=== PATIENT | male | born 1980 | race American Indian/Alaskan Native ===

== ENCOUNTER 2016-08-08 17:19 | Inpatient (IN) | payer MEDICARE, OTHER ==
[2016-08-08 19:10] VITALS: BMI 36.8
[2016-08-08] MEDS ORDERED: Albuterol-Ipratrop 3 mg / 0.5 (3 ml) UD INH PRN (23:08)
[2016-08-08] MEDS ORDERED: Oxycodone/Acetaminophen 5/325 mg Tab PO PRN (23:13)
--- NOTE | 2016-08-08 23:48 | CP.PCM.HP ---
History of Present Illness - History of Present Illness History of Present Illness: 35 yo with hx of CKD Dailysis admitted to acute rehab following bilateral Knee surgery Present on Admission - Present on Admission Any Indicators Present on Admission: No Past Patient History - Past Medical History & Family History Past Medical History?: Yes - Past Social History Smoking Status: Never Smoked - CARDIAC Hx Cardiac Disorders: Yes (Cardiomypathy) Hx Hypertension: Yes - PULMONARY Hx Asthma: Yes (last attack jan 2013) - NEUROLOGICAL Hx Neurological Disorder: No - HEENT Hx HEENT Problems: No - RENAL Hx Renal Failure: Yes (ESRD, CKD) - ENDOCRINE/METABOLIC Hx Endocrine Disorders: Yes - HEMATOLOGICAL/ONCOLOGICAL Hx Blood Disorders: Yes Hx Blood Transfusions: Yes (2010) - INTEGUMENTARY Hx Dermatological Problems: No - MUSCULOSKELETAL/RHEUMATOLOGICAL Hx Falls: No - GASTROINTESTINAL Hx Gastrointestinal Disorders: No - GENITOURINARY/GYNECOLOGICAL Hx Genitourinary Disorders: Yes Other/Comment: dialysis pt.doesn't make urine - PSYCHIATRIC Hx Substance Use: No - SURGICAL HISTORY Hx Surgeries: Yes Hx Arteriovenous Shunt: Yes (left upper arm 2010) Hx Vascular Access Device: Yes (2010, removed 2 months later) - ANESTHESIA Hx Anesthesia: Yes Hx Anesthesia Reactions: No Hx Malignant Hyperthermia: No Meds Allergies/Adverse Reactions: Allergies Allergy/AdvReac Type Severity Reaction Status Date / Time No Known Allergies Allergy Verified 08/02/16 11:19 Physical Exam - Respiratory Exam Respiratory Exam: NORMAL BREATHING PATTERN - Cardiovascular Exam Cardiovascular Exam: REGULAR RHYTHM - GI/Abdominal Exam GI & Abdominal Exam: Normal Bowel Sounds Assessment & Plan - Assessment and Plan (Free Text) Assessment: S/P bilateral Knee surgery acute rehab CKD HTN Dailysis Nephrology - Date & Time Date: 08/08/16 Time: 22:22
[2016-08-09] MEDS ORDERED: Oxycodone/Acetaminophen 5/325 mg Tab PO ONE (04:34)
[2016-08-09] MEDS ORDERED: SEVELAMER CARBONATE 2400 MG PO SCH (08:00)
[2016-08-09] MEDS: Multivitamin Vitamin B Complex (Nephro-Vite) Tab PO SCH (08:33)
[2016-08-09] MEDS: Oxycodone/Acetaminophen 5/325 mg Tab PO PRN ×2 (08:41→16:47)
[2016-08-09] MEDS: EPOETIN ALFA 10,000 UNIT/ML ML IV SCH ×3 (09:00→20:56)
--- NOTE | 2016-08-09 10:45 | CP.PCM.CON ---
History of Present Illness - History of Present Illness History of Present Illness: THE PATIENT IS A 35 YEAR OLD MALE ADMITTED TO ACUTE REHAB AT [facility] FOLLOWING BILATERAL KNEE TENDON SURGERY EARLIER THIS WEEK AT [facility]. HE HAS A HISTORY OF HYPERTENSION, CARDIOMYOPATHY AND ESRD ON HD. HE STATES THAT HE DEVELOPED CARDIOMYOPATHY FROM HYPERTENSION BEFORE IT WAS DIAGNOSED AND TREATED. HE DENIES CHEST PAIN OR CAD HISTORY. HE BELIEVES HIS LVEF IS ~ 30% AND HE HAD A DEFIBRILLATOR IMPLANTED IN 2016. CARDIOLOGY WAS ASKED TO SEE AND FOLLOW HIM IN ACUTE REHAB. Past Patient History - Past Medical History & Family History Past Medical History?: Yes - Past Social History Smoking Status: Never Smoked - CARDIAC Hx Cardiac Disorders: Yes (Cardiomypathy) Hx Hypertension: Yes - PULMONARY Hx Asthma: Yes (last attack jan 2013) - NEUROLOGICAL Hx Neurological Disorder: No - HEENT Hx HEENT Problems: No - RENAL Hx Renal Failure: Yes (ESRD, CKD) - ENDOCRINE/METABOLIC Hx Endocrine Disorders: Yes - HEMATOLOGICAL/ONCOLOGICAL Hx Blood Disorders: Yes Hx Blood Transfusions: Yes (2010) - INTEGUMENTARY Hx Dermatological Problems: No - MUSCULOSKELETAL/RHEUMATOLOGICAL Hx Falls: No - GASTROINTESTINAL Hx Gastrointestinal Disorders: No - GENITOURINARY/GYNECOLOGICAL Hx Genitourinary Disorders: Yes Other/Comment: dialysis pt.doesn't make urine - PSYCHIATRIC Hx Substance Use: No - SURGICAL HISTORY Hx Surgeries: Yes Hx Arteriovenous Shunt: Yes (left upper arm 2010) Hx Vascular Access Device: Yes (2010, removed 2 months later) - ANESTHESIA Hx Anesthesia: Yes Hx Anesthesia Reactions: No Hx Malignant Hyperthermia: No Meds Allergies/Adverse Reactions: Allergies Allergy/AdvReac Type Severity Reaction Status Date / Time No Known Allergies Allergy Verified 08/02/16 11:19 - Medications Medications: Current Medications Albuterol/Ipratropium (Duoneb 3 Mg/0.5 Mg (3 Ml) Ud) 3 ml INH RQ6 PRN PRN Reason: Shortness of Breath Ascorbic Acid (Vitamin C 500 Mg Tab) 500 mg PO DAILY [facility] Last Admin: 08/09/16 08:34 Dose: 500 mg Cinacalcet (Sensipar) 30 mg PO DAILY [facility] Last Admin: 08/09/16 08:34 Dose: 30 mg Epoetin René ([facility]) [facility] Famotidine (Pepcid) 20 mg PO DAILY [facility] Last Admin: 08/09/16 08:36 Dose: 20 mg Isosorbide Mononitrate (Imdur) 30 mg PO DAILY [facility] Last Admin: 08/09/16 08:33 Dose: 30 mg Lisinopril (Zestril) 10 mg PO DAILY [facility] Last Admin: 08/09/16 08:34 Dose: 10 mg Metoprolol Tartrate (Lopressor) 25 mg PO BID [facility] Oxycodone/Acetaminophen (Percocet 5/325 Mg Tab) 1 tab PO Q8 PRN PRN Reason: for pain scale 5-10 Stop: 08/11/16 21:21 Last Admin: 08/09/16 08:41 Dose: 1 tab Sevelamer HCl (Renagel) 2,400 mg PO TIDCC [facility] Last Admin: 08/09/16 08:34 Dose: 2,400 mg Tramadol HCl (Ultram) 50 mg PO Q12 [facility] Last Admin: 08/09/16 08:36 Dose: Not Given Vitamin B Complex/Vit C/Folic Acid (Nephro-Krissy) 1 tab PO DAILY [facility] Last Admin: 08/09/16 08:33 Dose: 1 tab Physical Exam - Respiratory Exam Respiratory Exam: Clear to Auscultation Bilateral - Cardiovascular Exam Cardiovascular Exam: REGULAR RHYTHM, +S1, +S2 Additional comments: 2/6 SYSTOLIC MURMUR AT THE LSB Results - Vital Signs Recent Vital Signs: Last Vital Signs Temp 98.6 F 08/08/16 19:30 Pulse 89 08/09/16 08:34 Resp 20 08/08/16 19:30 BP 136/85 08/09/16 08:34 Pulse Ox 99 08/08/16 19:30 Assessment & Plan - Assessment and Plan (Free Text) Assessment: S/P BILATERAL KNEE LIGAMENT SURGERY CARDIOMYPPATHY HYPERTENSION CRF ON HD Plan: CONTINUE LISINOPRIL, METOPROLOL, ISOSORBIDE 12 LEAD EKG OK TO PROCEED WITH ACUTE REHAB FROM [facility]
--- NOTE | 2016-08-09 13:43 | CP.PCM.CON ---
History of Present Illness - History of Present Illness History of Present Illness: 35 YEAR OLD MALE ADMITTED TO ACUTE REHAB AT [facility] FOLLOWING BILATERAL KNEE TENDON REPAIR FOR RUPTURED PATELLAR TENDONS REFERRED FOR ID EVAL FOR + BLOOD C/S AT DENIES FEVER CHILLS NO PAIN AT LEFT ARM AV FISTULA SITE AND NO PAIN OVER DEFIBRILLATOR WOUNDS ARE DRY STARTED ON IV ANTIBIOTICS REPEAT CULTURES PENDING HISTORY OF HYPERTENSION, CARDIOMYOPATHY AND ESRD ON HD. HAD A DEFIBRILLATOR IMPLANTED IN 2016. Review of Systems - Constitutional Constitutional: As Per HPI - EENT Eyes: absent: As Per HPI, Blind Spots, Blurred Vision, Change in Vision, Decreased Night Vision, Diplopia, Discharge, Dry Eye, Exophthalmos, Floaters, Irritation, Itchy Eyes, Loss of Peripheral Vision, Pain, Photophobia, Requires Corrective Lenses, Sees Flashes, Spots in Vision, Tunnel Vision, Other Visual Disturbances, Loss of Vision, Other Ears: absent: As Per HPI, Decreased Hearing, Ear Discharge, Ear Pain, Tinnitus, Abnormal Hearing, Disequilibrium, Dizziness, Other Nose/Mouth/Throat: absent: As Per HPI, Epistaxis, Nasal Congestion, Nasal Discharge, Nasal Obstruction, Nasal Trauma, Nose Pain, Post Nasal Drip, Sinus Pain, Sinus Pressure, Bleeding Gums, Change in Voice, Dental Pain, Dry Mouth, Dysphagia, Halitosis, Hoarsness, Lip Swelling, Mouth Lesions, Mouth Pain, Odynophagia, Sore Throat, Throat Swelling, Tongue Swelling, Facial Pain, Neck Pain, Neck Mass, Other - Cardiovascular Cardiovascular: As Per HPI - Respiratory Respiratory: absent: As Per HPI, Cough, Dyspnea, Hemoptysis, Dyspnea on Exertion , Wheezing, Snoring, Stridor, Pain on Inspiration, Chest Congestion, Excessive Mucous Production, Change in Mucous Color, Pain with Coughing, Other - Gastrointestinal Gastrointestinal: absent: As Per HPI, Abdominal Pain, Belching, Bloating, Change in Bowel Habits, Change in Stool Character, Coffee Ground Emesis, Constipation, Cramping, Diarrhea, Dyspepsia, Dysphagia, Early Satiety, Excessive Flatus, Fecal Incontinence, Heartburn, Hematemesis, Hematochezia, Loose Stools, Melena, Nausea, Odynophagia, Temesmus, Vomiting, Other - Genitourinary Genitourinary: absent: As Per HPI, Change in Urinary Stream, Difficulty Urinating, Dysuria, Flank Pain, Hematuria, Pyuria, Nocturia, Urinary Incontinence, Urinary Frequency, Urinary Hesitance, Urinary Urgency, Voiding Freq/Small Amts, Freq UTI, Hx Renal/Bladder Calculi, Hx /Renal Surgery, Bladder Distension, Other - Musculoskeletal Musculoskeletal: As Per HPI - Integumentary Integumentary: absent: As Per HPI, Acne, Alopecia, Bleeding Lesions, Change in Hair, Change in Nails, Change in Pigmentation, Changing Lesions, Dry Skin, Erythema, Furuncle, Hirsutism, Lesions, New Lesions, Non-Healing Lesions, Photosensitivity, Pruritus, Rash, Skin Pain, Skin Ulcer, Sores, Striae, Swelling , Unusual Bruising, Wounds, Jaundice, Other - Neurological Neurological: absent: As Per HPI, Abnormal Gait, Abnormal Hearing, Abnormal Movements, Abnormal Speech, Behavioral Changes, Burning Sensations, Confusion, Convulsions, Disequilibrium, Dizziness, Numbness, Focal Weakness, Frequent Falls , Headaches, Lack of Coordination, Loss of Vision, Memory Loss, Paresthesias, Radicular Pain, Restless Legs, Sensory Deficit, Syncope, Tingling, Tremor, Vertigo, Weakness, Other Visual Disturbances, Other - Psychiatric Psychiatric: absent: As Per HPI, Abnormal Sleep Pattern, Anhedonia, Anxiety, Auditory Hallucinations, Behavioral Changes, Change in Appetite, Change in Libido, Confusion, Depression, Difficulty Concentrating, Hallucinations, Homicidal Ideation, Hopelessness, Irritability, Memory Loss, Mood Swings, Panic Attacks, Paranoia, Suicidal Ideation, Visual Hallucinations, Tactile Hallucinations, Other - Endocrine Endocrine: absent: As Per HPI, Change in Body Appearance, Change in Libido, Cold Intolorance, Deepening of Voice, Excessive Sweating, Fatigue, Flushing, Heat Intolorance, Increase in Ring/Shoe/Hat Size, Palpitations, Polydipsia, Polyphagia, Polyuria, Other - Hematologic/Lymphatic Hematologic: absent: As Per HPI, Easy Bleeding, Easy Bruising, Lymphadenopathy, Other Past Patient History - Past Medical History & Family History Past Medical History?: Yes - Past Social History Smoking Status: Never Smoked - CARDIAC Hx Cardiac Disorders: Yes (Cardiomypathy) Hx Hypertension: Yes - PULMONARY Hx Asthma: Yes (last attack jan 2013) - NEUROLOGICAL Hx Neurological Disorder: No - HEENT Hx HEENT Problems: No - RENAL Hx Renal Failure: Yes (ESRD, CKD) - ENDOCRINE/METABOLIC Hx Endocrine Disorders: Yes - HEMATOLOGICAL/ONCOLOGICAL Hx Blood Disorders: Yes Hx Blood Transfusions: Yes (2010) - INTEGUMENTARY Hx Dermatological Problems: No - MUSCULOSKELETAL/RHEUMATOLOGICAL Hx Falls: No - GASTROINTESTINAL Hx Gastrointestinal Disorders: No - GENITOURINARY/GYNECOLOGICAL Hx Genitourinary Disorders: Yes Other/Comment: dialysis pt.doesn't make urine - PSYCHIATRIC Hx Substance Use: No - SURGICAL HISTORY Hx Surgeries: Yes Hx Arteriovenous Shunt: Yes (left upper arm 2010) Hx Vascular Access Device: Yes (2010, removed 2 months later) - ANESTHESIA Hx Anesthesia: Yes Hx Anesthesia Reactions: No Hx Malignant Hyperthermia: No Meds Allergies/Adverse Reactions: Allergies Allergy/AdvReac Type Severity Reaction Status Date / Time No Known Allergies Allergy Verified 08/02/16 11:19 - Medications Medications: Current Medications Albuterol/Ipratropium (Duoneb 3 Mg/0.5 Mg (3 Ml) Ud) 3 ml INH RQ6 PRN PRN Reason: Shortness of Breath Ascorbic Acid (Vitamin C 500 Mg Tab) 500 mg PO DAILY [facility] Last Admin: 08/09/16 08:34 Dose: 500 mg Cinacalcet (Sensipar) 30 mg PO DAILY [facility] Last Admin: 08/09/16 08:34 Dose: 30 mg Epoetin René (Procrit) 10,000 unit IV [facility] Famotidine (Pepcid) 20 mg PO DAILY [facility] Last Admin: 08/09/16 08:36 Dose: 20 mg Vancomycin HCl 1,000 mg/ (Sodium Chloride) 250 mls @ 250 mls/hr IVPB [facility] Isosorbide Mononitrate (Imdur) 30 mg PO DAILY [facility] Last Admin: 08/09/16 08:33 Dose: 30 mg Lisinopril (Zestril) 10 mg PO DAILY [facility] Last Admin: 08/09/16 08:34 Dose: 10 mg Metoprolol Tartrate (Lopressor) 25 mg PO BID [facility] Last Admin: 08/09/16 10:00 Dose: 25 mg Oxycodone/Acetaminophen (Percocet 5/325 Mg Tab) 1 tab PO Q8 PRN PRN Reason: for pain scale 5-10 Stop: 08/11/16 21:21 Last Admin: 08/09/16 08:41 Dose: 1 tab Sevelamer HCl (Renagel) 2,400 mg PO TIDCC [facility] Last Admin: 08/09/16 12:00 Dose: 2,400 mg Tramadol HCl (Ultram) 50 mg PO Q12 [facility] Last Admin: 08/09/16 08:36 Dose: Not Given Vitamin B Complex/Vit C/Folic Acid (Nephro-Krissy) 1 tab PO DAILY [facility] Last Admin: 08/09/16 08:33 Dose: 1 tab Physical Exam - Constitutional Appears: Non-toxic, Chronically Ill - Head Exam Head Exam: NORMOCEPHALIC - Eye Exam Eye Exam: PERRL. absent: Scleral icterus - ENT Exam ENT Exam: Mucous Membranes Dry - Neck Exam Neck exam: Negative for: Lymphadenopathy - Respiratory Exam Respiratory Exam: Decreased Breath Sounds, Clear to Auscultation Bilateral - Cardiovascular Exam Cardiovascular Exam: REGULAR RHYTHM, +S1, +S2 - GI/Abdominal Exam GI & Abdominal Exam: Diminished Bowel Sounds, Soft. absent: Tenderness - Rectal Exam Rectal Exam: Deferred - Exam Exam: NORMAL INSPECTION - Extremities Exam Extremities exam: Positive for: pedal pulses present. Negative for: calf tenderness, pedal edema, tenderness - Back Exam Back exam: absent: CVA tenderness (L), CVA tenderness (R) - Neurological Exam Neurological exam: Alert, CN II-XII Intact, Oriented x3, Reflexes Normal - Psychiatric Exam Psychiatric exam: Normal Mood - Skin Skin Exam: Dry, Intact Results - Vital Signs Recent Vital Signs: Last Vital Signs Temp 98 F 08/09/16 10:00 Pulse 85 08/09/16 10:00 Resp 20 08/09/16 10:00 BP 140/70 08/09/16 10:00 Pulse Ox 98 08/09/16 10:00 Assessment & Plan (1) Bacteremia Status: Acute (2) Bacteremia due to coagulase-negative Staphylococcus Status: Acute (3) Bacteremia due to coagulase-negative Staphylococcus Status: Acute (4) Patellar tendon rupture Status: Acute (5) Dilated cardiomyopathy Status: Chronic (6) ESRD (end stage renal disease) on dialysis Status: Chronic (7) HTN (hypertension) Status: Chronic - Assessment and Plan (Free Text) Assessment: CONT IV RX FOR NOW AWAIT REPEAT CULTURES
--- NOTE | 2016-08-09 15:36 | CP.PCM.CON ---
History of Present Illness - History of Present Illness History of Present Illness: Dr Verde PMR consultation on Bari Zeng, born 1980 who has been admitted to [facility] for acute inpatient rehabilitation following bilateral tendon ruptures. He was just standing up quickly from his couch He has long standing ESRD for 5 years on HD. Good access left UE. Post op obviously in bilateral knee immobilizers. He was using a cane [employer] and had a wheelchair as well Review of Systems - Constitutional Constitutional: absent: Anorexia, Chills - EENT Ears: absent: Decreased Hearing Nose/Mouth/Throat: absent: Nasal Congestion, Nasal Discharge, Sinus Pressure, Bleeding Gums, Dysphagia, Facial Pain - Cardiovascular Cardiovascular: absent: Chest Pain, Rapid Heart Rate - Respiratory Respiratory: absent: Dyspnea - Gastrointestinal Gastrointestinal: Constipation (mild from pain meds). absent: Abdominal Pain - Genitourinary Genitourinary: Other (anuria given ESRD) - Integumentary Integumentary: absent: Bleeding Lesions - Neurological Neurological: absent: Abnormal Hearing, Abnormal Movements, Memory Loss Past Patient History - Past Medical History & Family History Past Medical History?: Yes - Past Social History Smoking Status: Never Smoked Home Situation {Lives}: With Family - CARDIAC Hx Cardiac Disorders: Yes (Cardiomypathy) Hx Hypertension: Yes - PULMONARY Hx Asthma: Yes (last attack jan 2013) - NEUROLOGICAL Hx Neurological Disorder: No - HEENT Hx HEENT Problems: No - RENAL Hx Renal Failure: Yes (ESRD, CKD) - ENDOCRINE/METABOLIC Hx Endocrine Disorders: Yes - HEMATOLOGICAL/ONCOLOGICAL Hx Blood Disorders: Yes Hx Blood Transfusions: Yes (2010) - INTEGUMENTARY Hx Dermatological Problems: No - MUSCULOSKELETAL/RHEUMATOLOGICAL Hx Falls: No - GASTROINTESTINAL Hx Gastrointestinal Disorders: No - GENITOURINARY/GYNECOLOGICAL Hx Genitourinary Disorders: Yes Other/Comment: dialysis pt.doesn't make urine - PSYCHIATRIC Hx Substance Use: No - SURGICAL HISTORY Hx Surgeries: Yes Hx Arteriovenous Shunt: Yes (left upper arm 2010) Hx Vascular Access Device: Yes (2010, removed 2 months later) - ANESTHESIA Hx Anesthesia: Yes Hx Anesthesia Reactions: No Hx Malignant Hyperthermia: No Meds Allergies/Adverse Reactions: Allergies Allergy/AdvReac Type Severity Reaction Status Date / Time No Known Allergies Allergy Verified 08/02/16 11:19 - Medications Medications: Current Medications Albuterol/Ipratropium (Duoneb 3 Mg/0.5 Mg (3 Ml) Ud) 3 ml INH RQ6 PRN PRN Reason: Shortness of Breath Ascorbic Acid (Vitamin C 500 Mg Tab) 500 mg PO DAILY [facility] Last Admin: 08/09/16 08:34 Dose: 500 mg Cinacalcet (Sensipar) 30 mg PO DAILY [facility] Last Admin: 08/09/16 08:34 Dose: 30 mg Epoetin René (Procrit) 10,000 unit IV [facility] Famotidine (Pepcid) 20 mg PO DAILY [facility] Last Admin: 08/09/16 08:36 Dose: 20 mg Vancomycin HCl 1 gm/ Sodium (Chloride) 250 mls @ 166.667 mls/hr [facility] Isosorbide Mononitrate (Imdur) 30 mg PO DAILY [facility] Last Admin: 08/09/16 08:33 Dose: 30 mg Lisinopril (Zestril) 10 mg PO DAILY [facility] Last Admin: 08/09/16 08:34 Dose: 10 mg Metoprolol Tartrate (Lopressor) 25 mg PO BID [facility] Last Admin: 08/09/16 10:00 Dose: 25 mg Oxycodone/Acetaminophen (Percocet 5/325 Mg Tab) 1 tab PO Q8 PRN PRN Reason: for pain scale 5-10 Stop: 08/11/16 21:21 Last Admin: 08/09/16 08:41 Dose: 1 tab Sevelamer HCl (Renagel) 2,400 mg PO TIDCC [facility] Last Admin: 08/09/16 12:00 Dose: 2,400 mg Tramadol HCl (Ultram) 50 mg PO Q12 [facility] Last Admin: 08/09/16 08:36 Dose: Not Given Vitamin B Complex/Vit C/Folic Acid (Nephro-Krissy) 1 tab PO DAILY [facility] Last Admin: 08/09/16 08:33 Dose: 1 tab Physical Exam - Constitutional Appears: Non-toxic, No Acute Distress - Head Exam Head Exam: ATRAUMATIC, NORMAL INSPECTION, NORMOCEPHALIC - Eye Exam Eye Exam: EOMI - ENT Exam ENT Exam: Mucous Membranes Moist - Respiratory Exam Respiratory Exam: NORMAL BREATHING PATTERN. absent: Chest Wall Tenderness - Cardiovascular Exam Cardiovascular Exam: REGULAR RHYTHM - GI/Abdominal Exam GI & Abdominal Exam: absent: Distended, Firm - Extremities Exam Extremities exam: Negative for: full ROM (bilateral knee immobilizers) Results - Vital Signs Recent Vital Signs: Last Vital Signs Temp 98 F 08/09/16 10:00 Pulse 85 08/09/16 10:00 Resp 20 08/09/16 10:00 BP 140/70 08/09/16 10:00 Pulse Ox 98 08/09/16 10:00 Assessment & Plan - Assessment and Plan (Free Text) Assessment: 35 year old male esrd s/p bilateral patellar tendon repair PT/OT to continue to help increase functional independence. immobilizer all times Team conference for d/c planning Pain: controlled Vascular: no evidence of DVT GI: constipation from pain meds Patient is an excellent acute rehabilitation candidate and will have focused pain management, wound care, PT, OT and recreational therapy to help facilitate a safe and appropriate d/c plan Plan: Impairment code: 08.9
--- NOTE | 2016-08-09 15:41 | CP.PCM.PN ---
Subjective - Date & Time of Evaluation Date of Evaluation: 08/09/16 Time of Evaluation: 15:40 - Subjective Subjective: bilateral patellar tendon repair Objective - Vital Signs/Intake and Output Vital Signs (last 24 hours): Temp Pulse Resp BP Pulse Ox 98 F 85 20 140/70 98 08/09/16 10:00 08/09/16 10:00 08/09/16 10:00 08/09/16 10:00 08/09/16 10:00 - Medications Medications: Current Medications Albuterol/Ipratropium (Duoneb 3 Mg/0.5 Mg (3 Ml) Ud) 3 ml INH RQ6 PRN PRN Reason: Shortness of Breath Ascorbic Acid (Vitamin C 500 Mg Tab) 500 mg PO DAILY [facility] Last Admin: 08/09/16 08:34 Dose: 500 mg Cinacalcet (Sensipar) 30 mg PO DAILY [facility] Last Admin: 08/09/16 08:34 Dose: 30 mg Epoetin René (Procrit) 10,000 unit IV MWF [facility] Famotidine (Pepcid) 20 mg PO DAILY [facility] Last Admin: 08/09/16 08:36 Dose: 20 mg Vancomycin HCl 1 gm/ Sodium (Chloride) 250 mls @ 166.667 mls/hr IVPB MWF [facility] Isosorbide Mononitrate (Imdur) 30 mg PO DAILY [facility] Last Admin: 08/09/16 08:33 Dose: 30 mg Lisinopril (Zestril) 10 mg PO DAILY [facility] Last Admin: 08/09/16 08:34 Dose: 10 mg Metoprolol Tartrate (Lopressor) 25 mg PO BID [facility] Last Admin: 08/09/16 10:00 Dose: 25 mg Oxycodone/Acetaminophen (Percocet 5/325 Mg Tab) 1 tab PO Q8 PRN PRN Reason: for pain scale 5-10 Stop: 08/11/16 21:21 Last Admin: 08/09/16 08:41 Dose: 1 tab Sevelamer HCl (Renagel) 2,400 mg PO TIDCC [facility] Last Admin: 08/09/16 12:00 Dose: 2,400 mg Tramadol HCl (Ultram) 50 mg PO Q12 [facility] Last Admin: 08/09/16 08:36 Dose: Not Given Vitamin B Complex/Vit C/Folic Acid (Nephro-Krissy) 1 tab PO DAILY [facility] Last Admin: 08/09/16 08:33 Dose: 1 tab Physiatry Overall Plan of Care - Overall Plan of Care Estimated Length of Stay in Weeks: 3 Rehab Impairment: Mobility, Gait, Balance Etiologic Diagnosis: Other (patellar tendon surgery) - Anticipated Interventions Physical Therapy:: Yes Occupational Therapy:: Yes Speech Therapy:: No Recreational Therapy:: Yes - Therapy Goals Bed Mobility: Supervision Ambulation: Supervision Functional Positional Changes:: Supervision - Discharge Plan Identification of Barriers to Discharge: Home Situation Discharge Destination: Home
--- NOTE | 2016-08-09 19:33 | CP.PCM.PN ---
Subjective - Date & Time of Evaluation Date of Evaluation: 08/09/16 Time of Evaluation: 22:22 - Subjective Subjective: Above noted PT today Objective - Vital Signs/Intake and Output Vital Signs (last 24 hours): Temp Pulse Resp BP Pulse Ox 98 F 89 20 130/70 98 08/09/16 10:00 08/09/16 16:40 08/09/16 10:00 08/09/16 16:40 08/09/16 10:00 - Medications Medications: Current Medications Acetaminophen (Tylenol 325mg Tab) 650 mg PO Q6 PRN PRN Reason: for pain scale 1-4 Albuterol/Ipratropium (Duoneb 3 Mg/0.5 Mg (3 Ml) Ud) 3 ml INH RQ6 PRN PRN Reason: Shortness of Breath Ascorbic Acid (Vitamin C 500 Mg Tab) 500 mg PO DAILY [facility] Last Admin: 08/09/16 08:34 Dose: 500 mg Cinacalcet (Sensipar) 30 mg PO DAILY [facility] Last Admin: 08/09/16 08:34 Dose: 30 mg Epoetin René (Procrit) 10,000 unit IV [facility] [place] Last Admin: 08/09/16 09:00 Dose: Not Given Epoetin René (Procrit) 10,000 unit IV [facility] Stop: 08/23/16 09:01 Famotidine (Pepcid) 20 mg PO DAILY [facility] Last Admin: 08/09/16 08:36 Dose: 20 mg Heparin Sodium (Porcine) (Heparin) 5,000 units SC Q12 [facility] PRN Reason: Protocol Vancomycin HCl 1 gm/ Sodium (Chloride) 250 mls @ 166.667 mls/hr IVPB [facility] Vancomycin HCl 1 gm/ Sodium (Chloride) 250 mls @ 166.667 mls/hr IVPB ONCE ONE Stop: 08/09/16 19:29 Iron Sucrose 100 mg/ Sodium (Chloride) 105 mls @ 105 mls/hr IVPB [facility] Stop: 08/21/16 09:59 Isosorbide Mononitrate (Imdur) 30 mg PO DAILY [facility] Last Admin: 08/09/16 08:33 Dose: 30 mg Lisinopril (Zestril) 10 mg PO DAILY [facility] Last Admin: 08/09/16 08:34 Dose: 10 mg Metoprolol Tartrate (Lopressor) 25 mg PO BID [facility] Last Admin: 08/09/16 16:40 Dose: Not Given Oxycodone/Acetaminophen (Percocet 5/325 Mg Tab) 1 tab PO Q8 PRN PRN Reason: for pain scale 5-10 Stop: 08/11/16 21:21 Last Admin: 08/09/16 16:47 Dose: 1 tab Sevelamer HCl (Renagel) 2,400 mg PO TIDCC [facility] Last Admin: 08/09/16 12:00 Dose: 2,400 mg Tramadol HCl (Ultram) 50 mg PO Q12 [facility] Last Admin: 08/09/16 08:36 Dose: Not Given Vitamin B Complex/Vit C/Folic Acid (Nephro-Krissy) 1 tab PO DAILY [facility] Last Admin: 08/09/16 08:33 Dose: 1 tab - Respiratory Exam Respiratory Exam: NORMAL BREATHING PATTERN - Cardiovascular Exam Cardiovascular Exam: REGULAR RHYTHM - GI/Abdominal Exam GI & Abdominal Exam: Normal Bowel Sounds Assessment and Plan - Assessment and Plan (Free Text) Assessment: S/P bilateral Knee surgery acute rehab + blood cs ABX ID ESRD CKD HTN Dialysis Nephrology Cardiomyopathy defibrillator Cardiology - Date & Time
[2016-08-10] MEDS: Oxycodone/Acetaminophen 5/325 mg Tab PO PRN ×3 (00:07→23:42)
--- NOTE | 2016-08-10 07:27 | CP.PCM.CON ---
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 WITH MMP AN FREQUENT ADMISIONS WAS TRANSFERED FROM TO ACUTE REHAB .. PT IS S/P PATELLAR TENDON RUPTURE AND REPAIR SEEN ON RENAL CONSULT WELL HD .. HD ORDERS GIVEN AND D/W THE HD-RN HPI: 35M with PMHxof ESRD, Dialysis, HTN, asthma, and cardiomyopathy presented to the ER due to left knee pain. He states that he was discharged on Friday from [facility] and was told that he had ruptured both of his patellar tendons. He was told to follow up with Dr. Cuevas as an outpatient for his surgery and was given pain medications prior to discharge. He states that on Friday he was icing his knees to help with the pain. He states that he had to take off his knee braces to ice them and he believes that he didn't tighten the left one correctly. He then states that later that day he began to have severe pain even though he barely walked or put weight on his knees. Friday he states he was bed bound due to the pain and thus, missed his Friday scheduled Dialysis. He reports the pain as localized to the knees bilaterally with the left being more painful. Patient is scheduled outpatient surgery next week with Dr Cuevas. Denies Chest pain, sob, palpitations, fever, chills weakness, numbness, tingling, nausea or vomiting. PMHx- ESRD, Dialysis, HTN, asthma, and cardiomyopathy PSHx- AICD, Fistula on left arm for dialysis Meds: As per MAR Allergies- NKDA Soc Hx- denies tobacco, alcohol , and drug use. Lives with [employer] and works in [employer] FamHx- HTN Past Patient History - Past Medical History & Family History Past Medical History?: Yes - Past Social History Smoking Status: Never Smoked Home Situation {Lives}: With Family - CARDIAC Hx Cardiac Disorders: Yes (Cardiomypathy) Hx Hypertension: Yes - PULMONARY Hx Asthma: Yes (last attack jan 2013) - NEUROLOGICAL Hx Neurological Disorder: No - HEENT Hx HEENT Problems: No - RENAL Hx Renal Failure: Yes (ESRD, CKD) - ENDOCRINE/METABOLIC Hx Endocrine Disorders: Yes - HEMATOLOGICAL/ONCOLOGICAL Hx Blood Disorders: Yes Hx Blood Transfusions: Yes (2010) - INTEGUMENTARY Hx Dermatological Problems: No - MUSCULOSKELETAL/RHEUMATOLOGICAL Hx Falls: No - GASTROINTESTINAL Hx Gastrointestinal Disorders: No - GENITOURINARY/GYNECOLOGICAL Hx Genitourinary Disorders: Yes Other/Comment: dialysis pt.doesn't make urine - PSYCHIATRIC Hx Substance Use: No - SURGICAL HISTORY Hx Surgeries: Yes Hx Arteriovenous Shunt: Yes (left upper arm 2010) Hx Vascular Access Device: Yes (2010, removed 2 months later) - ANESTHESIA Hx Anesthesia: Yes Hx Anesthesia Reactions: No Hx Malignant Hyperthermia: No Meds Allergies/Adverse Reactions: Allergies Allergy/AdvReac Type Severity Reaction Status Date / Time No Known Allergies Allergy Verified 08/02/16 11:19 - Medications Medications: Current Medications Acetaminophen (Tylenol 325mg Tab) 650 mg PO Q6 PRN PRN Reason: for pain scale 1-4 Last Admin: 08/10/16 06:14 Dose: 650 mg Albuterol/Ipratropium (Duoneb 3 Mg/0.5 Mg (3 Ml) Ud) 3 ml INH RQ6 PRN PRN Reason: Shortness of Breath Ascorbic Acid (Vitamin C 500 Mg Tab) 500 mg PO DAILY [facility] Last Admin: 08/09/16 08:34 Dose: 500 mg Cinacalcet (Sensipar) 30 mg PO DAILY [facility] Last Admin: 08/09/16 08:34 Dose: 30 mg Epoetin René (Procrit) 10,[address] [facility] Last Admin: 08/09/16 09:00 Dose: Not Given Epoetin René (Procrit) 10,[address] [facility] Stop: 08/23/16 09:01 Last Admin: 08/09/16 20:56 Dose: Not Given Famotidine (Pepcid) 20 mg PO DAILY [facility] Last Admin: 08/09/16 08:36 Dose: 20 mg Heparin Sodium (Porcine) (Heparin) 5,000 units SC Q12 [facility] PRN Reason: Protocol Last Admin: 08/09/16 21:43 Dose: 5,000 units Vancomycin HCl 1 gm/ Sodium (Chloride) 250 mls @ 166.667 mls[facility] Iron Sucrose 100 mg/ Sodium (Chloride) 105 mls @ 105 mls/hr IVPB [facility] Stop: 08/21/16 09:59 Last Admin: 08/09/16 20:57 Dose: Not Given Isosorbide Mononitrate (Imdur) 30 mg PO DAILY [facility] Last Admin: 08/09/16 08:33 Dose: 30 mg Lisinopril (Zestril) 10 mg PO DAILY [facility] Last Admin: 08/09/16 08:34 Dose: 10 mg Metoprolol Tartrate (Lopressor) 25 mg PO BID [facility] Last Admin: 08/09/16 16:40 Dose: Not Given Oxycodone/Acetaminophen (Percocet 5/325 Mg Tab) 1 tab PO Q8 PRN PRN Reason: for pain scale 5-10 Stop: 08/11/16 21:21 Last Admin: 08/10/16 00:07 Dose: 1 tab Sevelamer HCl (Renagel) 2,400 mg PO TIDCC [facility] Last Admin: 08/09/16 20:29 Dose: 2,400 mg Tramadol HCl (Ultram) 50 mg PO Q12 [facility] Last Admin: 08/09/16 21:55 Dose: Not Given Vitamin B Complex/Vit C/Folic Acid (Nephro-Krissy) 1 tab PO DAILY [facility] Last Admin: 08/09/16 08:33 Dose: 1 tab Results - Vital Signs Recent Vital Signs: Last Vital Signs Temp 98.1 F 08/09/16 20:33 Pulse 96 H 08/09/16 20:33 Resp 20 08/09/16 20:33 BP 138/81 08/09/16 20:33 Pulse Ox 95 08/09/16 20:33 Assessment & Plan - Assessment and Plan (Free Text) Assessment: ESRD ON HD M W F .. TO BE C/O ANEMIA OF CKD .. H/H R LOW .. START ON EPO AND VENOFER ON HD MBD .. ON PHOSPHATE BINDERS .. ON SENSIPAR .. WILL CHECK PHOSPHORUS , CA AND PTH MMP ..MULTIPLE CO MORBIDITIES .. C/O CURRENT CARE - Date & Time Date: 08/09/16 Time: 14:00
[2016-08-10] MEDS: Multivitamin Vitamin B Complex (Nephro-Vite) Tab PO SCH (08:58)
--- NOTE | 2016-08-10 12:52 | CARD ---
APPROVED REPORT EKG Measurement Heart [id number] <Conclusion> Sinus tachycardia Voltage criteria for left ventricular hypertrophy Nonspecific T wave abnormality Abnormal ECG
--- NOTE | 2016-08-10 13:47 | CP.PCM.PN ---
Subjective - Date & Time of Evaluation Date of Evaluation: 08/10/16 Time of Evaluation: 13:30 - Subjective Subjective: NO CHEST PAIN OR SOB Objective - Vital Signs/Intake and Output Vital Signs (last 24 hours): Temp Pulse Resp BP Pulse Ox 98.1 F 90 20 150/90 95 08/09/16 20:33 08/10/16 08:58 08/09/16 20:33 08/10/16 08:58 08/09/16 20:33 - Medications Medications: Current Medications Acetaminophen (Tylenol 325mg Tab) 650 mg PO Q6 PRN PRN Reason: for pain scale 1-4 Last Admin: 08/10/16 06:14 Dose: 650 mg Albuterol/Ipratropium (Duoneb 3 Mg/0.5 Mg (3 Ml) Ud) 3 ml INH RQ6 PRN PRN Reason: Shortness of Breath Ascorbic Acid (Vitamin C 500 Mg Tab) 500 mg PO DAILY [facility] Last Admin: 08/10/16 08:57 Dose: 500 mg Cinacalcet (Sensipar) 30 mg PO DAILY [facility] Last Admin: 08/10/16 08:56 Dose: 30 mg Epoetin René (Procrit) 10,000 unit IV [facility] [place] Last Admin: 08/09/16 09:00 Dose: Not Given Epoetin René (Procrit) 10,000 unit IV [facility] Stop: 08/23/16 09:01 Last Admin: 08/09/16 20:56 Dose: Not Given Famotidine (Pepcid) 20 mg PO DAILY [facility] Last Admin: 08/10/16 08:57 Dose: 20 mg Heparin Sodium (Porcine) (Heparin) 5,000 units SC Q12 [facility] PRN Reason: Protocol Last Admin: 08/10/16 08:56 Dose: 5,000 units Vancomycin HCl 1 gm/ Sodium (Chloride) 250 mls @ 166.667 mls/hr IVPB [facility] Iron Sucrose 100 mg/ Sodium (Chloride) 105 mls @ 105 mls/hr IVPB [facility] Stop: 08/21/16 09:59 Last Admin: 08/09/16 20:57 Dose: Not Given Isosorbide Mononitrate (Imdur) 30 mg PO DAILY [facility] Last Admin: 08/10/16 08:58 Dose: 30 mg Lisinopril (Zestril) 10 mg PO DAILY [facility] Last Admin: 08/10/16 08:58 Dose: 10 mg Metoprolol Tartrate (Lopressor) 25 mg PO BID [facility] Last Admin: 08/10/16 08:57 Dose: 25 mg Oxycodone/Acetaminophen (Percocet 5/325 Mg Tab) 1 tab PO Q8 PRN PRN Reason: for pain scale 5-10 Stop: 08/11/16 21:21 Last Admin: 08/10/16 09:02 Dose: 1 tab Sevelamer HCl (Renagel) 2,400 mg PO TIDCC [facility] Last Admin: 08/10/16 12:27 Dose: 2,400 mg Tramadol HCl (Ultram) 50 mg PO Q12 [facility] Last Admin: 08/10/16 09:00 Dose: Not Given Vitamin B Complex/Vit C/Folic Acid (Nephro-Krissy) 1 tab PO DAILY [facility] Last Admin: 08/10/16 08:58 Dose: 1 tab - Respiratory Exam Respiratory Exam: Clear to Ausculation Bilateral - Cardiovascular Exam Cardiovascular Exam: REGULAR RHYTHM, +S1, +S2 - Additional Findings Additional findings: EKG ST, R 101, LVE Assessment and Plan - Assessment and Plan (Free Text) Assessment: BILATERAL KNEE LIGAMENT SURGERY CARDIOMYOPATHY HYPERTENSION CRF ON HD Plan: CONTINUE METOPROLOL, LISINOPRIL, ISOSORBIDE, HEPARIN AND ANTIBIOTICS CONTINUE REHAB
--- NOTE | 2016-08-10 20:13 | CP.PCM.PN ---
Subjective - Date & Time of Evaluation Date of Evaluation: 08/10/16 Time of Evaluation: 22:22 - Subjective Subjective: No complaints Objective - Vital Signs/Intake and Output Vital Signs (last 24 hours): Temp Pulse Resp BP Pulse Ox 98.1 F 90 20 150/90 95 08/09/16 20:33 08/10/16 08:58 08/09/16 20:33 08/10/16 08:58 08/09/16 20:33 - Medications Medications: Current Medications Acetaminophen (Tylenol 325mg Tab) 650 mg PO Q6 PRN PRN Reason: for pain scale 1-4 Last Admin: 08/10/16 06:14 Dose: 650 mg Albuterol/Ipratropium (Duoneb 3 Mg/0.5 Mg (3 Ml) Ud) 3 ml INH RQ6 PRN PRN Reason: Shortness of Breath Ascorbic Acid (Vitamin C 500 Mg Tab) 500 mg PO DAILY [facility] Last Admin: 08/10/16 08:57 Dose: 500 mg Bacitracin (Bacitracin Oint) 1 applic TOP DAILY [facility] Cinacalcet (Sensipar) 30 mg PO DAILY [facility] Last Admin: 08/10/16 08:56 Dose: 30 mg Epoetin René (Procrit) 10,000 unit IV [facility] [place] Last Admin: 08/09/16 09:00 Dose: Not Given Epoetin [facility] (Procrit) [facility] Stop: 08/23/16 09:01 Last Admin: 08/09/16 20:56 Dose: Not Given Famotidine (Pepcid) 20 mg PO DAILY [facility] Last Admin: 08/10/16 08:57 Dose: 20 mg Heparin Sodium (Porcine) (Heparin) 5,000 units SC Q12 [facility] PRN Reason: Protocol Last Admin: 08/10/16 08:56 Dose: 5,000 units Vancomycin HCl 1 gm/ Sodium (Chloride) 250 mls @ [facility] Suc[facility] 100 mg/ Sodium (Chloride) 105 mls @ 105 mls/hr IVPB [facility] [place] Stop: 08/21/16 09:59 Last Admin: 08/09/16 20:57 Dose: Not Given Isosorbide Mononitrate (Imdur) 30 mg PO DAILY [facility] Last Admin: 08/10/16 08:58 Dose: 30 mg Lisinopril (Zestril) 10 mg PO DAILY [facility] Last Admin: 08/10/16 08:58 Dose: 10 mg Metoprolol Tartrate (Lopressor) 25 mg PO Q12 [facility] Oxycodone/Acetaminophen (Percocet 5/325 Mg Tab) 1 tab PO Q8 PRN PRN Reason: for pain scale 5-10 Stop: 08/11/16 21:21 Last Admin: 08/10/16 09:02 Dose: 1 tab Sevelamer HCl (Renagel) 2,400 mg PO TIDCC [facility] Last Admin: 08/10/16 17:32 Dose: 2,400 mg Tramadol HCl (Ultram) 50 mg PO Q12 [facility] Last Admin: 08/10/16 09:00 Dose: Not Given Vitamin B Complex/Vit C/Folic Acid (Nephro-Krissy) 1 tab PO DAILY [facility] Last Admin: 08/10/16 08:58 Dose: 1 tab - Respiratory Exam Respiratory Exam: Wheezes, NORMAL BREATHING PATTERN - Cardiovascular Exam Cardiovascular Exam: REGULAR RHYTHM - GI/Abdominal Exam GI & Abdominal Exam: Normal Bowel Sounds Assessment and Plan - Assessment and Plan (Free Text) Assessment: S/P bilateral Knee surgery/ Patellar tendon repair acute rehab + blood cs Staph ABX VAnco ID ESRD CKD HTN Dialysis Nephrology Cardiomyopathy Defibrillator Cardiology
[2016-08-11] MEDS: Multivitamin Vitamin B Complex (Nephro-Vite) Tab PO SCH (09:10)
[2016-08-11] MEDS: Bacitracin OINT 15GM TOP SCH ×2 (09:17)
--- NOTE | 2016-08-11 09:48 | CP.PCM.PN ---
Subjective - Date & Time of Evaluation Date of Evaluation: 08/11/16 Time of Evaluation: 09:00 - Subjective Subjective: NO CHEST PAIN OR SOB DOING WELL AT PHYSICAL THERAPY Objective - Vital Signs/Intake and Output Vital Signs (last 24 hours): Temp Pulse Resp BP Pulse Ox 96.5 F L 78 20 140/83 100 08/10/16 21:46 08/11/16 09:12 08/10/16 21:46 08/11/16 09:12 08/10/16 21:46 - Medications Medications: Current Medications Acetaminophen (Tylenol 325mg Tab) 650 mg PO Q6 PRN PRN Reason: for pain scale 1-4 Last Admin: 08/10/16 06:14 Dose: 650 mg Albuterol/Ipratropium (Duoneb 3 Mg/0.5 Mg (3 Ml) Ud) 3 ml INH RQ6 PRN PRN Reason: Shortness of Breath Ascorbic Acid (Vitamin C 500 Mg Tab) 500 mg PO DAILY [facility] Last Admin: 08/11/16 09:08 Dose: 500 mg Bacitracin (Bacitracin Oint) 1 applic TOP DAILY [facility] Last Admin: 08/11/16 09:17 Dose: 1 applic Cinacalcet (Sensipar) 30 mg PO DAILY [facility] Last Admin: 08/11/16 09:10 Dose: 30 mg Epoetin René (Procrit) 10,000 unit IV [facility] Last Admin: 08/09/16 09:00 Dose: Not Given Epoetin René (Procrit) 10,000 unit IV [facility] Stop: 08/23/16 09:01 Last Admin: 08/09/16 20:56 Dose: Not Given Famotidine (Pepcid) 20 mg PO DAILY [facility] Last Admin: 08/11/16 09:08 Dose: 20 mg Heparin Sodium (Porcine) (Heparin) 5,000 units SC Q12 [facility] PRN Reason: Protocol Last Admin: 08/11/16 09:09 Dose: 5,000 units Vancomycin HCl 1 gm/ Sodium (Chloride) 250 mls @ [facility].667 [facility] Suc[facility] 100 mg/ Sodium (Chloride) 105 mls @ 105 mls/hr IVPB [facility] Stop: 08/21/16 09:59 Last Admin: 08/09/16 20:57 Dose: Not Given Isosorbide Mononitrate (Imdur) 30 mg PO DAILY [facility] Last Admin: 08/11/16 09:08 Dose: 30 mg Lisinopril (Zestril) 10 mg PO DAILY [facility] Last Admin: 08/11/16 09:12 Dose: 10 mg Metoprolol Tartrate (Lopressor) 25 mg PO Q12 [facility] Last Admin: 08/11/16 09:09 Dose: 25 mg Oxycodone/Acetaminophen (Percocet 5/325 Mg Tab) 1 tab PO Q8 PRN PRN Reason: for pain scale 5-10 Stop: 08/11/16 21:21 Last Admin: 08/10/16 23:42 Dose: 1 tab Sevelamer HCl (Renagel) 2,400 mg PO TIDCC [facility] Last Admin: 08/11/16 08:30 Dose: 2,400 mg Tramadol HCl (Ultram) 50 mg PO Q12 [facility] Last Admin: 08/11/16 09:18 Dose: Not Given Vitamin B Complex/Vit C/Folic Acid (Nephro-Krissy) 1 tab PO DAILY [facility] Last Admin: 08/11/16 09:10 Dose: 1 tab - Respiratory Exam Respiratory Exam: Clear to Ausculation Bilateral - Cardiovascular Exam Cardiovascular Exam: REGULAR RHYTHM, +S1, +S2 Assessment and Plan - Assessment and Plan (Free Text) Assessment: CARDIOMYOPATHY HYPERTENSION CRF ON HD S/P BILAT KNEE TENDON SURGERY Plan: CONTINUE METOPROLOL, LISINOPRIL, ISOSORBIDE, HEPARIN AND ASPIRIN
--- NOTE | 2016-08-11 12:12 | CP.PCM.PN ---
Subjective - Date & Time of Evaluation Date of Evaluation: 08/10/16 Time of Evaluation: 14:00 - Subjective Subjective: SEEN ON RENAL F/U ON HD M W F FEELS BETTER ALL PREVIOUS EMR REVIEWED MED LIST REVIEWED Objective - Vital Signs/Intake and Output Vital Signs (last 24 hours): Temp Pulse Resp BP Pulse Ox 97.3 F L 78 20 140/83 99 08/11/16 08:00 08/11/16 09:12 08/11/16 08:00 08/11/16 09:12 08/11/16 08:00 - Medications Medications: Current Medications Acetaminophen (Tylenol 325mg Tab) 650 mg PO Q6 PRN PRN Reason: for pain scale 1-4 Last Admin: 08/10/16 06:14 Dose: 650 mg Albuterol/Ipratropium (Duoneb 3 Mg/0.5 Mg (3 Ml) Ud) 3 ml INH RQ6 PRN PRN Reason: Shortness of Breath Ascorbic Acid (Vitamin C 500 Mg Tab) 500 mg PO DAILY [facility] Last Admin: 08/11/16 09:08 Dose: 500 mg Aspirin (Ecotrin) 81 mg PO DAILY [facility] Bacitracin (Bacitracin Oint) 1 applic TOP DAILY [facility] Last Admin: 08/11/16 09:17 Dose: 1 applic Cinacalcet (Sensipar) 30 mg PO DAILY [facility] Last Admin: 08/11/16 09:10 Dose: 30 mg Epoetin René (Procrit) 10,000 unit IV [facility] [place] Last Admin: 08/09/16 09:00 Dose: Not Given Epoetin René (Procrit) 10,000 unit IV [facility] [place] [place] Stop: 08/23/16 09:01 Last Admin: 08/09/16 20:56 Dose: Not Given Famotidine (Pepcid) 20 mg PO DAILY [facility] Last Admin: 08/11/16 09:08 Dose: 20 mg Heparin Sodium (Porcine) (Heparin) 5,000 units SC Q12 [facility] PRN Reason: Protocol Last Admin: 08/11/16 09:09 Dose: 5,000 units Vancomycin HCl 1 gm/ Sodium (Chloride) 250 mls @ 166.667 mls/hr IVPB [facility] [place] Iron Sucrose 100 mg/ Sodium (Chloride) 105 mls @ 105 mls/hr IVPB MWF [facility] Stop: 08/21/16 09:59 Last Admin: 08/09/16 20:57 Dose: Not Given Isosorbide Mononitrate (Imdur) 30 mg PO DAILY [facility] Last Admin: 08/11/16 09:08 Dose: 30 mg Lisinopril (Zestril) 10 mg PO DAILY [facility] Last Admin: 08/11/16 09:12 Dose: 10 mg Metoprolol Tartrate (Lopressor) 25 mg PO Q12 [facility] Last Admin: 08/11/16 09:09 Dose: 25 mg Oxycodone/Acetaminophen (Percocet 5/325 Mg Tab) 1 tab PO Q8 PRN PRN Reason: for pain scale 5-10 Stop: 08/11/16 21:21 Last Admin: 08/10/16 23:42 Dose: 1 tab Sevelamer HCl (Renagel) 2,400 mg PO TIDCC [facility] Last Admin: 08/11/16 08:30 Dose: 2,400 mg Tramadol HCl (Ultram) 50 mg PO Q12 [facility] Last Admin: 08/11/16 09:18 Dose: Not Given Vitamin B Complex/Vit C/Folic Acid (Nephro-Krissy) 1 tab PO DAILY [facility] Last Admin: 08/11/16 09:10 Dose: 1 tab Assessment and Plan - Assessment and Plan (Free Text) Assessment: ESRD ON HD M W F ANEMIA OF CKD .. ON EPO AND VENOFER C/O CURRENT CARE
--- NOTE | 2016-08-11 12:19 | CP.PCM.PN ---
Subjective - Date & Time of Evaluation Date of Evaluation: 08/11/16 Time of Evaluation: 10:00 - Subjective Subjective: IV rx in progress discussed on rounds repeat cultures negative so far Objective - Vital Signs/Intake and Output Vital Signs (last 24 hours): Temp Pulse Resp BP Pulse Ox 97.3 F L 78 20 140/83 99 08/11/16 08:00 08/11/16 09:12 08/11/16 08:00 08/11/16 09:12 08/11/16 08:00 - Medications Medications: Current Medications Acetaminophen (Tylenol 325mg Tab) 650 mg PO Q6 PRN PRN Reason: for pain scale 1-4 Last Admin: 08/10/16 06:14 Dose: 650 mg Albuterol/Ipratropium (Duoneb 3 Mg/0.5 Mg (3 Ml) Ud) 3 ml INH RQ6 PRN PRN Reason: Shortness of Breath Ascorbic Acid (Vitamin C 500 Mg Tab) 500 mg PO DAILY [facility] Last Admin: 08/11/16 09:08 Dose: 500 mg Aspirin (Ecotrin) 81 mg PO DAILY [facility] Bacitracin (Bacitracin Oint) 1 applic TOP DAILY [facility] Last Admin: 08/11/16 09:17 Dose: 1 applic Cinacalcet (Sensipar) 30 mg PO DAILY [facility] Last Admin: 08/11/16 09:10 Dose: 30 mg Epoetin René (Procrit) 10,000 unit [place] [facility] [place] Admin: 08/09/16 09:00 Dose: Not Given Epoetin René (Procrit) 10,000 unit IV [facility] [place] Stop: 08/23/16 09:01 Last Admin: 08/09/16 20:56 Dose: Not Given Famotidine (Pepcid) 20 mg PO DAILY [facility] Last Admin: 08/11/16 09:08 Dose: 20 mg Heparin Sodium (Porcine) (Heparin) 5,000 units SC Q12 [facility] PRN Reason: Protocol Last Admin: 08/11/16 09:09 Dose: 5,000 units Vancomycin HCl 1 gm/ Sodium (Chloride) 250 mls @ 166.667 mls/hr [place]PB [facility] [place] Sucrose 100 mg/ Sodium (Chloride) 105 mls @ 105 mls/hr IVPB [facility] [place] Stop: 08/21/16 09:59 Last Admin: 08/09/16 20:57 Dose: Not Given Isosorbide Mononitrate (Imdur) 30 mg PO DAILY [facility] Last Admin: 08/11/16 09:08 Dose: 30 mg Lisinopril (Zestril) 10 mg PO DAILY [facility] Last Admin: 08/11/16 09:12 Dose: 10 mg Metoprolol Tartrate (Lopressor) 25 mg PO Q12 [facility] Last Admin: 08/11/16 09:09 Dose: 25 mg Oxycodone/Acetaminophen (Percocet 5/325 Mg Tab) 1 tab PO Q8 PRN PRN Reason: for pain scale 5-10 Stop: 08/11/16 21:21 Last Admin: 08/10/16 23:42 Dose: 1 tab Sevelamer HCl (Renagel) 2,400 mg PO TIDCC [facility] Last Admin: 08/11/16 08:30 Dose: 2,400 mg Tramadol HCl (Ultram) 50 mg PO Q12 [facility] Last Admin: 08/11/16 09:18 Dose: Not Given Vitamin B Complex/Vit C/Folic Acid (Nephro-Krissy) 1 tab PO DAILY [facility] Last Admin: 08/11/16 09:10 Dose: 1 tab - Constitutional Appears: Non-toxic, Chronically Ill - Head Exam Head Exam: NORMOCEPHALIC - Eye Exam Eye Exam: PERRL. absent: Scleral icterus - ENT Exam ENT Exam: Mucous Membranes Dry - Neck Exam Neck Exam: absent: Lymphadenopathy - Respiratory Exam Respiratory Exam: Decreased Breath Sounds, Clear to Ausculation Bilateral - Cardiovascular Exam Cardiovascular Exam: REGULAR RHYTHM - GI/Abdominal Exam GI & Abdominal Exam: Distended, Soft. absent: Tenderness - Rectal Exam Rectal Exam: Deferred - Exam Exam: NORMAL INSPECTION - Extremities Exam Extremities Exam: absent: Pedal Edema - Back Exam Back Exam: absent: CVA tenderness (L), CVA tenderness (R) - Neurological Exam Neurological Exam: Alert, Awake, Oriented x3 - Psychiatric Exam Psychiatric exam: Normal Mood - Skin Skin Exam: Dry Assessment and Plan (1) Bacteremia Status: Acute (2) Bacteremia due to coagulase-negative Staphylococcus Status: Acute (3) Bacteremia due to coagulase-negative Staphylococcus Status: Acute (4) Patellar tendon rupture Status: Acute (5) Dilated cardiomyopathy Status: Chronic (6) ESRD (end stage renal disease) on dialysis Status: Chronic (7) HTN (hypertension) Status: Chronic
--- NOTE | 2016-08-11 16:40 | CP.PCM.PN ---
Subjective - Date & Time of Evaluation Date of Evaluation: 08/11/16 Time of Evaluation: 22:22 - Subjective Subjective: Doing well Objective - Vital Signs/Intake and Output Vital Signs (last 24 hours): Temp Pulse Resp BP Pulse Ox 97.3 F L 78 20 140/83 99 08/11/16 08:00 08/11/16 09:12 08/11/16 08:00 08/11/16 09:12 08/11/16 08:00 - Medications Medications: Current Medications Acetaminophen (Tylenol 325mg Tab) 650 mg PO Q6 PRN PRN Reason: for pain scale 1-4 Last Admin: 08/10/16 06:14 Dose: 650 mg Albuterol/Ipratropium (Duoneb 3 Mg/0.5 Mg (3 Ml) Ud) 3 ml INH RQ6 PRN PRN Reason: Shortness of Breath Ascorbic Acid (Vitamin C 500 Mg Tab) 500 mg PO DAILY [facility] Last Admin: 08/11/16 09:08 Dose: 500 mg Aspirin (Ecotrin) 81 mg PO DAILY [facility] Bacitracin (Bacitracin Oint) 1 applic TOP DAILY [facility] Last Admin: 08/11/16 09:17 Dose: 1 applic Cinacalcet (Sensipar) 30 mg PO DAILY [facility] Last Admin: 08/11/16 09:10 Dose: 30 mg Epoetin René (Procrit) [place] [facility] [place] Admin: 08/09/16 09:00 Dose: Not Given Epoetin René (Procrit) 10,000 unit IV MWF [facility] Stop: 08/23/16 09:01 Last Admin: 08/09/16 20:56 Dose: Not Given Famotidine (Pepcid) 20 mg PO DAILY [facility] Last Admin: 08/11/16 09:08 Dose: 20 mg Heparin Sodium (Porcine) (Heparin) 5,000 units SC Q12 [facility] PRN Reason: Protocol Last Admin: 08/11/16 09:09 Dose: 5,000 units Vancomycin HCl 1 gm/ Sodium (Chloride) 250 mls @ 166.667 mls/[facility] Iron Sucrose 100 mg/ Sodium (Chloride) 105 mls @ 105 mls/hr [place] [facility] [place]: 08/21/16 09:59 Last Admin: 08/09/16 20:57 Dose: Not Given Isosorbide Mononitrate (Imdur) 30 mg PO DAILY [facility] Last Admin: 08/11/16 09:08 Dose: 30 mg Lisinopril (Zestril) 10 mg PO DAILY [facility] Last Admin: 08/11/16 09:12 Dose: 10 mg Metoprolol Tartrate (Lopressor) 25 mg PO Q12 [facility] Last Admin: 08/11/16 09:09 Dose: 25 mg Oxycodone/Acetaminophen (Percocet 5/325 Mg Tab) 1 tab PO Q8 PRN PRN Reason: for pain scale 5-10 Stop: 08/11/16 21:21 Last Admin: 08/10/16 23:42 Dose: 1 tab Sevelamer HCl (Renagel) 2,400 mg PO TIDCC [facility] Last Admin: 08/11/16 12:00 Dose: 2,400 mg Tramadol HCl (Ultram) 50 mg PO Q12 [facility] Last Admin: 08/11/16 09:18 Dose: Not Given Vitamin B Complex/Vit C/Folic Acid (Nephro-Krissy) 1 tab PO DAILY [facility] Last Admin: 08/11/16 09:10 Dose: 1 tab - Respiratory Exam Respiratory Exam: NORMAL BREATHING PATTERN - Cardiovascular Exam Cardiovascular Exam: REGULAR RHYTHM - GI/Abdominal Exam GI & Abdominal Exam: Normal Bowel Sounds Assessment and Plan - Assessment and Plan (Free Text) Assessment: S/P bilateral Knee surgery/ Patellar tendon repair acute rehab + blood cs Staph ABX VAnco ID ESRD CKD HTN Dialysis Nephrology Cardiomyopathy Defibrillator Cardiology
[2016-08-11] MEDS ORDERED: Oxycodone/Acetaminophen 5/325 mg Tab PO PRN (16:54)
[2016-08-11] MEDS: Oxycodone/Acetaminophen 5/325 mg Tab PO PRN (23:53)
[2016-08-12] MEDS: Bacitracin OINT 15GM TOP SCH (08:10)
[2016-08-12] MEDS: Multivitamin Vitamin B Complex (Nephro-Vite) Tab PO SCH (08:11)
[2016-08-12] MEDS: Oxycodone/Acetaminophen 5/325 mg Tab PO PRN ×2 (08:14→16:05)
--- NOTE | 2016-08-12 10:53 | CP.PCM.PN ---
Subjective - Date & Time of Evaluation Date of Evaluation: 08/12/16 Time of Evaluation: 10:00 - Subjective Subjective: NO CHEST PAIN OR SOB Objective - Vital Signs/Intake and Output Vital Signs (last 24 hours): Temp Pulse Resp BP Pulse Ox 96.6 F L 84 18 145/95 H 99 08/12/16 09:37 08/12/16 09:37 08/12/16 09:37 08/12/16 09:37 08/12/16 09:37 - Medications Medications: Current Medications Acetaminophen (Tylenol 325mg Tab) 650 mg PO Q6 PRN PRN Reason: Pain, Mild (1-3) Last Admin: 08/11/16 17:43 Dose: 650 mg Albuterol/Ipratropium (Duoneb 3 Mg/0.5 Mg (3 Ml) Ud) 3 ml INH RQ6 PRN PRN Reason: Shortness of Breath Ascorbic Acid (Vitamin C 500 Mg Tab) 500 mg PO DAILY [facility] Last Admin: 08/12/16 08:11 Dose: 500 mg Aspirin (Ecotrin) 81 mg PO DAILY [facility] Last Admin: 08/12/16 08:12 Dose: 81 mg Bacitracin (Bacitracin Oint) 1 applic TOP DAILY [facility] Last Admin: 08/12/16 08:10 Dose: 1 applic Cinacalcet (Sensipar) 30 mg PO DAILY [facility] Last Admin: 08/12/16 08:13 Dose: 30 mg Epoetin René (Procrit) [facility] Last Admin: 08/09/16 09:00 Dose: Not Given Epoetin René (Procrit) 10,000 unit IV MWF [facility] Stop: 08/23/16 09:01 Last Admin: 08/09/16 20:56 Dose: Not Given Famotidine (Pepcid) 20 mg PO DAILY [facility] Last Admin: 08/11/16 09:08 Dose: 20 mg Heparin Sodium (Porcine) (Heparin) 5,000 units SC Q12 [facility] PRN Reason: Protocol Last Admin: 08/12/16 08:17 Dose: 5,000 units Vancomycin HCl 1 gm/ Sodium (Chloride) 250 mls @ 166.667 mls/hr IVPB MWF@1800 [facility] Iron Sucrose 100 mg/ Sodium (Chloride) 105 mls @ 105 mls/hr IVPB MWF [facility] Stop: 08/21/16 09:59 Last Admin: 08/09/16 20:57 Dose: Not Given Isosorbide Mononitrate (Imdur) 30 mg PO DAILY [facility] Last Admin: 08/12/16 08:13 Dose: 30 mg Lisinopril (Zestril) 10 mg PO DAILY [facility] Last Admin: 08/12/16 08:12 Dose: 10 mg Metoprolol Tartrate (Lopressor) 25 mg PO Q12 [facility] Last Admin: 08/12/16 08:20 Dose: 25 mg Oxycodone/Acetaminophen (Percocet 5/325 Mg Tab) 1 tab PO Q8H PRN PRN Reason: for pain scale 8-10 Stop: 08/14/16 23:45 Last Admin: 08/12/16 08:14 Dose: 1 tab Sevelamer HCl (Renagel) 2,400 mg PO TIDCC [facility] Last Admin: 08/12/16 08:11 Dose: 2,400 mg Tramadol HCl (Ultram) 50 mg PO BID PRN PRN Reason: Pain, moderate (4-7) Vitamin B Complex/Vit C/Folic Acid (Nephro-Krissy) 1 tab PO DAILY [facility] Last Admin: 08/12/16 08:11 Dose: 1 tab - Respiratory Exam Respiratory Exam: Clear to Ausculation Bilateral - Cardiovascular Exam Cardiovascular Exam: REGULAR RHYTHM, +S1, +S2 - Additional Findings Additional findings: ID NOTES REVIEWED Assessment and Plan - Assessment and Plan (Free Text) Assessment: BILATERAL KNEE TENDON SURGERY CARDIOMYOPATHY HYPERTENSION CRF ON HD Plan: CONTINUE IV ANTIBIOTICS, METOPROLOL, LISINOPRIL, NITRATES, HEPARIN AND ASPIRIN CONTINUE ACUTE REHAB
--- NOTE | 2016-08-12 11:47 | CP.PCM.PN ---
Subjective - Date & Time of Evaluation Date of Evaluation: 08/12/16 Time of Evaluation: 09:00 - Subjective Subjective: events noted iv rx in progress cultures neg thus far dr greene on board Objective - Vital Signs/Intake and Output Vital Signs (last 24 hours): Temp Pulse Resp BP Pulse Ox 96.6 F L 84 18 145/95 H 99 08/12/16 09:37 08/12/16 09:37 08/12/16 09:37 08/12/16 09:37 08/12/16 09:37 - Medications Medications: Current Medications Acetaminophen (Tylenol 325mg Tab) 650 mg PO Q6 PRN PRN Reason: Pain, Mild (1-3) Last Admin: 08/11/16 17:43 Dose: 650 mg Albuterol/Ipratropium (Duoneb 3 Mg/0.5 Mg (3 Ml) Ud) 3 ml INH RQ6 PRN PRN Reason: Shortness of Breath Ascorbic Acid (Vitamin C 500 Mg Tab) 500 mg PO DAILY [facility] Last Admin: 08/12/16 08:11 Dose: 500 mg Aspirin (Ecotrin) 81 mg PO DAILY [facility] Last Admin: 08/12/16 08:12 Dose: 81 mg Bacitracin (Bacitracin Oint) 1 applic TOP DAILY [facility] Last Admin: 08/12/16 08:10 Dose: 1 applic Cinacalcet (Sensipar) 30 mg PO DAILY [facility] Last Admin: 08/12/16 08:13 Dose: 30 mg [facility]etin [facility] (Procrit) [facility] Last Admin: 08/09/16 09:00 Dose: Not Given Epoetin René (Procrit) 10,000 unit IV MWF [facility] Stop: 08/23/16 09:01 Last Admin: 08/09/16 20:56 Dose: Not Given Famotidine (Pepcid) 20 mg PO DAILY [facility] Last Admin: 08/11/16 09:08 Dose: 20 mg Heparin Sodium (Porcine) (Heparin) 5,000 units SC Q12 [facility] PRN Reason: Protocol Last Admin: 08/12/16 08:17 Dose: 5,000 units Vancomycin HCl 1 gm/ Sodium (Chloride) 250 mls @ 166.667 mls/hr IVPB MWF@1800 [facility] Iron Sucrose 100 mg/ Sodium (Chloride) 105 mls @ 105 mls/hr IVPB MWF [facility] Stop: 08/21/16 09:59 Last Admin: 08/09/16 20:57 Dose: Not Given Isosorbide Mononitrate (Imdur) 30 mg PO DAILY [facility] Last Admin: 08/12/16 08:13 Dose: 30 mg Lisinopril (Zestril) 10 mg PO DAILY [facility] Last Admin: 08/12/16 08:12 Dose: 10 mg Metoprolol Tartrate (Lopressor) 25 mg PO Q12 [facility] Last Admin: 08/12/16 08:20 Dose: 25 mg Oxycodone/Acetaminophen (Percocet 5/325 Mg Tab) 1 tab PO Q8H PRN PRN Reason: for pain scale 8-10 Stop: 08/14/16 23:45 Last Admin: 08/12/16 08:14 Dose: 1 tab Sevelamer HCl (Renagel) 2,400 mg PO TIDCC [facility] Last Admin: 08/12/16 08:11 Dose: 2,400 mg Tramadol HCl (Ultram) 50 mg PO BID PRN PRN Reason: Pain, moderate (4-7) Vitamin B Complex/Vit C/Folic Acid (Nephro-Krissy) 1 tab PO DAILY [facility] Last Admin: 08/12/16 08:11 Dose: 1 tab - Constitutional Appears: Non-toxic, Cachectic, Chronically Ill - Head Exam Head Exam: NORMOCEPHALIC - Eye Exam Eye Exam: PERRL. absent: Scleral icterus - ENT Exam ENT Exam: Mucous Membranes Dry, Normal External Ear Exam - Neck Exam Neck Exam: absent: Lymphadenopathy - Respiratory Exam Respiratory Exam: Decreased Breath Sounds - Cardiovascular Exam Cardiovascular Exam: REGULAR RHYTHM - GI/Abdominal Exam GI & Abdominal Exam: Distended Assessment and Plan (1) Bacteremia Status: Acute (2) Bacteremia due to coagulase-negative Staphylococcus Status: Acute (3) Bacteremia due to coagulase-negative Staphylococcus Status: Acute (4) Patellar tendon rupture Status: Acute (5) Dilated cardiomyopathy Status: Chronic (6) ESRD (end stage renal disease) on dialysis Status: Chronic (7) HTN (hypertension) Status: Chronic
[2016-08-12] MEDS: EPOETIN ALFA 10,000 UNIT/ML ML IV SCH ×4 (18:43→18:50)
--- NOTE | 2016-08-12 19:48 | CP.PCM.PN ---
Subjective - Date & Time of Evaluation Date of Evaluation: 08/12/16 Time of Evaluation: 19:47 - Subjective Subjective: Patient seen in room family present getting HD doing well, but would like the percocet at times both before and after therapies. I changed the prn to q4 for this good po intake, denies constipation compliant with ROM precautions and immobilizers Objective - Vital Signs/Intake and Output Vital Signs (last 24 hours): Temp Pulse Resp BP Pulse Ox 96.6 F L 84 18 145/95 H 99 08/12/16 09:37 08/12/16 09:37 08/12/16 09:37 08/12/16 09:37 08/12/16 09:37 - Medications Medications: Current Medications Acetaminophen (Tylenol 325mg Tab) 650 mg PO Q6 PRN PRN Reason: Pain, Mild (1-3) Last Admin: 08/11/16 17:43 Dose: 650 mg Albuterol/Ipratropium (Duoneb 3 Mg/0.5 Mg (3 Ml) Ud) 3 ml INH RQ6 PRN PRN Reason: Shortness of Breath Ascorbic Acid (Vitamin C 500 Mg Tab) 500 mg PO DAILY [facility] Last Admin: 08/12/16 08:11 Dose: 500 mg Aspirin (Ecotrin) 81 mg PO DAILY [facility] Last Admin: 08/12/16 08:12 Dose: 81 mg Bacitracin (Bacitracin Oint) 1 applic TOP DAILY [facility] Last Admin: 08/12/16 08:10 Dose: 1 applic Cinacalcet (Sensipar) 30 mg PO DAILY [facility] Last Admin: 08/12/16 08:13 Dose: 30 mg Epoetin René (Procrit) 10,000 unit IV MWF [facility] Last Admin: 08/12/16 18:50 Dose: Not Given Epoetin René (Procrit) 10,000 unit IV MWF [facility] Stop: 08/23/16 09:01 Last Admin: 08/12/16 18:49 Dose: 10,000 unit Famotidine (Pepcid) 20 mg PO DAILY [facility] Last Admin: 08/12/16 12:23 Dose: 20 mg Heparin Sodium (Porcine) (Heparin) 5,000 units SC Q12 [facility] PRN Reason: Protocol Last Admin: 08/12/16 08:17 Dose: 5,000 units Vancomycin HCl 1 gm/ Sodium (Chloride) 250 mls @ 166.667 mls/hr IVPB MWF@1800 [facility] Last Admin: 08/12/16 18:47 Dose: 166.667 mls/hr Iron Sucrose 100 mg/ Sodium (Chloride) 105 mls @ 105 mls/hr IVPB MWF [facility] Stop: 08/21/16 09:59 Last Admin: 08/12/16 18:47 Dose: 105 mls/hr Isosorbide Mononitrate (Imdur) 30 mg PO DAILY [facility] Last Admin: 08/12/16 08:13 Dose: 30 mg Lisinopril (Zestril) 10 mg PO DAILY [facility] Last Admin: 08/12/16 08:12 Dose: 10 mg Metoprolol Tartrate (Lopressor) 25 mg PO Q12 [facility] Last Admin: 08/12/16 08:20 Dose: 25 mg Sevelamer HCl (Renagel) 2,400 mg PO TIDCC [facility] Last Admin: 08/12/16 17:42 Dose: 2,400 mg Tramadol HCl (Ultram) 50 mg PO BID PRN PRN Reason: Pain, moderate (4-7) Vitamin B Complex/Vit C/Folic Acid (Nephro-Krissy) 1 tab PO DAILY [facility] Last Admin: 08/12/16 08:11 Dose: 1 tab
--- NOTE | 2016-08-12 20:00 | CP.PCM.PN ---
Subjective - Date & Time of Evaluation Date of Evaluation: 08/12/16 Time of Evaluation: 15:00 - Subjective Subjective: SEEN ON RENAL F/U FEELS [place] .. PARTICIPATING WITH PT ON HD M W ALL PREVIOUS EMR REVIEWED Objective - Vital Signs/Intake and Output Vital Signs (last 24 hours): Temp Pulse Resp BP Pulse Ox 96.6 F L 84 18 145/95 H 99 08/12/16 09:37 08/12/16 09:37 08/12/16 09:37 08/12/16 09:37 08/12/16 09:37 - Medications Medications: Current Medications Acetaminophen (Tylenol 325mg Tab) 650 mg PO Q6 PRN PRN Reason: Pain, Mild (1-3) Last Admin: 08/11/16 17:43 Dose: 650 mg Albuterol/Ipratropium (Duoneb 3 Mg/0.5 Mg (3 Ml) Ud) 3 ml INH RQ6 PRN PRN Reason: Shortness of Breath Ascorbic Acid (Vitamin C 500 Mg Tab) 500 mg PO DAILY [facility] Last Admin: 08/12/16 08:11 Dose: 500 mg Aspirin (Ecotrin) 81 mg PO DAILY [facility] Last Admin: 08/12/16 08:12 Dose: 81 mg Bacitracin (Bacitracin Oint) 1 applic TOP DAILY [facility] Last Admin: 08/12/16 08:10 Dose: 1 applic Cinacalcet (Sensipar) 30 mg PO DAILY [facility] Last Admin: 08/12/16 08:13 Dose: 30 mg Epoetin René (Procrit) 10,000 unit IV MWF [facility] Last Admin: 08/12/16 18:50 Dose: Not Given Epoetin René (Procrit) 10,000 unit IV MWF [facility] Stop: 08/23/16 09:01 Last Admin: 08/12/16 18:49 Dose: 10,000 unit Famotidine (Pepcid) 20 mg PO DAILY [facility] Last Admin: 08/12/16 12:23 Dose: 20 mg Heparin Sodium (Porcine) (Heparin) 5,000 units SC Q12 [facility] PRN Reason: Protocol Last Admin: 08/12/16 08:17 Dose: 5,000 units Vancomycin HCl 1 gm/ Sodium (Chloride) 250 mls @ 166.667 mls/hr IVPB MWF@1800 [facility] Last Admin: 08/12/16 18:47 Dose: 166.667 mls/hr Iron Sucrose 100 mg/ Sodium (Chloride) 105 mls @ 105 mls/hr IVPB MWF [facility] Stop: 08/21/16 09:59 Last Admin: 08/12/16 18:47 Dose: 105 mls/hr Isosorbide Mononitrate (Imdur) 30 mg PO DAILY [facility] Last Admin: 08/12/16 08:13 Dose: 30 mg Lisinopril (Zestril) 10 mg PO DAILY [facility] Last Admin: 08/12/16 08:12 Dose: 10 mg Metoprolol Tartrate (Lopressor) 25 mg PO Q12 [facility] Last Admin: 08/12/16 08:20 Dose: 25 mg Oxycodone/Acetaminophen (Percocet 5/325 Mg Tab) 1 tab PO Q4 PRN PRN Reason: for pain scale 8-10 Stop: 08/15/16 20:01 Sevelamer HCl (Renagel) 2,400 mg PO TIDCC [facility] Last Admin: 08/12/16 17:42 Dose: 2,400 mg Tramadol HCl (Ultram) 50 mg PO BID PRN PRN Reason: Pain, moderate (4-7) Vitamin B Complex/Vit C/Folic Acid (Nephro-Krissy) 1 tab PO DAILY [facility] Last Admin: 08/12/16 08:11 Dose: 1 tab Assessment and Plan - Assessment and Plan (Free Text) Assessment: ESRD ON HD M W F S/P MANI KNEES SURGERY MULTIPLE CO MORBIDITIES C/O CURRENT CARE I WOULD PRDER BLOOD TESTS FOR AM
--- NOTE | 2016-08-12 21:08 | CP.PCM.PN ---
Subjective - Date & Time of Evaluation Date of Evaluation: 08/12/16 Time of Evaluation: 22:22 - Subjective Subjective: Doing well Objective - Vital Signs/Intake and Output Vital Signs (last 24 hours): Temp Pulse Resp BP Pulse Ox 96.8 F L 89 20 155/86 H 99 08/12/16 20:23 08/12/16 20:23 08/12/16 20:23 08/12/16 20:23 08/12/16 20:23 - Medications Medications: Current Medications Acetaminophen (Tylenol 325mg Tab) 650 mg PO Q6 PRN PRN Reason: Pain, Mild (1-3) Last Admin: 08/11/16 17:43 Dose: 650 mg Albuterol/Ipratropium (Duoneb 3 Mg/0.5 Mg (3 Ml) Ud) 3 ml INH RQ6 PRN PRN Reason: Shortness of Breath Ascorbic Acid (Vitamin C 500 Mg Tab) 500 mg PO DAILY [facility] Last Admin: 08/12/16 08:11 Dose: 500 mg Aspirin (Ecotrin) 81 mg PO DAILY [facility] Last Admin: 08/12/16 08:12 Dose: 81 mg Bacitracin (Bacitracin Oint) 1 applic TOP DAILY [facility] Last Admin: 08/12/16 08:10 Dose: 1 applic Cinacalcet (Sensipar) 30 mg PO DAILY [facility] Last Admin: 08/12/16 08:13 Dose: 30 mg Epoetin René (Procrit) 10,000 unit IV MWF [facility] Last Admin: 08/12/16 18:50 Dose: Not Given Epoetin René (Procrit) 10,000 unit IV MWF [facility] Stop: 08/23/16 09:01 Last Admin: 08/12/16 18:49 Dose: 10,000 unit Famotidine (Pepcid) 20 mg PO DAILY [facility] Last Admin: 08/12/16 12:23 Dose: 20 mg Heparin Sodium (Porcine) (Heparin) 5,000 units SC Q12 [facility] PRN Reason: Protocol Last Admin: 08/12/16 08:17 Dose: 5,000 units Vancomycin HCl 1 gm/ Sodium (Chloride) 250 mls @ 166.667 mls/hr IVPB MWF@1800 [facility] Last Admin: 08/12/16 18:47 Dose: 166.667 mls/hr Iron Sucrose 100 mg/ Sodium (Chloride) 105 mls @ 105 mls/hr IVPB MWF [facility] Stop: 08/21/16 09:59 Last Admin: 08/12/16 18:47 Dose: 105 mls/hr Isosorbide Mononitrate (Imdur) 30 mg PO DAILY [facility] Last Admin: 08/12/16 08:13 Dose: 30 mg Lisinopril (Zestril) 10 mg PO DAILY [facility] Last Admin: 08/12/16 08:12 Dose: 10 mg Metoprolol Tartrate (Lopressor) 25 mg PO Q12 [facility] Last Admin: 08/12/16 08:20 Dose: 25 mg Oxycodone/Acetaminophen (Percocet 5/325 Mg Tab) 1 tab PO Q4 PRN PRN Reason: for pain scale 8-10 Stop: 08/15/16 20:01 Sevelamer HCl (Renagel) 2,400 mg PO TIDCC [facility] Last Admin: 08/12/16 17:42 Dose: 2,400 mg Tramadol HCl (Ultram) 50 mg PO BID PRN PRN Reason: Pain, moderate (4-7) Vitamin B Complex/Vit C/Folic Acid (Nephro-Krissy) 1 tab PO DAILY [facility] Last Admin: 08/12/16 08:11 Dose: 1 tab - Respiratory Exam Respiratory Exam: NORMAL BREATHING PATTERN - Cardiovascular Exam Cardiovascular Exam: Tachycardia - GI/Abdominal Exam GI & Abdominal Exam: Normal Bowel Sounds Assessment and Plan - Assessment and Plan (Free Text) Assessment: S/P bilateral Knee surgery/ Patellar tendon repair acute rehab + blood cs Staph ABX VAnco ID ESRD CKD HTN Dialysis Nephrology Cardiomyopathy Defibrillator Cardiology
[2016-08-13] MEDS: Oxycodone/Acetaminophen 5/325 mg Tab PO PRN ×2 (07:36→20:13)
[2016-08-13 07:48] LABS: CALCIUM 9.8 mg/dL (8.4-10.2); MAGNESIUM 2.6 MG/DL (1.6-2.3); PHOSPHOROUS 6.2 mg/dl (2.5-4.5); POTASSIUM 5.4 MMOL/L (3.6-5.0)
[2016-08-13 07:52] LABS: HEMATOCRIT 22.6 % (35.0-51.0); MEAN CELL VOLUME 88.4 fl (80.0-94.0); MEAN CORPUSCULAR HEMOGLOBIN 29.6 pg (27.0-31.0); MEAN CORPUSCULAR HGB CONC 33.5 g/dL (33.0-37.0); RED CELL DISTRIBUTION WIDTH 17.5 % (11.5-14.5); WHITE BLOOD COUNT 7.5 K/uL (4.8-10.8)
[2016-08-13] MEDS: Bacitracin OINT 15GM TOP SCH (08:07)
[2016-08-13] MEDS: Multivitamin Vitamin B Complex (Nephro-Vite) Tab PO SCH (08:11)
--- NOTE | 2016-08-13 10:26 | CP.PCM.PN ---
Subjective - Date & Time of Evaluation Date of Evaluation: 08/13/16 Time of Evaluation: 09:30 - Subjective Subjective: NO CHEST PAIN OR SOB Objective - Vital Signs/Intake and Output Vital Signs (last 24 hours): Temp Pulse Resp BP Pulse Ox 98.3 F 80 20 144/94 H 98 08/13/16 09:00 08/13/16 09:00 08/13/16 09:00 08/13/16 09:00 08/13/16 08:03 - Medications Medications: Current Medications Acetaminophen (Tylenol 325mg Tab) 650 mg PO Q6 PRN PRN Reason: Pain, Mild (1-3) Last Admin: 08/11/16 17:43 Dose: 650 mg Albuterol/Ipratropium (Duoneb 3 Mg/0.5 Mg (3 Ml) Ud) 3 ml INH RQ6 PRN PRN Reason: Shortness of Breath Ascorbic Acid (Vitamin C 500 Mg Tab) 500 mg PO DAILY [facility] Last Admin: 08/13/16 08:12 Dose: 500 mg Aspirin (Ecotrin) 81 mg PO DAILY [facility] Last Admin: 08/13/16 08:12 Dose: 81 mg Bacitracin (Bacitracin Oint) 1 applic TOP DAILY [facility] Last Admin: 08/13/16 08:07 Dose: 1 applic Cinacalcet (Sensipar) 30 mg PO DAILY [facility] Last Admin: 08/13/16 08:11 Dose: 30 mg Epoetin René (Procrit) 10,000 unit IV MWF [facility] Last Admin: 08/12/16 18:50 Dose: Not Given Famotidine (Pepcid) 20 mg PO DAILY [facility] Last Admin: 08/13/16 08:12 Dose: 20 mg Heparin Sodium (Porcine) (Heparin) 5,000 units SC Q12 [facility] PRN Reason: Protocol Last Admin: 08/13/16 08:11 Dose: 5,000 units Vancomycin HCl 1 gm/ Sodium (Chloride) 250 mls @ 166.667 mls/hr IVPB MWF@1800 [facility] Last Admin: 08/12/16 18:47 Dose: 166.667 mls/hr Iron Sucrose 100 mg/ Sodium (Chloride) 105 mls @ 105 mls/hr IVPB MWF [facility] Stop: 08/21/16 09:59 Last Admin: 08/12/16 18:47 Dose: 105 mls/hr Isosorbide Mononitrate (Imdur) 30 mg PO DAILY [facility] Last Admin: 08/13/16 08:11 Dose: 30 mg Lisinopril (Zestril) 10 mg PO DAILY [facility] Last Admin: 08/13/16 08:12 Dose: 10 mg Metoprolol Tartrate (Lopressor) 25 mg PO Q12 [facility] Last Admin: 08/13/16 08:08 Dose: 25 mg Oxycodone/Acetaminophen (Percocet 5/325 Mg Tab) 1 tab PO Q4 PRN PRN Reason: for pain scale 8-10 Stop: 08/15/16 20:01 Last Admin: 08/13/16 07:36 Dose: 1 tab Sevelamer HCl (Renagel) 2,400 mg PO TIDCC [facility] Last Admin: 08/13/16 08:09 Dose: 2,400 mg Tramadol HCl (Ultram) 50 mg PO BID PRN PRN Reason: Pain, moderate (4-7) Vitamin B Complex/Vit C/Folic Acid (Nephro-Krissy) 1 tab PO DAILY [facility] Last Admin: 08/13/16 08:11 Dose: 1 tab - Labs Labs: 08/13/16 06:50 08/13/16 06:50 - Respiratory Exam Respiratory Exam: Clear to Ausculation Bilateral - Cardiovascular Exam Cardiovascular Exam: REGULAR RHYTHM, +S1, +S2 Assessment and Plan - Assessment and Plan (Free Text) Assessment: CARDIOMYOPATHY HYPERTENSION CRF ON HD BILATERAL KNEE TENDON SURGICAL REPAIR Plan: CONTINUE METOPROLOL, LISINOPRIL, ISOSORBIDE, ASPIRIN, HEPARIN CONTINUE REHAB
--- NOTE | 2016-08-13 13:12 | PSY.TMCNF ---
Nursing - Vital Signs Vital Signs (Last 8 hours): Vital Signs 08/13/16 08/13/16 08/13/16 08:03 08:08 08:12 Temperature 98.3 F Pulse Rate 85 80 Respiratory 20 Rate Blood Pressure 144/94 H 144/94 H 144/94 H O2 Sat by Pulse 98 Oximetry 08/13/16 09:00 Temperature 98.3 F Pulse Rate 80 Respiratory 20 Rate Blood Pressure 144/94 H O2 Sat by Pulse Oximetry Pain: 2 - Precautions: Precautions: Fall Prevention - Medications/Other Issues Comment: Knee immobilizer at all times, no knee bending. - Hgb today 7.6 Dr. Morris aware. Pt is on Venofer IV and Procrit IV - Consults Comment: Dr. Morris, Dr. Walker, Dr. Verde - Skin Incision Site: Bilateral knees Dressing Status: Clean, Dry, Intact Incision: Fabricio Intact, No Drainage Noted Incision Line Treatment: Apply Bacitracin ointment to blisters around i/l cover with dsd daily. - Toileting Toileting: Modified Independent - Bladder Management Bladder Pattern: Normal Voiding Method: Toilet Bladder Management: Independent Frequency of Accidents: 0- Pt is anuric and on HD MWF - Bowel Management Bowel Pattern: Normal Bowel Management: Modified Independent Frequency of Accidents: 0 - Transfers Transfers: Moderate Assistance - ADL's ADL's: Minimal Assistance - Pain Management Comments: Percocet/Ultram and Tylenol PRN pain - Mostly uses Percocet once or twice a day - Patient/Family Teaching Comments: Care post Knee tendon repair, I/L care, and safety precautions - Goals/Time Frame Comments: Per multidisciplinary care plans and goals Physical Therapy - Bed Mobility Bed Mobility: Verbal Cues, Moderate Assistance (difficulty getting OOB given bilateral knee immmobilizers will need a hospital bed) Comment: BLE support needed for bed mob. scooting on bed/mat and w/c w/ CS - Transfers Sit to Stand: Contact Guard - Ambulation Level of Assistance: Supervision Distance (ft.): 90 Assistive Devices: Rolling Walker - Stair Negotiation Stairs: Level of Assistance: Not Tested - Standing Balance Static Stand: Supervision Dynamic Stand: Contact Guard Assist Comment: w/ RW - Pain Management Techniques: Medication, Ice, Position Change, Distraction, Inactivity - Insight/Carryover Insight/Carryover: Good - Patient/Family Education Comment: rehab goals, POC, WB status, pain mgmt, safety, DME, diagnosis related topics, benefits of being OOB, benefits of PT, posture, rationale for activities - Assessment/Plan Assessment: 35 yo male admitted to [facility] Acute rehab unit s/p B quad tendon rupture s/p repair. Pt presents w/ pain, edema and improving deficits w/ strength, ROM, balance, activity tolerance, sensation, safety awareness and fxnl mob. Cont'd skilled PT recommended to address above stated deficits. - Goals Timeframe: 3 weeks Goals: Pt will ascend/descend 10 stairs with supervision. Pt will ambulate 300 ft on even/uneven surfaces with AD mod I. Sit < > stand transfers mod I with AD. Sit< > supine mod I - Provider Therapist: Chula Padilla PT, DPT License Number: [id number] Occupational Therapy - Arousal/Attention/Orientation Patient Orientation: Person, Place, Time, Appropriate to Age, Appropriate to Situation - ADL/IADL Self Feeding: Independent Grooming: Independent Bathing-Upper Extremity: Set-up Help Bathing-Lower Extremity: Moderate Assistance Dressing-Upper Extremity: Supervision Dressing-Lower Extremity: Maximum Assistance - Sitting Balance Static Sitting: Independent with upper extremity support Dynamic Sitting: Requires supervision - Transfers Wheelchair to Bed Transfers: Moderate Assistance Comment: Pt is able to maneuver w/c and propel 150' with S however requires prosthetic assistant - Wheelchair Management Level of Assistance: Supervision, Set-up Help Distance (ft.): 150 - Upper Extremity Status Right Upper Extremity Comment: ROM WFL, MMT shoulder flexion 4-/5 all joints 4+/ 5 Left Upper Extremity Comment: ROM WFL, MMT shoulder flexion 4-/5 all joints 4+/5 - Pain Alleviating Techniques: Medication, Ice, Position Change, Distraction, Inactivity - Insight/Carryover Insight/Carryover: Good - Patient/Family Education Comment: rehab goals, POC, WB status, pain mgmt, safety, DME, diagnosis related topics, benefits of being OOB, benefits of PT, posture, rationale for activities - Assessment/Plan Assessment: 35 yo male admitted to [facility] Acute rehab unit s/p B quad tendon rupture s/p repair. Pt presents w/ pain, edema and improving deficits w/ strength, ROM, balance, activity tolerance, sensation, safety awareness and fxnl mob. Cont'd skilled PT recommended to address above stated deficits. - Goals Timeframe: 3 weeks Goals: Pt will ascend/descend 10 stairs with supervision. Pt will ambulate 300 ft on even/uneven surfaces with AD mod I. Sit < > stand transfers mod I with AD. Sit< > supine mod I - Provider Therapist: Brionna Michele License Number: [id number] Speech Therapy - Plan Assessment: 35 yo male admitted to [facility] Acute rehab unit s/p B quad tendon rupture s/p repair. Pt presents w/ pain, edema and improving deficits w/ strength, ROM, balance, activity tolerance, sensation, safety awareness and fxnl mob. Cont'd skilled PT recommended to address above stated deficits. Recreational Therapy - Participation Participation: Participates in Individual and/or Group Sessions - Attendance Attendance: 3-5 times per week - Activities Leisure Activities: Cards and Games - Socialization Level of Socialization: Initiates/interacts freely with care givers and peer - Diversional Time Diversional Time: television - Assessment Assessment/Plan: 35 yo male admitted to [facility] Acute rehab unit s/p B quad tendon rupture s/p repair. Pt presents w/ pain, edema and improving deficits w/ strength, ROM, balance, activity tolerance, sensation, safety awareness and fxnl mob. Cont'd skilled PT recommended to address above stated deficits. - Provider Therapist: Ambika Reynaga, [employer] #[id number] Nutrition - Current Diet Current Diet/ Supplement/ Feedings: Renal dialysis-2 gram Na diet - Appetite Percent Meal Consumed: 75-100% - Comments Comments: Care post Knee tendon repair, I/L care, and safety precautions - Assessment/Goals/Time Frame Assessment/Goals/Time Frame: Knee immobilizer at all times, no knee bending. - Hgb today 7.6 Dr. Morris aware. Pt is on Venofer IV and Procrit IV - Provider Provider: Kinjal Crain RD Case Management - Discharge Plan Discharge Plan: Home with significant other/family Rehabilitation Plan - Treatment Plan Treatment Plan: Physical Therapy, Occupational Therapy, Dietary, Pain Management , Patient/Family Education - Discharge Plan Estimated Date of Discharge: 08/21/16 Discharge to: Home
--- NOTE | 2016-08-13 13:49 | CP.PCM.PN ---
Subjective - Date & Time of Evaluation Date of Evaluation: 08/13/16 Time of Evaluation: 13:48 - Subjective Subjective: Patient seen in room pain is controlled discussed discharge with him he is motivated for therapies denies sob/cp continue current care He will need a hospital bed to be able to get OOB given bilateral knee immobilizers and the fact that any undo strain can lead to injury to the tendon repair Objective - Vital Signs/Intake and Output Vital Signs (last 24 hours): Temp Pulse Resp BP Pulse Ox 98.3 F 80 20 144/94 H 98 08/13/16 09:00 08/13/16 09:00 08/13/16 09:00 08/13/16 09:00 08/13/16 08:03 - Medications Medications: Current Medications Acetaminophen (Tylenol 325mg Tab) 650 mg PO Q6 PRN PRN Reason: Pain, Mild (1-3) Last Admin: 08/11/16 17:43 Dose: 650 mg Albuterol/Ipratropium (Duoneb 3 Mg/0.5 Mg (3 Ml) Ud) 3 ml INH RQ6 PRN PRN Reason: Shortness of Breath Ascorbic Acid (Vitamin C 500 Mg Tab) 500 mg PO DAILY [facility] Last Admin: 08/13/16 08:12 Dose: 500 mg Aspirin (Ecotrin) 81 mg PO DAILY [facility] Last Admin: 08/13/16 08:12 Dose: 81 mg Bacitracin (Bacitracin Oint) 1 applic TOP DAILY [facility] Last Admin: 08/13/16 08:07 Dose: 1 applic Cinacalcet (Sensipar) 30 mg PO DAILY [facility] Last Admin: 08/13/16 08:11 Dose: 30 mg Epoetin René (Procrit) 10,000 unit IV MWF [facility] Last Admin: 08/12/16 18:50 Dose: Not Given Famotidine (Pepcid) 20 mg PO DAILY [facility] Last Admin: 08/13/16 08:12 Dose: 20 mg Heparin Sodium (Porcine) (Heparin) 5,000 units SC Q12 [facility] PRN Reason: Protocol Last Admin: 08/13/16 08:11 Dose: 5,000 units Vancomycin HCl 1 gm/ Sodium (Chloride) 250 mls @ 166.667 mls/hr IVPB MWF@1800 [facility] Last Admin: 08/12/16 18:47 Dose: 166.667 mls/hr Iron Sucrose 100 mg/ Sodium (Chloride) 105 mls @ 105 mls/hr IVPB MWF [facility] Stop: 08/21/16 09:59 Last Admin: 08/12/16 18:47 Dose: 105 mls/hr Isosorbide Mononitrate (Imdur) 30 mg PO DAILY [facility] Last Admin: 08/13/16 08:11 Dose: 30 mg Lisinopril (Zestril) 10 mg PO DAILY [facility] Last Admin: 08/13/16 08:12 Dose: 10 mg Metoprolol Tartrate (Lopressor) 25 mg PO Q12 [facility] Last Admin: 08/13/16 08:08 Dose: 25 mg Oxycodone/Acetaminophen (Percocet 5/325 Mg Tab) 1 tab PO Q4 PRN PRN Reason: for pain scale 8-10 Stop: 08/15/16 20:01 Last Admin: 08/13/16 07:36 Dose: 1 tab Sevelamer HCl (Renagel) 2,400 mg PO TIDCC [facility] Last Admin: 08/13/16 12:41 Dose: 2,400 mg Tramadol HCl (Ultram) 50 mg PO BID PRN PRN Reason: Pain, moderate (4-7) Vitamin B Complex/Vit C/Folic Acid (Nephro-Krissy) 1 tab PO DAILY [facility] Last Admin: 08/13/16 08:11 Dose: 1 tab - Labs Labs: 08/13/16 06:50 08/13/16 06:50
--- NOTE | 2016-08-13 21:07 | CP.PCM.PN ---
Subjective - Date & Time of Evaluation Date of Evaluation: 08/13/16 Time of Evaluation: 22:22 - Subjective Subjective: Above noted Objective - Vital Signs/Intake and Output Vital Signs (last 24 hours): Temp Pulse Resp BP Pulse Ox 97.7 F 83 20 147/93 H 98 08/13/16 20:21 08/13/16 20:22 08/13/16 20:21 08/13/16 20:22 08/13/16 20:21 - Medications Medications: Current Medications Acetaminophen (Tylenol 325mg Tab) 650 mg PO Q6 PRN PRN Reason: Pain, Mild (1-3) Last Admin: 08/11/16 17:43 Dose: 650 mg Albuterol/Ipratropium (Duoneb 3 Mg/0.5 Mg (3 Ml) Ud) 3 ml INH RQ6 PRN PRN Reason: Shortness of Breath Ascorbic Acid (Vitamin C 500 Mg Tab) 500 mg PO DAILY [facility] Last Admin: 08/13/16 08:12 Dose: 500 mg Aspirin (Ecotrin) 81 mg PO DAILY [facility] Last Admin: 08/13/16 08:12 Dose: 81 mg Bacitracin (Bacitracin Oint) 1 applic TOP DAILY [facility] Last Admin: 08/13/16 08:07 Dose: 1 applic Cinacalcet (Sensipar) 30 mg PO DAILY [facility] Last Admin: 08/13/16 08:11 Dose: 30 mg Epoetin René (Procrit) 10,000 unit IV MWF [facility] Last Admin: 08/12/16 18:50 Dose: Not Given Famotidine (Pepcid) 20 mg PO DAILY [facility] Last Admin: 08/13/16 08:12 Dose: 20 mg Heparin Sodium (Porcine) (Heparin) 5,000 units SC Q12 [facility] PRN Reason: Protocol Last Admin: 08/13/16 08:11 Dose: 5,000 units Vancomycin HCl 1 gm/ Sodium (Chloride) 250 mls @ 166.667 mls/hr IVPB MWF@1800 [facility] Last Admin: 08/12/16 18:47 Dose: 166.667 mls/hr Iron Sucrose 100 mg/ Sodium (Chloride) 105 mls @ 105 mls/hr IVPB MWF [facility] Stop: 08/21/16 09:59 Last Admin: 08/12/16 18:47 Dose: 105 mls/hr Isosorbide Mononitrate (Imdur) 30 mg PO DAILY [facility] Last Admin: 08/13/16 08:11 Dose: 30 mg Lisinopril (Zestril) 10 mg PO DAILY [facility] Last Admin: 08/13/16 08:12 Dose: 10 mg Metoprolol Tartrate (Lopressor) 25 mg PO Q12 [facility] Last Admin: 08/13/16 20:22 Dose: 25 mg Oxycodone/Acetaminophen (Percocet 5/325 Mg Tab) 1 tab PO Q4 PRN PRN Reason: for pain scale 8-10 Stop: 08/15/16 20:01 Last Admin: 08/13/16 20:13 Dose: 1 tab Sevelamer HCl (Renagel) 2,400 mg PO TIDCC [facility] Last Admin: 08/13/16 18:12 Dose: 2,400 mg Tramadol HCl (Ultram) 50 mg PO BID PRN PRN Reason: Pain, moderate (4-7) Vitamin B Complex/Vit C/Folic Acid (Nephro-Krissy) 1 tab PO DAILY [facility] Last Admin: 08/13/16 08:11 Dose: 1 tab - Labs Labs: 08/13/16 06:50 08/13/16 06:50 - Respiratory Exam Respiratory Exam: NORMAL BREATHING PATTERN - Cardiovascular Exam Cardiovascular Exam: REGULAR RHYTHM - GI/Abdominal Exam GI & Abdominal Exam: Normal Bowel Sounds Assessment and Plan - Assessment and Plan (Free Text) Assessment: S/P bilateral Knee surgery/ Patellar tendon repair acute rehab + blood cs Staph ABX Vanco ID ESRD CKD HTN Dialysis Nephrology Cardiomyopathy Defibrillator Cardiology
[2016-08-14] MEDS: Oxycodone/Acetaminophen 5/325 mg Tab PO PRN (08:41)
[2016-08-14] MEDS: Bacitracin OINT 15GM TOP SCH (08:42)
[2016-08-14] MEDS: Multivitamin Vitamin B Complex (Nephro-Vite) Tab PO SCH (08:42)
--- NOTE | 2016-08-14 13:54 | CP.PCM.PN ---
Subjective - Date & Time of Evaluation Date of Evaluation: 08/14/16 Time of Evaluation: 13:00 - Subjective Subjective: NO CHEST PAIN OR SOB DOING WELL AT REHAB Objective - Vital Signs/Intake and Output Vital Signs (last 24 hours): Temp Pulse Resp BP Pulse Ox 96.9 F L 78 20 149/88 98 08/14/16 08:14 08/14/16 08:43 08/14/16 08:14 08/14/16 08:45 08/14/16 08:14 - Medications Medications: Current Medications Acetaminophen (Tylenol 325mg Tab) 650 mg PO Q6 PRN PRN Reason: Pain, Mild (1-3) Last Admin: 08/11/16 17:43 Dose: 650 mg Albuterol/Ipratropium (Duoneb 3 Mg/0.5 Mg (3 Ml) Ud) 3 ml INH RQ6 PRN PRN Reason: Shortness of Breath Ascorbic Acid (Vitamin C 500 Mg Tab) 500 mg PO DAILY [facility] Last Admin: 08/14/16 08:43 Dose: 500 mg Aspirin (Ecotrin) 81 mg PO DAILY [facility] Last Admin: 08/14/16 08:42 Dose: 81 mg Bacitracin (Bacitracin Oint) 1 applic TOP DAILY [facility] Last Admin: 08/14/16 08:42 Dose: 1 applic Cinacalcet (Sensipar) 30 mg PO DAILY [facility] Last Admin: 08/14/16 08:42 Dose: 30 mg Epoetin René (Procrit) 10,000 unit IV MWF [facility] Last Admin: 08/12/16 18:50 Dose: Not Given Famotidine (Pepcid) 20 mg PO DAILY [facility] Last Admin: 08/14/16 08:43 Dose: 20 mg Heparin Sodium (Porcine) (Heparin) 5,000 units SC Q12 [facility] PRN Reason: Protocol Last Admin: 08/14/16 08:45 Dose: 5,000 units Vancomycin HCl 1 gm/ Sodium (Chloride) 250 mls @ 166.667 mls/hr IVPB MWF@1800 [facility] Last Admin: 08/12/16 18:47 Dose: 166.667 mls/hr Iron Sucrose 100 mg/ Sodium (Chloride) 105 mls @ 105 mls/hr IVPB MWF [facility] Stop: 08/21/16 09:59 Last Admin: 08/12/16 18:47 Dose: 105 mls/hr Isosorbide Mononitrate (Imdur) 30 mg PO DAILY [facility] Last Admin: 08/14/16 08:42 Dose: 30 mg Lisinopril (Zestril) 10 mg PO DAILY [facility] Last Admin: 08/14/16 08:45 Dose: 10 mg Metoprolol Tartrate (Lopressor) 25 mg PO Q12 [facility] Last Admin: 08/14/16 08:43 Dose: 25 mg Oxycodone/Acetaminophen (Percocet 5/325 Mg Tab) 1 tab PO Q4 PRN PRN Reason: for pain scale 8-10 Stop: 08/15/16 20:01 Last Admin: 08/14/16 08:41 Dose: 1 tab Sevelamer HCl (Renagel) 2,400 mg PO TIDCC [facility] Last Admin: 08/14/16 12:34 Dose: 2,400 mg Tramadol HCl (Ultram) 50 mg PO BID PRN PRN Reason: Pain, moderate (4-7) Vitamin B Complex/Vit C/Folic Acid (Nephro-Krissy) 1 tab PO DAILY [facility] Last Admin: 08/14/16 08:42 Dose: 1 tab - Labs Labs: 08/13/16 06:50 08/13/16 06:50 - Respiratory Exam Respiratory Exam: Clear to Ausculation Bilateral - Cardiovascular Exam Cardiovascular Exam: REGULAR RHYTHM, +S1, +S2 - Additional Findings Additional findings: BILATERAL KNEE TENDON SURGERY CARDIOMYOPATHY HYPERTENSION CRF ON HD Assessment and Plan - Assessment and Plan (Free Text) Plan: CONTINUE METOPROLOL, LISINOPRIL, ISOSORBIDE, ANTIBIOTICS, ASPIRIN AND HEPARIN CONTINUE ACUTE REHAB
--- NOTE | 2016-08-14 17:26 | CP.PCM.PN ---
Subjective - Date & Time of Evaluation Date of Evaluation: 08/14/16 Time of Evaluation: 17:25 - Subjective Subjective: Patient seen in room with visitors present denies pain tolerating the therapy and the Percocet is helping continue current care very compliant with precautions using knee immobilizers Objective - Vital Signs/Intake and Output Vital Signs (last 24 hours): Temp Pulse Resp BP Pulse Ox 96.9 F L 78 20 149/88 98 08/14/16 08:14 08/14/16 08:43 08/14/16 08:14 08/14/16 08:45 08/14/16 08:14 - Medications Medications: Current Medications Acetaminophen (Tylenol 325mg Tab) 650 mg PO Q6 PRN PRN Reason: Pain, Mild (1-3) Last Admin: 08/11/16 17:43 Dose: 650 mg Albuterol/Ipratropium (Duoneb 3 Mg/0.5 Mg (3 Ml) Ud) 3 ml INH RQ6 PRN PRN Reason: Shortness of Breath Ascorbic Acid (Vitamin C 500 Mg Tab) 500 mg PO DAILY [facility] Last Admin: 08/14/16 08:43 Dose: 500 mg Aspirin (Ecotrin) 81 mg PO DAILY [facility] Last Admin: 08/14/16 08:42 Dose: 81 mg Bacitracin (Bacitracin Oint) 1 applic TOP DAILY [facility] Last Admin: 08/14/16 08:42 Dose: 1 applic Cinacalcet (Sensipar) 30 mg PO DAILY [facility] Last Admin: 08/14/16 08:42 Dose: 30 mg Epoetin René (Procrit) 10,000 unit IV MWF [facility] Last Admin: 08/12/16 18:50 Dose: Not Given Famotidine (Pepcid) 20 mg PO DAILY [facility] Last Admin: 08/14/16 08:43 Dose: 20 mg Heparin Sodium (Porcine) (Heparin) 5,000 units SC Q12 [facility] PRN Reason: Protocol Last Admin: 08/14/16 08:45 Dose: 5,000 units Vancomycin HCl 1 gm/ Sodium (Chloride) 250 mls @ 166.667 mls/hr IVPB MWF@1800 [facility] Last Admin: 08/12/16 18:47 Dose: 166.667 mls/hr Iron Sucrose 100 mg/ Sodium (Chloride) 105 mls @ 105 mls/hr IVPB MWF [facility] Stop: 08/21/16 09:59 Last Admin: 08/12/16 18:47 Dose: 105 mls/hr Isosorbide Mononitrate (Imdur) 30 mg PO DAILY [facility] Last Admin: 08/14/16 08:42 Dose: 30 mg Lisinopril (Zestril) 10 mg PO DAILY [facility] Last Admin: 08/14/16 08:45 Dose: 10 mg Metoprolol Tartrate (Lopressor) 25 mg PO Q12 [facility] Last Admin: 08/14/16 08:43 Dose: 25 mg Oxycodone/Acetaminophen (Percocet 5/325 Mg Tab) 1 tab PO Q4 PRN PRN Reason: for pain scale 8-10 Stop: 08/15/16 20:01 Last Admin: 08/14/16 08:41 Dose: 1 tab Sevelamer HCl (Renagel) 2,400 mg PO TIDCC [facility] Last Admin: 08/14/16 12:34 Dose: 2,400 mg Tramadol HCl (Ultram) 50 mg PO BID PRN PRN Reason: Pain, moderate (4-7) Vitamin B Complex/Vit C/Folic Acid (Nephro-Krissy) 1 tab PO DAILY [facility] Last Admin: 08/14/16 08:42 Dose: 1 tab - Labs Labs: 08/13/16 06:50 08/13/16 06:50
--- NOTE | 2016-08-14 18:37 | CP.PCM.PN ---
Subjective - Date & Time of Evaluation Date of Evaluation: 08/14/16 Time of Evaluation: 08:00 - Subjective Subjective: cultures all neg thus far to complete 7 days iv rx Objective - Vital Signs/Intake and Output Vital Signs (last 24 hours): Temp Pulse Resp BP Pulse Ox 96.9 F L 78 20 149/88 98 08/14/16 08:14 08/14/16 08:43 08/14/16 08:14 08/14/16 08:45 08/14/16 08:14 - Medications Medications: Current Medications Acetaminophen (Tylenol 325mg Tab) 650 mg PO Q6 PRN PRN Reason: Pain, Mild (1-3) Last Admin: 08/11/16 17:43 Dose: 650 mg Albuterol/Ipratropium (Duoneb 3 Mg/0.5 Mg (3 Ml) Ud) 3 ml INH RQ6 PRN PRN Reason: Shortness of Breath Ascorbic Acid (Vitamin C 500 Mg Tab) 500 mg PO DAILY [facility] Last Admin: 08/14/16 08:43 Dose: 500 mg Aspirin (Ecotrin) 81 mg PO DAILY [facility] Last Admin: 08/14/16 08:42 Dose: 81 mg Bacitracin (Bacitracin Oint) 1 applic TOP DAILY [facility] Last Admin: 08/14/16 08:42 Dose: 1 applic Cinacalcet (Sensipar) 30 mg PO DAILY [facility] Last Admin: 08/14/16 08:42 Dose: 30 mg Epoetin René (Procrit) 10,000 unit IV MWF [facility] Last Admin: 08/12/16 18:50 Dose: Not Given Famotidine (Pepcid) 20 mg PO DAILY [facility] Last Admin: 08/14/16 08:43 Dose: 20 mg Heparin Sodium (Porcine) (Heparin) 5,000 units SC Q12 [facility] PRN Reason: Protocol Last Admin: 08/14/16 08:45 Dose: 5,000 units Vancomycin HCl 1 gm/ Sodium (Chloride) 250 mls @ 166.667 mls/hr IVPB MWF@1800 [facility] Last Admin: 08/12/16 18:47 Dose: 166.667 mls/hr Iron Sucrose 100 mg/ Sodium (Chloride) 105 mls @ 105 mls/hr IVPB MWF [facility] Stop: 08/21/16 09:59 Last Admin: 08/12/16 18:47 Dose: 105 mls/hr Isosorbide Mononitrate (Imdur) 30 mg PO DAILY [facility] Last Admin: 08/14/16 08:42 Dose: 30 mg Lisinopril (Zestril) 10 mg PO DAILY [facility] Last Admin: 08/14/16 08:45 Dose: 10 mg Metoprolol Tartrate (Lopressor) 25 mg PO Q12 [facility] Last Admin: 08/14/16 08:43 Dose: 25 mg Oxycodone/Acetaminophen (Percocet 5/325 Mg Tab) 1 tab PO Q4 PRN PRN Reason: for pain scale 8-10 Stop: 08/15/16 20:01 Last Admin: 08/14/16 08:41 Dose: 1 tab Sevelamer HCl (Renagel) 2,400 mg PO TIDCC [facility] Last Admin: 08/14/16 17:52 Dose: 2,400 mg Tramadol HCl (Ultram) 50 mg PO BID PRN PRN Reason: Pain, moderate (4-7) Vitamin B Complex/Vit C/Folic Acid (Nephro-Krissy) 1 tab PO DAILY [facility] Last Admin: 08/14/16 08:42 Dose: 1 tab - Labs Labs: 08/13/16 06:50 08/13/16 06:50 - Constitutional Appears: Non-toxic - Head Exam Head Exam: NORMOCEPHALIC - Eye Exam Eye Exam: absent: Scleral icterus - ENT Exam ENT Exam: Mucous Membranes Dry - Neck Exam Neck Exam: absent: Lymphadenopathy - Respiratory Exam Respiratory Exam: Decreased Breath Sounds - Cardiovascular Exam Cardiovascular Exam: REGULAR RHYTHM Assessment and Plan (1) Bacteremia Status: Acute (2) Bacteremia due to coagulase-negative Staphylococcus Status: Acute (3) Bacteremia due to coagulase-negative Staphylococcus Status: Acute (4) Patellar tendon rupture Status: Acute (5) Dilated cardiomyopathy Status: Chronic (6) ESRD (end stage renal disease) on dialysis Status: Chronic (7) HTN (hypertension) Status: Chronic
--- NOTE | 2016-08-14 19:21 | CP.PCM.PN ---
Subjective - Date & Time of Evaluation Date of Evaluation: 08/14/16 Time of Evaluation: 22:22 - Subjective Subjective: Doing well Objective - Vital Signs/Intake and Output Vital Signs (last 24 hours): Temp Pulse Resp BP Pulse Ox 96.9 F L 78 20 149/88 98 08/14/16 08:14 08/14/16 08:43 08/14/16 08:14 08/14/16 08:45 08/14/16 08:14 - Medications Medications: Current Medications Acetaminophen (Tylenol 325mg Tab) 650 mg PO Q6 PRN PRN Reason: Pain, Mild (1-3) Last Admin: 08/11/16 17:43 Dose: 650 mg Albuterol/Ipratropium (Duoneb 3 Mg/0.5 Mg (3 Ml) Ud) 3 ml INH RQ6 PRN PRN Reason: Shortness of Breath Ascorbic Acid (Vitamin C 500 Mg Tab) 500 mg PO DAILY [facility] Last Admin: 08/14/16 08:43 Dose: 500 mg Aspirin (Ecotrin) 81 mg PO DAILY [facility] Last Admin: 08/14/16 08:42 Dose: 81 mg Bacitracin (Bacitracin Oint) 1 applic TOP DAILY [facility] Last Admin: 08/14/16 08:42 Dose: 1 applic Cinacalcet (Sensipar) 30 mg PO DAILY [facility] Last Admin: 08/14/16 08:42 Dose: 30 mg Epoetin René (Procrit) 10,000 unit IV MWF [facility] Last Admin: 08/12/16 18:50 Dose: Not Given Famotidine (Pepcid) 20 mg PO DAILY [facility] Last Admin: 08/14/16 08:43 Dose: 20 mg Heparin Sodium (Porcine) (Heparin) 5,000 units SC Q12 [facility] PRN Reason: Protocol Last Admin: 08/14/16 18:42 Dose: Not Given Vancomycin HCl 1 gm/ Sodium (Chloride) 250 mls @ 166.667 mls/hr IVPB MWF@1800 [facility] Last Admin: 08/12/16 18:47 Dose: 166.667 mls/hr Iron Sucrose 100 mg/ Sodium (Chloride) 105 mls @ 105 mls/hr IVPB MWF [facility] Stop: 08/21/16 09:59 Last Admin: 08/12/16 18:47 Dose: 105 mls/hr Isosorbide Mononitrate (Imdur) 30 mg PO DAILY [facility] Last Admin: 08/14/16 08:42 Dose: 30 mg Lisinopril (Zestril) 10 mg PO DAILY [facility] Last Admin: 08/14/16 08:45 Dose: 10 mg Metoprolol Tartrate (Lopressor) 25 mg PO Q12 [facility] Last Admin: 08/14/16 08:43 Dose: 25 mg Oxycodone/Acetaminophen (Percocet 5/325 Mg Tab) 1 tab PO Q4 PRN PRN Reason: for pain scale 8-10 Stop: 08/15/16 20:01 Last Admin: 08/14/16 08:41 Dose: 1 tab Sevelamer HCl (Renagel) 2,400 mg PO [facility] Last Admin: 08/14/16 17:52 Dose: 2,400 mg Tramadol HCl (Ultram) 50 mg PO BID PRN PRN Reason: Pain, moderate (4-7) Vitamin B Complex/Vit C/Folic Acid (Nephro-Krissy) 1 tab PO DAILY [facility] Last Admin: 08/14/16 08:42 Dose: 1 tab - Labs Labs: 08/13/16 06:50 08/13/16 06:50 - Respiratory Exam Respiratory Exam: NORMAL BREATHING PATTERN - Cardiovascular Exam Cardiovascular Exam: REGULAR RHYTHM - GI/Abdominal Exam GI & Abdominal Exam: Normal Bowel Sounds Assessment and Plan - Assessment and Plan (Free Text) Assessment: S/P bilateral Knee surgery/ Patellar tendon repair acute rehab + blood cs Staph ABX Vanco ID ESRD CKD HTN Dialysis Nephrology Cardiomyopathy Defibrillator Cardiology
[2016-08-14] MEDS: EPOETIN ALFA 10,000 UNIT/ML ML IV SCH (20:18)
[2016-08-15] MEDS: Oxycodone/Acetaminophen 5/325 mg Tab PO PRN ×4 (00:26→22:12)
--- NOTE | 2016-08-15 04:43 | CP.PCM.PN ---
Subjective - Date & Time of Evaluation Date of Evaluation: 08/14/16 Time of Evaluation: 15:00 - Subjective Subjective: FEELS BETTER ON PT HD ON Objective - Vital Signs/Intake and Output Vital Signs (last 24 hours): Temp Pulse Resp BP Pulse Ox 97.5 F L 70 20 157/64 H 100 08/14/16 20:47 08/15/16 00:29 08/14/16 20:47 08/15/16 00:29 08/14/16 20:47 - Medications Medications: Current Medications Acetaminophen (Tylenol 325mg Tab) 650 mg PO Q6 PRN PRN Reason: Pain, Mild (1-3) Last Admin: 08/11/16 17:43 Dose: 650 mg Albuterol/Ipratropium (Duoneb 3 Mg/0.5 Mg (3 Ml) Ud) 3 ml INH RQ6 PRN PRN Reason: Shortness of Breath Ascorbic Acid (Vitamin C 500 Mg Tab) 500 mg PO DAILY [facility] Last Admin: 08/14/16 08:43 Dose: 500 mg Aspirin (Ecotrin) 81 mg PO DAILY [facility] Last Admin: 08/14/16 08:42 Dose: 81 mg Bacitracin (Bacitracin Oint) 1 applic TOP DAILY [facility] Last Admin: 08/14/16 08:42 Dose: 1 applic Cinacalcet (Sensipar) 30 mg PO DAILY [facility] Last Admin: 08/14/16 08:42 Dose: 30 mg Epoetin René (Procrit) 10,000 unit IV MWF [facility] Last Admin: 08/14/16 20:18 Dose: 10,000 unit Famotidine (Pepcid) 20 mg PO DAILY [facility] Last Admin: 08/14/16 08:43 Dose: 20 mg Heparin Sodium (Porcine) (Heparin) 5,000 units SC Q12 [facility] PRN Reason: Protocol Last Admin: 08/15/16 00:31 Dose: 5,000 units Vancomycin HCl 1 gm/ Sodium (Chloride) 250 mls @ 166.667 mls/hr IVPB MWF@1800 [facility] Last Admin: 08/14/16 20:02 Dose: 166.667 mls/hr Iron Sucrose 100 mg/ Sodium (Chloride) 105 mls @ 105 mls/hr IVPB MWF [facility] Stop: 08/21/16 09:59 Last Admin: 08/14/16 20:18 Dose: 105 mls/hr Isosorbide Mononitrate (Imdur) 30 mg PO DAILY [facility] Last Admin: 08/14/16 08:42 Dose: 30 mg Lisinopril (Zestril) 10 mg PO DAILY [facility] Last Admin: 08/14/16 08:45 Dose: 10 mg Metoprolol Tartrate (Lopressor) 25 mg PO Q12 [facility] Last Admin: 08/15/16 00:29 Dose: 25 mg Oxycodone/Acetaminophen (Percocet 5/325 Mg Tab) 1 tab PO Q4 PRN PRN Reason: for pain scale 8-10 Stop: 08/15/16 20:01 Last Admin: 08/15/16 00:26 Dose: 1 tab Sevelamer HCl (Renagel) 2,400 mg PO TIDCC [facility] Last Admin: 08/14/16 17:52 Dose: 2,400 mg Tramadol HCl (Ultram) 50 mg PO BID PRN PRN Reason: Pain, moderate (4-7) Vitamin B Complex/Vit C/Folic Acid (Nephro-Krissy) 1 tab PO DAILY [facility] Last Admin: 08/14/16 08:42 Dose: 1 tab - Labs Labs: 08/13/16 06:50 08/13/16 06:50 Assessment and Plan - Assessment and Plan (Free Text) Assessment: ESRD .. ON HD M W F ANEMIA OF CKD .. ON EPO + VENOFER .. WILL MONITOR H/H SECONDAARY HYPER PARATHYROIDISM .. ADD VIT D .. INCREASE SENSIPAR TO 60 C/O CURRENT CARE
[2016-08-15] MEDS: Bacitracin OINT 15GM TOP SCH (08:41)
[2016-08-15] MEDS: Multivitamin Vitamin B Complex (Nephro-Vite) Tab PO SCH (08:52)
[2016-08-15] MEDS ORDERED: Cinacalcet 60 MG TAB PO SCH (09:00)
--- NOTE | 2016-08-15 10:31 | CP.PCM.PN ---
Subjective - Date & Time of Evaluation Date of Evaluation: 08/15/16 Time of Evaluation: 10:00 - Subjective Subjective: NO CHEST PAIN OR SOB Objective - Vital Signs/Intake and Output Vital Signs (last 24 hours): Temp Pulse Resp BP Pulse Ox 97.3 F L 83 20 150/92 H 100 08/15/16 08:10 08/15/16 08:42 08/15/16 08:10 08/15/16 08:42 08/15/16 08:10 - Medications Medications: Current Medications Acetaminophen (Tylenol 325mg Tab) 650 mg PO Q6 PRN PRN Reason: Pain, Mild (1-3) Last Admin: 08/11/16 17:43 Dose: 650 mg Albuterol/Ipratropium (Duoneb 3 Mg/0.5 Mg (3 Ml) Ud) 3 ml INH RQ6 PRN PRN Reason: Shortness of Breath Ascorbic Acid (Vitamin C 500 Mg Tab) 500 mg PO DAILY [facility] Last Admin: 08/15/16 08:42 Dose: 500 mg Aspirin (Ecotrin) 81 mg PO DAILY [facility] Last Admin: 08/15/16 08:42 Dose: 81 mg Bacitracin (Bacitracin Oint) 1 applic TOP DAILY [facility] Last Admin: 08/15/16 08:41 Dose: 1 applic Cholecalciferol (Vitamin D) 2,000 iu PO DAILY [facility] Last Admin: 08/15/16 08:57 Dose: Not Given Cinacalcet (Sensipar) 30 mg PO DAILY [facility] Last Admin: 08/15/16 08:43 Dose: 30 mg Cinacalcet (Sensipar) 60 mg PO DAILY [facility] Doxercalciferol (Hectorol) 0.5 mcg PO DAILY [facility] Epoetin René (Procrit) 10,000 unit IV MWF [facility] Last Admin: 08/14/16 20:18 Dose: 10,000 unit Famotidine (Pepcid) 20 mg PO DAILY [facility] Last Admin: 08/15/16 08:42 Dose: 20 mg Heparin Sodium (Porcine) (Heparin) 5,000 units SC Q12 [facility] PRN Reason: Protocol Last Admin: 08/15/16 08:40 Dose: 5,000 units Vancomycin HCl 1 gm/ Sodium (Chloride) 250 mls @ 166.667 mls/hr IVPB MWF@1800 [facility] Last Admin: 08/14/16 20:02 Dose: 166.667 mls/hr Iron Sucrose 100 mg/ Sodium (Chloride) 105 mls @ 105 mls/hr IVPB MWF [facility] Stop: 08/21/16 09:59 Last Admin: 08/14/16 20:18 Dose: 105 mls/hr Isosorbide Mononitrate (Imdur) 30 mg PO DAILY [facility] Last Admin: 08/15/16 08:41 Dose: 30 mg Lisinopril (Zestril) 10 mg PO DAILY [facility] Last Admin: 08/15/16 08:41 Dose: 10 mg Metoprolol Tartrate (Lopressor) 25 mg PO Q12 [facility] Last Admin: 08/15/16 08:42 Dose: 25 mg Oxycodone/Acetaminophen (Percocet 5/325 Mg Tab) 1 tab PO Q4 PRN PRN Reason: for pain scale 8-10 Stop: 08/15/16 20:01 Last Admin: 08/15/16 08:47 Dose: 1 tab Tramadol HCl (Ultram) 50 mg PO BID PRN PRN Reason: Pain, moderate (4-7) Vitamin B Complex/Vit C/Folic Acid (Nephro-Krissy) 1 tab PO DAILY [facility] Last Admin: 08/15/16 08:52 Dose: 1 tab - Labs Labs: 08/13/16 06:50 08/13/16 06:50 - Respiratory Exam Respiratory Exam: Clear to Ausculation Bilateral - Cardiovascular Exam Cardiovascular Exam: REGULAR RHYTHM, +S1, +S2 Assessment and Plan - Assessment and Plan (Free Text) Assessment: BILATERAL KNEE TENDON SURGERY CARDIOMYOPATHY HYPERTENSION CRF ON HD Plan: CONTINUE METOPROLOL, LISINOPRIL, ISOSORBIDE, ASPIRIN AND HEPARIN CONTINUE WITH ACUTE REHAB
--- NOTE | 2016-08-15 18:18 | CP.PCM.PN ---
Subjective - Date & Time of Evaluation Date of Evaluation: 08/15/16 Time of Evaluation: 15:00 - Subjective Subjective: SEEN ON RENAL F/U ON HD M W F D/W HIM THE IMPORTANCE OF VIT D SUULEMENTS AND SENSIPAR IN THX 2ND HPT HEMODYNAMICALLY STABLE Objective - Vital Signs/Intake and Output Vital Signs (last 24 hours): Temp Pulse Resp BP Pulse Ox 97.3 F L 83 20 150/92 H 100 08/15/16 08:10 08/15/16 08:42 08/15/16 08:10 08/15/16 08:42 08/15/16 08:10 - Medications Medications: Current Medications Acetaminophen (Tylenol 325mg Tab) 650 mg PO Q6 PRN PRN Reason: Pain, Mild (1-3) Last Admin: 08/11/16 17:43 Dose: 650 mg Albuterol/Ipratropium (Duoneb 3 Mg/0.5 Mg (3 Ml) Ud) 3 ml INH RQ6 PRN PRN Reason: Shortness of Breath Ascorbic Acid (Vitamin C 500 Mg Tab) 500 mg PO DAILY [facility] Last Admin: 08/15/16 08:42 Dose: 500 mg Aspirin (Ecotrin) 81 mg PO DAILY [facility] Last Admin: 08/15/16 08:42 Dose: 81 mg Bacitracin (Bacitracin Oint) 1 applic TOP DAILY [facility] Last Admin: 08/15/16 08:41 Dose: 1 applic Cholecalciferol (Vitamin D) 2,000 iu PO DAILY [facility] Last Admin: 08/15/16 08:57 Dose: Not Given Cinacalcet (Sensipar) 30 mg PO BID [facility] Last Admin: 08/15/16 16:29 Dose: 30 mg Doxercalciferol (Hectorol) 0.5 mcg PO DAILY [facility] Last Admin: 08/15/16 16:36 Dose: 0.5 mcg Epoetin René (Procrit) 10,000 unit IV MWF [facility] Last Admin: 08/14/16 20:18 Dose: 10,000 unit Famotidine (Pepcid) 20 mg PO DAILY [facility] Last Admin: 08/15/16 08:42 Dose: 20 mg Heparin Sodium (Porcine) (Heparin) 5,000 units SC Q12 [facility] PRN Reason: Protocol Last Admin: 08/15/16 08:40 Dose: 5,000 units Vancomycin HCl 1 gm/ Sodium (Chloride) 250 mls @ 166.667 mls/hr IVPB MWF@1800 [facility] Last Admin: 08/14/16 20:02 Dose: 166.667 mls/hr Iron Sucrose 100 mg/ Sodium (Chloride) 105 mls @ 105 mls/hr IVPB MWF [facility] Stop: 08/21/16 09:59 Last Admin: 08/14/16 20:18 Dose: 105 mls/hr Isosorbide Mononitrate (Imdur) 30 mg PO DAILY [facility] Last Admin: 08/15/16 08:41 Dose: 30 mg Lisinopril (Zestril) 10 mg PO DAILY [facility] Last Admin: 08/15/16 08:41 Dose: 10 mg Metoprolol Tartrate (Lopressor) 25 mg PO Q12 [facility] Last Admin: 08/15/16 08:42 Dose: 25 mg Oxycodone/Acetaminophen (Percocet 5/325 Mg Tab) 1 tab PO Q4 PRN PRN Reason: for pain scale 8-10 Stop: 08/15/16 20:01 Last Admin: 08/15/16 17:28 Dose: 1 tab Sevelamer HCl (Renagel) 2,400 mg PO TID [facility] Last Admin: 08/15/16 16:29 Dose: 2,400 mg Tramadol HCl (Ultram) 50 mg PO BID PRN PRN Reason: Pain, moderate (4-7) Vitamin B Complex/Vit C/Folic Acid (Nephro-Krissy) 1 tab PO DAILY [facility] Last Admin: 08/15/16 08:52 Dose: 1 tab - Labs Labs: 08/13/16 06:50 08/13/16 06:50 Assessment and Plan - Assessment and Plan (Free Text) Assessment: C/O CURRENT CARE INSTRUCTED TO TAKE ALL MEDS AND NOT TO BE SELECTIVE
--- NOTE | 2016-08-15 18:54 | CP.PCM.PN ---
Subjective - Date & Time of Evaluation Date of Evaluation: 08/15/16 Time of Evaluation: 18:51 - Subjective Subjective: Patient seen in room pain is controlled dressing changes being down CDI huong in place Objective - Vital Signs/Intake and Output Vital Signs (last 24 hours): Temp Pulse Resp BP Pulse Ox 97.3 F L 83 20 150/92 H 100 08/15/16 08:10 08/15/16 08:42 08/15/16 08:10 08/15/16 08:42 08/15/16 08:10 - Medications Medications: Current Medications Acetaminophen (Tylenol 325mg Tab) 650 mg PO Q6 PRN PRN Reason: Pain, Mild (1-3) Last Admin: 08/11/16 17:43 Dose: 650 mg Albuterol/Ipratropium (Duoneb 3 Mg/0.5 Mg (3 Ml) Ud) 3 ml INH RQ6 PRN PRN Reason: Shortness of Breath Ascorbic Acid (Vitamin C 500 Mg Tab) 500 mg PO DAILY [facility] Last Admin: 08/15/16 08:42 Dose: 500 mg Aspirin (Ecotrin) 81 mg PO DAILY [facility] Last Admin: 08/15/16 08:42 Dose: 81 mg Bacitracin (Bacitracin Oint) 1 applic TOP DAILY [facility] Last Admin: 08/15/16 08:41 Dose: 1 applic Cholecalciferol (Vitamin D) 2,000 iu PO DAILY [facility] Last Admin: 08/15/16 08:57 Dose: Not Given Cinacalcet (Sensipar) 30 mg PO BID [facility] Last Admin: 08/15/16 16:29 Dose: 30 mg Doxercalciferol (Hectorol) 0.5 mcg PO DAILY [facility] Last Admin: 08/15/16 16:36 Dose: 0.5 mcg Epoetin René (Procrit) 10,000 unit IV MWF [facility] Last Admin: 08/14/16 20:18 Dose: 10,000 unit Famotidine (Pepcid) 20 mg PO DAILY [facility] Last Admin: 08/15/16 08:42 Dose: 20 mg Heparin Sodium (Porcine) (Heparin) 5,000 units SC Q12 [facility] PRN Reason: Protocol Last Admin: 08/15/16 08:40 Dose: 5,000 units Vancomycin HCl 1 gm/ Sodium (Chloride) 250 mls @ 166.667 mls/hr IVPB MWF@1800 [facility] Last Admin: 08/14/16 20:02 Dose: 166.667 mls/hr Iron Sucrose 100 mg/ Sodium (Chloride) 105 mls @ 105 mls/hr IVPB MWF [facility] Stop: 08/21/16 09:59 Last Admin: 08/14/16 20:18 Dose: 105 mls/hr Isosorbide Mononitrate (Imdur) 30 mg PO DAILY [facility] Last Admin: 08/15/16 08:41 Dose: 30 mg Lisinopril (Zestril) 10 mg PO DAILY [facility] Last Admin: 08/15/16 08:41 Dose: 10 mg Metoprolol Tartrate (Lopressor) 25 mg PO Q12 [facility] Last Admin: 08/15/16 08:42 Dose: 25 mg Oxycodone/Acetaminophen (Percocet 5/325 Mg Tab) 1 tab PO Q4 PRN PRN Reason: for pain scale 8-10 Stop: 08/15/16 20:01 Last Admin: 08/15/16 17:28 Dose: 1 tab Sevelamer HCl (Renagel) 2,400 mg PO TID [facility] Last Admin: 08/15/16 16:29 Dose: 2,400 mg Tramadol HCl (Ultram) 50 mg PO BID PRN PRN Reason: Pain, moderate (4-7) Vitamin B Complex/Vit C/Folic Acid (Nephro-Krissy) 1 tab PO DAILY [facility] Last Admin: 08/15/16 08:52 Dose: 1 tab - Labs Labs: 08/13/16 06:50 08/13/16 06:50
--- NOTE | 2016-08-15 20:10 | CP.PCM.PN ---
Subjective - Date & Time of Evaluation Date of Evaluation: 08/15/16 Time of Evaluation: 22:22 - Subjective Subjective: Above noted Objective - Vital Signs/Intake and Output Vital Signs (last 24 hours): Temp Pulse Resp BP Pulse Ox 97.3 F L 83 20 150/92 H 100 08/15/16 08:10 08/15/16 08:42 08/15/16 08:10 08/15/16 08:42 08/15/16 08:10 - Medications Medications: Current Medications Acetaminophen (Tylenol 325mg Tab) 650 mg PO Q6 PRN PRN Reason: Pain, Mild (1-3) Last Admin: 08/11/16 17:43 Dose: 650 mg Albuterol/Ipratropium (Duoneb 3 Mg/0.5 Mg (3 Ml) Ud) 3 ml INH RQ6 PRN PRN Reason: Shortness of Breath Ascorbic Acid (Vitamin C 500 Mg Tab) 500 mg PO DAILY [facility] Last Admin: 08/15/16 08:42 Dose: 500 mg Aspirin (Ecotrin) 81 mg PO DAILY [facility] Last Admin: 08/15/16 08:42 Dose: 81 mg Bacitracin (Bacitracin Oint) 1 applic TOP DAILY [facility] Last Admin: 08/15/16 08:41 Dose: 1 applic Cholecalciferol (Vitamin D) 2,000 iu PO DAILY [facility] Last Admin: 08/15/16 08:57 Dose: Not Given Cinacalcet (Sensipar) 30 mg PO BID [facility] Last Admin: 08/15/16 16:29 Dose: 30 mg Doxercalciferol (Hectorol) 0.5 mcg PO DAILY [facility] Last Admin: 08/15/16 16:36 Dose: 0.5 mcg Epoetin René (Procrit) 10,000 unit IV MWF [facility] Last Admin: 08/14/16 20:18 Dose: 10,000 unit Famotidine (Pepcid) 20 mg PO DAILY [facility] Last Admin: 08/15/16 08:42 Dose: 20 mg Heparin Sodium (Porcine) (Heparin) 5,000 units SC Q12 [facility] PRN Reason: Protocol Last Admin: 08/15/16 08:40 Dose: 5,000 units Vancomycin HCl 1 gm/ Sodium (Chloride) 250 mls @ 166.667 mls/hr IVPB MWF@1800 [facility] Last Admin: 08/14/16 20:02 Dose: 166.667 mls/hr Iron Sucrose 100 mg/ Sodium (Chloride) 105 mls @ 105 mls/hr IVPB MWF [facility] Stop: 08/21/16 09:59 Last Admin: 08/14/16 20:18 Dose: 105 mls/hr Isosorbide Mononitrate (Imdur) 30 mg PO DAILY [facility] Last Admin: 08/15/16 08:41 Dose: 30 mg Lisinopril (Zestril) 10 mg PO DAILY [facility] Last Admin: 08/15/16 08:41 Dose: 10 mg Metoprolol Tartrate (Lopressor) 25 mg PO Q12 [facility] Last Admin: 08/15/16 08:42 Dose: 25 mg Oxycodone/Acetaminophen (Percocet 5/325 Mg Tab) 1 tab PO Q4 PRN PRN Reason: for pain scale 8-10 Stop: 08/18/16 19:47 Sevelamer HCl (Renagel) 2,400 mg PO TID [facility] Last Admin: 08/15/16 16:29 Dose: 2,400 mg Tramadol HCl (Ultram) 50 mg PO BID PRN PRN Reason: Pain, moderate (4-7) Vitamin B Complex/Vit C/Folic Acid (Nephro-Krissy) 1 tab PO DAILY [facility] Last Admin: 08/15/16 08:52 Dose: 1 tab - Labs Labs: 08/13/16 06:50 08/13/16 06:50 - Respiratory Exam Respiratory Exam: NORMAL BREATHING PATTERN - Cardiovascular Exam Cardiovascular Exam: REGULAR RHYTHM - GI/Abdominal Exam GI & Abdominal Exam: Normal Bowel Sounds Assessment and Plan - Assessment and Plan (Free Text) Assessment: S/P bilateral Knee surgery/ Patellar tendon repair acute rehab + blood cs Staph ABX Vanco ID ESRD CKD HTN Dialysis Nephrology Cardiomyopathy Defibrillator Cardiology
[2016-08-16] MEDS: Bacitracin OINT 15GM TOP SCH (08:55)
[2016-08-16] MEDS: Oxycodone/Acetaminophen 5/325 mg Tab PO PRN ×2 (08:55→23:42)
[2016-08-16] MEDS: Multivitamin Vitamin B Complex (Nephro-Vite) Tab PO SCH (08:57)
--- NOTE | 2016-08-16 13:32 | CP.PCM.PN ---
Subjective - Date & Time of Evaluation Date of Evaluation: 08/16/16 Time of Evaluation: 08:45 - Subjective Subjective: NO CHEST PAIN OR SOB Objective - Vital Signs/Intake and Output Vital Signs (last 24 hours): Temp Pulse Resp BP Pulse Ox 97.7 F 82 19 164/100 H 96 08/16/16 08:19 08/16/16 09:00 08/16/16 08:19 08/16/16 09:00 08/16/16 08:19 - Medications Medications: Current Medications Acetaminophen (Tylenol 325mg Tab) 650 mg PO Q6 PRN PRN Reason: Pain, Mild (1-3) Last Admin: 08/11/16 17:43 Dose: 650 mg Albuterol/Ipratropium (Duoneb 3 Mg/0.5 Mg (3 Ml) Ud) 3 ml INH RQ6 PRN PRN Reason: Shortness of Breath Ascorbic Acid (Vitamin C 500 Mg Tab) 500 mg PO DAILY [facility] Last Admin: 08/16/16 08:57 Dose: 500 mg Aspirin (Ecotrin) 81 mg PO DAILY [facility] Last Admin: 08/16/16 08:57 Dose: 81 mg Bacitracin (Bacitracin Oint) 1 applic TOP DAILY [facility] Last Admin: 08/16/16 08:55 Dose: 1 applic Cholecalciferol (Vitamin D) 2,000 iu PO DAILY [facility] Last Admin: 08/16/16 09:00 Dose: Not Given Cinacalcet (Sensipar) 30 mg PO BID [facility] Last Admin: 08/16/16 08:59 Dose: 30 mg Doxercalciferol (Hectorol) 0.5 mcg PO DAILY [facility] Last Admin: 08/16/16 09:00 Dose: 0.5 mcg Epoetin René (Procrit) 10,000 unit IV MWF [facility] Last Admin: 08/14/16 20:18 Dose: 10,000 unit Famotidine (Pepcid) 20 mg PO DAILY [facility] Last Admin: 08/16/16 09:01 Dose: 20 mg Heparin Sodium (Porcine) (Heparin) 5,000 units SC Q12 YOLANDE PRN Reason: Protocol Last Admin: 08/16/16 08:58 Dose: 5,000 units Vancomycin HCl 1 gm/ Sodium (Chloride) 250 mls @ 166.667 mls/hr IVPB MWF@1800 [facility] Last Admin: 08/14/16 20:02 Dose: 166.667 mls/hr Iron Sucrose 100 mg/ Sodium (Chloride) 105 mls @ 105 mls/hr IVPB MWF [facility] Stop: 08/21/16 09:59 Last Admin: 08/14/16 20:18 Dose: 105 mls/hr Isosorbide Mononitrate (Imdur) 30 mg PO DAILY [facility] Last Admin: 08/16/16 08:58 Dose: 30 mg Lisinopril (Zestril) 10 mg PO DAILY [facility] Last Admin: 08/16/16 09:00 Dose: 10 mg Metoprolol Tartrate (Lopressor) 25 mg PO Q12 [facility] Last Admin: 08/16/16 08:58 Dose: 25 mg Oxycodone/Acetaminophen (Percocet 5/325 Mg Tab) 1 tab PO Q4 PRN PRN Reason: for pain scale 8-10 Stop: 08/18/16 19:47 Last Admin: 08/16/16 08:55 Dose: 1 tab Sevelamer HCl (Renagel) 2,400 mg PO TID [facility] Last Admin: 08/16/16 08:56 Dose: 2,400 mg Tramadol HCl (Ultram) 50 mg PO BID PRN PRN Reason: Pain, moderate (4-7) Vitamin B Complex/Vit C/Folic Acid (Nephro-Krissy) 1 tab PO DAILY [facility] Last Admin: 08/16/16 08:57 Dose: 1 tab - Labs Labs: 08/13/16 06:50 08/13/16 06:50 - Respiratory Exam Respiratory Exam: Clear to Ausculation Bilateral - Cardiovascular Exam Cardiovascular Exam: REGULAR RHYTHM, +S1, +S2 Assessment and Plan - Assessment and Plan (Free Text) Assessment: CARDIOMYOPATHY HYPERTENSION CRF ON HD BILATERAL TENDON SURGERY Plan: CONTINUE METOPROLOL,LISINOPRIL, ISOSORBIDE, ASPIRIN, HEPARIN, ANTIBIOTICS CONTINUE ACUTE REHAB
--- NOTE | 2016-08-16 16:37 | CP.PCM.PN ---
Subjective - Date & Time of Evaluation Date of Evaluation: 08/16/16 Time of Evaluation: 16:36 - Subjective Subjective: Patient seen in room no pain getting HD denies nausea continue current care Objective - Vital Signs/Intake and Output Vital Signs (last 24 hours): Temp Pulse Resp BP Pulse Ox 97.7 F 82 19 164/100 H 96 08/16/16 08:19 08/16/16 09:00 08/16/16 08:19 08/16/16 09:00 08/16/16 08:19 - Medications Medications: Current Medications Acetaminophen (Tylenol 325mg Tab) 650 mg PO Q6 PRN PRN Reason: Pain, Mild (1-3) Last Admin: 08/11/16 17:43 Dose: 650 mg Albuterol/Ipratropium (Duoneb 3 Mg/0.5 Mg (3 Ml) Ud) 3 ml INH RQ6 PRN PRN Reason: Shortness of Breath Ascorbic Acid (Vitamin C 500 Mg Tab) 500 mg PO DAILY [facility] Last Admin: 08/16/16 08:57 Dose: 500 mg Aspirin (Ecotrin) 81 mg PO DAILY [facility] Last Admin: 08/16/16 08:57 Dose: 81 mg Bacitracin (Bacitracin Oint) 1 applic TOP DAILY [facility] Last Admin: 08/16/16 08:55 Dose: 1 applic Cholecalciferol (Vitamin D) 2,000 iu PO DAILY [facility] Last Admin: 08/16/16 09:00 Dose: Not Given Cinacalcet (Sensipar) 30 mg PO BID [facility] Last Admin: 08/16/16 08:59 Dose: 30 mg Doxercalciferol (Hectorol) 0.5 mcg PO DAILY [facility] Last Admin: 08/16/16 09:00 Dose: 0.5 mcg Epoetin René (Procrit) 10,000 unit IV MWF [facility] Last Admin: 08/14/16 20:18 Dose: 10,000 unit Famotidine (Pepcid) 20 mg PO DAILY [facility] Last Admin: 08/16/16 09:01 Dose: 20 mg Heparin Sodium (Porcine) (Heparin) 5,000 units SC Q12 YOLANDE PRN Reason: Protocol Last Admin: 08/16/16 08:58 Dose: 5,000 units Vancomycin HCl 1 gm/ Sodium (Chloride) 250 mls @ 166.667 mls/hr IVPB MWF@1800 [facility] Last Admin: 08/14/16 20:02 Dose: 166.667 mls/hr Iron Sucrose 100 mg/ Sodium (Chloride) 105 mls @ 105 mls/hr IVPB MWF [facility] Stop: 08/21/16 09:59 Last Admin: 08/14/16 20:18 Dose: 105 mls/hr Isosorbide Mononitrate (Imdur) 30 mg PO DAILY [facility] Last Admin: 08/16/16 08:58 Dose: 30 mg Lisinopril (Zestril) 10 mg PO DAILY [facility] Last Admin: 08/16/16 09:00 Dose: 10 mg Metoprolol Tartrate (Lopressor) 25 mg PO Q12 [facility] Last Admin: 08/16/16 08:58 Dose: 25 mg Oxycodone/Acetaminophen (Percocet 5/325 Mg Tab) 1 tab PO Q4 PRN PRN Reason: for pain scale 8-10 Stop: 08/18/16 19:47 Last Admin: 08/16/16 08:55 Dose: 1 tab Sevelamer HCl (Renagel) 2,400 mg PO TID [facility] Last Admin: 08/16/16 08:56 Dose: 2,400 mg Tramadol HCl (Ultram) 50 mg PO BID PRN PRN Reason: Pain, moderate (4-7) Vitamin B Complex/Vit C/Folic Acid (Nephro-Krissy) 1 tab PO DAILY [facility] Last Admin: 08/16/16 08:57 Dose: 1 tab - Labs Labs: 08/13/16 06:50 08/13/16 06:50
[2016-08-16] MEDS: EPOETIN ALFA 10,000 UNIT/ML ML IV SCH (16:46)
--- NOTE | 2016-08-16 19:31 | CP.PCM.PN ---
Subjective - Date & Time of Evaluation Date of Evaluation: 08/16/16 Time of Evaluation: 22:22 - Subjective Subjective: PT today Objective - Vital Signs/Intake and Output Vital Signs (last 24 hours): Temp Pulse Resp BP Pulse Ox 97.7 F 82 19 164/100 H 96 08/16/16 08:19 08/16/16 09:00 08/16/16 08:19 08/16/16 09:00 08/16/16 08:19 - Medications Medications: Current Medications Acetaminophen (Tylenol 325mg Tab) 650 mg PO Q6 PRN PRN Reason: Pain, Mild (1-3) Last Admin: 08/11/16 17:43 Dose: 650 mg Albuterol/Ipratropium (Duoneb 3 Mg/0.5 Mg (3 Ml) Ud) 3 ml INH RQ6 PRN PRN Reason: Shortness of Breath Ascorbic Acid (Vitamin C 500 Mg Tab) 500 mg PO DAILY [facility] Last Admin: 08/16/16 08:57 Dose: 500 mg Aspirin (Ecotrin) 81 mg PO DAILY [facility] Last Admin: 08/16/16 08:57 Dose: 81 mg Bacitracin (Bacitracin Oint) 1 applic TOP DAILY [facility] Last Admin: 08/16/16 08:55 Dose: 1 applic Cholecalciferol (Vitamin D) 2,000 iu PO DAILY [facility] Last Admin: 08/16/16 09:00 Dose: Not Given Cinacalcet (Sensipar) 30 mg PO BID [facility] Last Admin: 08/16/16 08:59 Dose: 30 mg Doxercalciferol (Hectorol) 0.5 mcg PO DAILY [facility] Last Admin: 08/16/16 09:00 Dose: 0.5 mcg Epoetin René (Procrit) 10,000 unit IV MWF [facility] Last Admin: 08/16/16 16:46 Dose: 10,000 unit Famotidine (Pepcid) 20 mg PO DAILY [facility] Last Admin: 08/16/16 09:01 Dose: 20 mg Heparin Sodium (Porcine) (Heparin) 5,000 units SC Q12 YOLANDE PRN Reason: Protocol Last Admin: 08/16/16 08:58 Dose: 5,000 units Vancomycin HCl 1 gm/ Sodium (Chloride) 250 mls @ 166.667 mls/hr IVPB MWF@1800 [facility] Last Admin: 08/16/16 18:24 Dose: 166.667 mls/hr Iron Sucrose 100 mg/ Sodium (Chloride) 105 mls @ 105 mls/hr IVPB MWF [facility] Stop: 08/21/16 09:59 Last Admin: 08/16/16 16:44 Dose: 105 mls/hr Isosorbide Mononitrate (Imdur) 30 mg PO DAILY [facility] Last Admin: 08/16/16 08:58 Dose: 30 mg Lisinopril (Zestril) 10 mg PO DAILY [facility] Last Admin: 08/16/16 09:00 Dose: 10 mg Metoprolol Tartrate (Lopressor) 25 mg PO Q12 [facility] Last Admin: 08/16/16 08:58 Dose: 25 mg Oxycodone/Acetaminophen (Percocet 5/325 Mg Tab) 1 tab PO Q4 PRN PRN Reason: for pain scale 8-10 Stop: 08/18/16 19:47 Last Admin: 08/16/16 08:55 Dose: 1 tab Sevelamer HCl (Renagel) 2,400 mg PO TID [facility] Last Admin: 08/16/16 13:00 Dose: 2,400 mg Tramadol HCl (Ultram) 50 mg PO BID PRN PRN Reason: Pain, moderate (4-7) Vitamin B Complex/Vit C/Folic Acid (Nephro-Krissy) 1 tab PO DAILY [facility] Last Admin: 08/16/16 08:57 Dose: 1 tab - Labs Labs: 08/13/16 06:50 08/13/16 06:50 - Respiratory Exam Respiratory Exam: NORMAL BREATHING PATTERN - Cardiovascular Exam Cardiovascular Exam: REGULAR RHYTHM - GI/Abdominal Exam GI & Abdominal Exam: Normal Bowel Sounds Assessment and Plan - Assessment and Plan (Free Text) Assessment: S/P bilateral Knee surgery/ Patellar tendon repair acute rehab + blood cs Staph ABX Vanco ID ESRD CKD HTN Dialysis Nephrology Cardiomyopathy Defibrillator Cardiology
[2016-08-17] MEDS: Multivitamin Vitamin B Complex (Nephro-Vite) Tab PO SCH (08:27)
[2016-08-17] MEDS: Bacitracin OINT 15GM TOP SCH (08:27)
[2016-08-17] MEDS: Oxycodone/Acetaminophen 5/325 mg Tab PO PRN ×2 (08:42→22:41)
--- NOTE | 2016-08-17 13:28 | CP.PCM.PN ---
Subjective - Date & Time of Evaluation Date of Evaluation: 08/17/16 Time of Evaluation: 12:00 - Subjective Subjective: NO COMPLAINTS Objective - Vital Signs/Intake and Output Vital Signs (last 24 hours): Temp Pulse Resp BP Pulse Ox 97.0 F L 70 21 140/86 100 08/17/16 07:46 08/17/16 10:00 08/17/16 07:46 08/17/16 10:00 08/17/16 07:46 - Medications Medications: Current Medications Acetaminophen (Tylenol 325mg Tab) 650 mg PO Q6 PRN PRN Reason: Pain, Mild (1-3) Last Admin: 08/11/16 17:43 Dose: 650 mg Albuterol/Ipratropium (Duoneb 3 Mg/0.5 Mg (3 Ml) Ud) 3 ml INH RQ6 PRN PRN Reason: Shortness of Breath Ascorbic Acid (Vitamin C 500 Mg Tab) 500 mg PO DAILY [facility] Last Admin: 08/17/16 08:29 Dose: 500 mg Aspirin (Ecotrin) 81 mg PO DAILY [facility] Last Admin: 08/17/16 08:29 Dose: 81 mg Bacitracin (Bacitracin Oint) 1 applic TOP DAILY [facility] Last Admin: 08/17/16 08:27 Dose: 1 applic Cholecalciferol (Vitamin D) 2,000 iu PO DAILY [facility] Last Admin: 08/17/16 08:30 Dose: 2,000 iu Cinacalcet (Sensipar) 30 mg PO BID [facility] Last Admin: 08/17/16 08:28 Dose: 30 mg Doxercalciferol (Hectorol) 0.5 mcg PO DAILY [facility] Last Admin: 08/17/16 08:28 Dose: 0.5 mcg Epoetin René (Procrit) 10,000 unit IV MWF [facility] Last Admin: 08/16/16 16:46 Dose: 10,000 unit Famotidine (Pepcid) 20 mg PO DAILY [facility] Last Admin: 08/17/16 08:29 Dose: 20 mg Heparin Sodium (Porcine) (Heparin) 5,000 units SC Q12 YOLANDE PRN Reason: Protocol Last Admin: 08/17/16 08:28 Dose: 5,000 units Vancomycin HCl 1 gm/ Sodium (Chloride) 250 mls @ 166.667 mls/hr IVPB MWF@1800 [facility] Last Admin: 08/16/16 18:24 Dose: 166.667 mls/hr Iron Sucrose 100 mg/ Sodium (Chloride) 105 mls @ 105 mls/hr IVPB MWF [facility] Stop: 08/21/16 09:59 Last Admin: 08/16/16 16:44 Dose: 105 mls/hr Isosorbide Mononitrate (Imdur) 30 mg PO DAILY [facility] Last Admin: 08/17/16 08:28 Dose: 30 mg Lisinopril (Zestril) 10 mg PO DAILY [facility] Last Admin: 08/17/16 08:30 Dose: 10 mg Metoprolol Tartrate (Lopressor) 25 mg PO Q12 [facility] Last Admin: 08/17/16 10:00 Dose: 25 mg Oxycodone/Acetaminophen (Percocet 5/325 Mg Tab) 1 tab PO Q4 PRN PRN Reason: for pain scale 8-10 Stop: 08/18/16 19:47 Last Admin: 08/17/16 08:42 Dose: 1 tab Sevelamer HCl (Renagel) 2,400 mg PO TID [facility] Last Admin: 08/17/16 08:28 Dose: 2,400 mg Tramadol HCl (Ultram) 50 mg PO BID PRN PRN Reason: Pain, moderate (4-7) Vitamin B Complex/Vit C/Folic Acid (Nephro-Krissy) 1 tab PO DAILY [facility] Last Admin: 08/17/16 08:27 Dose: 1 tab - Labs Labs: 08/13/16 06:50 08/13/16 06:50 - Respiratory Exam Respiratory Exam: Clear to Ausculation Bilateral - Cardiovascular Exam Cardiovascular Exam: REGULAR RHYTHM, +S1, +S2 Assessment and Plan - Assessment and Plan (Free Text) Assessment: S/P BILATERAL KNEE TENDON SURGERY CARDIOMYOPATHY HYPERTENSION CRF ON HD Plan: CONTINUE METOPROLOL, LISINOPRIL, ISOSORBIDE, ASPIRIN, HEPARIN AND ANTIBIOTICS
[2016-08-18 08:09] LABS: HEMATOCRIT 24.5 % (35.0-51.0); MEAN CELL VOLUME 91.4 fl (80.0-94.0); MEAN CORPUSCULAR HEMOGLOBIN 29.4 pg (27.0-31.0); MEAN CORPUSCULAR HGB CONC 32.1 g/dL (33.0-37.0); WHITE BLOOD COUNT 8.3 K/uL (4.8-10.8)
[2016-08-18] MEDS: Bacitracin OINT 15GM TOP SCH (08:12)
[2016-08-18] MEDS: Multivitamin Vitamin B Complex (Nephro-Vite) Tab PO SCH (08:14)
--- NOTE | 2016-08-18 13:34 | CP.PCM.PN ---
Subjective - Date & Time of Evaluation Date of Evaluation: 08/18/16 Time of Evaluation: 12:30 - Subjective Subjective: NO COMPLAINTS FEELS GOOD Objective - Vital Signs/Intake and Output Vital Signs (last 24 hours): Temp Pulse Resp BP Pulse Ox 97.7 F 79 18 144/78 99 08/18/16 08:05 08/18/16 08:18 08/18/16 08:05 08/18/16 08:18 08/18/16 08:05 - Medications Medications: Current Medications Acetaminophen (Tylenol 325mg Tab) 650 mg PO Q6 PRN PRN Reason: Pain, Mild (1-3) Last Admin: 08/11/16 17:43 Dose: 650 mg Albuterol/Ipratropium (Duoneb 3 Mg/0.5 Mg (3 Ml) Ud) 3 ml INH RQ6 PRN PRN Reason: Shortness of Breath Ascorbic Acid (Vitamin C 500 Mg Tab) 500 mg PO DAILY [facility] Last Admin: 08/18/16 08:14 Dose: 500 mg Aspirin (Ecotrin) 81 mg PO DAILY [facility] Last Admin: 08/18/16 08:12 Dose: 81 mg Bacitracin (Bacitracin Oint) 1 applic TOP DAILY [facility] Last Admin: 08/18/16 08:12 Dose: 1 applic Cholecalciferol (Vitamin D) 2,000 iu PO DAILY [facility] Last Admin: 08/18/16 08:15 Dose: 2,000 iu Cinacalcet (Sensipar) 30 mg PO BID [facility] Last Admin: 08/18/16 08:15 Dose: 30 mg Doxercalciferol (Hectorol) 0.5 mcg PO DAILY [facility] Last Admin: 08/18/16 08:12 Dose: 0.5 mcg Epoetin René (Procrit) 10,000 unit IV MWF [facility] Last Admin: 08/16/16 16:46 Dose: 10,000 unit Famotidine (Pepcid) 20 mg PO DAILY [facility] Last Admin: 08/18/16 08:13 Dose: 20 mg Heparin Sodium (Porcine) (Heparin) 5,000 units SC Q12 YOLANDE PRN Reason: Protocol Last Admin: 08/18/16 08:12 Dose: 5,000 units Vancomycin HCl 1 gm/ Sodium (Chloride) 250 mls @ 166.667 mls/hr IVPB MWF@1800 [facility] Last Admin: 08/16/16 18:24 Dose: 166.667 mls/hr Iron Sucrose 100 mg/ Sodium (Chloride) 105 mls @ 105 mls/hr IVPB MWF [facility] Stop: 08/21/16 09:59 Last Admin: 08/16/16 16:44 Dose: 105 mls/hr Isosorbide Mononitrate (Imdur) 30 mg PO DAILY [facility] Last Admin: 08/18/16 08:13 Dose: 30 mg Lisinopril (Zestril) 10 mg PO DAILY [facility] Last Admin: 08/18/16 08:14 Dose: 10 mg Metoprolol Tartrate (Lopressor) 25 mg PO Q12 [facility] Last Admin: 08/18/16 08:18 Dose: 25 mg Oxycodone/Acetaminophen (Percocet 5/325 Mg Tab) 1 tab PO Q4 PRN PRN Reason: for pain scale 8-10 Stop: 08/21/16 19:47 Last Admin: 08/17/16 22:41 Dose: 1 tab Sevelamer HCl (Renagel) 2,400 mg PO TID [facility] Last Admin: 08/18/16 12:16 Dose: 2,400 mg Tramadol HCl (Ultram) 50 mg PO BID PRN PRN Reason: Pain, moderate (4-7) Vitamin B Complex/Vit C/Folic Acid (Nephro-Krissy) 1 tab PO DAILY [facility] Last Admin: 08/18/16 08:14 Dose: 1 tab - Labs Labs: 08/18/16 06:15 08/13/16 06:50 - Respiratory Exam Respiratory Exam: Clear to Ausculation Bilateral - Cardiovascular Exam Cardiovascular Exam: REGULAR RHYTHM, +S1, +S2 Assessment and Plan - Assessment and Plan (Free Text) Assessment: BILATERAL KNEE TENDON SURGERY CARDIOMYOPATHY HYPERTENSION CRF ON HD Plan: CONTINUE METOPROLOL, LISINOPRIL, ISOSORBIDE, ASPIRIN, HEPARIN AND ANTIBIOTICS CONTINUE ACUTE REHAB
[2016-08-18] MEDS: Oxycodone/Acetaminophen 5/325 mg Tab PO PRN (19:05)
--- NOTE | 2016-08-18 21:13 | CP.PCM.PN ---
Subjective - Date & Time of Evaluation Date of Evaluation: 08/18/16 Time of Evaluation: 22:22 - Subjective Subjective: Doing well Objective - Vital Signs/Intake and Output Vital Signs (last 24 hours): Temp Pulse Resp BP Pulse Ox 98.1 F 81 20 150/90 97 08/18/16 20:43 08/18/16 20:43 08/18/16 20:43 08/18/16 20:43 08/18/16 20:43 - Medications Medications: Current Medications Acetaminophen (Tylenol 325mg Tab) 650 mg PO Q6 PRN PRN Reason: Pain, Mild (1-3) Last Admin: 08/11/16 17:43 Dose: 650 mg Albuterol/Ipratropium (Duoneb 3 Mg/0.5 Mg (3 Ml) Ud) 3 ml INH RQ6 PRN PRN Reason: Shortness of Breath Ascorbic Acid (Vitamin C 500 Mg Tab) 500 mg PO DAILY [facility] Last Admin: 08/18/16 08:14 Dose: 500 mg Aspirin (Ecotrin) 81 mg PO DAILY [facility] Last Admin: 08/18/16 08:12 Dose: 81 mg Bacitracin (Bacitracin Oint) 1 applic TOP DAILY [facility] Last Admin: 08/18/16 08:12 Dose: 1 applic Cholecalciferol (Vitamin D) 2,000 iu PO DAILY [facility] Last Admin: 08/18/16 08:15 Dose: 2,000 iu Cinacalcet (Sensipar) 30 mg PO BID [facility] Last Admin: 08/18/16 17:30 Dose: 30 mg Doxercalciferol (Hectorol) 0.5 mcg PO DAILY [facility] Last Admin: 08/18/16 08:12 Dose: 0.5 mcg Epoetin René (Procrit) 10,000 unit IV MWF [facility] Last Admin: 08/16/16 16:46 Dose: 10,000 unit Famotidine (Pepcid) 20 mg PO DAILY [facility] Last Admin: 08/18/16 08:13 Dose: 20 mg Heparin Sodium (Porcine) (Heparin) 5,000 units SC Q12 YOLANDE PRN Reason: Protocol Last Admin: 08/18/16 08:12 Dose: 5,000 units Vancomycin HCl 1 gm/ Sodium (Chloride) 250 mls @ 166.667 mls/hr IVPB MWF@1800 [facility] Last Admin: 08/16/16 18:24 Dose: 166.667 mls/hr Iron Sucrose 100 mg/ Sodium (Chloride) 105 mls @ 105 mls/hr IVPB MWF [facility] Stop: 08/21/16 09:59 Last Admin: 08/16/16 16:44 Dose: 105 mls/hr Isosorbide Mononitrate (Imdur) 30 mg PO DAILY [facility] Last Admin: 08/18/16 08:13 Dose: 30 mg Lisinopril (Zestril) 10 mg PO DAILY [facility] Last Admin: 08/18/16 08:14 Dose: 10 mg Metoprolol Tartrate (Lopressor) 25 mg PO Q12 [facility] Last Admin: 08/18/16 08:18 Dose: 25 mg Oxycodone/Acetaminophen (Percocet 5/325 Mg Tab) 1 tab PO Q4 PRN PRN Reason: for pain scale 8-10 Stop: 08/21/16 19:47 Last Admin: 08/18/16 19:05 Dose: 1 tab Sevelamer HCl (Renagel) 2,400 mg PO TID [facility] Last Admin: 08/18/16 16:54 Dose: 2,400 mg Tramadol HCl (Ultram) 50 mg PO BID PRN PRN Reason: Pain, moderate (4-7) Vitamin B Complex/Vit C/Folic Acid (Nephro-Krissy) 1 tab PO DAILY [facility] Last Admin: 08/18/16 08:14 Dose: 1 tab - Labs Labs: 08/18/16 06:15 08/13/16 06:50 - Respiratory Exam Respiratory Exam: NORMAL BREATHING PATTERN - Cardiovascular Exam Cardiovascular Exam: REGULAR RHYTHM - GI/Abdominal Exam GI & Abdominal Exam: Normal Bowel Sounds Assessment and Plan - Assessment and Plan (Free Text) Assessment: S/P bilateral Knee surgery/ Patellar tendon repair acute rehab + blood cs Staph ABX Vanco ID ESRD CKD HTN Dialysis Nephrology Cardiomyopathy Defibrillator Cardiology
[2016-08-19] MEDS: Oxycodone/Acetaminophen 5/325 mg Tab PO PRN ×2 (00:12→08:32)
[2016-08-19] MEDS: Multivitamin Vitamin B Complex (Nephro-Vite) Tab PO SCH (08:34)
[2016-08-19] MEDS: Bacitracin OINT 15GM TOP SCH (09:00)
--- NOTE | 2016-08-19 13:07 | CP.PCM.PN ---
Subjective - Date & Time of Evaluation Date of Evaluation: 08/19/16 Time of Evaluation: 09:15 - Subjective Subjective: NO COMPLAINTS Objective - Vital Signs/Intake and Output Vital Signs (last 24 hours): Temp Pulse Resp BP Pulse Ox 97.5 F L 78 21 100/70 100 08/19/16 08:13 08/19/16 10:00 08/19/16 08:13 08/19/16 10:00 08/19/16 08:13 - Medications Medications: Current Medications Acetaminophen (Tylenol 325mg Tab) 650 mg PO Q6 PRN PRN Reason: Pain, Mild (1-3) Last Admin: 08/11/16 17:43 Dose: 650 mg Albuterol/Ipratropium (Duoneb 3 Mg/0.5 Mg (3 Ml) Ud) 3 ml INH RQ6 PRN PRN Reason: Shortness of Breath Ascorbic Acid (Vitamin C 500 Mg Tab) 500 mg PO DAILY [facility] Last Admin: 08/19/16 08:34 Dose: 500 mg Aspirin (Ecotrin) 81 mg PO DAILY [facility] Last Admin: 08/19/16 08:34 Dose: 81 mg Bacitracin (Bacitracin Oint) 1 applic TOP DAILY [facility] Last Admin: 08/19/16 09:00 Dose: 1 applic Cholecalciferol (Vitamin D) 2,000 iu PO DAILY [facility] Last Admin: 08/19/16 08:35 Dose: 2,000 iu Cinacalcet (Sensipar) 30 mg PO BID [facility] Last Admin: 08/19/16 10:00 Dose: 30 mg Doxercalciferol (Hectorol) 0.5 mcg PO DAILY [facility] Last Admin: 08/19/16 08:34 Dose: 0.5 mcg Epoetin René (Procrit) 10,000 unit IV MWF [facility] Last Admin: 08/16/16 16:46 Dose: 10,000 unit Famotidine (Pepcid) 20 mg PO DAILY [facility] Last Admin: 08/19/16 08:34 Dose: 20 mg Heparin Sodium (Porcine) (Heparin) 5,000 units SC Q12 YOLANDE PRN Reason: Protocol Last Admin: 08/19/16 08:36 Dose: 5,000 units Vancomycin HCl 1 gm/ Sodium (Chloride) 250 mls @ 166.667 mls/hr IVPB MWF@1800 [facility] Last Admin: 08/16/16 18:24 Dose: 166.667 mls/hr Iron Sucrose 100 mg/ Sodium (Chloride) 105 mls @ 105 mls/hr IVPB MWF [facility] Stop: 08/21/16 09:59 Last Admin: 08/16/16 16:44 Dose: 105 mls/hr Isosorbide Mononitrate (Imdur) 30 mg PO DAILY [facility] Last Admin: 08/19/16 08:34 Dose: 30 mg Lisinopril (Zestril) 10 mg PO DAILY [facility] Last Admin: 08/19/16 08:37 Dose: 10 mg Metoprolol Tartrate (Lopressor) 25 mg PO Q12 [facility] Last Admin: 08/19/16 10:00 Dose: Not Given Oxycodone/Acetaminophen (Percocet 5/325 Mg Tab) 1 tab PO Q4 PRN PRN Reason: for pain scale 8-10 Stop: 08/21/16 19:47 Last Admin: 08/19/16 08:32 Dose: 1 tab Sevelamer HCl (Renagel) 2,400 mg PO TID [facility] Last Admin: 08/19/16 12:39 Dose: 2,400 mg Tramadol HCl (Ultram) 50 mg PO BID PRN PRN Reason: Pain, moderate (4-7) Vitamin B Complex/Vit C/Folic Acid (Nephro-Krissy) 1 tab PO DAILY [facility] Last Admin: 08/19/16 08:34 Dose: 1 tab - Labs Labs: 08/18/16 06:15 08/13/16 06:50 - Respiratory Exam Respiratory Exam: Clear to Ausculation Bilateral - Cardiovascular Exam Cardiovascular Exam: REGULAR RHYTHM, +S1, +S2 Assessment and Plan - Assessment and Plan (Free Text) Assessment: RECENT BILATERAL KNEE TENDON SURGERY CARDIOMYOPATHY HYPERTENSION CRF ON HD Plan: CONTINUE METOPROLOL, LISINOPRIL, ISOSORBIDE, ASPIRIN, HEPARIN CONTINUE ACUTE REHAB
[2016-08-19] MEDS: EPOETIN ALFA 10,000 UNIT/ML ML IV SCH (17:48)
--- NOTE | 2016-08-19 18:47 | CP.PCM.PN ---
Subjective - Date & Time of Evaluation Date of Evaluation: 08/19/16 Time of Evaluation: 18:44 - Subjective Subjective: Patient seen in room doing ok getting HD as stated in earlier note he will need a hospital bed for bilateral patellar tendon repair. Also on HD secondary to ESRD Bari requires positioning of the body in ways not feasible with an ordinary bed in order to alleviate pain and assist in transfers that would otherwise subject his recent surgery to unnecessary risk and possible compromise of the surgical sites that require strict immobiliation which makes any transfer and bed mobility much more difficult and puts the sites at risk. He must wear knee immobilizers as well that further makes transfers and bed mobility and positioning more difficult Objective - Vital Signs/Intake and Output Vital Signs (last 24 hours): Temp Pulse Resp BP Pulse Ox 97.5 F L 78 21 100/70 100 08/19/16 08:13 08/19/16 10:00 08/19/16 08:13 08/19/16 10:00 08/19/16 08:13 - Medications Medications: Current Medications Acetaminophen (Tylenol 325mg Tab) 650 mg PO Q6 PRN PRN Reason: Pain, Mild (1-3) Last Admin: 08/11/16 17:43 Dose: 650 mg Albuterol/Ipratropium (Duoneb 3 Mg/0.5 Mg (3 Ml) Ud) 3 ml INH RQ6 PRN PRN Reason: Shortness of Breath Ascorbic Acid (Vitamin C 500 Mg Tab) 500 mg PO DAILY [facility] Last Admin: 08/19/16 08:34 Dose: 500 mg Aspirin (Ecotrin) 81 mg PO DAILY [facility] Last Admin: 08/19/16 08:34 Dose: 81 mg Bacitracin (Bacitracin Oint) 1 applic TOP DAILY [facility] Last Admin: 08/19/16 09:00 Dose: 1 applic Cholecalciferol (Vitamin D) 2,000 iu PO DAILY [facility] Last Admin: 08/19/16 08:35 Dose: 2,000 iu Cinacalcet (Sensipar) 30 mg PO BID [facility] Last Admin: 08/19/16 10:00 Dose: 30 mg Doxercalciferol (Hectorol) 0.5 mcg PO DAILY [facility] Last Admin: 08/19/16 08:34 Dose: 0.5 mcg Epoetin René (Procrit) [id number] Last Admin: 08/19/16 17:48 Dose: 10,000 unit Famotidine (Pepcid) 20 mg PO DAILY [facility] Last Admin: 08/19/16 08:34 Dose: 20 mg Heparin Sodium (Porcine) (Heparin) 5,000 units SC Q12 [facility] PRN Reason: Protocol Last Admin: 08/19/16 08:36 Dose: 5,000 units Vancomycin HCl 1 gm/ Sodium (Chloride) 250 mls @ 166.667 mls/hr IVPB MWF@1800 [facility] Last Admin: 08/19/16 17:45 Dose: 166.667 mls/hr Iron Sucrose 100 mg/ Sodium (Chloride) 105 mls @ 105 mls/hr IVPB MWF [facility] Stop: 08/21/16 09:59 Last Admin: 08/19/16 17:44 Dose: 105 mls/hr Isosorbide Mononitrate (Imdur) 30 mg PO DAILY [facility] Last Admin: 08/19/16 08:34 Dose: 30 mg Lisinopril (Zestril) 10 mg PO DAILY [facility] Last Admin: 08/19/16 08:37 Dose: 10 mg Metoprolol Tartrate (Lopressor) 25 mg PO Q12 [facility] Last Admin: 08/19/16 10:00 Dose: Not Given Oxycodone/Acetaminophen (Percocet 5/325 Mg Tab) 1 tab PO Q4 PRN PRN Reason: for pain scale 8-10 Stop: 08/21/16 19:47 Last Admin: 08/19/16 08:32 Dose: 1 tab Sevelamer HCl (Renagel) 2,400 mg PO TID [facility] Last Admin: 08/19/16 12:39 Dose: 2,400 mg Tramadol HCl (Ultram) 50 mg PO BID PRN PRN Reason: Pain, moderate (4-7) Vitamin B Complex/Vit C/Folic Acid (Nephro-Krissy) 1 tab PO DAILY [facility] Last Admin: 08/19/16 08:34 Dose: 1 tab - Labs Labs: 08/18/16 06:15 08/13/16 06:50
--- NOTE | 2016-08-19 21:10 | CP.PCM.PN ---
Subjective - Date & Time of Evaluation Date of Evaluation: 08/19/16 Time of Evaluation: 22:22 - Subjective Subjective: Continues to do well Objective - Vital Signs/Intake and Output Vital Signs (last 24 hours): Temp Pulse Resp BP Pulse Ox 98.2 F 77 20 158/91 H 100 08/19/16 20:13 08/19/16 20:13 08/19/16 20:13 08/19/16 20:13 08/19/16 20:13 - Medications Medications: Current Medications Acetaminophen (Tylenol 325mg Tab) 650 mg PO Q6 PRN PRN Reason: Pain, Mild (1-3) Last Admin: 08/11/16 17:43 Dose: 650 mg Albuterol/Ipratropium (Duoneb 3 Mg/0.5 Mg (3 Ml) Ud) 3 ml INH RQ6 PRN PRN Reason: Shortness of Breath Ascorbic Acid (Vitamin C 500 Mg Tab) 500 mg PO DAILY [facility] Last Admin: 08/19/16 08:34 Dose: 500 mg Aspirin (Ecotrin) 81 mg PO DAILY [facility] Last Admin: 08/19/16 08:34 Dose: 81 mg Bacitracin (Bacitracin Oint) 1 applic TOP DAILY [facility] Last Admin: 08/19/16 09:00 Dose: 1 applic Cholecalciferol (Vitamin D) 2,000 iu PO DAILY [facility] Last Admin: 08/19/16 08:35 Dose: 2,000 iu Cinacalcet (Sensipar) 30 mg PO BID [facility] Last Admin: 08/19/16 20:43 Dose: 30 mg Doxercalciferol (Hectorol) 0.5 mcg PO DAILY [facility] Last Admin: 08/19/16 08:34 Dose: 0.5 mcg Epoetin René (Procrit) 10,000 unit IV MWF [facility] Last Admin: 08/19/16 17:48 Dose: 10,000 unit Famotidine (Pepcid) 20 mg PO DAILY [facility] Last Admin: 08/19/16 08:34 Dose: 20 mg Heparin Sodium (Porcine) (Heparin) 5,000 units SC Q12 [facility] PRN Reason: Protocol Last Admin: 08/19/16 08:36 Dose: 5,000 units Vancomycin HCl 1 gm/ Sodium (Chloride) 250 mls @ 166.667 mls/hr IVPB MWF@1800 [facility] Last Admin: 08/19/16 17:45 Dose: 166.667 mls/hr Iron Sucrose 100 mg/ Sodium (Chloride) 105 mls @ 105 mls/hr IVPB MWF [facility] Stop: 08/21/16 09:59 Last Admin: 08/19/16 17:44 Dose: 105 mls/hr Isosorbide Mononitrate (Imdur) 30 mg PO DAILY [facility] Last Admin: 08/19/16 08:34 Dose: 30 mg Lisinopril (Zestril) 10 mg PO DAILY [facility] Last Admin: 08/19/16 08:37 Dose: 10 mg Metoprolol Tartrate (Lopressor) 25 mg PO Q12 [facility] Last Admin: 08/19/16 10:00 Dose: Not Given Oxycodone/Acetaminophen (Percocet 5/325 Mg Tab) 1 tab PO Q4 PRN PRN Reason: for pain scale 8-10 Stop: 08/21/16 19:47 Last Admin: 08/19/16 08:32 Dose: 1 tab Sevelamer HCl (Renagel) 2,400 mg PO TID [facility] Last Admin: 08/19/16 20:43 Dose: 2,400 mg Tramadol HCl (Ultram) 50 mg PO BID PRN PRN Reason: Pain, moderate (4-7) Vitamin B Complex/Vit C/Folic Acid (Nephro-Krissy) 1 tab PO DAILY [facility] Last Admin: 08/19/16 08:34 Dose: 1 tab - Labs Labs: 08/18/16 06:15 08/13/16 06:50 - Respiratory Exam Respiratory Exam: NORMAL BREATHING PATTERN - Cardiovascular Exam Cardiovascular Exam: REGULAR RHYTHM - GI/Abdominal Exam GI & Abdominal Exam: Normal Bowel Sounds Assessment and Plan - Assessment and Plan (Free Text) Assessment: S/P bilateral Knee surgery/ Patellar tendon repair acute rehab + blood cs Staph ABX Vanco ID ESRD CKD HTN Dialysis Nephrology Cardiomyopathy Defibrillator Cardiology
--- NOTE | 2016-08-19 23:32 | CP.PCM.PN ---
Subjective - Date & Time of Evaluation Date of Evaluation: 08/19/16 Time of Evaluation: 15:00 - Subjective Subjective: SEEN ON RENAL F/U SEEN ON HD FEELS IMPROVED ALL PREVIOUS EMR REVIEWED Objective - Vital Signs/Intake and Output Vital Signs (last 24 hours): Temp Pulse Resp BP Pulse Ox 98.2 F 82 20 146/90 100 08/19/16 20:13 08/19/16 22:12 08/19/16 20:13 08/19/16 22:12 08/19/16 20:13 - Medications Medications: Current Medications Acetaminophen (Tylenol 325mg Tab) 650 mg PO Q6 PRN PRN Reason: Pain, Mild (1-3) Last Admin: 08/11/16 17:43 Dose: 650 mg Albuterol/Ipratropium (Duoneb 3 Mg/0.5 Mg (3 Ml) Ud) 3 ml INH RQ6 PRN PRN Reason: Shortness of Breath Ascorbic Acid (Vitamin C 500 Mg Tab) 500 mg PO DAILY [facility] Last Admin: 08/19/16 08:34 Dose: 500 mg Aspirin (Ecotrin) 81 mg PO DAILY [facility] Last Admin: 08/19/16 08:34 Dose: 81 mg Bacitracin (Bacitracin Oint) 1 applic TOP DAILY [facility] Last Admin: 08/19/16 09:00 Dose: 1 applic Cholecalciferol (Vitamin D) 2,000 iu PO DAILY [facility] Last Admin: 08/19/16 08:35 Dose: 2,000 iu Cinacalcet (Sensipar) 30 mg PO BID [facility] Last Admin: 08/19/16 20:43 Dose: 30 mg Doxercalciferol (Hectorol) 0.5 mcg PO DAILY [facility] Last Admin: 08/19/16 08:34 Dose: 0.5 mcg Epoetin René (Procrit) 10,000 unit IV MWF [facility] Last Admin: 08/19/16 17:48 Dose: 10,000 unit Famotidine (Pepcid) 20 mg PO DAILY [facility] Last Admin: 08/19/16 08:34 Dose: 20 mg Heparin Sodium (Porcine) (Heparin) 5,000 units SC Q12 [facility] PRN Reason: Protocol Last Admin: 08/19/16 22:13 Dose: 5,000 units Vancomycin HCl 1 gm/ Sodium (Chloride) 250 mls @ 166.667 mls/hr IVPB MWF@1800 [facility] Last Admin: 08/19/16 17:45 Dose: 166.667 mls/hr Iron Sucrose 100 mg/ Sodium (Chloride) 105 mls @ 105 mls/hr IVPB MWF [facility] Stop: 08/21/16 09:59 Last Admin: 08/19/16 17:44 Dose: 105 mls/hr Isosorbide Mononitrate (Imdur) 30 mg PO DAILY [facility] Last Admin: 08/19/16 08:34 Dose: 30 mg Lisinopril (Zestril) 10 mg PO DAILY [facility] Last Admin: 08/19/16 08:37 Dose: 10 mg Metoprolol Tartrate (Lopressor) 25 mg PO Q12 [facility] Last Admin: 08/19/16 22:12 Dose: 25 mg Oxycodone/Acetaminophen (Percocet 5/325 Mg Tab) 1 tab PO Q4 PRN PRN Reason: for pain scale 8-10 Stop: 08/21/16 19:47 Last Admin: 08/19/16 08:32 Dose: 1 tab Sevelamer HCl (Renagel) 2,400 mg PO TID [facility] Last Admin: 08/19/16 20:43 Dose: 2,400 mg Tramadol HCl (Ultram) 50 mg PO BID PRN PRN Reason: Pain, moderate (4-7) Vitamin B Complex/Vit C/Folic Acid (Nephro-Krissy) 1 tab PO DAILY [facility] Last Admin: 08/19/16 08:34 Dose: 1 tab - Labs Labs: 08/18/16 06:15 08/13/16 06:50 Assessment and Plan - Assessment and Plan (Free Text) Assessment: ESRD ON HD M W F ANEMIA OF CKD .. H/H TRENDING UP .. ON EPO AND VENOFER SEVERE HYPER PARATHYROIDISM .. PTH VERY HIGH .. ON SENSIPAR .. INCREASE THE DOSE TO 60 MG MULTIPLE CO MORBIDITIES C/O CURRENT CARE
[2016-08-20] MEDS: Oxycodone/Acetaminophen 5/325 mg Tab PO PRN ×3 (04:05→20:08)
[2016-08-20] MEDS: Multivitamin Vitamin B Complex (Nephro-Vite) Tab PO SCH (08:24)
[2016-08-20] MEDS: Cinacalcet 60 MG TAB PO SCH ×2 (08:24→17:47)
[2016-08-20] MEDS: Bacitracin OINT 15GM TOP SCH (09:06)
--- NOTE | 2016-08-20 12:29 | CP.PCM.PN ---
Subjective - Date & Time of Evaluation Date of Evaluation: 08/20/16 Time of Evaluation: 08:45 - Subjective Subjective: NO CHEST PAIN OR SOB DOING WELL AT REHAB Objective - Vital Signs/Intake and Output Vital Signs (last 24 hours): Temp Pulse Resp BP Pulse Ox 98.1 F 69 22 154/92 H 98 08/20/16 09:46 08/20/16 09:46 08/20/16 09:46 08/20/16 09:46 08/20/16 09:46 - Medications Medications: Current Medications Acetaminophen (Tylenol 325mg Tab) 650 mg PO Q6 PRN PRN Reason: Pain, Mild (1-3) Last Admin: 08/11/16 17:43 Dose: 650 mg Albuterol/Ipratropium (Duoneb 3 Mg/0.5 Mg (3 Ml) Ud) 3 ml INH RQ6 PRN PRN Reason: Shortness of Breath Ascorbic Acid (Vitamin C 500 Mg Tab) 500 mg PO DAILY [facility] Last Admin: 08/20/16 08:24 Dose: 500 mg Aspirin (Ecotrin) 81 mg PO DAILY [facility] Last Admin: 08/20/16 09:06 Dose: 81 mg Bacitracin (Bacitracin Oint) 1 applic TOP DAILY [facility] Last Admin: 08/20/16 09:06 Dose: 1 applic Cholecalciferol (Vitamin D) 2,000 iu PO DAILY [facility] Last Admin: 08/20/16 08:24 Dose: 2,000 iu Cinacalcet (Sensipar) 60 mg PO BID [facility] Last Admin: 08/20/16 08:24 Dose: 60 mg Doxercalciferol (Hectorol) 0.5 mcg PO DAILY [facility] Last Admin: 08/20/16 08:23 Dose: 0.5 mcg Epoetin René (Procrit) 10,000 unit IV MWF [facility] Last Admin: 08/19/16 17:48 Dose: 10,000 unit Famotidine (Pepcid) 20 mg PO DAILY [facility] Last Admin: 08/20/16 08:24 Dose: 20 mg Heparin Sodium (Porcine) (Heparin) 5,000 units SC Q12 [facility] PRN Reason: Protocol Last Admin: 08/20/16 08:59 Dose: 5,000 units Vancomycin HCl 1 gm/ Sodium (Chloride) 250 mls @ 166.667 mls/hr IVPB MWF@1800 [facility] Last Admin: 08/19/16 17:45 Dose: 166.667 mls/hr Iron Sucrose 100 mg/ Sodium (Chloride) 105 mls @ 105 mls/hr IVPB MWF [facility] Stop: 08/21/16 09:59 Last Admin: 08/19/16 17:44 Dose: 105 mls/hr Isosorbide Mononitrate (Imdur) 30 mg PO DAILY [facility] Last Admin: 08/20/16 08:23 Dose: 30 mg Lisinopril (Zestril) 10 mg PO DAILY [facility] Last Admin: 08/20/16 08:24 Dose: 10 mg Metoprolol Tartrate (Lopressor) 25 mg PO Q12 [facility] Last Admin: 08/20/16 08:56 Dose: 25 mg Oxycodone/Acetaminophen (Percocet 5/325 Mg Tab) 1 tab PO Q4 PRN PRN Reason: for pain scale 8-10 Stop: 08/21/16 19:47 Last Admin: 08/20/16 08:56 Dose: 1 tab Sevelamer HCl (Renagel) 2,400 mg PO TID [facility] Last Admin: 08/20/16 12:26 Dose: 2,400 mg Tramadol HCl (Ultram) 50 mg PO BID PRN PRN Reason: Pain, moderate (4-7) Vitamin B Complex/Vit C/Folic Acid (Nephro-Krissy) 1 tab PO DAILY [facility] Last Admin: 08/20/16 08:24 Dose: 1 tab - Labs Labs: 08/18/16 06:15 08/13/16 06:50 - Respiratory Exam Respiratory Exam: Clear to Ausculation Bilateral - Cardiovascular Exam Cardiovascular Exam: REGULAR RHYTHM, +S1, +S2 Assessment and Plan - Assessment and Plan (Free Text) Assessment: BILATERAL KNEE TENDON SURGERY HYPERTENSION CARDIOMYOPATHY CRF ON HD Plan: CONTINUE METOPROLOL, LISINOPRIL, ISOSORBIDE, ASPIRIN, HEPARIN, HD CONTINUE ACUTE REHAB FOR POSSIBLE DISCHARGE IN AM
--- NOTE | 2016-08-20 13:24 | PSY.TMCNF ---
Nursing - Vital Signs Vital Signs (Last 8 hours): Vital Signs 08/20/16 08/20/16 08/20/16 08:00 08:24 08:56 Temperature 98.1 F Pulse Rate 69 69 70 Respiratory 22 Rate Blood Pressure 154/92 H 154/92 H 154/92 H O2 Sat by Pulse 98 Oximetry 08/20/16 09:46 Temperature 98.1 F Pulse Rate 69 Respiratory 22 Rate Blood Pressure 154/92 H O2 Sat by Pulse 98 Oximetry Pain: 1 - Precautions: Precautions: Fall Prevention - Medications/Other Issues Comment: Pt at moderate nutritional risk. Goals:1. Pt to consume 75-100% of meals( met, continue). 2. K+ WNL(not met,continue). Follow-up due on 2016 - Consults Comment: Dr. Morris, Dr. Walker, Dr. Verde - Skin Incision Site: Bilateral knees Dressing Status: Clean, Dry, Intact Incision: Dawson Intact, No Drainage Noted Incision Line Treatment: cleanse bilateral incision line with NS and cover with dressing daily. Apply Bacitracin ointment to blisters around I/L cover with dsd daily. - Toileting Toileting: Modified Independent - Bladder Management Frequency of Accidents: 0- Pt is anuric and on HD MWF - Bowel Management Frequency of Accidents: 0 - Transfers Transfers: Moderate Assistance - ADL's ADL's: Minimal Assistance - Pain Management Comments: Percocet/Ultram and Tylenol PRN pain - Mostly uses Percocet once or twice a day - Patient/Family Teaching Comments: Care post Knee tendon repair, I/L care, and safety precautions - Goals/Time Frame Comments: Per multidisciplinary care plans and goals Physical Therapy - Bed Mobility Bed Mobility: Supervision Comment: using leg lifters for B LEs - Transfers Sit to Stand: Supervision - Ambulation Level of Assistance: Supervision Distance (ft.): 125 Assistive Devices: Rolling Walker - Stair Negotiation Stairs: Assistive Devices: Left Handrail, Right Handrail Comment: Attempted stair training; pt able to ascend/descend 2 inch block but unable to ascend/descend standard 6 inch step - Standing Balance Static Stand: Supervision Dynamic Stand: Contact Guard Assist - Pain Management Techniques: Medication - Insight/Carryover Insight/Carryover: Good - Patient/Family Education Comment: Pt education for increased safety awareness and compensatory strategies /use of adaptive equipment during functional mobility tasks - Assessment/Plan Assessment: Pt continues to be agreeable to participate in recreation therapy sessions. Pt was oriented to card task and enjoys playing task daily. Pt is mod I with leisure activities after setup. Pt educated on leisure tasks he can do at home to improve arousal level and mobility around the house with wheelchair. Pt's mood continues to be stable-positive. - Goals Timeframe: 1 week Goals: Bed mobility mod I. Sit < > stand mod I with RW. Ambulate 500 ft on even/uneven surfaces mod I with RW. Ascend/descend 10 stairs with B handrails and supervision - Provider Therapist: Iqra Valdivia PT License Number: [id number] Occupational Therapy - Arousal/Attention/Orientation Patient Orientation: Person, Place, Time - ADL/IADL Self Feeding: Independent Grooming: Independent Bathing-Upper Extremity: Supervision Bathing-Lower Extremity: Supervision Dressing-Upper Extremity: Modified Independent Dressing-Lower Extremity: Supervision, Set-up Help - Sitting Balance Static Sitting: Independent without upper extremity support Dynamic Sitting: Reaches across midline, Reaches out of base of support - Transfers Wheelchair to Bed Transfers: Supervision, Verbal Cues Toilet Transfers: Supervision, Set-up Help - Wheelchair Management Level of Assistance: Supervision, Set-up Help Distance (ft.): 150 - Upper Extremity Status Right Upper Extremity Comment: ROM WFL, MMT shoulder flexion 4-/5 all joints 4+/ 5 Left Upper Extremity Comment: ROM WFL, MMT shoulder flexion 4-/5 all joints 4+/5 - Pain Alleviating Techniques: Medication - Insight/Carryover Insight/Carryover: Good - Patient/Family Education Comment: Pt education for increased safety awareness and compensatory strategies /use of adaptive equipment during functional mobility tasks - Assessment/Plan Assessment: Pt continues to be agreeable to participate in recreation therapy sessions. Pt was oriented to card task and enjoys playing task daily. Pt is mod I with leisure activities after setup. Pt educated on leisure tasks he can do at home to improve arousal level and mobility around the house with wheelchair. Pt's mood continues to be stable-positive. - Goals Timeframe: 1 week Goals: Bed mobility mod I. Sit < > stand mod I with RW. Ambulate 500 ft on even/uneven surfaces mod I with RW. Ascend/descend 10 stairs with B handrails and supervision - Provider Therapist: Brionna Michele Speech Therapy - Plan Assessment: Pt continues to be agreeable to participate in recreation therapy sessions. Pt was oriented to card task and enjoys playing task daily. Pt is mod I with leisure activities after setup. Pt educated on leisure tasks he can do at home to improve arousal level and mobility around the house with wheelchair. Pt's mood continues to be stable-positive. Recreational Therapy - Participation Participation: Participates in Individual and/or Group Sessions - Attendance Attendance: 3-5 times per week - Activities Leisure Activities: Cards and Games - Socialization Level of Socialization: Initiates/interacts freely with care givers and peer - Diversional Time Diversional Time: television, cards - Assessment Assessment/Plan: Pt continues to be agreeable to participate in recreation therapy sessions. Pt was oriented to card task and enjoys playing task daily. Pt is mod I with leisure activities after setup. Pt educated on leisure tasks he can do at home to improve arousal level and mobility around the house with wheelchair. Pt's mood continues to be stable-positive. Problems Currently Limiting Participation: pain, decrease mobility, decrease leisure awareness level Goals and Time Frame: Pt will be encouraged to participate in 1:1 and group recreation therapy sessions 3-5x week to improve arousal level, leisure awareness level, and improve mood state. - Provider Therapist: Ambika Reynaga, [employer] #[id number] Nutrition - Current Diet Current Diet/ Supplement/ Feedings: Renal dialysis 2 gram Na diet - Appetite Percent Meal Consumed: 75-100% - Comments Comments: Care post Knee tendon repair, I/L care, and safety precautions - Assessment/Goals/Time Frame Assessment/Goals/Time Frame: Pt at moderate nutritional risk. Goals:1. Pt to consume 75-100% of meals( met, continue). 2. K+ WNL(not met,continue). Follow -up due on 08/20/2016 - Provider Provider: Kinjal Crain RD Case Management - Psychosocial Assessment Support Systems: Patient lives with girlfriend and mother Psychological Interventions/Needs: Patient is alert and oriented x3 and is able to verbalize needs Discharge Concerns: Patient requiring max A for bed mobility s/t knee immobilizers. Patient/Family Meeting: CM met with patient and rehab team Intervention/Goal/Outcome:: 1. Goal: Supervision overall. 2. Plan: Home with skilled services. 3. DME needs. 4. f/u appts. 5. caregiver training? 6. continued emotional support - Discharge Plan Discharge Plan: Home with services - Provider Provider: CHANTALE Nichols, [employer] License Number: [id number] Rehabilitation Plan - Treatment Plan Treatment Plan: Physical Therapy - Discharge Plan Discharge to: Home
--- NOTE | 2016-08-20 17:13 | CP.PCM.PN ---
Subjective - Date & Time of Evaluation Date of Evaluation: 08/20/16 Time of Evaluation: 22:22 - Subjective Subjective: Doing well Objective - Vital Signs/Intake and Output Vital Signs (last 24 hours): Temp Pulse Resp BP Pulse Ox 98.1 F 69 22 154/92 H 98 08/20/16 09:46 08/20/16 09:46 08/20/16 09:46 08/20/16 09:46 08/20/16 09:46 - Medications Medications: Current Medications Acetaminophen (Tylenol 325mg Tab) 650 mg PO Q6 PRN PRN Reason: Pain, Mild (1-3) Last Admin: 08/11/16 17:43 Dose: 650 mg Albuterol/Ipratropium (Duoneb 3 Mg/0.5 Mg (3 Ml) Ud) 3 ml INH RQ6 PRN PRN Reason: Shortness of Breath Ascorbic Acid (Vitamin C 500 Mg Tab) 500 mg PO DAILY [facility] Last Admin: 08/20/16 08:24 Dose: 500 mg Aspirin (Ecotrin) 81 mg PO DAILY [facility] Last Admin: 08/20/16 09:06 Dose: 81 mg Bacitracin (Bacitracin Oint) 1 applic TOP DAILY [facility] Last Admin: 08/20/16 09:06 Dose: 1 applic Cholecalciferol (Vitamin D) 2,000 iu PO DAILY [facility] Last Admin: 08/20/16 08:24 Dose: 2,000 iu Cinacalcet (Sensipar) 60 mg PO BID [facility] Last Admin: 08/20/16 08:24 Dose: 60 mg Doxercalciferol (Hectorol) 0.5 mcg PO DAILY [facility] Last Admin: 08/20/16 08:23 Dose: 0.5 mcg Epoetin René (Procrit) 10,000 unit IV MWF [facility] Last Admin: 08/19/16 17:48 Dose: 10,000 unit Famotidine (Pepcid) 20 mg PO DAILY [facility] Last Admin: 08/20/16 08:24 Dose: 20 mg Heparin Sodium (Porcine) (Heparin) 5,000 units SC Q12 [facility] PRN Reason: Protocol Last Admin: 08/20/16 08:59 Dose: 5,000 units Vancomycin HCl 1 gm/ Sodium (Chloride) 250 mls @ 166.667 mls/hr IVPB MWF@1800 [facility] Last Admin: 08/19/16 17:45 Dose: 166.667 mls/hr Iron Sucrose 100 mg/ Sodium (Chloride) 105 mls @ 105 mls/hr IVPB MWF [facility] Stop: 08/21/16 09:59 Last Admin: 08/19/16 17:44 Dose: 105 mls/hr Isosorbide Mononitrate (Imdur) 30 mg PO DAILY [facility] Last Admin: 08/20/16 08:23 Dose: 30 mg Lisinopril (Zestril) 10 mg PO DAILY [facility] Last Admin: 08/20/16 08:24 Dose: 10 mg Metoprolol Tartrate (Lopressor) 25 mg PO Q12 [facility] Last Admin: 08/20/16 08:56 Dose: 25 mg Oxycodone/Acetaminophen (Percocet 5/325 Mg Tab) 1 tab PO Q4 PRN PRN Reason: for pain scale 8-10 Stop: 08/21/16 19:47 Last Admin: 08/20/16 08:56 Dose: 1 tab Sevelamer HCl (Renagel) 2,400 mg PO TID [facility] Last Admin: 08/20/16 12:26 Dose: 2,400 mg Tramadol HCl (Ultram) 50 mg PO BID PRN PRN Reason: Pain, moderate (4-7) Vitamin B Complex/Vit C/Folic Acid (Nephro-Krissy) 1 tab PO DAILY [facility] Last Admin: 08/20/16 08:24 Dose: 1 tab - Labs Labs: 08/18/16 06:15 08/13/16 06:50 - Respiratory Exam Respiratory Exam: NORMAL BREATHING PATTERN - Cardiovascular Exam Cardiovascular Exam: Tachycardia - GI/Abdominal Exam GI & Abdominal Exam: Normal Bowel Sounds Assessment and Plan - Assessment and Plan (Free Text) Assessment: S/P bilateral Knee surgery/ Patellar tendon repair acute rehab + blood cs Staph ABX Vanco ID ESRD CKD HTN Dialysis Nephrology Cardiomyopathy Defibrillator Cardiology
--- NOTE | 2016-08-20 22:28 | CP.PCM.PN ---
Subjective - Date & Time of Evaluation Date of Evaluation: 08/20/16 Time of Evaluation: 13:00 - Subjective Subjective: ESRD ON HD M W F ANEMIA OF CKD .. WILL CHECK H/H IN AM MULTIPLE CO MORBIDITIES P : C/O CURRENT CARE C/O CURRENT MEDS Objective - Vital Signs/Intake and Output Vital Signs (last 24 hours): Temp Pulse Resp BP Pulse Ox 98.4 F 69 18 139/78 100 08/20/16 20:11 08/20/16 22:07 08/20/16 20:11 08/20/16 22:07 08/20/16 20:11 - Medications Medications: Current Medications Acetaminophen (Tylenol 325mg Tab) 650 mg PO Q6 PRN PRN Reason: Pain, Mild (1-3) Last Admin: 08/11/16 17:43 Dose: 650 mg Albuterol/Ipratropium (Duoneb 3 Mg/0.5 Mg (3 Ml) Ud) 3 ml INH RQ6 PRN PRN Reason: Shortness of Breath Ascorbic Acid (Vitamin C 500 Mg Tab) 500 mg PO DAILY [facility] Last Admin: 08/20/16 08:24 Dose: 500 mg Aspirin (Ecotrin) 81 mg PO DAILY [facility] Last Admin: 08/20/16 09:06 Dose: 81 mg Bacitracin (Bacitracin Oint) 1 applic TOP DAILY [facility] Last Admin: 08/20/16 09:06 Dose: 1 applic Cholecalciferol (Vitamin D) 2,000 iu PO DAILY [facility] Last Admin: 08/20/16 08:24 Dose: 2,000 iu Cinacalcet (Sensipar) 60 mg PO BID [facility] Last Admin: 08/20/16 17:47 Dose: 60 mg Doxercalciferol (Hectorol) 0.5 mcg PO DAILY [facility] Last Admin: 08/20/16 08:23 Dose: 0.5 mcg Epoetin René (Procrit) 10,000 unit IV MWF [facility] Last Admin: 08/19/16 17:48 Dose: 10,000 unit Famotidine (Pepcid) 20 mg PO DAILY [facility] Last Admin: 08/20/16 08:24 Dose: 20 mg Heparin Sodium (Porcine) (Heparin) 5,000 units SC Q12 [facility] PRN Reason: Protocol Last Admin: 08/20/16 22:08 Dose: 5,000 units Vancomycin HCl 1 gm/ Sodium (Chloride) 250 mls @ 166.667 mls/hr IVPB MWF@1800 [facility] Last Admin: 08/19/16 17:45 Dose: 166.667 mls/hr Iron Sucrose 100 mg/ Sodium (Chloride) 105 mls @ 105 mls/hr IVPB MWF [facility] Stop: 08/21/16 09:59 Last Admin: 08/19/16 17:44 Dose: 105 mls/hr Isosorbide Mononitrate (Imdur) 30 mg PO DAILY [facility] Last Admin: 08/20/16 08:23 Dose: 30 mg Lisinopril (Zestril) 10 mg PO DAILY [facility] Last Admin: 08/20/16 08:24 Dose: 10 mg Metoprolol Tartrate (Lopressor) 25 mg PO Q12 [facility] Last Admin: 08/20/16 22:07 Dose: 25 mg Oxycodone/Acetaminophen (Percocet 5/325 Mg Tab) 1 tab PO Q4 PRN PRN Reason: for pain scale 8-10 Stop: 08/21/16 19:47 Last Admin: 08/20/16 20:08 Dose: 1 tab Sevelamer HCl (Renagel) 2,400 mg PO TID [facility] Last Admin: 08/20/16 17:47 Dose: 2,400 mg Tramadol HCl (Ultram) 50 mg PO BID PRN PRN Reason: Pain, moderate (4-7) Vitamin B Complex/Vit C/Folic Acid (Nephro-Krissy) 1 tab PO DAILY [facility] Last Admin: 08/20/16 08:24 Dose: 1 tab - Labs Labs: 08/18/16 06:15 08/13/16 06:50
[2016-08-21 07:56] VITALS: PULSE 75; RESP 20; TEMP 98.3; O2SAT 97
[2016-08-21] MEDS: Oxycodone/Acetaminophen 5/325 mg Tab PO PRN ×2 (08:29→17:20)
[2016-08-21] MEDS: Cinacalcet 60 MG TAB PO SCH ×2 (08:35→16:49)
[2016-08-21] MEDS: Bacitracin OINT 15GM TOP SCH (08:36)
[2016-08-21] MEDS: Multivitamin Vitamin B Complex (Nephro-Vite) Tab PO SCH (08:36)
[2016-08-21 08:39] VITALS: BP 150/90
--- NOTE | 2016-08-21 11:19 | CP.PCM.PN ---
Subjective - Date & Time of Evaluation Date of Evaluation: 08/21/16 Time of Evaluation: 11:00 - Subjective Subjective: NO CHEST PAIN OR SOB FEELING WELL Objective - Vital Signs/Intake and Output Vital Signs (last 24 hours): Temp Pulse Resp BP Pulse Ox 98.3 F 75 20 150/90 97 08/21/16 07:55 08/21/16 08:38 08/21/16 07:55 08/21/16 08:38 08/21/16 07:55 - Medications Medications: Current Medications Acetaminophen (Tylenol 325mg Tab) 650 mg PO Q6 PRN PRN Reason: Pain, Mild (1-3) Last Admin: 08/11/16 17:43 Dose: 650 mg Ascorbic Acid (Vitamin C 500 Mg Tab) 500 mg PO DAILY [facility] Last Admin: 08/21/16 08:31 Dose: 500 mg Aspirin (Ecotrin) 81 mg PO DAILY [facility] Last Admin: 08/21/16 08:35 Dose: 81 mg Bacitracin (Bacitracin Oint) 1 applic TOP DAILY [facility] Last Admin: 08/21/16 08:36 Dose: 1 applic Cholecalciferol (Vitamin D) 2,000 iu PO DAILY [facility] Last Admin: 08/21/16 08:31 Dose: 2,000 iu Cinacalcet (Sensipar) 60 mg PO BID [facility] Last Admin: 08/21/16 08:35 Dose: 60 mg Doxercalciferol (Hectorol) 0.5 mcg PO DAILY [facility] Last Admin: 08/21/16 08:35 Dose: 0.5 mcg Epoetin René (Procrit) 10,000 unit IV MWF [facility] Last Admin: 08/19/16 17:48 Dose: 10,000 unit Famotidine (Pepcid) 20 mg PO DAILY [facility] Last Admin: 08/21/16 08:31 Dose: 20 mg Heparin Sodium (Porcine) (Heparin) 5,000 units SC Q12 [facility] PRN Reason: Protocol Last Admin: 08/21/16 08:35 Dose: 5,000 units Vancomycin HCl 1 gm/ Sodium (Chloride) 250 mls @ 166.667 mls/hr IVPB MWF@1800 [facility] Isosorbide Mononitrate (Imdur) 30 mg PO DAILY [facility] Last Admin: 08/21/16 08:31 Dose: 30 mg Lisinopril (Zestril) 10 mg PO DAILY [facility] Last Admin: 08/21/16 08:38 Dose: 10 mg Metoprolol Tartrate (Lopressor) 25 mg PO Q12 [facility] Last Admin: 08/21/16 08:38 Dose: 25 mg Oxycodone/Acetaminophen (Percocet 5/325 Mg Tab) 1 tab PO Q4 PRN PRN Reason: for pain scale 8-10 Stop: 08/21/16 19:47 Last Admin: 08/21/16 08:29 Dose: 1 tab Sevelamer HCl (Renagel) 2,400 mg PO TID [facility] Last Admin: 08/21/16 08:31 Dose: 2,400 mg Vitamin B Complex/Vit C/Folic Acid (Nephro-Krissy) 1 tab PO DAILY [facility] Last Admin: 08/21/16 08:36 Dose: 1 tab - Labs Labs: 08/18/16 06:15 08/13/16 06:50 - Respiratory Exam Respiratory Exam: Clear to Ausculation Bilateral - Cardiovascular Exam Cardiovascular Exam: REGULAR RHYTHM, +S1, +S2 Assessment and Plan - Assessment and Plan (Free Text) Assessment: BILATERAL KNEE TENDON SURGERY HYPERTENSION CARDIOMYOPATHY CRF ON HD Plan: FOR PROBABLE DISCHARGE TODAY 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
--- NOTE | 2016-08-21 11:48 | CP.PCM.PN ---
Subjective - Date & Time of Evaluation Date of Evaluation: 08/20/16 Time of Evaluation: 12:00 - Subjective Subjective: Patient seen in the room discussed d/c plans pain is controlled he has been accepted for a hospital bed at home which was clearly necessary set for d/c 08/21/16 Objective - Vital Signs/Intake and Output Vital Signs (last 24 hours): Temp Pulse Resp BP Pulse Ox 98.3 F 75 20 150/90 97 08/21/16 07:55 08/21/16 08:38 08/21/16 07:55 08/21/16 08:38 08/21/16 07:55 - Medications Medications: Current Medications Acetaminophen (Tylenol 325mg Tab) 650 mg PO Q6 PRN PRN Reason: Pain, Mild (1-3) Last Admin: 08/11/16 17:43 Dose: 650 mg Ascorbic Acid (Vitamin C 500 Mg Tab) 500 mg PO DAILY [facility] Last Admin: 08/21/16 08:31 Dose: 500 mg Aspirin (Ecotrin) 81 mg PO DAILY [facility] Last Admin: 08/21/16 08:35 Dose: 81 mg Bacitracin (Bacitracin Oint) 1 applic TOP DAILY [facility] Last Admin: 08/21/16 08:36 Dose: 1 applic Cholecalciferol (Vitamin D) 2,000 iu PO DAILY [facility] Last Admin: 08/21/16 08:31 Dose: 2,000 iu Cinacalcet (Sensipar) 60 mg PO BID [facility] Last Admin: 08/21/16 08:35 Dose: 60 mg Doxercalciferol (Hectorol) 0.5 mcg PO DAILY [facility] Last Admin: 08/21/16 08:35 Dose: 0.5 mcg Epoetin René (Procrit) 10,000 unit IV MWF [facility] Last Admin: 08/19/16 17:48 Dose: 10,000 unit Famotidine (Pepcid) 20 mg PO DAILY [facility] Last Admin: 08/21/16 08:31 Dose: 20 mg Heparin Sodium (Porcine) (Heparin) 5,000 units SC Q12 [facility] PRN Reason: Protocol Last Admin: 08/21/16 08:35 Dose: 5,000 units Vancomycin HCl 1 gm/ Sodium (Chloride) 250 mls @ 166.667 mls/hr IVPB MWF@1800 [facility] Isosorbide Mononitrate (Imdur) 30 mg PO DAILY [facility] Last Admin: 08/21/16 08:31 Dose: 30 mg Lisinopril (Zestril) 10 mg PO DAILY [facility] Last Admin: 08/21/16 08:38 Dose: 10 mg Metoprolol Tartrate (Lopressor) 25 mg PO Q12 [facility] Last Admin: 08/21/16 08:38 Dose: 25 mg Oxycodone/Acetaminophen (Percocet 5/325 Mg Tab) 1 tab PO Q4 PRN PRN Reason: for pain scale 8-10 Stop: 08/21/16 19:47 Last Admin: 08/21/16 08:29 Dose: 1 tab Sevelamer HCl (Renagel) 2,400 mg PO TID [facility] Last Admin: 08/21/16 08:31 Dose: 2,400 mg Vitamin B Complex/Vit C/Folic Acid (Nephro-Krissy) 1 tab PO DAILY [facility] Last Admin: 08/21/16 08:36 Dose: 1 tab - Labs Labs: 08/18/16 06:15 08/13/16 06:50
--- NOTE | 2016-08-21 13:28 | CP.PCM.PN ---
Subjective - Date & Time of Evaluation Date of Evaluation: 08/21/16 Time of Evaluation: 08:00 - Subjective Subjective: no complaints of bilateral knee pain Objective - Vital Signs/Intake and Output Vital Signs (last 24 hours): Temp Pulse Resp BP Pulse Ox 98.3 F 75 20 150/90 97 08/21/16 07:55 08/21/16 08:38 08/21/16 07:55 08/21/16 08:38 08/21/16 07:55 - Medications Medications: Current Medications Acetaminophen (Tylenol 325mg Tab) 650 mg PO Q6 PRN PRN Reason: Pain, Mild (1-3) Last Admin: 08/11/16 17:43 Dose: 650 mg Ascorbic Acid (Vitamin C 500 Mg Tab) 500 mg PO DAILY [facility] Last Admin: 08/21/16 08:31 Dose: 500 mg Aspirin (Ecotrin) 81 mg PO DAILY [facility] Last Admin: 08/21/16 08:35 Dose: 81 mg Bacitracin (Bacitracin Oint) 1 applic TOP DAILY [facility] Last Admin: 08/21/16 08:36 Dose: 1 applic Cholecalciferol (Vitamin D) 2,000 iu PO DAILY [facility] Last Admin: 08/21/16 08:31 Dose: 2,000 iu Cinacalcet (Sensipar) 60 mg PO BID [facility] Last Admin: 08/21/16 08:35 Dose: 60 mg Doxercalciferol (Hectorol) 0.5 mcg PO DAILY [facility] Last Admin: 08/21/16 08:35 Dose: 0.5 mcg Epoetin René (Procrit) 10,000 unit IV MWF [facility] Last Admin: 08/19/16 17:48 Dose: 10,000 unit Famotidine (Pepcid) 20 mg PO DAILY [facility] Last Admin: 08/21/16 08:31 Dose: 20 mg Heparin Sodium (Porcine) (Heparin) 5,000 units SC Q12 [facility] PRN Reason: Protocol Last Admin: 08/21/16 08:35 Dose: 5,000 units Vancomycin HCl 1 gm/ Sodium (Chloride) 250 mls @ 166.667 mls/hr IVPB MWF@1800 [facility] Isosorbide Mononitrate (Imdur) 30 mg PO DAILY [facility] Last Admin: 08/21/16 08:31 Dose: 30 mg Lisinopril (Zestril) 10 mg PO DAILY [facility] Last Admin: 08/21/16 08:38 Dose: 10 mg Metoprolol Tartrate (Lopressor) 25 mg PO Q12 [facility] Last Admin: 08/21/16 08:38 Dose: 25 mg Oxycodone/Acetaminophen (Percocet 5/325 Mg Tab) 1 tab PO Q4 PRN PRN Reason: for pain scale 8-10 Stop: 08/21/16 19:47 Last Admin: 08/21/16 08:29 Dose: 1 tab Sevelamer HCl (Renagel) 2,400 mg PO TID [facility] Last Admin: 08/21/16 12:15 Dose: 2,400 mg Vitamin B Complex/Vit C/Folic Acid (Nephro-Krissy) 1 tab PO DAILY [facility] Last Admin: 08/21/16 08:36 Dose: 1 tab - Labs Labs: 08/18/16 06:15 08/13/16 06:50 - Head Exam Head Exam: ATRAUMATIC, NORMAL INSPECTION, NORMOCEPHALIC - Eye Exam Eye Exam: EOMI, Normal appearance, PERRL Pupil Exam: NORMAL ACCOMODATION - ENT Exam ENT Exam: Mucous Membranes Moist, Normal Exam - Respiratory Exam Respiratory Exam: NORMAL BREATHING PATTERN - Cardiovascular Exam Cardiovascular Exam: REGULAR RHYTHM - GI/Abdominal Exam GI & Abdominal Exam: Normal Bowel Sounds - Rectal Exam Rectal Exam: NORMAL INSPECTION - Exam Exam: NORMAL INSPECTION - Extremities Exam Extremities Exam: Normal Capillary Refill - Back Exam Back Exam: NORMAL INSPECTION - Neurological Exam Neurological Exam: Alert, Awake Neuro motor strength exam: Left Upper Extremity: 3, Right Upper Extremity: 3, Left Lower Extremity: 2/1, Right Lower Extremity: 2/1 - Psychiatric Exam Psychiatric exam: Normal Affect, Normal Mood - Skin Skin Exam: Dry, Intact Assessment and Plan (1) Bacteremia due to coagulase-negative Staphylococcus Status: Acute (2) Bacteremia due to coagulase-negative Staphylococcus Status: Acute (3) Asthma Status: Acute (4) Chest pain Status: Acute (5) Dyspnea Status: Acute (6) Inability to ambulate due to left knee Assessment & Plan: status post physcal and occupational therapy covering for Dr. aden Marshall for today Status: Acute (7) Joint swelling Status: Acute
[2016-08-21] MEDS: EPOETIN ALFA 10,000 UNIT/ML ML IV SCH (14:57)
--- NOTE | 2016-08-21 22:17 | CP.PCM.PN ---
Subjective - Date & Time of Evaluation Date of Evaluation: 08/21/16 Time of Evaluation: 22:22 - Subjective Subjective: Above noted Objective - Vital Signs/Intake and Output Vital Signs (last 24 hours): Temp Pulse Resp BP Pulse Ox 98.3 F 75 20 150/90 97 08/21/16 07:55 08/21/16 08:38 08/21/16 07:55 08/21/16 08:38 08/21/16 07:55 - Labs Labs: 08/18/16 06:15 08/13/16 06:50 - Respiratory Exam Respiratory Exam: NORMAL BREATHING PATTERN - Cardiovascular Exam Cardiovascular Exam: Tachycardia - GI/Abdominal Exam GI & Abdominal Exam: Normal Bowel Sounds Assessment and Plan - Assessment and Plan (Free Text) Assessment: S/P bilateral Knee surgery/ Patellar tendon repair acute rehab + blood cs Staph ABX Vanco x 7 days as per ID ESRD CKD HTN Dialysis Nephrology Cardiomyopathy Defibrillator Cardiology
== END 2016-08-21 19:15 | disposition home or self-care (01) | DRG 559 ==
PROVIDERS: ADMIT Family Medicine Geriatric Medicine; ATTEND Family Medicine Geriatric Medicine
PROC: F07M6FZ Therapeutic Exercise Treatment of Musculoskeletal System - Whole Body using Assistive, Adaptive, Supportive or Protective Equipment (ICD-10-PCS; 2016-08-09)
PROC: F08Z4FZ Home Management Treatment using Assistive, Adaptive, Supportive or Protective Equipment (ICD-10-PCS; 2016-08-09)
PROC: F07Z9FZ Gait Training/Functional Ambulation Treatment using Assistive, Adaptive, Supportive or Protective Equipment (ICD-10-PCS; 2016-08-09)
PROC: 5A1D60Z (ICD-10-PCS; principal; 2016-08-16)
DX: Z47.89 Encounter for other orthopedic aftercare (principal); N18.6 End stage renal disease; I12.0 Hypertensive chronic kidney disease with stage 5 chronic kidney disease or end stage renal disease; I42.0 Dilated cardiomyopathy; R78.81 Bacteremia; N25.81 Secondary hyperparathyroidism of renal origin; S76.111D Strain of right quadriceps muscle, fascia and tendon, subsequent encounter; S76.112D Strain of left quadriceps muscle, fascia and tendon, subsequent encounter; B95.7 Other staphylococcus as the cause of diseases classified elsewhere; D63.1 Anemia in chronic kidney disease; J45.909 Unspecified asthma, uncomplicated; K59.03 Drug induced constipation; Z99.2 Dependence on renal dialysis

== ENCOUNTER 2017-09-24 16:46 | Inpatient (IN) | payer MEDICARE, MEDICAID ==
[2017-09-24 22:00] VITALS: BMI 36.1
[2017-09-24] MEDS: oxyCODONE 5 mg Immediate Release Tab PO PRN (22:34)
[2017-09-25] MEDS ORDERED: Albuterol-Ipratrop 3 mg / 0.5 (3 ml) UD IH PRN (00:17)
[2017-09-25] MEDS ORDERED: guaiFENesin 200 mg/10 ml Syrup UD PO PRN (00:20)
[2017-09-25] MEDS: Morphine 15 mg SR Tab PO SCH ×2 (01:11→09:36)
[2017-09-25] MEDS: oxyCODONE 5 mg Immediate Release Tab PO PRN ×3 (02:23→17:59)
[2017-09-25 08:29] LABS: HEMOGLOBIN 7.8 g/dL (12.0-18.0); MEAN CELL VOLUME 90.8 fl (80.0-94.0); MEAN CORPUSCULAR HEMOGLOBIN 30.8 pg (27.0-31.0); MEAN CORPUSCULAR HGB CONC 33.9 g/dL (33.0-37.0); RBC 2.52 Mil/uL (4.40-5.90); RED CELL DISTRIBUTION WIDTH 16.4 % (11.5-14.5); WHITE BLOOD COUNT 6.7 K/uL (4.8-10.8)
[2017-09-25] MEDS: Multivitamin Vitamin B Complex (Nephro-Vite) Tab PO SCH (08:50)
[2017-09-25 08:53] LABS: ALB/GLOB RATIO 0.9 (1.0-2.1); ALBUMIN 3.3 g/dL (3.5-5.0); CALCIUM 8.1 mg/dL (8.4-10.2)
--- NOTE | 2017-09-25 10:17 | CP.PCM.CON ---
History of Present Illness - History of Present Illness History of Present Illness: This patient whole is 36 years of age male who came to the acute rehabilitation after left hip surgery replacement. From [facility]. Patient known to be with end stage renal disease on maintenance hemodialysis. He goes on dialysis at [place]. Patient receiving dialysis Friday. History of hypertension. Story of hyperphosphatemia and history of secondary hyperparathyroidism. No chest pain no shortness of breath no difficulty breathing Review of Systems - Constitutional Constitutional: absent: Anorexia, Chills - EENT Eyes: absent: Exophthalmos Nose/Mouth/Throat: absent: Epistaxis - Cardiovascular Cardiovascular: absent: Acrocyanosis, Chest Pain, Dyspnea - Respiratory Respiratory: absent: Cough, Dyspnea, Hemoptysis - Gastrointestinal Gastrointestinal: absent: Abdominal Pain, Coffee Ground Emesis - Genitourinary Genitourinary: Nocturia - Musculoskeletal Musculoskeletal: Abnormal Gait. absent: Loss of Height, Numbness - Integumentary Integumentary: absent: Acne - Neurological Neurological: absent: Confusion, Focal Weakness - Psychiatric Psychiatric: As Per HPI - Endocrine Endocrine: Fatigue - Hematologic/Lymphatic Hematologic: absent: Easy Bleeding Past Patient History - Past Medical History & Family History Past Medical History?: Yes - Past Social History Smoking Status: Never Smoked - CARDIAC Hx Cardiac Disorders: Yes (Cardiomypathy) Hx Hypertension: Yes - PULMONARY Hx Asthma: Yes (last attack jan 2013) - NEUROLOGICAL Hx Neurological Disorder: No - HEENT Hx HEENT Problems: No - RENAL Hx Renal Failure: Yes (ESRD, CKD) - ENDOCRINE/METABOLIC Hx Endocrine Disorders: Yes - HEMATOLOGICAL/ONCOLOGICAL Hx Blood Disorders: Yes Hx Blood Transfusions: Yes (2010) - INTEGUMENTARY Hx Dermatological Problems: No - MUSCULOSKELETAL/RHEUMATOLOGICAL Hx Falls: No - GASTROINTESTINAL Hx Gastrointestinal Disorders: No - GENITOURINARY/GYNECOLOGICAL Hx Genitourinary Disorders: Yes Other/Comment: dialysis pt.doesn't make urine - PSYCHIATRIC Hx Substance Use: No - SURGICAL HISTORY Hx Surgeries: Yes Hx Arteriovenous Shunt: Yes (left upper arm 2010) Hx Vascular Access Device: Yes (2010, removed 2 months later) - ANESTHESIA Hx Anesthesia: Yes Hx Anesthesia Reactions: No Hx Malignant Hyperthermia: No Meds Allergies/Adverse Reactions: Allergies Allergy/AdvReac Type Severity Reaction Status Date / Time No Known Allergies Allergy Verified 09/24/17 22:00 - Medications Medications: Current Medications Albuterol/Ipratropium (Duoneb 3 Mg/0.5 Mg (3 Ml) Ud) 3 ml IH Q6 PRN PRN Reason: Shortness of Breath Amlodipine Besylate (Norvasc) 5 mg PO DAILY [facility] Last Admin: 09/25/17 08:49 Dose: 5 mg Apixaban (Eliquis) 2.5 mg PO BID [facility] PRN Reason: Protocol Aspirin (Aspirin Chewable) 81 mg PO DAILY [facility] Last Admin: 09/25/17 08:48 Dose: 81 mg Atorvastatin Calcium (Lipitor) 20 mg PO HS [facility] Last Admin: 09/25/17 01:09 Dose: 20 mg Carvedilol (Coreg) 25 mg PO Q12 [facility] Last Admin: 09/25/17 08:51 Dose: 25 mg Cinacalcet (Sensipar) 120 mg PO DAILY [facility] Last Admin: 09/25/17 08:52 Dose: 120 mg Diphenhydramine HCl (Benadryl) 25 mg PO Q6 PRN PRN Reason: Itching / Pruritus Epoetin René (Procrit) 10,000 unit IV MWF [facility] Guaifenesin (Robitussin) 200 mg PO Q6 PRN PRN Reason: Cough and congestion Home Med (Sevelamer Carbonate [Renvela]) 2,400 mg PO TIDCC [facility] Isosorbide Mononitrate (Imdur) 60 mg PO DAILY [facility] Last Admin: 09/25/17 08:50 Dose: 60 mg Morphine Sulfate (Morphine Extended Release Tab) 15 mg PO Q12 [facility] Last Admin: 09/25/17 09:36 Dose: 15 mg Oxycodone HCl (Oxycodone Immediate Release Tab) 5 mg PO Q4 PRN PRN Reason: Pain, Mild (1-3) Oxycodone HCl (Oxycodone Immediate Release Tab) 10 mg PO Q4 PRN PRN Reason: Pain 4-10 Last Admin: 09/25/17 07:38 Dose: 10 mg Vitamin B Complex/Vit C/Folic Acid (Nephro-Krissy) 1 tab PO DAILY [facility] Last Admin: 09/25/17 08:50 Dose: 1 tab Physical Exam - Constitutional Appears: No Acute Distress - Eye Exam Eye Exam: absent: Conjunctival injection - ENT Exam ENT Exam: Mucous Membranes Moist - Neck Exam Neck exam: Negative for: Lymphadenopathy - Respiratory Exam Respiratory Exam: NORMAL BREATHING PATTERN. absent: Chest Wall Tenderness, Rhonchi, Wheezes - Cardiovascular Exam Cardiovascular Exam: absent: JVD, Rubs - GI/Abdominal Exam GI & Abdominal Exam: Normal Bowel Sounds - Extremities Exam Extremities exam: Negative for: calf tenderness - Back Exam Back exam: absent: CVA tenderness (L), CVA tenderness (R) - Neurological Exam Neurological exam: Alert - Psychiatric Exam Psychiatric exam: Normal Affect Results - Vital Signs Recent Vital Signs: Last Vital Signs Temp 97.9 F 09/25/17 08:06 Pulse 79 09/25/17 08:51 Resp 20 09/25/17 08:06 BP 129/79 09/25/17 08:51 Pulse Ox 100 09/25/17 08:06 - Labs Result Diagrams: 09/25/17 06:25 09/25/17 06:25 Labs: Laboratory Results - last 24 hr 09/25/17 09/25/17 06:25 06:25 WBC 6.7 RBC 2.52 L Hgb 7.8 L Hct 22.9 L MCV 90.8 MCH 30.8 MCHC 33.9 RDW 16.4 H Plt Count 267 D Sodium 137 Potassium 4.3 Chloride 98 Carbon Dioxide 27 Anion Gap 16 BUN 31 H Creatinine 8.3 H* Est GFR ( Amer) 9 Est GFR (Non-Af Amer) 7 Random Glucose 87 Calcium 8.1 L Total Bilirubin 1.2 AST 38 ALT 15 L Alkaline Phosphatase 618 H Total Protein 6.8 Albumin 3.3 L Globulin 3.5 Albumin/Globulin Ratio 0.9 L TSH 3rd Generation 3.02 Assessment & Plan (1) Chronic kidney disease with end stage renal failure on dialysis Assessment and Plan: Patient with end stage renal disease on maintenance hemodialysis Friday transferred to acute rehabilitation after left hip surgery replacement. Patient has history of hypertension. History of cardiomyopathy as noted in the history History of hyperphosphatemia History of secondary hyperparathyroidism We will proceed with hemodialysis as scheduled on Friday consent was taken discussed with the dialysis nurse in the floor. Status: Acute (2) HTN (hypertension) Status: Chronic
--- NOTE | 2017-09-25 18:04 | CP.PCM.CON ---
History of Present Illness - History of Present Illness History of Present Illness: Dr Verde PMR consultation on Bari Zeng, born 1980, who has been admitted to [facility] for acute inpatient rehabilitation following a left hip fracture CT scan noted pathological etiology and there were other areas in the acetablum and pelvis of concern. Oncology consult will be requested. He has been having a difficult time. He had been here a year ago after bilateral patellar tendon rupture. This left hip pain had been present for sometime. There was no particular injury that he can point too. After failed PT and x- ray that showed djd a CT scan was done as noted above. Review of Systems - Constitutional Constitutional: Fatigue. absent: Anorexia, Headache - EENT Nose/Mouth/Throat: absent: Nasal Congestion - Cardiovascular Cardiovascular: absent: Chest Pain - Respiratory Respiratory: absent: Dyspnea - Gastrointestinal Gastrointestinal: absent: Constipation - Integumentary Integumentary: absent: Bleeding Lesions - Neurological Neurological: Weakness. absent: Vertigo - Psychiatric Psychiatric: Anxiety Past Patient History - Past Medical History & Family History Past Medical History?: Yes - Past Social History Smoking Status: Never Smoked - CARDIAC Hx Cardiac Disorders: Yes (Cardiomypathy) Hx Hypertension: Yes - PULMONARY Hx Asthma: Yes (last attack jan 2013) - NEUROLOGICAL Hx Neurological Disorder: No - HEENT Hx HEENT Problems: No - RENAL Hx Renal Failure: Yes (ESRD, CKD) - ENDOCRINE/METABOLIC Hx Endocrine Disorders: Yes - HEMATOLOGICAL/ONCOLOGICAL Hx Blood Disorders: Yes Hx Blood Transfusions: Yes (2010) - INTEGUMENTARY Hx Dermatological Problems: No - MUSCULOSKELETAL/RHEUMATOLOGICAL Hx Falls: No - GASTROINTESTINAL Hx Gastrointestinal Disorders: No - GENITOURINARY/GYNECOLOGICAL Hx Genitourinary Disorders: Yes Other/Comment: dialysis pt.doesn't make urine - PSYCHIATRIC Hx Substance Use: No - SURGICAL HISTORY Hx Surgeries: Yes Hx Arteriovenous Shunt: Yes (left upper arm 2010) Hx Vascular Access Device: Yes (2010, removed 2 months later) - ANESTHESIA Hx Anesthesia: Yes Hx Anesthesia Reactions: No Hx Malignant Hyperthermia: No Meds Allergies/Adverse Reactions: Allergies Allergy/AdvReac Type Severity Reaction Status Date / Time No Known Allergies Allergy Verified 09/24/17 22:00 - Medications Medications: Current Medications Albuterol/Ipratropium (Duoneb 3 Mg/0.5 Mg (3 Ml) Ud) 3 ml IH Q6 PRN PRN Reason: Shortness of Breath Amlodipine Besylate (Norvasc) 5 mg PO DAILY [facility] Last Admin: 09/25/17 08:49 Dose: 5 mg Apixaban (Eliquis) 2.5 mg PO BID [facility] PRN Reason: Protocol Last Admin: 09/25/17 17:44 Dose: 2.5 mg Aspirin (Aspirin Chewable) 81 mg PO DAILY [facility] Last Admin: 09/25/17 08:48 Dose: 81 mg Atorvastatin Calcium (Lipitor) 20 mg PO HS [facility] Last Admin: 09/25/17 01:09 Dose: 20 mg Carvedilol (Coreg) 25 mg PO Q12 [facility] Last Admin: 09/25/17 08:51 Dose: 25 mg Cinacalcet (Sensipar) 120 mg PO DAILY [facility] Last Admin: 09/25/17 08:52 Dose: 120 mg Diphenhydramine HCl (Benadryl) 25 mg PO Q6 PRN PRN Reason: Itching / Pruritus Epoetin René (Procrit) 10,000 unit IV [facility] Guaifenesin (Robitussin) 200 mg PO Q6 PRN PRN Reason: Cough and congestion Home Med (Sevelamer Carbonate [Renvela]) 2,400 mg PO TIDCC [facility] Isosorbide Mononitrate (Imdur) 60 mg PO DAILY [facility] Last Admin: 09/25/17 08:50 Dose: 60 mg Morphine Sulfate (Morphine Extended Release Tab) 15 mg PO Q12 [facility] Last Admin: 09/25/17 09:36 Dose: 15 mg Oxycodone HCl (Oxycodone Immediate Release Tab) 5 mg PO Q4 PRN PRN Reason: Pain, Mild (1-3) Oxycodone HCl (Oxycodone Immediate Release Tab) 10 mg PO Q4 PRN PRN Reason: Pain 4-10 Last Admin: 09/25/17 17:59 Dose: 10 mg Vitamin B Complex/Vit C/Folic Acid (Nephro-Krissy) 1 tab PO DAILY [facility] Last Admin: 09/25/17 08:50 Dose: 1 tab Physical Exam - Constitutional Appears: Non-toxic, Other (weak) - Head Exam Head Exam: ATRAUMATIC, NORMAL INSPECTION, NORMOCEPHALIC - Eye Exam Eye Exam: EOMI - ENT Exam ENT Exam: Mucous Membranes Moist - Respiratory Exam Respiratory Exam: NORMAL BREATHING PATTERN - Cardiovascular Exam Cardiovascular Exam: REGULAR RHYTHM - GI/Abdominal Exam GI & Abdominal Exam: Distended. absent: Firm - Neurological Exam Neurological exam: Alert, CN II-XII Intact, Oriented x3 - Psychiatric Exam Psychiatric exam: Normal Affect, Normal Mood (he said he was much more anxious earlier today) Results - Vital Signs Recent Vital Signs: Last Vital Signs Temp 97.3 F L 09/25/17 16:20 Pulse 77 09/25/17 16:20 Resp 19 09/25/17 16:20 BP 129/77 09/25/17 16:20 Pulse Ox 99 09/25/17 16:20 - Labs Result Diagrams: 09/25/17 06:25 09/25/17 06:25 Labs: Laboratory Results - last 24 hr 09/25/17 09/25/17 06:25 06:25 WBC 6.7 RBC 2.52 L Hgb 7.8 L Hct 22.9 L MCV 90.8 MCH 30.8 MCHC 33.9 RDW 16.4 H Plt Count 267 D Sodium 137 Potassium 4.3 Chloride 98 Carbon Dioxide 27 Anion Gap 16 BUN 31 H Creatinine 8.3 H* Est GFR ( Amer) 9 Est GFR (Non-Af Amer) 7 Random Glucose 87 Calcium 8.1 L Total Bilirubin 1.2 AST 38 ALT 15 L Alkaline Phosphatase 618 H Total Protein 6.8 Albumin 3.3 L Globulin 3.5 Albumin/Globulin Ratio 0.9 L TSH 3rd Generation 3.02 Assessment & Plan - Assessment and Plan (Free Text) Assessment: patient with left hip fracture, non-traumatic with suspicion for pathological etiology Dr Patterson will be called for consultation Will adjust pain medications psych follow up left hip with aquacel dressing in place with no strike through
--- NOTE | 2017-09-25 18:20 | PCM.OPOC ---
Physiatry Overall Plan of Care - Overall Plan of Care Estimated Length of Stay in Weeks: 3 Rehab Impairment: Mobility, Gait, Balance Etiologic Diagnosis: Hip/Knee Surgery Rehab/Medical Prognosis: Guarded - Anticipated Interventions Physical Therapy:: Yes Occupational Therapy:: Yes Speech Therapy:: No Recreational Therapy:: Yes - Therapy Goals Bed Mobility: Contact Guard Ambulation: Contact Guard Functional Positional Changes:: Contact Guard - Discharge Plan Identification of Barriers to Discharge: Home Situation Discharge Destination: Subacute
--- NOTE | 2017-09-25 20:59 | CP.PCM.HP ---
History of Present Illness - History of Present Illness History of Present Illness: 36 yo with hx of ESRD admitted for Acute rehab follwing Fx R hip Present on Admission - Present on Admission Any Indicators Present on Admission: No Past Patient History - Past Medical History & Family History Past Medical History?: Yes - Past Social History Smoking Status: Never Smoked - CARDIAC Hx Cardiac Disorders: Yes (Cardiomypathy) Hx Hypertension: Yes - PULMONARY Hx Asthma: Yes (last attack jan 2013) - NEUROLOGICAL Hx Neurological Disorder: No - HEENT Hx HEENT Problems: No - RENAL Hx Renal Failure: Yes (ESRD, CKD) - ENDOCRINE/METABOLIC Hx Endocrine Disorders: Yes - HEMATOLOGICAL/ONCOLOGICAL Hx Blood Disorders: Yes Hx Blood Transfusions: Yes (2010) - INTEGUMENTARY Hx Dermatological Problems: No - MUSCULOSKELETAL/RHEUMATOLOGICAL Hx Falls: No - GASTROINTESTINAL Hx Gastrointestinal Disorders: No - GENITOURINARY/GYNECOLOGICAL Hx Genitourinary Disorders: Yes Other/Comment: dialysis pt.doesn't make urine - PSYCHIATRIC Hx Substance Use: No - SURGICAL HISTORY Hx Surgeries: Yes Hx Arteriovenous Shunt: Yes (left upper arm 2010) Hx Vascular Access Device: Yes (2010, removed 2 months later) - ANESTHESIA Hx Anesthesia: Yes Hx Anesthesia Reactions: No Hx Malignant Hyperthermia: No Meds Allergies/Adverse Reactions: Allergies Allergy/AdvReac Type Severity Reaction Status Date / Time No Known Allergies Allergy Verified 09/24/17 22:00 Physical Exam - Respiratory Exam Respiratory Exam: NORMAL BREATHING PATTERN - Cardiovascular Exam Cardiovascular Exam: REGULAR RHYTHM - GI/Abdominal Exam GI & Abdominal Exam: Normal Bowel Sounds Results - Vital Signs Recent Vital Signs: Last Vital Signs Temp 98.1 F 09/25/17 20:07 Pulse 89 09/25/17 20:07 Resp 20 09/25/17 20:07 BP 90/60 L 09/25/17 20:07 Pulse Ox 96 09/25/17 20:07 - Labs Result Diagrams: 09/25/17 06:25 09/25/17 06:25 Labs: Laboratory Results - last 24 hr 09/25/17 09/25/17 06:25 06:25 WBC 6.7 RBC 2.52 L Hgb 7.8 L Hct 22.9 L MCV 90.8 MCH 30.8 MCHC 33.9 RDW 16.4 H Plt Count 267 D Sodium 137 Potassium 4.3 Chloride 98 Carbon Dioxide 27 Anion Gap 16 BUN 31 H Creatinine 8.3 H* Est GFR ( Amer) 9 Est GFR (Non-Af Amer) 7 Random Glucose 87 Calcium 8.1 L Total Bilirubin 1.2 AST 38 ALT 15 L Alkaline Phosphatase 618 H Total Protein 6.8 Albumin 3.3 L Globulin 3.5 Albumin/Globulin Ratio 0.9 L TSH 3rd Generation 3.02 Assessment & Plan - Assessment and Plan (Free Text) Assessment: S/P L hip fx Acute rehab Physiatry ESRD CKD HTN Dialysis Nephrology S/P bilateral Knee surgery/ Patellar tendon repair Hx + blood cs Staph Cardiomyopathy Defibrillator Cardiology - Date & Time Date: 09/25/17 Time: 22:22
[2017-09-25] MEDS: oxyCODONE 20 mg ER Tab (oxyCONTIN) PO SCH (21:45)
--- NOTE | 2017-09-26 08:28 | CP.PCM.CON ---
History of Present Illness - History of Present Illness History of Present Illness: Pt is a 36 year old male admitted to [facility] following hip surgery. med history positive for HTN, renal failure/dialysis, past orthopedic surgeries, and defibulator. See medical record for complete medical history and medication list. Social History: pt lives with his girlfriend of 10 years he describes as very supportive. Pt has a biological son in [place] and stepdaughter age 14. Pt reported a very positive relationship with his stepdaughter and discussed his desire for a closer relationship with his son. Ed.Voc: pt raised in [place], graduated [employer] college in [place]. 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 Pt was recently laid off due to medical issues though was told he can return to work. Psych: pt denied a psych history. He was prescribed xanax by his PCP. Pt denied a history of alc/sub abuse. Pt reported a history of worrying and anxiety. He spoke of increased dysphoria with his current medical struggles. MSE: pt alert, oriented x3, relevant/coherent, no psychosis, affect constricted , mood anxious/dysphoric, no si no hi ideation. Pt spoke of family tensions, and other sources of anxiety. Strategies introduced to reduce distress/anxiety. Dx: R/0 Anxiety Dx Adjustment Dx Plan Continued Sup therapy for this thoughtful/insightful male Thank you for this referral, Dr. Nickersno [phone]:[id number] Past Patient History - Past Medical History & Family History Past Medical History?: Yes - Past Social History Smoking Status: Never Smoked - CARDIAC Hx Cardiac Disorders: Yes (Cardiomypathy) Hx Hypertension: Yes - PULMONARY Hx Asthma: Yes (last attack jan 2013) - NEUROLOGICAL Hx Neurological Disorder: No - HEENT Hx HEENT Problems: No - RENAL Hx Renal Failure: Yes (ESRD, CKD) - ENDOCRINE/METABOLIC Hx Endocrine Disorders: Yes - HEMATOLOGICAL/ONCOLOGICAL Hx Blood Disorders: Yes Hx Blood Transfusions: Yes (2010) - INTEGUMENTARY Hx Dermatological Problems: No - MUSCULOSKELETAL/RHEUMATOLOGICAL Hx Falls: No - GASTROINTESTINAL Hx Gastrointestinal Disorders: No - GENITOURINARY/GYNECOLOGICAL Hx Genitourinary Disorders: Yes Other/Comment: dialysis pt.doesn't make urine - PSYCHIATRIC Hx Substance Use: No - SURGICAL HISTORY Hx Surgeries: Yes Hx Arteriovenous Shunt: Yes (left upper arm 2010) Hx Vascular Access Device: Yes (2010, removed 2 months later) - ANESTHESIA Hx Anesthesia: Yes Hx Anesthesia Reactions: No Hx Malignant Hyperthermia: No Meds Allergies/Adverse Reactions: Allergies Allergy/AdvReac Type Severity Reaction Status Date / Time No Known Allergies Allergy Verified 09/24/17 22:00 - Medications Medications: Current Medications Albuterol/Ipratropium (Duoneb 3 Mg/0.5 Mg (3 Ml) Ud) 3 ml IH Q6 PRN PRN Reason: Shortness of Breath Amlodipine Besylate (Norvasc) 5 mg PO DAILY [facility] Last Admin: 09/25/17 08:49 Dose: 5 mg Apixaban (Eliquis) 2.5 mg PO BID [facility] PRN Reason: Protocol Last Admin: 09/25/17 17:44 Dose: 2.5 mg Aspirin (Aspirin Chewable) 81 mg PO DAILY [facility] Last Admin: 09/25/17 08:48 Dose: 81 mg Atorvastatin Calcium (Lipitor) 20 mg PO HS [facility] Last Admin: 09/25/17 21:44 Dose: 20 mg Carvedilol (Coreg) 25 mg PO Q12 [facility] Last Admin: 09/25/17 21:44 Dose: 25 mg Cinacalcet (Sensipar) 120 mg PO DAILY [facility] Last Admin: 09/25/17 08:52 Dose: 120 mg Diphenhydramine HCl (Benadryl) 25 mg PO Q6 PRN PRN Reason: Itching / Pruritus Last Admin: 09/26/17 02:53 Dose: 25 mg Docusate Sodium (Colace) 100 mg PO BID [facility] Epoetin René (Procrit) 10,000 unit IV MWF [facility] Guaifenesin (Robitussin) 200 mg PO Q6 PRN PRN Reason: Cough and congestion Home Med (Sevelamer Carbonate [Renvela]) 2,400 mg PO TIDCC [facility] Isosorbide Mononitrate (Imdur) 60 mg PO DAILY [facility] Last Admin: 09/25/17 08:50 Dose: 60 mg Oxycodone HCl (Oxycodone Immediate Release Tab) 5 mg PO Q4 PRN PRN Reason: Pain, Mild (1-3) Oxycodone HCl (Oxycodone Immediate Release Tab) 10 mg PO Q4 PRN PRN Reason: Pain 4-10 Last Admin: 09/25/17 17:59 Dose: 10 mg Oxycodone HCl (Oxycontin Extended Release Tab) 20 mg PO Q12 [facility] Last Admin: 09/25/17 21:45 Dose: 20 mg Vitamin B Complex/Vit C/Folic Acid (Nephro-Krissy) 1 tab PO DAILY [facility] Last Admin: 09/25/17 08:50 Dose: 1 tab Results - Vital Signs Recent Vital Signs: Last Vital Signs Temp 98.1 F 09/25/17 20:07 Pulse 89 09/25/17 21:44 Resp 20 09/25/17 20:07 BP 114/65 09/25/17 21:44 Pulse Ox 96 09/25/17 20:07 - Labs Result Diagrams: 09/25/17 06:25 09/25/17 06:25 Labs: Laboratory Results - last 24 hr 09/25/17 09/25/17 06:25 06:25 WBC 6.7 RBC 2.52 L Hgb 7.8 L Hct 22.9 L MCV 90.8 MCH 30.8 MCHC 33.9 RDW 16.4 H Plt Count 267 D Sodium 137 Potassium 4.3 Chloride 98 Carbon Dioxide 27 Anion Gap 16 BUN 31 H Creatinine 8.3 H* Est GFR ( Amer) 9 Est GFR (Non-Af Amer) 7 Random Glucose 87 Calcium 8.1 L Total Bilirubin 1.2 AST 38 ALT 15 L Alkaline Phosphatase 618 H Total Protein 6.8 Albumin 3.3 L Globulin 3.5 Albumin/Globulin Ratio 0.9 L TSH 3rd Generation 3.02
[2017-09-26] MEDS: oxyCODONE 20 mg ER Tab (oxyCONTIN) PO SCH ×2 (08:55→23:32)
[2017-09-26] MEDS: Multivitamin Vitamin B Complex (Nephro-Vite) Tab PO SCH (09:01)
[2017-09-26] MEDS: oxyCODONE 5 mg Immediate Release Tab PO PRN (10:04)
--- NOTE | 2017-09-26 10:47 | CP.PCM.PN ---
Subjective - Date & Time of Evaluation Date of Evaluation: 09/26/17 Time of Evaluation: 10:46 - Subjective Subjective: patient conscious and alert not in acute distress Patient feeling good no nausea no vomiting appetite is good and patient receiving physiotherapy . Objective - Vital Signs/Intake and Output Vital Signs (last 24 hours): Temp Pulse Resp BP Pulse Ox 98 F 92 H 22 119/62 98 09/26/17 08:38 09/26/17 09:01 09/26/17 08:38 09/26/17 09:01 09/26/17 08:38 - Medications Medications: Current Medications Albuterol/Ipratropium (Duoneb 3 Mg/0.5 Mg (3 Ml) Ud) 3 ml IH Q6 PRN PRN Reason: Shortness of Breath Amlodipine Besylate (Norvasc) 5 mg PO DAILY [facility] Last Admin: 09/26/17 09:01 Dose: 5 mg Apixaban (Eliquis) 2.5 mg PO BID [facility] PRN Reason: Protocol Last Admin: 09/26/17 09:00 Dose: 2.5 mg Aspirin (Aspirin Chewable) 81 mg PO DAILY [facility] Last Admin: 09/26/17 09:00 Dose: 81 mg Atorvastatin Calcium (Lipitor) 20 mg PO HS [facility] Last Admin: 09/25/17 21:44 Dose: 20 mg Carvedilol (Coreg) 25 mg PO Q12 [facility] Last Admin: 09/26/17 09:00 Dose: 25 mg Cinacalcet (Sensipar) 120 mg PO DAILY [facility] Last Admin: 09/26/17 09:01 Dose: 120 mg Diphenhydramine HCl (Benadryl) 25 mg PO Q6 PRN PRN Reason: Itching / Pruritus Last Admin: 09/26/17 02:53 Dose: 25 mg Docusate Sodium (Colace) 100 mg PO BID [facility] Last Admin: 09/26/17 08:59 Dose: 100 mg Epoetin René (Procrit) 10,000 unit IV MWF [facility] Guaifenesin (Robitussin) 200 mg PO Q6 PRN PRN Reason: Cough and congestion Home Med (Sevelamer Carbonate [Renvela]) 2,400 mg PO TIDCC [facility] Isosorbide Mononitrate (Imdur) 60 mg PO DAILY [facility] Last Admin: 09/26/17 09:01 Dose: 60 mg Oxycodone HCl (Oxycodone Immediate Release Tab) 5 mg PO Q4 PRN PRN Reason: Pain, Mild (1-3) Oxycodone HCl (Oxycodone Immediate Release Tab) 10 mg PO Q4 PRN PRN Reason: Pain 4-10 Last Admin: 09/26/17 10:04 Dose: 10 mg Oxycodone HCl (Oxycontin Extended Release Tab) 20 mg PO Q12 [facility] Last Admin: 09/26/17 08:55 Dose: 20 mg Vitamin B Complex/Vit C/Folic Acid (Nephro-Krissy) 1 tab PO DAILY [facility] Last Admin: 09/26/17 09:01 Dose: 1 tab - Labs Labs: 09/25/17 06:25 09/25/17 06:25 - Constitutional Appears: In Acute Distress - ENT Exam ENT Exam: Mucous Membranes Moist - Respiratory Exam Respiratory Exam: absent: Chest Wall Tenderness - Cardiovascular Exam Cardiovascular Exam: absent: Gallop, JVD, Rubs - GI/Abdominal Exam GI & Abdominal Exam: Soft - Extremities Exam Extremities Exam: absent: Calf Tenderness - Back Exam Back Exam: absent: CVA tenderness (L), CVA tenderness (R) - Neurological Exam Neurological Exam: Alert - Psychiatric Exam Psychiatric exam: Normal Affect Assessment and Plan (1) Chronic kidney disease with end stage renal failure on dialysis Assessment & Plan: Patient with end stage renal disease on maintenance hemodialysis Friday transferred to acute rehabilitation after left hip surgery replacement. Patient has history of hypertension. History of cardiomyopathy as noted in the history History of hyperphosphatemia History of secondary hyperparathyroidism the plan Renal diet Continue hemodialysis as scheduled Friday. Patient scheduled to have dialysis later after completing physical therapy session Status: Acute (2) HTN (hypertension) Status: Chronic
--- NOTE | 2017-09-26 13:27 | CP.PCM.PN ---
Subjective - Date & Time of Evaluation Date of Evaluation: 09/26/17 Time of Evaluation: 13:25 - Subjective Subjective: Patient seen in OT took a long time to get him into special chair assist he is dependent + right elbow bursitis, Dr Logan is to drain it in the future had a BM pain is controlled pending oncology consult Objective - Vital Signs/Intake and Output Vital Signs (last 24 hours): Temp Pulse Resp BP Pulse Ox 98 F 92 H 22 119/62 98 09/26/17 08:38 09/26/17 09:01 09/26/17 08:38 09/26/17 09:01 09/26/17 08:38 - Medications Medications: Current Medications Albuterol/Ipratropium (Duoneb 3 Mg/0.5 Mg (3 Ml) Ud) 3 ml IH Q6 PRN PRN Reason: Shortness of Breath Amlodipine Besylate (Norvasc) 5 mg PO DAILY [facility] Last Admin: 09/26/17 09:01 Dose: 5 mg Apixaban (Eliquis) 2.5 mg PO BID [facility] PRN Reason: Protocol Last Admin: 09/26/17 09:00 Dose: 2.5 mg Aspirin (Aspirin Chewable) 81 mg PO DAILY [facility] Last Admin: 09/26/17 09:00 Dose: 81 mg Atorvastatin Calcium (Lipitor) 20 mg PO HS [facility] Last Admin: 09/25/17 21:44 Dose: 20 mg Carvedilol (Coreg) 25 mg PO Q12 [facility] Last Admin: 09/26/17 09:00 Dose: 25 mg Cinacalcet (Sensipar) 120 mg PO DAILY [facility] Last Admin: 09/26/17 09:01 Dose: 120 mg Diphenhydramine HCl (Benadryl) 25 mg PO Q6 PRN PRN Reason: Itching / Pruritus Last Admin: 09/26/17 02:53 Dose: 25 mg Docusate Sodium (Colace) 100 mg PO BID [facility] Last Admin: 09/26/17 08:59 Dose: 100 mg Epoetin René (Procrit) 10,000 unit IV MWF [facility] Guaifenesin (Robitussin) 200 mg PO Q6 PRN PRN Reason: Cough and congestion Home Med (Sevelamer Carbonate [Renvela]) 2,400 mg PO TIDCC [facility] Isosorbide Mononitrate (Imdur) 60 mg PO DAILY [facility] Last Admin: 09/26/17 09:01 Dose: 60 mg Oxycodone HCl (Oxycodone Immediate Release Tab) 5 mg PO Q4 PRN PRN Reason: Pain, Mild (1-3) Oxycodone HCl (Oxycodone Immediate Release Tab) 10 mg PO Q4 PRN PRN Reason: Pain 4-10 Last Admin: 09/26/17 10:04 Dose: 10 mg Oxycodone HCl (Oxycontin Extended Release Tab) 20 mg PO Q12 [facility] Last Admin: 09/26/17 08:55 Dose: 20 mg Vitamin B Complex/Vit C/Folic Acid (Nephro-Krissy) 1 tab PO DAILY [facility] Last Admin: 09/26/17 09:01 Dose: 1 tab - Labs Labs: 09/25/17 06:25 09/25/17 06:25
--- NOTE | 2017-09-26 16:42 | CP.PCM.CON ---
History of Present Illness - History of Present Illness History of Present Illness: consult requested for depression 36 yo with hx of ESRD admitted for Acute rehab following Fx R hip on evaluation pt denied any previous psychiatric treatment or hospitalization, reportedly currently feeling sad and overwhelmed due to his current medical condition anf feeling he is a burden on his girl friend, pt denied feeling hopless or helpless denied changes in sleep or appetite denied S/H I denied manic or psychotic symptoms , reported episodes of anxiety Past Patient History - Past Medical History & Family History Past Medical History?: Yes - Past Social History Smoking Status: Never Smoked - CARDIAC Hx Cardiac Disorders: Yes (Cardiomypathy) Hx Hypertension: Yes - PULMONARY Hx Asthma: Yes (last attack jan 2013) - NEUROLOGICAL Hx Neurological Disorder: No - HEENT Hx HEENT Problems: No - RENAL Hx Renal Failure: Yes (ESRD, CKD) - ENDOCRINE/METABOLIC Hx Endocrine Disorders: Yes - HEMATOLOGICAL/ONCOLOGICAL Hx Blood Disorders: Yes Hx Blood Transfusions: Yes (2010) - INTEGUMENTARY Hx Dermatological Problems: No - MUSCULOSKELETAL/RHEUMATOLOGICAL Hx Falls: No - GASTROINTESTINAL Hx Gastrointestinal Disorders: No - GENITOURINARY/GYNECOLOGICAL Hx Genitourinary Disorders: Yes Other/Comment: dialysis pt.doesn't make urine - PSYCHIATRIC Hx Substance Use: No - SURGICAL HISTORY Hx Surgeries: Yes Hx Arteriovenous Shunt: Yes (left upper arm 2010) Hx Vascular Access Device: Yes (2010, removed 2 months later) - ANESTHESIA Hx Anesthesia: Yes Hx Anesthesia Reactions: No Hx Malignant Hyperthermia: No Meds Allergies/Adverse Reactions: Allergies Allergy/AdvReac Type Severity Reaction Status Date / Time No Known Allergies Allergy Verified 09/24/17 22:00 - Medications Medications: Current Medications Albuterol/Ipratropium (Duoneb 3 Mg/0.5 Mg (3 Ml) Ud) 3 ml IH Q6 PRN PRN Reason: Shortness of Breath Amlodipine Besylate (Norvasc) 5 mg PO DAILY [facility] Last Admin: 09/26/17 09:01 Dose: 5 mg Apixaban (Eliquis) 2.5 mg PO BID [facility] PRN Reason: Protocol Last Admin: 09/26/17 09:00 Dose: 2.5 mg Aspirin (Aspirin Chewable) 81 mg PO DAILY [facility] Last Admin: 09/26/17 09:00 Dose: 81 mg Atorvastatin Calcium (Lipitor) 20 mg PO HS [facility] Last Admin: 09/25/17 21:44 Dose: 20 mg Carvedilol (Coreg) 25 mg PO Q12 [facility] Last Admin: 09/26/17 09:00 Dose: 25 mg Cinacalcet (Sensipar) 120 mg PO DAILY [facility] Last Admin: 09/26/17 09:01 Dose: 120 mg Dimethicone (Proshield Plus Skin Protectant) 1 applic TOP Q8 [facility] Diphenhydramine HCl (Benadryl) 25 mg PO Q6 PRN PRN Reason: Itching / Pruritus Last Admin: 09/26/17 02:53 Dose: 25 mg Docusate Sodium (Colace) 100 mg PO BID [facility] Last Admin: 09/26/17 08:59 Dose: 100 mg Epoetin René (Procrit) 10,000 unit IV MWF [facility] Guaifenesin (Robitussin) 200 mg PO Q6 PRN PRN Reason: Cough and congestion Isosorbide Mononitrate (Imdur) 60 mg PO DAILY [facility] Last Admin: 09/26/17 09:01 Dose: 60 mg Oxycodone HCl (Oxycodone Immediate Release Tab) 5 mg PO Q4 PRN PRN Reason: Pain, Mild (1-3) Oxycodone HCl (Oxycodone Immediate Release Tab) 10 mg PO Q4 PRN PRN Reason: Pain 4-10 Last Admin: 09/26/17 10:04 Dose: 10 mg Oxycodone HCl (Oxycontin Extended Release Tab) 20 mg PO Q12 [facility] Last Admin: 09/26/17 08:55 Dose: 20 mg Sevelamer Carbonate (Renvela) 2.4 gm PO TIDCC [facility] Vitamin B Complex/Vit C/Folic Acid (Nephro-Krissy) 1 tab PO DAILY [facility] Last Admin: 09/26/17 09:01 Dose: 1 tab Physical Exam - Psychiatric Exam Additional comments: pt seen in bed, cooperative , good eye contact mood reported overwhelmed , affect constricted, speech normal, thought form coherent , denied any current suicidal or homicidal ideation denied perceptual disturbances, alert awake ox3 Results - Vital Signs Recent Vital Signs: Last Vital Signs Temp 98 F 09/26/17 08:38 Pulse 92 H 09/26/17 09:01 Resp 22 09/26/17 08:38 BP 119/62 09/26/17 09:01 Pulse Ox 98 09/26/17 08:38 - Labs Result Diagrams: 09/25/17 06:25 09/25/17 06:25 Labs: Laboratory Results - last 24 hr 09/26/17 11:46 Phosphorus 5.6 H Assessment & Plan - Assessment and Plan (Free Text) Assessment: mood disorder due to medical condition with depressed mood adjustment disorder with mixed depression and anxiety Plan: recommend ativan 0.5mg q12 prn for anxiety zoloft 25mg daily
[2017-09-26] MEDS: EPOETIN ALFA 10,000 UNIT/ML ML IV SCH (17:39)
[2017-09-26] MEDS ORDERED: Sevelamer Carb 0.8 gm/Packet PO SCH (18:30)
--- NOTE | 2017-09-26 19:16 | CP.PCM.PN ---
Subjective - Date & Time of Evaluation Date of Evaluation: 09/26/17 Time of Evaluation: 22:22 - Subjective Subjective: Above noted Objective - Vital Signs/Intake and Output Vital Signs (last 24 hours): Temp Pulse Resp BP Pulse Ox 98 F 92 H 22 119/62 98 09/26/17 08:38 09/26/17 09:01 09/26/17 08:38 09/26/17 09:01 09/26/17 08:38 - Medications Medications: Current Medications Albuterol/Ipratropium (Duoneb 3 Mg/0.5 Mg (3 Ml) Ud) 3 ml IH Q6 PRN PRN Reason: Shortness of Breath Amlodipine Besylate (Norvasc) 5 mg PO DAILY [facility] Last Admin: 09/26/17 09:01 Dose: 5 mg Apixaban (Eliquis) 2.5 mg PO BID [facility] PRN Reason: Protocol Last Admin: 09/26/17 16:46 Dose: 2.5 mg Aspirin (Aspirin Chewable) 81 mg PO DAILY [facility] Last Admin: 09/26/17 09:00 Dose: 81 mg Atorvastatin Calcium (Lipitor) 20 mg PO HS [facility] Last Admin: 09/25/17 21:44 Dose: 20 mg Carvedilol (Coreg) 25 mg PO Q12 [facility] Last Admin: 09/26/17 09:00 Dose: 25 mg Cinacalcet (Sensipar) 120 mg PO DAILY [facility] Last Admin: 09/26/17 09:01 Dose: 120 mg Dimethicone (Proshield Plus Skin Protectant) 1 applic TOP Q8 [facility] Diphenhydramine HCl (Benadryl) 25 mg PO Q6 PRN PRN Reason: Itching / Pruritus Last Admin: 09/26/17 02:53 Dose: 25 mg Docusate Sodium (Colace) 100 mg PO BID [facility] Last Admin: 09/26/17 16:45 Dose: Not Given Epoetin René (Procrit) 10,000 unit IV MWF [facility] Last Admin: 09/26/17 17:39 Dose: 10,000 unit Guaifenesin (Robitussin) 200 mg PO Q6 PRN PRN Reason: Cough and congestion Isosorbide Mononitrate (Imdur) 60 mg PO DAILY [facility] Last Admin: 09/26/17 09:01 Dose: 60 mg Lorazepam (Ativan) 0.5 mg PO Q12 PRN PRN Reason: Anxiety Oxycodone HCl (Oxycodone Immediate Release Tab) 5 mg PO Q4 PRN PRN Reason: Pain, Mild (1-3) Oxycodone HCl (Oxycodone Immediate Release Tab) 10 mg PO Q4 PRN PRN Reason: Pain 4-10 Last Admin: 09/26/17 10:04 Dose: 10 mg Oxycodone HCl (Oxycontin Extended Release Tab) 20 mg PO Q12 [facility] Last Admin: 09/26/17 08:55 Dose: 20 mg Sertraline HCl (Zoloft) 25 mg PO DAILY [facility] Sevelamer Carbonate (Renvela) 2.4 gm PO TIDCC [facility] Last Admin: 09/26/17 17:37 Dose: 2.4 gm Vitamin B Complex/Vit C/Folic Acid (Nephro-Krissy) 1 tab PO DAILY [facility] Last Admin: 09/26/17 09:01 Dose: 1 tab - Labs Labs: 09/25/17 06:25 09/25/17 06:25 - Respiratory Exam Respiratory Exam: Wheezes, NORMAL BREATHING PATTERN - Cardiovascular Exam Cardiovascular Exam: Tachycardia, REGULAR RHYTHM - GI/Abdominal Exam GI & Abdominal Exam: Normal Bowel Sounds Assessment and Plan - Assessment and Plan (Free Text) Assessment: S/P L hip fx THR Acute rehab Physiatry ESRD CKD HTN Dialysis Nephrology Dysthymia Adjustment disorder Ativan SSRI S/P bilateral Knee surgery/ Patellar tendon repair Hx + blood cs Staph Cardiomyopathy Defibrillator Cardiology
[2017-09-26] MEDS: Proshield Plus GEL TOP SCH (22:00)
[2017-09-27] MEDS: oxyCODONE 5 mg Immediate Release Tab PO PRN ×2 (04:18→14:44)
[2017-09-27] MEDS: Proshield Plus GEL TOP SCH ×3 (06:38→21:57)
[2017-09-27] MEDS: oxyCODONE 20 mg ER Tab (oxyCONTIN) PO SCH ×2 (08:43→21:50)
[2017-09-27] MEDS: AURYXIA 210 MG PO SCH ×3 (08:43→17:22)
[2017-09-27] MEDS: Multivitamin Vitamin B Complex (Nephro-Vite) Tab PO SCH (08:45)
--- NOTE | 2017-09-27 13:51 | CP.PCM.PN ---
Subjective - Date & Time of Evaluation Date of Evaluation: 09/27/17 Time of Evaluation: 13:50 - Subjective Subjective: Patient seen in the room in better spirits and feeling better about transfer and less anxious continue current care no sob/cp Objective - Vital Signs/Intake and Output Vital Signs (last 24 hours): Temp Pulse Resp BP Pulse Ox 98.6 F 90 20 109/66 93 L 09/27/17 08:07 09/27/17 08:50 09/27/17 08:07 09/27/17 08:50 09/27/17 08:07 - Medications Medications: Current Medications Albuterol/Ipratropium (Duoneb 3 Mg/0.5 Mg (3 Ml) Ud) 3 ml IH Q6 PRN PRN Reason: Shortness of Breath Amlodipine Besylate (Norvasc) 5 mg PO DAILY [facility] Last Admin: 09/27/17 08:50 Dose: 5 mg Apixaban (Eliquis) 2.5 mg PO BID [facility] PRN Reason: Protocol Last Admin: 09/27/17 08:45 Dose: 2.5 mg Aspirin (Aspirin Chewable) 81 mg PO DAILY [facility] Last Admin: 09/27/17 08:45 Dose: 81 mg Atorvastatin Calcium (Lipitor) 20 mg PO HS [facility] Last Admin: 09/26/17 23:31 Dose: 20 mg Carvedilol (Coreg) 25 mg PO Q12 [facility] Last Admin: 09/27/17 08:48 Dose: 25 mg Cinacalcet (Sensipar) 120 mg PO DAILY [facility] Last Admin: 09/27/17 08:44 Dose: 120 mg Dimethicone (Proshield Plus Skin Protectant) 1 applic TOP Q8 [facility] Last Admin: 09/27/17 06:38 Dose: 1 applic Diphenhydramine HCl (Benadryl) 25 mg PO Q6 PRN PRN Reason: Itching / Pruritus Last Admin: 09/26/17 02:53 Dose: 25 mg Docusate Sodium (Colace) 100 mg PO BID [facility] Last Admin: 09/27/17 08:46 Dose: 100 mg Epoetin René (Procrit) 10,000 unit IV MWF [facility] Last Admin: 09/26/17 17:39 Dose: 10,000 unit Guaifenesin (Robitussin) 200 mg PO Q6 PRN PRN Reason: Cough and congestion Home Med (Home Med) 1 unit PO TIDWM [facility] Last Admin: 09/27/17 12:46 Dose: 1 unit Isosorbide Mononitrate (Imdur) 60 mg PO DAILY [facility] Last Admin: 09/27/17 08:48 Dose: 60 mg Lorazepam (Ativan) 0.5 mg PO Q12 PRN PRN Reason: Anxiety Last Admin: 09/27/17 08:43 Dose: 0.5 mg Oxycodone HCl (Oxycodone Immediate Release Tab) 5 mg PO Q4 PRN PRN Reason: Pain, Mild (1-3) Last Admin: 09/27/17 04:18 Dose: 5 mg Oxycodone HCl (Oxycodone Immediate Release Tab) 10 mg PO Q4 PRN PRN Reason: Pain 4-10 Last Admin: 09/26/17 10:04 Dose: 10 mg Oxycodone HCl (Oxycontin Extended Release Tab) 20 mg PO Q12 [facility] Last Admin: 09/27/17 08:43 Dose: 20 mg Sertraline HCl (Zoloft) 25 mg PO DAILY [facility] Last Admin: 09/27/17 08:44 Dose: 25 mg Vitamin B Complex/Vit C/Folic Acid (Nephro-Krissy) 1 tab PO DAILY [facility] Last Admin: 09/27/17 08:45 Dose: 1 tab - Labs Labs: 09/25/17 06:25 09/25/17 06:25
--- NOTE | 2017-09-27 17:45 | CP.PCM.PN ---
Subjective - Date & Time of Evaluation Date of Evaluation: 09/27/17 Time of Evaluation: 22:22 - Subjective Subjective: Above noted Objective - Vital Signs/Intake and Output Vital Signs (last 24 hours): Temp Pulse Resp BP Pulse Ox 98.6 F 90 20 109/66 93 L 09/27/17 08:07 09/27/17 08:50 09/27/17 08:07 09/27/17 08:50 09/27/17 08:07 - Medications Medications: Current Medications Albuterol/Ipratropium (Duoneb 3 Mg/0.5 Mg (3 Ml) Ud) 3 ml IH Q6 PRN PRN Reason: Shortness of Breath Amlodipine Besylate (Norvasc) 5 mg PO DAILY [facility] Last Admin: 09/27/17 08:50 Dose: 5 mg Apixaban (Eliquis) 2.5 mg PO BID [facility] PRN Reason: Protocol Last Admin: 09/27/17 17:22 Dose: 2.5 mg Aspirin (Aspirin Chewable) 81 mg PO DAILY [facility] Last Admin: 09/27/17 08:45 Dose: 81 mg Atorvastatin Calcium (Lipitor) 20 mg PO HS [facility] Last Admin: 09/26/17 23:31 Dose: 20 mg Carvedilol (Coreg) 25 mg PO Q12 [facility] Last Admin: 09/27/17 08:48 Dose: 25 mg Cinacalcet (Sensipar) 120 mg PO DAILY [facility] Last Admin: 09/27/17 08:44 Dose: 120 mg Dimethicone (Proshield Plus Skin Protectant) 1 applic TOP Q8 [facility] Last Admin: 09/27/17 14:45 Dose: 1 applic Diphenhydramine HCl (Benadryl) 25 mg PO Q6 PRN PRN Reason: Itching / Pruritus Last Admin: 09/26/17 02:53 Dose: 25 mg Docusate Sodium (Colace) 100 mg PO BID [facility] Last Admin: 09/27/17 17:26 Dose: Not Given Epoetin René (Procrit) 10,000 unit IV MWF [facility] Last Admin: 09/26/17 17:39 Dose: 10,000 unit Guaifenesin (Robitussin) 200 mg PO Q6 PRN PRN Reason: Cough and congestion Home Med (Home Med) 1 unit PO TIDWM [facility] Last Admin: 09/27/17 17:22 Dose: 1 unit Isosorbide Mononitrate (Imdur) 60 mg PO DAILY [facility] Last Admin: 09/27/17 08:48 Dose: 60 mg Lorazepam (Ativan) 0.5 mg PO Q12 PRN PRN Reason: Anxiety Last Admin: 09/27/17 08:43 Dose: 0.5 mg Oxycodone HCl (Oxycodone Immediate Release Tab) 5 mg PO Q4 PRN PRN Reason: Pain, Mild (1-3) Oxycodone HCl (Oxycodone Immediate Release Tab) 10 mg PO Q4 PRN PRN Reason: Pain 4-10 Oxycodone HCl (Oxycontin Extended Release Tab) 20 mg PO Q12 [facility] Sertraline HCl (Zoloft) 25 mg PO DAILY [facility] Last Admin: 09/27/17 08:44 Dose: 25 mg Vitamin B Complex/Vit C/Folic Acid (Nephro-Krissy) 1 tab PO DAILY [facility] Last Admin: 09/27/17 08:45 Dose: 1 tab - Labs Labs: 09/25/17 06:25 09/25/17 06:25 - Respiratory Exam Respiratory Exam: NORMAL BREATHING PATTERN - Cardiovascular Exam Cardiovascular Exam: REGULAR RHYTHM - GI/Abdominal Exam GI & Abdominal Exam: Normal Bowel Sounds Assessment and Plan - Assessment and Plan (Free Text) Assessment: S/P L hip fx THR Acute rehab Physiatry ESRD CKD HTN Dialysis Nephrology Dysthymia Adjustment disorder Ativan SSRI S/P bilateral Knee surgery/ Patellar tendon repair Hx + blood cs Staph Cardiomyopathy Defibrillator Cardiology
[2017-09-28] MEDS: oxyCODONE 5 mg Immediate Release Tab PO PRN (05:02)
[2017-09-28] MEDS: Proshield Plus GEL TOP SCH ×3 (07:33→21:32)
[2017-09-28] MEDS: Multivitamin Vitamin B Complex (Nephro-Vite) Tab PO SCH (08:40)
[2017-09-28] MEDS: oxyCODONE 20 mg ER Tab (oxyCONTIN) PO SCH ×2 (08:40→21:23)
[2017-09-28] MEDS: AURYXIA 210 MG PO SCH ×2 (09:54→13:17)
[2017-09-28] MEDS ORDERED: AURYXIA 210 MG PO SCH (10:00)
--- NOTE | 2017-09-28 22:15 | CP.PCM.PN ---
Subjective - Date & Time of Evaluation Date of Evaluation: 09/28/17 Time of Evaluation: 22:22 - Subjective Subjective: Above noted Objective - Vital Signs/Intake and Output Vital Signs (last 24 hours): Temp Pulse Resp BP Pulse Ox 97.5 F L 79 20 109/73 97 09/28/17 20:31 09/28/17 21:22 09/28/17 20:31 09/28/17 21:22 09/28/17 20:31 - Medications Medications: Current Medications Albuterol/Ipratropium (Duoneb 3 Mg/0.5 Mg (3 Ml) Ud) 3 ml IH Q6 PRN PRN Reason: Shortness of Breath Amlodipine Besylate (Norvasc) 5 mg PO DAILY [facility] Last Admin: 09/28/17 08:45 Dose: 5 mg Apixaban (Eliquis) 2.5 mg PO BID [facility] PRN Reason: Protocol Last Admin: 09/28/17 16:39 Dose: 2.5 mg Aspirin (Aspirin Chewable) 81 mg PO DAILY [facility] Last Admin: 09/28/17 08:42 Dose: 81 mg Atorvastatin Calcium (Lipitor) 20 mg PO HS [facility] Last Admin: 09/28/17 21:22 Dose: 20 mg Carvedilol (Coreg) 25 mg PO Q12 [facility] Last Admin: 09/28/17 21:22 Dose: 25 mg Cinacalcet (Sensipar) 120 mg PO DAILY [facility] Last Admin: 09/28/17 08:44 Dose: 120 mg Dimethicone (Proshield Plus Skin Protectant) 1 applic TOP Q8 [facility] Last Admin: 09/28/17 21:32 Dose: 1 applic Diphenhydramine HCl (Benadryl) 25 mg PO Q6 PRN PRN Reason: Itching / Pruritus Last Admin: 09/28/17 01:40 Dose: 25 mg Docusate Sodium (Colace) 100 mg PO BID [facility] Last Admin: 09/28/17 16:40 Dose: Not Given Epoetin René (Procrit) 10,000 unit IV MWF [facility] Last Admin: 09/26/17 17:39 Dose: 10,000 unit Guaifenesin (Robitussin) 200 mg PO Q6 PRN PRN Reason: Cough and congestion Home Med (Home Med) 1 unit PO TID@0500,0800,1200 [facility] Last Admin: 09/28/17 13:17 Dose: 1 unit Isosorbide Mononitrate (Imdur) 60 mg PO DAILY [facility] Last Admin: 09/28/17 08:41 Dose: 60 mg Lorazepam (Ativan) 0.5 mg PO Q12 PRN PRN Reason: Anxiety Last Admin: 09/27/17 08:43 Dose: 0.5 mg Oxycodone HCl (Oxycodone Immediate Release Tab) 5 mg PO Q4 PRN PRN Reason: Pain, Mild (1-3) Oxycodone HCl (Oxycodone Immediate Release Tab) 10 mg PO Q4 PRN PRN Reason: Pain 4-10 Last Admin: 09/28/17 05:02 Dose: 10 mg Oxycodone HCl (Oxycontin Extended Release Tab) 20 mg PO Q12 [facility] Last Admin: 09/28/17 21:23 Dose: 20 mg Sertraline HCl (Zoloft) 25 mg PO DAILY [facility] Last Admin: 09/28/17 08:44 Dose: 25 mg Vitamin B Complex/Vit C/Folic Acid (Nephro-Krissy) 1 tab PO DAILY [facility] Last Admin: 09/28/17 08:40 Dose: 1 tab - Labs Labs: 09/25/17 06:25 09/25/17 06:25 - Respiratory Exam Respiratory Exam: NORMAL BREATHING PATTERN - Cardiovascular Exam Cardiovascular Exam: REGULAR RHYTHM - GI/Abdominal Exam GI & Abdominal Exam: Normal Bowel Sounds Assessment and Plan - Assessment and Plan (Free Text) Assessment: S/P L hip fx THR Acute rehab Physiatry ESRD CKD HTN Dialysis Nephrology Dysthymia Adjustment disorder Ativan SSRI S/P bilateral Knee surgery/ Patellar tendon repair Hx + blood cs Staph Cardiomyopathy Defibrillator Cardiology
[2017-09-29] MEDS: AURYXIA 210 MG PO SCH ×4 (06:09→17:42)
[2017-09-29] MEDS: Proshield Plus GEL TOP SCH ×3 (06:09→22:59)
[2017-09-29] MEDS: oxyCODONE 20 mg ER Tab (oxyCONTIN) PO SCH ×2 (08:46→22:56)
[2017-09-29] MEDS: Multivitamin Vitamin B Complex (Nephro-Vite) Tab PO SCH (08:50)
--- NOTE | 2017-09-29 10:23 | CP.PCM.PN ---
Subjective - Date & Time of Evaluation Date of Evaluation: 09/29/17 Time of Evaluation: 10:22 - Subjective Subjective: patient awake conscious not in acute distress. Appetite is okay. Vital sign is okay and noted Objective - Vital Signs/Intake and Output Vital Signs (last 24 hours): Temp Pulse Resp BP Pulse Ox 97.5 F L 91 H 20 114/64 97 09/28/17 20:31 09/29/17 08:50 09/28/17 20:31 09/29/17 08:50 09/28/17 20:31 - Medications Medications: Current Medications Albuterol/Ipratropium (Duoneb 3 Mg/0.5 Mg (3 Ml) Ud) 3 ml IH Q6 PRN PRN Reason: Shortness of Breath Amlodipine Besylate (Norvasc) 5 mg PO DAILY [facility] Last Admin: 09/29/17 08:50 Dose: 5 mg Apixaban (Eliquis) 2.5 mg PO BID [facility] PRN Reason: Protocol Last Admin: 09/29/17 08:50 Dose: 2.5 mg Aspirin (Aspirin Chewable) 81 mg PO DAILY [facility] Last Admin: 09/29/17 08:49 Dose: 81 mg Atorvastatin Calcium (Lipitor) 20 mg PO HS [facility] Last Admin: 09/28/17 21:22 Dose: 20 mg Carvedilol (Coreg) 25 mg PO Q12 [facility] Last Admin: 09/29/17 08:49 Dose: 25 mg Cinacalcet (Sensipar) 120 mg PO DAILY [facility] Last Admin: 09/29/17 08:50 Dose: 120 mg Dimethicone (Proshield Plus Skin Protectant) 1 applic TOP Q8 [facility] Last Admin: 09/29/17 06:09 Dose: 1 applic Diphenhydramine HCl (Benadryl) 25 mg PO Q6 PRN PRN Reason: Itching / Pruritus Last Admin: 09/28/17 01:40 Dose: 25 mg Docusate Sodium (Colace) 100 mg PO BID [facility] Last Admin: 09/29/17 08:49 Dose: Not Given Epoetin René (Procrit) 10,000 unit IV MWF [facility] Last Admin: 09/26/17 17:39 Dose: 10,000 unit Guaifenesin (Robitussin) 200 mg PO Q6 PRN PRN Reason: Cough and congestion Home Med (Home Med) 1 unit PO TID@0800,1200,1700 [facility] Last Admin: 09/29/17 08:48 Dose: 1 unit Isosorbide Mononitrate (Imdur) 60 mg PO DAILY [facility] Last Admin: 09/29/17 08:50 Dose: 60 mg Lorazepam (Ativan) 0.5 mg PO Q12 PRN PRN Reason: Anxiety Last Admin: 09/27/17 08:43 Dose: 0.5 mg Oxycodone HCl (Oxycodone Immediate Release Tab) 5 mg PO Q4 PRN PRN Reason: Pain, Mild (1-3) Oxycodone HCl (Oxycodone Immediate Release Tab) 10 mg PO Q4 PRN PRN Reason: Pain 4-10 Last Admin: 09/28/17 05:02 Dose: 10 mg Oxycodone HCl (Oxycontin Extended Release Tab) 20 mg PO Q12 [facility] Last Admin: 09/29/17 08:46 Dose: 20 mg Sertraline HCl (Zoloft) 25 mg PO DAILY [facility] Last Admin: 09/29/17 08:50 Dose: 25 mg Vitamin B Complex/Vit C/Folic Acid (Nephro-Krissy) 1 tab PO DAILY [facility] Last Admin: 09/29/17 08:50 Dose: 1 tab - Labs Labs: 09/25/17 06:25 09/25/17 06:25 - Constitutional Appears: No Acute Distress - Eye Exam Eye Exam: absent: Conjunctival injection - ENT Exam ENT Exam: Mucous Membranes Moist - Neck Exam Neck Exam: absent: Lymphadenopathy - Cardiovascular Exam Cardiovascular Exam: absent: Gallop, JVD, Rubs - GI/Abdominal Exam GI & Abdominal Exam: Soft, Normal Bowel Sounds - Extremities Exam Extremities Exam: absent: Calf Tenderness - Back Exam Back Exam: absent: CVA tenderness (L), CVA tenderness (R) - Neurological Exam Neurological Exam: Alert - Psychiatric Exam Psychiatric exam: Normal Affect - Skin Skin Exam: absent: Cyanosis Assessment and Plan (1) Chronic kidney disease with end stage renal failure on dialysis Assessment & Plan: Assessment & Plan: Patient with end stage renal disease on maintenance hemodialysis Friday transferred to acute rehabilitation after left hip surgery replacement. Patient has history of hypertension. History of cardiomyopathy as noted in the history History of hyperphosphatemia History of secondary hyperparathyroidism,PTH pending the plan Renal diet Continue hemodialysis as scheduled Friday. Patient scheduled to have dialysis later after completing physical therapy session Status: Acute (2) HTN (hypertension) Status: Chronic
[2017-09-29] MEDS: oxyCODONE 5 mg Immediate Release Tab PO PRN ×2 (13:07→17:45)
[2017-09-29] MEDS: EPOETIN ALFA 10,000 UNIT/ML ML IV SCH (17:40)
--- NOTE | 2017-09-29 18:43 | CP.PCM.PN ---
Subjective - Date & Time of Evaluation Date of Evaluation: 09/29/17 Time of Evaluation: 18:42 - Subjective Subjective: Patient seen in the room doing much better now with transfers nursing reports min/mod A x1 had been a big deal with 2-3 people early time of admission pain is controlled continue current care Objective - Vital Signs/Intake and Output Vital Signs (last 24 hours): Temp Pulse Resp BP Pulse Ox 97.7 F 91 H 22 114/64 97 09/29/17 10:00 09/29/17 10:00 09/29/17 10:00 09/29/17 10:00 09/29/17 10:00 - Medications Medications: Current Medications Albuterol/Ipratropium (Duoneb 3 Mg/0.5 Mg (3 Ml) Ud) 3 ml IH Q6 PRN PRN Reason: Shortness of Breath Amlodipine Besylate (Norvasc) 5 mg PO DAILY [facility] Last Admin: 09/29/17 08:50 Dose: 5 mg Apixaban (Eliquis) 2.5 mg PO BID [facility] PRN Reason: Protocol Last Admin: 09/29/17 17:41 Dose: 2.5 mg Aspirin (Aspirin Chewable) 81 mg PO DAILY [facility] Last Admin: 09/29/17 08:49 Dose: 81 mg Atorvastatin Calcium (Lipitor) 20 mg PO HS [facility] Last Admin: 09/28/17 21:22 Dose: 20 mg Carvedilol (Coreg) 25 mg PO Q12 [facility] Last Admin: 09/29/17 08:49 Dose: 25 mg Cinacalcet (Sensipar) 120 mg PO DAILY [facility] Last Admin: 09/29/17 08:50 Dose: 120 mg Dimethicone (Proshield Plus Skin Protectant) 1 applic TOP Q8 [facility] Last Admin: 09/29/17 14:54 Dose: 1 applic Diphenhydramine HCl (Benadryl) 25 mg PO Q6 PRN PRN Reason: Itching / Pruritus Last Admin: 09/28/17 01:40 Dose: 25 mg Docusate Sodium (Colace) 100 mg PO BID [facility] Last Admin: 09/29/17 17:11 Dose: Not Given Epoetin René (Procrit) 10,000 unit IV MWF [facility] Last Admin: 09/29/17 17:40 Dose: 10,000 unit Guaifenesin (Robitussin) 200 mg PO Q6 PRN PRN Reason: Cough and congestion Home Med (Home Med) 1 unit PO TID@0800,1200,1700 [facility] Last Admin: 09/29/17 17:42 Dose: 1 unit Isosorbide Mononitrate (Imdur) 60 mg PO DAILY [facility] Last Admin: 09/29/17 08:50 Dose: 60 mg Lorazepam (Ativan) 0.5 mg PO Q12 PRN PRN Reason: Anxiety Last Admin: 09/29/17 10:09 Dose: 0.5 mg Oxycodone HCl (Oxycodone Immediate Release Tab) 5 mg PO Q4 PRN PRN Reason: Pain, Mild (1-3) Last Admin: 09/29/17 13:07 Dose: 5 mg Oxycodone HCl (Oxycodone Immediate Release Tab) 10 mg PO Q4 PRN PRN Reason: Pain 4-10 Last Admin: 09/29/17 17:45 Dose: 10 mg Oxycodone HCl (Oxycontin Extended Release Tab) 20 mg PO Q12 [facility] Last Admin: 09/29/17 08:46 Dose: 20 mg Sertraline HCl (Zoloft) 25 mg PO DAILY [facility] Last Admin: 09/29/17 08:50 Dose: 25 mg Vitamin B Complex/Vit C/Folic Acid (Nephro-Krissy) 1 tab PO DAILY [facility] Last Admin: 09/29/17 08:50 Dose: 1 tab - Labs Labs: 09/25/17 06:25 09/25/17 06:25
--- NOTE | 2017-09-29 20:53 | CP.PCM.PN ---
Subjective - Date & Time of Evaluation Date of Evaluation: 09/29/17 Time of Evaluation: 22:22 - Subjective Subjective: Above noted Objective - Vital Signs/Intake and Output Vital Signs (last 24 hours): Temp Pulse Resp BP Pulse Ox 97.7 F 91 H 22 114/64 97 09/29/17 10:00 09/29/17 10:00 09/29/17 10:00 09/29/17 10:00 09/29/17 10:00 - Medications Medications: Current Medications Albuterol/Ipratropium (Duoneb 3 Mg/0.5 Mg (3 Ml) Ud) 3 ml IH Q6 PRN PRN Reason: Shortness of Breath Amlodipine Besylate (Norvasc) 5 mg PO DAILY [facility] Last Admin: 09/29/17 08:50 Dose: 5 mg Apixaban (Eliquis) 2.5 mg PO BID [facility] PRN Reason: Protocol Last Admin: 09/29/17 17:41 Dose: 2.5 mg Aspirin (Aspirin Chewable) 81 mg PO DAILY [facility] Last Admin: 09/29/17 08:49 Dose: 81 mg Atorvastatin Calcium (Lipitor) 20 mg PO HS [facility] Last Admin: 09/28/17 21:22 Dose: 20 mg Carvedilol (Coreg) 25 mg PO Q12 [facility] Last Admin: 09/29/17 08:49 Dose: 25 mg Cinacalcet (Sensipar) 120 mg PO DAILY [facility] Last Admin: 09/29/17 08:50 Dose: 120 mg Dimethicone (Proshield Plus Skin Protectant) 1 applic TOP Q8 [facility] Last Admin: 09/29/17 14:54 Dose: 1 applic Diphenhydramine HCl (Benadryl) 25 mg PO Q6 PRN PRN Reason: Itching / Pruritus Last Admin: 09/28/17 01:40 Dose: 25 mg Docusate Sodium (Colace) 100 mg PO BID [facility] Last Admin: 09/29/17 17:11 Dose: Not Given Epoetin René (Procrit) 10,000 unit IV MWF [facility] Last Admin: 09/29/17 17:40 Dose: 10,000 unit Guaifenesin (Robitussin) 200 mg PO Q6 PRN PRN Reason: Cough and congestion Home Med (Home Med) 1 unit PO TID@0800,1200,1700 [facility] Last Admin: 09/29/17 17:42 Dose: 1 unit Isosorbide Mononitrate (Imdur) 60 mg PO DAILY [facility] Last Admin: 09/29/17 08:50 Dose: 60 mg Lorazepam (Ativan) 0.5 mg PO Q12 PRN PRN Reason: Anxiety Last Admin: 09/29/17 10:09 Dose: 0.5 mg Oxycodone HCl (Oxycodone Immediate Release Tab) 5 mg PO Q4 PRN PRN Reason: Pain, Mild (1-3) Last Admin: 09/29/17 13:07 Dose: 5 mg Oxycodone HCl (Oxycodone Immediate Release Tab) 10 mg PO Q4 PRN PRN Reason: Pain 4-10 Last Admin: 09/29/17 17:45 Dose: 10 mg Oxycodone HCl (Oxycontin Extended Release Tab) 20 mg PO Q12 [facility] Last Admin: 09/29/17 08:46 Dose: 20 mg Sertraline HCl (Zoloft) 25 mg PO DAILY [facility] Last Admin: 09/29/17 08:50 Dose: 25 mg Vitamin B Complex/Vit C/Folic Acid (Nephro-Krissy) 1 tab PO DAILY [facility] Last Admin: 09/29/17 08:50 Dose: 1 tab - Labs Labs: 09/25/17 06:25 09/25/17 06:25 - Respiratory Exam Respiratory Exam: NORMAL BREATHING PATTERN - Cardiovascular Exam Cardiovascular Exam: REGULAR RHYTHM - GI/Abdominal Exam GI & Abdominal Exam: Normal Bowel Sounds Assessment and Plan - Assessment and Plan (Free Text) Assessment: S/P L hip fx THR Acute rehab Physiatry ESRD CKD HTN Dialysis Nephrology Dysthymia Adjustment disorder Ativan SSRI S/P bilateral Knee surgery/ Patellar tendon repair Hx + blood cs Staph Cardiomyopathy Defibrillator Cardiology
[2017-09-30] MEDS: oxyCODONE 5 mg Immediate Release Tab PO PRN ×3 (01:01→14:03)
[2017-09-30] MEDS: Proshield Plus GEL TOP SCH ×3 (07:28→21:28)
[2017-09-30] MEDS: oxyCODONE 20 mg ER Tab (oxyCONTIN) PO SCH ×2 (08:06→22:09)
--- NOTE | 2017-09-30 08:09 | CP.PCM.CON ---
History of Present Illness - History of Present Illness History of Present Illness: THE PATIENT IS A 36 YEAR OLD MALE WHO [place] [facility] [place] FOR ACUTE REHAB AND CARDIOLOGY WAS CALLED BY DR HOWE TO FOLLOW HIM. HE HAS A HISTORY OF HYPERTENSION, CARDIOMYOPATHY WITH A DEFIBRILLATOR, HYPERLIPIDEMIA, ESRD ON HD AND COPD. 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 HE HAD BILATERAL PATELLA LEGAMENT SURGERY AND NOW STATES THAT HE HAS SWELLING LATERAL AND ABOVE THE LEFT KNEE. Past Patient History - Past Medical History & Family History Past Medical History?: Yes - Past Social History Smoking Status: Never Smoked - CARDIAC Hx Cardiac Disorders: Yes (Cardiomypathy) Hx Hypertension: Yes - PULMONARY Hx Asthma: Yes (last attack jan 2013) - NEUROLOGICAL Hx Neurological Disorder: No - HEENT Hx HEENT Problems: No - RENAL Hx Renal Failure: Yes (ESRD, CKD) - ENDOCRINE/METABOLIC Hx Endocrine Disorders: Yes - HEMATOLOGICAL/ONCOLOGICAL Hx Blood Disorders: Yes Hx Blood Transfusions: Yes (2010) - INTEGUMENTARY Hx Dermatological Problems: No - MUSCULOSKELETAL/RHEUMATOLOGICAL Hx Falls: No - GASTROINTESTINAL Hx Gastrointestinal Disorders: No - GENITOURINARY/GYNECOLOGICAL Hx Genitourinary Disorders: Yes Other/Comment: dialysis pt.doesn't make urine - PSYCHIATRIC Hx Substance Use: No - SURGICAL HISTORY Hx Surgeries: Yes Hx Arteriovenous Shunt: Yes (left upper arm 2010) Hx Vascular Access Device: Yes (2010, removed 2 months later) - ANESTHESIA Hx Anesthesia: Yes Hx Anesthesia Reactions: No Hx Malignant Hyperthermia: No Meds Allergies/Adverse Reactions: Allergies Allergy/AdvReac Type Severity Reaction Status Date / Time No Known Allergies Allergy Verified 09/24/17 22:00 - Medications Medications: Current Medications Albuterol/Ipratropium (Duoneb 3 Mg/0.5 Mg (3 Ml) Ud) 3 ml IH Q6 PRN PRN Reason: Shortness of Breath Amlodipine Besylate (Norvasc) 5 mg PO DAILY [facility] Apixaban (Eliquis) 2.5 mg PO BID [facility] PRN Reason: Protocol Last Admin: 09/29/17 17:41 Dose: 2.5 mg Aspirin (Aspirin Chewable) 81 mg PO DAILY [facility] Last Admin: 09/29/17 08:49 Dose: 81 mg Atorvastatin Calcium (Lipitor) 20 mg PO HS [facility] Last Admin: 09/29/17 22:56 Dose: 20 mg Carvedilol (Coreg) 25 mg PO Q12 [facility] Cinacalcet (Sensipar) 120 mg PO DAILY [facility] Last Admin: 09/29/17 08:50 Dose: 120 mg Dimethicone (Proshield Plus Skin Protectant) 1 applic TOP Q8 [facility] Last Admin: 09/30/17 07:28 Dose: 1 applic Diphenhydramine HCl (Benadryl) 25 mg PO Q6 PRN PRN Reason: Itching / Pruritus Last Admin: 09/28/17 01:40 Dose: 25 mg Docusate Sodium (Colace) 100 mg PO BID [facility] Last Admin: 09/29/17 17:11 Dose: Not Given Epoetin René (Procrit) 10,000 unit IV MWF [facility] Last Admin: 09/29/17 17:40 Dose: 10,000 unit Guaifenesin (Robitussin) 200 mg PO Q6 PRN PRN Reason: Cough and congestion Home Med (Home Med) 1 unit PO TID@0800,1200,1700 [facility] Last Admin: 09/29/17 17:42 Dose: 1 unit Isosorbide Mononitrate (Imdur) 60 mg PO DAILY [facility] Last Admin: 09/29/17 08:50 Dose: 60 mg Lorazepam (Ativan) 0.5 mg PO Q12 PRN PRN Reason: Anxiety Last Admin: 09/29/17 10:09 Dose: 0.5 mg Oxycodone HCl (Oxycodone Immediate Release Tab) 5 mg PO Q4 PRN PRN Reason: Pain, Mild (1-3) Last Admin: 09/29/17 13:07 Dose: 5 mg Oxycodone HCl (Oxycodone Immediate Release Tab) 10 mg PO Q4 PRN PRN Reason: Pain 4-10 Last Admin: 09/30/17 01:01 Dose: 10 mg Oxycodone HCl (Oxycontin Extended Release Tab) 20 mg PO Q12 [facility] Last Admin: 09/29/17 22:56 Dose: 20 mg Sertraline HCl (Zoloft) 25 mg PO DAILY [facility] Last Admin: 09/29/17 08:50 Dose: 25 mg Vitamin B Complex/Vit C/Folic Acid (Nephro-Krissy) 1 tab PO DAILY [facility] Last Admin: 09/29/17 08:50 Dose: 1 tab Physical Exam - Respiratory Exam Respiratory Exam: Clear to Auscultation Bilateral - Cardiovascular Exam Cardiovascular Exam: REGULAR RHYTHM - Extremities Exam Additional comments: MILD SWELLING LATERAL AND ABOVE THE LEFT KNEE Results - Vital Signs Recent Vital Signs: Last Vital Signs Temp 97.7 F 09/29/17 22:00 Pulse 93 H 09/29/17 22:56 Resp 20 09/29/17 22:00 BP 136/74 09/29/17 22:56 Pulse Ox 99 09/29/17 22:00 - Labs Result Diagrams: 09/25/17 06:25 09/25/17 06:25 Labs: Laboratory Results - last 24 hr 09/26/17 11:46 PTH Intact Whole Molec 730 H Assessment & Plan - Assessment and Plan (Free Text) Assessment: CARDIOMYOPATHY WITH DEFIBRILLATOR HYPERTENSION HYPERLIPIDEMIA RECENT LEFT HIP SURGERY Plan: CONTINUE CARVEDILOL, ELIQUIS, ASPIRIN, AMLODIPINE, ISOSORBIDE AND ATORVASTATIN NURSES TOLD ABOUT LEFT KNEE SWELLING AND TO INFORM DR LIZ AND THERAPISTS
[2017-09-30] MEDS: Multivitamin Vitamin B Complex (Nephro-Vite) Tab PO SCH (08:10)
[2017-09-30] MEDS: AURYXIA 210 MG PO SCH ×3 (08:50→17:21)
--- NOTE | 2017-09-30 11:00 | CP.PCM.CON ---
History of Present Illness - History of Present Illness History of Present Illness: This is a 36 yrs old male who is admitted for rehab after having a replacement of the left hip'. The ct scan and MRI showed a fracture in the left humeral head but there was also evidence of lytic and sclerotic lesions in all of the femur. Pt has a CRD with dialysis three times a week, He also has a hyperparathyroidism with decreased cacium in the bones and the blood, which may have been responsible for the pathological fracture .However a malignancy cannot be excluded. He has no c/o a poor appetite or weight loss no bleeding from any site.He does not have a h/o multiple myeloma either. Pt has a past h/o ruptured patellar tendons which were repaired , He does not smoke and has not smoked in the past eithr. He has a h/o hypertension H/o hyperparathyroidism CRD Past Patient History - Past Medical History & Family History Past Medical History?: Yes - Past Social History Smoking Status: Never Smoked - CARDIAC Hx Cardiac Disorders: Yes (Cardiomypathy) Hx Hypertension: Yes - PULMONARY Hx Asthma: Yes (last attack jan 2013) - NEUROLOGICAL Hx Neurological Disorder: No - HEENT Hx HEENT Problems: No - RENAL Hx Renal Failure: Yes (ESRD, CKD) - ENDOCRINE/METABOLIC Hx Endocrine Disorders: Yes - HEMATOLOGICAL/ONCOLOGICAL Hx Blood Disorders: Yes Hx Blood Transfusions: Yes (2010) - INTEGUMENTARY Hx Dermatological Problems: No - MUSCULOSKELETAL/RHEUMATOLOGICAL Hx Falls: No - GASTROINTESTINAL Hx Gastrointestinal Disorders: No - GENITOURINARY/GYNECOLOGICAL Hx Genitourinary Disorders: Yes Other/Comment: dialysis pt.doesn't make urine - PSYCHIATRIC Hx Substance Use: No - SURGICAL HISTORY Hx Surgeries: Yes Hx Arteriovenous Shunt: Yes (left upper arm 2010) Hx Vascular Access Device: Yes (2010, removed 2 months later) - ANESTHESIA Hx Anesthesia: Yes Hx Anesthesia Reactions: No Hx Malignant Hyperthermia: No Meds Allergies/Adverse Reactions: Allergies Allergy/AdvReac Type Severity Reaction Status Date / Time No Known Allergies Allergy Verified 09/24/17 22:00 - Medications Medications: Current Medications Albuterol/Ipratropium (Duoneb 3 Mg/0.5 Mg (3 Ml) Ud) 3 ml IH Q6 PRN PRN Reason: Shortness of Breath Amlodipine Besylate (Norvasc) 5 mg PO DAILY [facility] Last Admin: 09/30/17 08:10 Dose: 5 mg Apixaban (Eliquis) 2.5 mg PO BID [facility] PRN Reason: Protocol Last Admin: 09/30/17 08:09 Dose: 2.5 mg Aspirin (Aspirin Chewable) 81 mg PO DAILY [facility] Last Admin: 09/30/17 08:08 Dose: 81 mg Atorvastatin Calcium (Lipitor) 20 mg PO HS [facility] Last Admin: 09/29/17 22:56 Dose: 20 mg Carvedilol (Coreg) 25 mg PO Q12 [facility] Last Admin: 09/30/17 08:09 Dose: 25 mg Cinacalcet (Sensipar) 120 mg PO DAILY [facility] Last Admin: 09/30/17 08:09 Dose: 120 mg Dimethicone (Proshield Plus Skin Protectant) 1 applic TOP Q8 [facility] Last Admin: 09/30/17 07:28 Dose: 1 applic Diphenhydramine HCl (Benadryl) 25 mg PO Q6 PRN PRN Reason: Itching / Pruritus Last Admin: 09/28/17 01:40 Dose: 25 mg Docusate Sodium (Colace) 100 mg PO BID [facility] Last Admin: 09/30/17 08:08 Dose: 100 mg Epoetin René (Procrit) 10,000 unit IV MWF [facility] Last Admin: 09/29/17 17:40 Dose: 10,000 unit Guaifenesin (Robitussin) 200 mg PO Q6 PRN PRN Reason: Cough and congestion Home Med (Home Med) 1 unit PO TID@0800,1200,1700 [facility] Last Admin: 09/30/17 08:50 Dose: 1 unit Isosorbide Mononitrate (Imdur) 60 mg PO DAILY [facility] Last Admin: 09/30/17 08:09 Dose: 60 mg Lorazepam (Ativan) 0.5 mg PO Q12 PRN PRN Reason: Anxiety Last Admin: 09/29/17 10:09 Dose: 0.5 mg Oxycodone HCl (Oxycodone Immediate Release Tab) 5 mg PO Q4 PRN PRN Reason: Pain, Mild (1-3) Last Admin: 09/29/17 13:07 Dose: 5 mg Oxycodone HCl (Oxycodone Immediate Release Tab) 10 mg PO Q4 PRN PRN Reason: Pain 4-10 Last Admin: 09/30/17 10:02 Dose: 10 mg Oxycodone HCl (Oxycontin Extended Release Tab) 20 mg PO Q12 [facility] Last Admin: 09/30/17 08:06 Dose: 20 mg Sertraline HCl (Zoloft) 25 mg PO DAILY [facility] Last Admin: 09/30/17 08:11 Dose: 25 mg Vitamin B Complex/Vit C/Folic Acid (Nephro-Krissy) 1 tab PO DAILY [facility] Last Admin: 09/30/17 08:10 Dose: 1 tab Physical Exam - Additional Findings Additional findings: Pt is alert,well oriented in no acute distress neck'; supple, no adenopathy Chest; clear;. 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
--- NOTE | 2017-09-30 13:23 | CP.PCM.PN ---
Subjective - Date & Time of Evaluation Date of Evaluation: 09/30/17 Time of Evaluation: 13:22 - Subjective Subjective: no significant changes clinically patient is stable receiving rehabilitation after hip surgery Objective - Vital Signs/Intake and Output Vital Signs (last 24 hours): Temp Pulse Resp BP Pulse Ox 98.2 F 96 H 20 115/66 97 09/30/17 09:00 09/30/17 09:00 09/30/17 09:00 09/30/17 09:00 09/30/17 08:50 - Medications Medications: Current Medications Albuterol/Ipratropium (Duoneb 3 Mg/0.5 Mg (3 Ml) Ud) 3 ml IH Q6 PRN PRN Reason: Shortness of Breath Amlodipine Besylate (Norvasc) 5 mg PO DAILY [facility] Last Admin: 09/30/17 08:10 Dose: 5 mg Apixaban (Eliquis) 2.5 mg PO BID [facility] PRN Reason: Protocol Last Admin: 09/30/17 08:09 Dose: 2.5 mg Aspirin (Aspirin Chewable) 81 mg PO DAILY [facility] Last Admin: 09/30/17 08:08 Dose: 81 mg Atorvastatin Calcium (Lipitor) 20 mg PO HS [facility] Last Admin: 09/29/17 22:56 Dose: 20 mg Carvedilol (Coreg) 25 mg PO Q12 [facility] Last Admin: 09/30/17 08:09 Dose: 25 mg Cinacalcet (Sensipar) 120 mg PO DAILY [facility] Last Admin: 09/30/17 08:09 Dose: 120 mg Dimethicone (Proshield Plus Skin Protectant) 1 applic TOP Q8 [facility] Last Admin: 09/30/17 07:28 Dose: 1 applic Diphenhydramine HCl (Benadryl) 25 mg PO Q6 PRN PRN Reason: Itching / Pruritus Last Admin: 09/28/17 01:40 Dose: 25 mg Docusate Sodium (Colace) 100 mg PO BID [facility] Last Admin: 09/30/17 08:08 Dose: 100 mg Epoetin René (Procrit) 10,000 unit IV MWF [facility] Last Admin: 09/29/17 17:40 Dose: 10,000 unit Guaifenesin (Robitussin) 200 mg PO Q6 PRN PRN Reason: Cough and congestion Home Med (Home Med) 1 unit PO TID@0800,1200,1700 [facility] Last Admin: 09/30/17 12:26 Dose: 1 unit Isosorbide Mononitrate (Imdur) 60 mg PO DAILY [facility] Last Admin: 09/30/17 08:09 Dose: 60 mg Lorazepam (Ativan) 0.5 mg PO Q12 PRN PRN Reason: Anxiety Last Admin: 09/29/17 10:09 Dose: 0.5 mg Oxycodone HCl (Oxycodone Immediate Release Tab) 5 mg PO Q4 PRN PRN Reason: Pain, Mild (1-3) Last Admin: 09/29/17 13:07 Dose: 5 mg Oxycodone HCl (Oxycodone Immediate Release Tab) 10 mg PO Q4 PRN PRN Reason: Pain 4-10 Last Admin: 09/30/17 10:02 Dose: 10 mg Oxycodone HCl (Oxycontin Extended Release Tab) 20 mg PO Q12 [facility] Last Admin: 09/30/17 08:06 Dose: 20 mg Sertraline HCl (Zoloft) 25 mg PO DAILY [facility] Last Admin: 09/30/17 08:11 Dose: 25 mg Vitamin B Complex/Vit C/Folic Acid (Nephro-Krissy) 1 tab PO DAILY [facility] Last Admin: 09/30/17 08:10 Dose: 1 tab - Labs Labs: 09/25/17 06:25 09/25/17 06:25 - Constitutional Appears: No Acute Distress - ENT Exam ENT Exam: Mucous Membranes Moist - Respiratory Exam Respiratory Exam: NORMAL BREATHING PATTERN - Cardiovascular Exam Cardiovascular Exam: absent: Gallop, Rubs - GI/Abdominal Exam GI & Abdominal Exam: Soft, Normal Bowel Sounds - Extremities Exam Extremities Exam: absent: Calf Tenderness - Back Exam Back Exam: absent: CVA tenderness (L), CVA tenderness (R) - Neurological Exam Neurological Exam: Alert - Psychiatric Exam Psychiatric exam: Normal Affect - Skin Skin Exam: absent: Cyanosis Assessment and Plan (1) Chronic kidney disease with end stage renal failure on dialysis Assessment & Plan: Patient with end stage renal disease on maintenance hemodialysis Friday transferred to acute rehabilitation after left hip surgery replacement. Patient has history of hypertension. History of hyperphosphatemia History of secondary hyperparathyroidism,PTH pending the plan Renal diet Continue hemodialysis as scheduled Friday. Status: Acute (2) HTN (hypertension) Status: Chronic
--- NOTE | 2017-09-30 13:30 | PSY.TMCNF ---
Nursing - Vital Signs Vital Signs (Last 8 hours): Vital Signs 09/30/17 09/30/17 09/30/17 08:09 08:10 08:50 Temperature 98.2 F Pulse Rate 77 78 96 H Respiratory 20 Rate Blood Pressure 144/70 144/78 115/66 O2 Sat by Pulse 97 Oximetry 09/30/17 09:00 Temperature 98.2 F Pulse Rate 96 H Respiratory 20 Rate Blood Pressure 115/66 O2 Sat by Pulse Oximetry Pain: 0 - Medications/Other Issues Comment: Pt at moderate nutritional risk. goals: 1. Pt to consume 75-100% of meals. 2. K+ WNL. Follow-up due on 10/02/2017 - Skin Incision Site: left hip Dressing Status: Clean, Dry, Intact Incision: Healing Well, Well Approximated, Sutures Intact - Wound Buttock Wound Type: Moisture Associated Skin Damage Wound Shape: Irregular Wound Edges: Open Tunneling: No Undermining: No Wound Bed Greatest Portion: Pale [place] Wound Drainage Amount: Minimal Wound Drainage Description: Serosanguineous Wound Drainage Odor: None/Absent Wound General Appearance: Open to air Wound Dressing Status: Open to air Wound Packing Type: Not applicable Wound Primary Dressing Type: Open to air Wound Secondary Dressing Type: Open to air - Bladder Management Bladder Management: Independent - Bowel Management Bowel Pattern: Normal - Goals/Time Frame Comments: Pt was seen awake and alert laying in bed with abduction pillow between legs. Pt agreeable to visit. Pt familiar with staff and recreation therapy from prior stay on unit in August 2016. Pt recalled playing card tasks with recreation therapist during last stay on unit and was agreeable to participate in more leisure tasks throughout this current stay. 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 Pt reported that his goal is to ambulate again and be more independent. Pt remained in bed in his room and expressed that he was content. Call hodgson within reach. Physical Therapy - Bed Mobility Bed Mobility: Verbal Cues, Moderate Assistance - Transfers Wheelchair to Mat: Verbal Cues, Moderate Assistance, Maximum Assistance Sit to Stand: Maximum Assistance, Dependent Comment: -lateral beazy board transfer with max A to place board, mod A to initiate and CG to complete task. -sit to/from stand at // bar with max A of 2 (dependent) - Ambulation Level of Assistance: Not Tested, Dependent Orthoses: not appropriate for patient at this time - Stair Negotiation Stairs: Level of Assistance: Not Tested - Standing Balance Static Stand: Maximal Assistance Dynamic Stand: Dependent, Unable to assess/perform - Pain Management Techniques: Medication, Ice - Insight/Carryover Insight/Carryover: Poor - Patient/Family Education Comment: therapy schedule, POC, goals, safety, THPs, mobliity, WC mobility, importance of position changes, techniques to improve transfers. -patient is very limited by his anxiety and fear during mobility tasks - Assessment/Plan Assessment: Pt receives daily room visits for social support and encouragement to participate in sessions. Pt receives dialysis 3x week which limits pt's time to attend recreation therapy sessions. Pt presents with increase anxiety and pain than prior stay and requires redirection and motivational support. Will contine to encourage pt to participate in sessions. - Goals Goals: -rolling with mod A. -supine to/from sit with min A. -beazy board transfer with mod A to place board and CS to execute transfer. -sit to/from stand with max A of 1 at // bars. -propel manual WC x 150 feet with S on all surfaces - Provider Therapist: Cheli Angel PT, DPT License Number: [id number] Occupational Therapy - Arousal/Attention/Orientation Patient Orientation: Person, Place, Time, Appropriate to Age - ADL/IADL Self Feeding: Supervision Grooming: Supervision, Set-up Help Bathing-Upper Extremity: Minimal Assistance Bathing-Lower Extremity: Maximum Assistance Dressing-Upper Extremity: Minimal Assistance Dressing-Lower Extremity: Maximum Assistance - Sitting Balance Static Sitting: Supervision Dynamic Sitting: Requires supervision - Transfers Wheelchair to Bed Transfers: Moderate Assistance Toilet Transfers: Moderate Assistance - Wheelchair Management Level of Assistance: Minimal Assistance - Upper Extremity Status Right Upper Extremity Comment: WFL, pain in shoulders Left Upper Extremity Comment: WFL, pain in shoulders - Pain Alleviating Techniques: Medication, Ice - Insight/Carryover Insight/Carryover: Poor - Patient/Family Education Comment: therapy schedule, POC, goals, safety, THPs, mobliity, WC mobility, importance of position changes, techniques to improve transfers. -patient is very limited by his anxiety and fear during mobility tasks - Assessment/Plan Assessment: Pt receives daily room visits for social support and encouragement to participate in sessions. Pt receives dialysis 3x week which limits pt's time to attend recreation therapy sessions. Pt presents with increase anxiety and pain than prior stay and requires redirection and motivational support. Will contine to encourage pt to participate in sessions. - Goals Goals: -rolling with mod A. -supine to/from sit with min A. -beazy board transfer with mod A to place board and CS to execute transfer. -sit to/from stand with max A of 1 at // bars. -propel manual WC x 150 feet with S on all surfaces - Provider Therapist: Ching HODGE Speech Therapy - Plan Assessment: Pt receives daily room visits for social support and encouragement to participate in sessions. Pt receives dialysis 3x week which limits pt's time to attend recreation therapy sessions. Pt presents with increase anxiety and pain than prior stay and requires redirection and motivational support. Will contine to encourage pt to participate in sessions. Recreational Therapy - Participation Participation: Participates in Individual and/or Group Sessions, Monitors His/ Her Own Leisure Time - Socialization Level of Socialization: Initiates/interacts freely with care givers and peer - Diversional Time Diversional Time: television - Assessment Assessment/Plan: Pt receives daily room visits for social support and encouragement to participate in sessions. Pt receives dialysis 3x week which limits pt's time to attend recreation therapy sessions. Pt presents with increase anxiety and pain than prior stay and requires redirection and motivational support. Will contine to encourage pt to participate in sessions. Problems Currently Limiting Participation: anxiety, pain, decrease leisure awareness level, decrease activity tolerance level Goals and Time Frame: Pt will be encouraged to participate in 1:1 and group recreation therapy sessions 3-5x week to improve leisure awareness level, decrease anxiety level, diversion from pain, and improve arousal level. - Provider Therapist: Ambika Elias, [facility] #[id number] Nutrition - Current Diet Current Diet/ Supplement/ Feedings: 2 gram Na renal dialysis 2 gram Na 2 gram K + 1000 ml fluid restriction - Appetite Percent Meal Consumed: 75-100% - Assessment/Goals/Time Frame Assessment/Goals/Time Frame: Pt at moderate nutritional risk. goals: 1. Pt to consume 75-100% of meals. 2. K+ WNL. Follow-up due on 10/02/2017 - Provider Provider: Kinjal Crain RD Rehabilitation Plan - Treatment Plan Treatment Plan: Physical Therapy, Occupational Therapy, Dietary, Pain Management , Wound Care, Patient/Family Education - Recommendation [X]: Pain Management - Discharge Plan Estimated Date of Discharge: 10/12/17 Discharge to: Subacute
--- NOTE | 2017-09-30 14:03 | CP.PCM.PN ---
Subjective - Date & Time of Evaluation Date of Evaluation: 09/30/17 Time of Evaluation: 14:02 - Subjective Subjective: Patient seen in the room and discussed need to really put in maximal effort with therapies as he is not going to be able to safely d/c home at this point ISAIAHOS 10/12/17 continue current care he understood and will work harder Objective - Vital Signs/Intake and Output Vital Signs (last 24 hours): Temp Pulse Resp BP Pulse Ox 98.2 F 96 H 20 115/66 97 09/30/17 09:00 09/30/17 09:00 09/30/17 09:00 09/30/17 09:00 09/30/17 08:50 - Medications Medications: Current Medications Albuterol/Ipratropium (Duoneb 3 Mg/0.5 Mg (3 Ml) Ud) 3 ml IH Q6 PRN PRN Reason: Shortness of Breath Amlodipine Besylate (Norvasc) 5 mg PO DAILY [facility] Last Admin: 09/30/17 08:10 Dose: 5 mg Apixaban (Eliquis) 2.5 mg PO BID [facility] PRN Reason: Protocol Last Admin: 09/30/17 08:09 Dose: 2.5 mg Aspirin (Aspirin Chewable) 81 mg PO DAILY [facility] Last Admin: 09/30/17 08:08 Dose: 81 mg Atorvastatin Calcium (Lipitor) 20 mg PO HS [facility] Last Admin: 09/29/17 22:56 Dose: 20 mg Carvedilol (Coreg) 25 mg PO Q12 [facility] Last Admin: 09/30/17 08:09 Dose: 25 mg Cinacalcet (Sensipar) 120 mg PO DAILY [facility] Last Admin: 09/30/17 08:09 Dose: 120 mg Dimethicone (Proshield Plus Skin Protectant) 1 applic TOP Q8 [facility] Last Admin: 09/30/17 07:28 Dose: 1 applic Diphenhydramine HCl (Benadryl) 25 mg PO Q6 PRN PRN Reason: Itching / Pruritus Last Admin: 09/28/17 01:40 Dose: 25 mg Docusate Sodium (Colace) 100 mg PO BID [facility] Last Admin: 09/30/17 08:08 Dose: 100 mg Epoetin René (Procrit) 10,000 unit IV MWF [facility] Last Admin: 09/29/17 17:40 Dose: 10,000 unit Guaifenesin (Robitussin) 200 mg PO Q6 PRN PRN Reason: Cough and congestion Home Med (Home Med) 1 unit PO TID@0800,1200,1700 [facility] Last Admin: 09/30/17 12:26 Dose: 1 unit Isosorbide Mononitrate (Imdur) 60 mg PO DAILY [facility] Last Admin: 09/30/17 08:09 Dose: 60 mg Lorazepam (Ativan) 0.5 mg PO Q12 PRN PRN Reason: Anxiety Last Admin: 09/29/17 10:09 Dose: 0.5 mg Oxycodone HCl (Oxycodone Immediate Release Tab) 5 mg PO Q4 PRN PRN Reason: Pain, Mild (1-3) Last Admin: 09/29/17 13:07 Dose: 5 mg Oxycodone HCl (Oxycodone Immediate Release Tab) 10 mg PO Q4 PRN PRN Reason: Pain 4-10 Last Admin: 09/30/17 10:02 Dose: 10 mg Oxycodone HCl (Oxycontin Extended Release Tab) 20 mg PO Q12 [facility] Last Admin: 09/30/17 08:06 Dose: 20 mg Sertraline HCl (Zoloft) 25 mg PO DAILY [facility] Last Admin: 09/30/17 08:11 Dose: 25 mg Vitamin B Complex/Vit C/Folic Acid (Nephro-Krissy) 1 tab PO DAILY [facility] Last Admin: 09/30/17 08:10 Dose: 1 tab - Labs Labs: 09/25/17 06:25 09/25/17 06:25
--- NOTE | 2017-09-30 18:01 | RAD ---
Date of service: 09/30/2017 PROCEDURE: SKELETAL SURVEY HISTORY: r/o metastatic disease COMPARISON: NONE TECHNIQUE: AP views of the central and proximal peripheral skeleton have been submitted for interpretation. FINDINGS: Heterogeneous density seen throughout the skull suggestive of metastasis. Overall density throughout the axial and appendicular visualized skeleton is grossly diminished in a pattern suspicious for marked osteoporosis the apex. The appearance is asymmetrically greater at the lower than upper extremities. Gross dermal calcifications seen at the region of the skin overlying the olecranon process right elbow. There is heterotopic calcifications seen in the soft tissues medial to the proximal ulna at the left elbow. There is irregular scalloping seen related to the endosteal surface of the cortex of the bilateral mid and distal tibiae bilaterally patient status post left shoulder replacement arthroplasty with comminuted fracture at the distal left femoral metaphysis. IMPRESSION: 1. Heterogeneous density at the calvarium may indicate metastatic disease as well as scalloping of the endosteal surface of the bilateral tibiae bilaterally. Clinically correlate further. 2. Marked osteopenia diffusely suggests osteoporosis but asymmetrically greater at the bilateral lower than upper extremities. 3. Nondisplaced comminuted fracture distal left femoral metaphysis.
--- NOTE | 2017-09-30 20:24 | CP.PCM.PN ---
Subjective - Date & Time of Evaluation Date of Evaluation: 09/30/17 Time of Evaluation: 22:22 - Subjective Subjective: Above noted Objective - Vital Signs/Intake and Output Vital Signs (last 24 hours): Temp Pulse Resp BP Pulse Ox 97.9 F 86 20 122/70 98 09/30/17 20:06 09/30/17 20:06 09/30/17 20:06 09/30/17 20:06 09/30/17 20:06 - Medications Medications: Current Medications Albuterol/Ipratropium (Duoneb 3 Mg/0.5 Mg (3 Ml) Ud) 3 ml IH Q6 PRN PRN Reason: Shortness of Breath Amlodipine Besylate (Norvasc) 5 mg PO DAILY [facility] Last Admin: 09/30/17 08:10 Dose: 5 mg Apixaban (Eliquis) 2.5 mg PO BID [facility] PRN Reason: Protocol Last Admin: 09/30/17 17:21 Dose: 2.5 mg Aspirin (Aspirin Chewable) 81 mg PO DAILY [facility] Last Admin: 09/30/17 08:08 Dose: 81 mg Atorvastatin Calcium (Lipitor) 20 mg PO HS [facility] Last Admin: 09/29/17 22:56 Dose: 20 mg Carvedilol (Coreg) 25 mg PO Q12 [facility] Last Admin: 09/30/17 08:09 Dose: 25 mg Cinacalcet (Sensipar) 120 mg PO DAILY [facility] Last Admin: 09/30/17 08:09 Dose: 120 mg Dimethicone (Proshield Plus Skin Protectant) 1 applic TOP Q8 [facility] Last Admin: 09/30/17 13:22 Dose: 1 applic Diphenhydramine HCl (Benadryl) 25 mg PO Q6 PRN PRN Reason: Itching / Pruritus Last Admin: 09/28/17 01:40 Dose: 25 mg Docusate Sodium (Colace) 100 mg PO BID [facility] Last Admin: 09/30/17 17:22 Dose: 100 mg Epoetin René (Procrit) 10,000 unit IV MWF [facility] Last Admin: 09/29/17 17:40 Dose: 10,000 unit Guaifenesin (Robitussin) 200 mg PO Q6 PRN PRN Reason: Cough and congestion Home Med (Home Med) 1 unit PO TID@0800,1200,1700 [facility] Last Admin: 09/30/17 17:21 Dose: 1 unit Isosorbide Mononitrate (Imdur) 60 mg PO DAILY [facility] Last Admin: 09/30/17 08:09 Dose: 60 mg Lorazepam (Ativan) 0.5 mg PO Q12 PRN PRN Reason: Anxiety Last Admin: 09/29/17 10:09 Dose: 0.5 mg Oxycodone HCl (Oxycodone Immediate Release Tab) 5 mg PO Q4 PRN PRN Reason: Pain, Mild (1-3) Last Admin: 09/29/17 13:07 Dose: 5 mg Oxycodone HCl (Oxycodone Immediate Release Tab) 10 mg PO Q4 PRN PRN Reason: Pain 4-10 Last Admin: 09/30/17 14:03 Dose: 10 mg Oxycodone HCl (Oxycontin Extended Release Tab) 20 mg PO Q12 [facility] Last Admin: 09/30/17 08:06 Dose: 20 mg Sertraline HCl (Zoloft) 25 mg PO DAILY [facility] Last Admin: 09/30/17 08:11 Dose: 25 mg Vitamin B Complex/Vit C/Folic Acid (Nephro-Krissy) 1 tab PO DAILY [facility] Last Admin: 09/30/17 08:10 Dose: 1 tab - Labs Labs: 09/25/17 06:25 09/25/17 06:25 - Respiratory Exam Respiratory Exam: NORMAL BREATHING PATTERN - Cardiovascular Exam Cardiovascular Exam: REGULAR RHYTHM - GI/Abdominal Exam GI & Abdominal Exam: Normal Bowel Sounds Assessment and Plan - Assessment and Plan (Free Text) Assessment: S/P L hip fx THR Acute rehab Physiatry ESRD CKD HTN Dialysis Nephrology Dysthymia Adjustment disorder Ativan SSRI S/P bilateral Knee surgery/ Patellar tendon repair Hx + blood cs Staph Cardiomyopathy Defibrillator Cardiology
[2017-10-01] MEDS: oxyCODONE 5 mg Immediate Release Tab PO PRN ×2 (02:15→13:08)
[2017-10-01 07:17] LABS: HEMOGLOBIN 7.3 g/dL (12.0-18.0); MEAN CELL VOLUME 90.3 fl (80.0-94.0); MEAN CORPUSCULAR HEMOGLOBIN 30.8 pg (27.0-31.0); MEAN CORPUSCULAR HGB CONC 34.1 g/dL (33.0-37.0); RBC 2.37 Mil/uL (4.40-5.90); RED CELL DISTRIBUTION WIDTH 16.4 % (11.5-14.5); WHITE BLOOD COUNT 8.3 K/uL (4.8-10.8)
[2017-10-01] MEDS: Proshield Plus GEL TOP SCH ×3 (09:07→21:15)
[2017-10-01] MEDS: Multivitamin Vitamin B Complex (Nephro-Vite) Tab PO SCH (09:07)
[2017-10-01] MEDS: AURYXIA 210 MG PO SCH ×3 (09:08→21:12)
[2017-10-01] MEDS: oxyCODONE 20 mg ER Tab (oxyCONTIN) PO SCH ×2 (09:12→22:11)
--- NOTE | 2017-10-01 10:12 | CP.PCM.PN ---
Subjective - Date & Time of Evaluation Date of Evaluation: 10/01/17 Time of Evaluation: 10:05 - Subjective Subjective: Pt is feeling a little weak. His hgb is only 7.3,but he is scheduled for a dialysis today so he will be transfused 2 units of packed cells today with te dialysis. I reviewed the skeletal survey with the radiologist working today. She feels like I do ,that all the bones show severe osteopenia and the findings in the skull are the typical salt and pepper appearance typical of secondary hyperparathyroidism. I had already ordered the work up for miltiple myeloma, if it is the cause of the skeletal findings. Pt needs the parathyroidectomy as soon as he is able to. Objective - Vital Signs/Intake and Output Vital Signs (last 24 hours): Temp Pulse Resp BP Pulse Ox 98.1 F 88 20 129/78 96 10/01/17 08:40 10/01/17 09:09 10/01/17 08:40 10/01/17 09:09 10/01/17 08:40 - Medications Medications: Current Medications Albuterol/Ipratropium (Duoneb 3 Mg/0.5 Mg (3 Ml) Ud) 3 ml IH Q6 PRN PRN Reason: Shortness of Breath Amlodipine Besylate (Norvasc) 5 mg PO DAILY [facility] Last Admin: 10/01/17 09:09 Dose: 5 mg Apixaban (Eliquis) 2.5 mg PO BID [facility] PRN Reason: Protocol Last Admin: 10/01/17 09:08 Dose: 2.5 mg Aspirin (Aspirin Chewable) 81 mg PO DAILY [facility] Last Admin: 10/01/17 09:07 Dose: 81 mg Atorvastatin Calcium (Lipitor) 20 mg PO HS [facility] Last Admin: 09/30/17 21:24 Dose: 20 mg Carvedilol (Coreg) 25 mg PO Q12 [facility] Last Admin: 10/01/17 09:08 Dose: 25 mg Cinacalcet (Sensipar) 120 mg PO DAILY [facility] Last Admin: 10/01/17 09:08 Dose: 120 mg Dimethicone (Proshield Plus Skin Protectant) 1 applic TOP Q8 [facility] Last Admin: 10/01/17 09:07 Dose: 1 applic Diphenhydramine HCl (Benadryl) 25 mg PO Q6 PRN PRN Reason: Itching / Pruritus Last Admin: 09/28/17 01:40 Dose: 25 mg Docusate Sodium (Colace) 100 mg PO BID [facility] Last Admin: 10/01/17 09:04 Dose: Not Given Epoetin René (Procrit) 10,000 unit IV MWF [facility] Last Admin: 09/29/17 17:40 Dose: 10,000 unit Guaifenesin (Robitussin) 200 mg PO Q6 PRN PRN Reason: Cough and congestion Home Med (Home Med) 1 unit PO TID@0800,1200,1700 [facility] Last Admin: 10/01/17 09:08 Dose: 1 unit Isosorbide Mononitrate (Imdur) 60 mg PO DAILY [facility] Last Admin: 10/01/17 09:09 Dose: 60 mg Lorazepam (Ativan) 0.5 mg PO Q12 PRN PRN Reason: Anxiety Last Admin: 09/29/17 10:09 Dose: 0.5 mg Oxycodone HCl (Oxycodone Immediate Release Tab) 5 mg PO Q4 PRN PRN Reason: Pain, Mild (1-3) Last Admin: 10/01/17 02:15 Dose: 5 mg Oxycodone HCl (Oxycodone Immediate Release Tab) 10 mg PO Q4 PRN PRN Reason: Pain 4-10 Last Admin: 09/30/17 14:03 Dose: 10 mg Oxycodone HCl (Oxycontin Extended Release Tab) 20 mg PO Q12 [facility] Last Admin: 10/01/17 09:12 Dose: 20 mg Sertraline HCl (Zoloft) 25 mg PO DAILY [facility] Last Admin: 10/01/17 09:09 Dose: 25 mg Vitamin B Complex/Vit C/Folic Acid (Nephro-Krissy) 1 tab PO DAILY [facility] Last Admin: 10/01/17 09:07 Dose: 1 tab - Labs Labs: 10/01/17 05:20 09/25/17 06:25
--- NOTE | 2017-10-01 13:30 | CP.PCM.PN ---
Subjective - Date & Time of Evaluation Date of Evaluation: 10/01/17 Time of Evaluation: 13:29 - Subjective Subjective: patient awake and conscious feeling good no acute distress. Vital sign noted. Patient receiving physical therapy Objective - Vital Signs/Intake and Output Vital Signs (last 24 hours): Temp Pulse Resp BP Pulse Ox 98.1 F 88 20 129/78 96 10/01/17 08:40 10/01/17 09:09 10/01/17 08:40 10/01/17 09:09 10/01/17 08:40 - Medications Medications: Current Medications Albuterol/Ipratropium (Duoneb 3 Mg/0.5 Mg (3 Ml) Ud) 3 ml IH Q6 PRN PRN Reason: Shortness of Breath Amlodipine Besylate (Norvasc) 5 mg PO DAILY [facility] Last Admin: 10/01/17 09:09 Dose: 5 mg Apixaban (Eliquis) 2.5 mg PO BID [facility] PRN Reason: Protocol Last Admin: 10/01/17 09:08 Dose: 2.5 mg Aspirin (Aspirin Chewable) 81 mg PO DAILY [facility] Last Admin: 10/01/17 09:07 Dose: 81 mg Atorvastatin Calcium (Lipitor) 20 mg PO HS [facility] Last Admin: 09/30/17 21:24 Dose: 20 mg Carvedilol (Coreg) 25 mg PO Q12 [facility] Last Admin: 10/01/17 09:08 Dose: 25 mg Cinacalcet (Sensipar) 120 mg PO DAILY [facility] Last Admin: 10/01/17 09:08 Dose: 120 mg Dimethicone (Proshield Plus Skin Protectant) 1 applic TOP Q8 [facility] Last Admin: 10/01/17 09:07 Dose: 1 applic Diphenhydramine HCl (Benadryl) 25 mg PO Q6 PRN PRN Reason: Itching / Pruritus Last Admin: 09/28/17 01:40 Dose: 25 mg Docusate Sodium (Colace) 100 mg PO BID [facility] Last Admin: 10/01/17 09:04 Dose: Not Given Epoetin René (Procrit) 10,000 unit IV MWF [facility] Last Admin: 09/29/17 17:40 Dose: 10,000 unit Guaifenesin (Robitussin) 200 mg PO Q6 PRN PRN Reason: Cough and congestion Home Med (Patient's Own Medication) 1 unit PO TID@0800,1200,1700 [facility] Isosorbide Mononitrate (Imdur) 60 mg PO DAILY [facility] Last Admin: 10/01/17 09:09 Dose: 60 mg Lorazepam (Ativan) 0.5 mg PO Q12 PRN PRN Reason: Anxiety Last Admin: 09/29/17 10:09 Dose: 0.5 mg Oxycodone HCl (Oxycodone Immediate Release Tab) 5 mg PO Q4 PRN PRN Reason: Pain, Mild (1-3) Last Admin: 10/01/17 13:08 Dose: 5 mg Oxycodone HCl (Oxycodone Immediate Release Tab) 10 mg PO Q4 PRN PRN Reason: Pain 4-10 Last Admin: 09/30/17 14:03 Dose: 10 mg Oxycodone HCl (Oxycontin Extended Release Tab) 20 mg PO Q12 [facility] Last Admin: 10/01/17 09:12 Dose: 20 mg Sertraline HCl (Zoloft) 25 mg PO DAILY [facility] Last Admin: 10/01/17 09:09 Dose: 25 mg Vitamin B Complex/Vit C/Folic Acid (Nephro-Krissy) 1 tab PO DAILY [facility] Last Admin: 10/01/17 09:07 Dose: 1 tab - Labs Labs: 10/01/17 05:20 09/25/17 06:25 - Constitutional Appears: No Acute Distress - Eye Exam Eye Exam: Conjunctival injection - ENT Exam ENT Exam: absent: Mucous Membranes Moist - Neck Exam Neck Exam: absent: Lymphadenopathy - Respiratory Exam Respiratory Exam: absent: Chest Wall Tenderness - Cardiovascular Exam Cardiovascular Exam: absent: Gallop, JVD, Rubs - GI/Abdominal Exam GI & Abdominal Exam: Soft, Normal Bowel Sounds - Extremities Exam Extremities Exam: absent: Calf Tenderness - Back Exam Back Exam: absent: CVA tenderness (L), CVA tenderness (R) - Neurological Exam Neurological Exam: Alert - Psychiatric Exam Psychiatric exam: Normal Affect - Skin Skin Exam: absent: Cyanosis Assessment and Plan (1) Chronic kidney disease with end stage renal failure on dialysis Assessment & Plan: end stage renal disease patient receiving dialysis Friday. Status post left hip surgery. History of cardiomyopathy with defibrillator hypertension Hyperphosphatemia patient on binders Secondary hyperparathyroidism PTH noted over 700 patient receiving Sensipar as noted in the medications Continue monitoring Anemia patient receiving EPO 10,000 unit on dialysis I suggest to do serum iron and ferritin level just in case he needs intravenous iron supplement Status: Acute (2) HTN (hypertension) Status: Chronic
[2017-10-01] MEDS: EPOETIN ALFA 10,000 UNIT/ML ML IV SCH (18:04)
--- NOTE | 2017-10-01 18:14 | CP.PCM.PN ---
Subjective - Date & Time of Evaluation Date of Evaluation: 10/01/17 Time of Evaluation: 22:22 - Subjective Subjective: Oncology and Nephrology notes appreciated Objective - Vital Signs/Intake and Output Vital Signs (last 24 hours): Temp Pulse Resp BP Pulse Ox 98.4 F 85 22 111/72 96 10/01/17 18:09 10/01/17 18:09 10/01/17 18:09 10/01/17 18:09 10/01/17 08:40 Intake and Output: 10/01/17 10/01/17 06:59 18:59 Intake Total 343 Balance 343 - Medications Medications: Current Medications Albuterol/Ipratropium (Duoneb 3 Mg/0.5 Mg (3 Ml) Ud) 3 ml IH Q6 PRN PRN Reason: Shortness of Breath Amlodipine Besylate (Norvasc) 5 mg PO DAILY [facility] Last Admin: 10/01/17 09:09 Dose: 5 mg Apixaban (Eliquis) 2.5 mg PO BID [facility] PRN Reason: Protocol Last Admin: 10/01/17 09:08 Dose: 2.5 mg Aspirin (Aspirin Chewable) 81 mg PO DAILY [facility] Last Admin: 10/01/17 09:07 Dose: 81 mg Atorvastatin Calcium (Lipitor) 20 mg PO HS [facility] Last Admin: 09/30/17 21:24 Dose: 20 mg Carvedilol (Coreg) 25 mg PO Q12 [facility] Last Admin: 10/01/17 09:08 Dose: 25 mg Cinacalcet (Sensipar) 120 mg PO DAILY [facility] Last Admin: 10/01/17 09:08 Dose: 120 mg Dimethicone (Proshield Plus Skin Protectant) 1 applic TOP Q8 [facility] Last Admin: 10/01/17 13:57 Dose: Not Given Diphenhydramine HCl (Benadryl) 25 mg PO Q6 PRN PRN Reason: Itching / Pruritus Last Admin: 09/28/17 01:40 Dose: 25 mg Docusate Sodium (Colace) 100 mg PO BID [facility] Last Admin: 10/01/17 09:04 Dose: Not Given Epoetin René (Procrit) 10,000 unit IV MWF [facility] Last Admin: 10/01/17 18:04 Dose: 10,000 unit Guaifenesin (Robitussin) 200 mg PO Q6 PRN PRN Reason: Cough and congestion Home Med (Patient's Own Medication) 1 unit PO TID@0800,1200,1700 [facility] Isosorbide Mononitrate (Imdur) 60 mg PO DAILY [facility] Last Admin: 10/01/17 09:09 Dose: 60 mg Lorazepam (Ativan) 0.5 mg PO Q12 PRN PRN Reason: Anxiety Last Admin: 09/29/17 10:09 Dose: 0.5 mg Oxycodone HCl (Oxycodone Immediate Release Tab) 5 mg PO Q4 PRN PRN Reason: Pain, Mild (1-3) Last Admin: 10/01/17 13:08 Dose: 5 mg Oxycodone HCl (Oxycodone Immediate Release Tab) 10 mg PO Q4 PRN PRN Reason: Pain 4-10 Last Admin: 09/30/17 14:03 Dose: 10 mg Oxycodone HCl (Oxycontin Extended Release Tab) 20 mg PO Q12 [facility] Last Admin: 10/01/17 09:12 Dose: 20 mg Sertraline HCl (Zoloft) 25 mg PO DAILY [facility] Last Admin: 10/01/17 09:09 Dose: 25 mg Vitamin B Complex/Vit C/Folic Acid (Nephro-Krissy) 1 tab PO DAILY [facility] Last Admin: 10/01/17 09:07 Dose: 1 tab - Labs Labs: 10/01/17 05:20 09/25/17 06:25 - Respiratory Exam Respiratory Exam: NORMAL BREATHING PATTERN - Cardiovascular Exam Cardiovascular Exam: REGULAR RHYTHM - GI/Abdominal Exam GI & Abdominal Exam: Normal Bowel Sounds Assessment and Plan - Assessment and Plan (Free Text) Assessment: S/P L hip fx THR Acute rehab Physiatry ESRD CKD HTN Dialysis Nephrology Dysthymia Adjustment disorder Ativan SSRI S/P bilateral Knee surgery/ Patellar tendon repair Hx + blood cs Staph Cardiomyopathy Defibrillator Cardiology
[2017-10-02] MEDS: Proshield Plus GEL TOP SCH ×3 (07:03→21:47)
--- NOTE | 2017-10-02 08:16 | CP.PCM.PN ---
Subjective - Date & Time of Evaluation Date of Evaluation: 10/02/17 Time of Evaluation: 08:14 - Subjective Subjective: Pt's immunoglobulins are in the normal range.. No monoclonal spike. Would r/o myeloma as soon as the light chain result comes back Objective - Vital Signs/Intake and Output Vital Signs (last 24 hours): Temp Pulse Resp BP Pulse Ox 98.2 F 89 22 111/70 96 10/01/17 20:30 10/01/17 22:10 10/01/17 20:30 10/01/17 22:10 10/01/17 08:40 Intake and Output: 10/02/17 10/02/17 06:59 18:59 Intake Total 325 Balance 325 - Medications Medications: Current Medications Albuterol/Ipratropium (Duoneb 3 Mg/0.5 Mg (3 Ml) Ud) 3 ml IH Q6 PRN PRN Reason: Shortness of Breath Amlodipine Besylate (Norvasc) 5 mg PO DAILY [facility] Last Admin: 10/01/17 09:09 Dose: 5 mg Apixaban (Eliquis) 2.5 mg PO BID [facility] PRN Reason: Protocol Last Admin: 10/01/17 21:11 Dose: 2.5 mg Aspirin (Aspirin Chewable) 81 mg PO DAILY [facility] Last Admin: 10/01/17 09:07 Dose: 81 mg Atorvastatin Calcium (Lipitor) 20 mg PO HS [facility] Last Admin: 10/01/17 21:12 Dose: 20 mg Carvedilol (Coreg) 25 mg PO Q12 [facility] Last Admin: 10/01/17 22:10 Dose: 25 mg Cinacalcet (Sensipar) 120 mg PO DAILY [facility] Last Admin: 10/01/17 09:08 Dose: 120 mg Dimethicone (Proshield Plus Skin Protectant) 1 applic TOP Q8 [facility] Last Admin: 10/02/17 07:03 Dose: 1 applic Diphenhydramine HCl (Benadryl) 25 mg PO Q6 PRN PRN Reason: Itching / Pruritus Last Admin: 09/28/17 01:40 Dose: 25 mg Docusate Sodium (Colace) 100 mg PO BID [facility] Last Admin: 10/01/17 21:10 Dose: Not Given Epoetin René (Procrit) 10,000 unit IV MWF [facility] Last Admin: 10/01/17 18:04 Dose: 10,000 unit Guaifenesin (Robitussin) 200 mg PO Q6 PRN PRN Reason: Cough and congestion Home Med (Patient's Own Medication) 1 unit PO TID@0800,1200,1700 [facility] Last Admin: 10/01/17 21:12 Dose: 1 unit Isosorbide Mononitrate (Imdur) 60 mg PO DAILY [facility] Last Admin: 10/01/17 09:09 Dose: 60 mg Lorazepam (Ativan) 0.5 mg PO Q12 PRN PRN Reason: Anxiety Last Admin: 09/29/17 10:09 Dose: 0.5 mg Oxycodone HCl (Oxycodone Immediate Release Tab) 5 mg PO Q4 PRN PRN Reason: Pain, Mild (1-3) Last Admin: 10/01/17 13:08 Dose: 5 mg Oxycodone HCl (Oxycodone Immediate Release Tab) 10 mg PO Q4 PRN PRN Reason: Pain 4-10 Last Admin: 09/30/17 14:03 Dose: 10 mg Oxycodone HCl (Oxycontin Extended Release Tab) 20 mg PO Q12 [facility] Last Admin: 10/01/17 22:11 Dose: 20 mg Sertraline HCl (Zoloft) 25 mg PO DAILY [facility] Last Admin: 10/01/17 09:09 Dose: 25 mg Vitamin B Complex/Vit C/Folic Acid (Nephro-Krissy) 1 tab PO DAILY [facility] Last Admin: 10/01/17 09:07 Dose: 1 tab - Labs Labs: 10/01/17 05:20 09/25/17 06:25
[2017-10-02] MEDS: oxyCODONE 20 mg ER Tab (oxyCONTIN) PO SCH ×2 (08:22→21:45)
[2017-10-02] MEDS: Multivitamin Vitamin B Complex (Nephro-Vite) Tab PO SCH (08:23)
[2017-10-02] MEDS: AURYXIA 210 MG PO SCH ×3 (08:23→17:09)
[2017-10-02] MEDS: oxyCODONE 5 mg Immediate Release Tab PO PRN (09:32)
--- NOTE | 2017-10-02 10:08 | CP.PCM.PN ---
Subjective - Date & Time of Evaluation Date of Evaluation: 10/02/17 Time of Evaluation: 10:07 - Subjective Subjective: patient awake and conscious not in any distress receiving physiotherapy Objective - Vital Signs/Intake and Output Vital Signs (last 24 hours): Temp Pulse Resp BP Pulse Ox 97.6 F 77 20 139/77 98 10/02/17 08:58 10/02/17 08:58 10/02/17 08:58 10/02/17 08:58 10/02/17 08:58 Intake and Output: 10/02/17 10/02/17 06:59 18:59 Intake Total 325 Balance 325 - Medications Medications: Current Medications Albuterol/Ipratropium (Duoneb 3 Mg/0.5 Mg (3 Ml) Ud) 3 ml IH Q6 PRN PRN Reason: Shortness of Breath Amlodipine Besylate (Norvasc) 5 mg PO DAILY [facility] Last Admin: 10/02/17 08:25 Dose: 5 mg Aspirin (Aspirin Chewable) 81 mg PO DAILY [facility] Last Admin: 10/02/17 08:25 Dose: 81 mg Atorvastatin Calcium (Lipitor) 20 mg PO HS [facility] Last Admin: 10/01/17 21:12 Dose: 20 mg Carvedilol (Coreg) 25 mg PO Q12 [facility] Last Admin: 10/02/17 08:24 Dose: 25 mg Cinacalcet (Sensipar) 120 mg PO DAILY [facility] Last Admin: 10/02/17 08:24 Dose: 120 mg Dimethicone (Proshield Plus Skin Protectant) 1 applic TOP Q8 [facility] Last Admin: 10/02/17 07:03 Dose: 1 applic Diphenhydramine HCl (Benadryl) 25 mg PO Q6 PRN PRN Reason: Itching / Pruritus Last Admin: 09/28/17 01:40 Dose: 25 mg Docusate Sodium (Colace) 100 mg PO BID [facility] Last Admin: 10/02/17 08:24 Dose: 100 mg Epoetin René (Procrit) 10,000 unit IV MWF [facility] Last Admin: 10/01/17 18:04 Dose: 10,000 unit Guaifenesin (Robitussin) 200 mg PO Q6 PRN PRN Reason: Cough and congestion Home Med (Patient's Own Medication) 1 unit PO TID@0800,1200,1700 [facility] Last Admin: 10/02/17 08:23 Dose: 1 unit Isosorbide Mononitrate (Imdur) 60 mg PO DAILY [facility] Last Admin: 10/02/17 08:26 Dose: 60 mg Lorazepam (Ativan) 0.5 mg PO Q12 PRN PRN Reason: Anxiety Last Admin: 09/29/17 10:09 Dose: 0.5 mg Oxycodone HCl (Oxycodone Immediate Release Tab) 5 mg PO Q4 PRN PRN Reason: Pain, Mild (1-3) Last Admin: 10/01/17 13:08 Dose: 5 mg Oxycodone HCl (Oxycodone Immediate Release Tab) 10 mg PO Q4 PRN PRN Reason: Pain 4-10 Last Admin: 10/02/17 09:32 Dose: 10 mg Oxycodone HCl (Oxycontin Extended Release Tab) 20 mg PO Q12 [facility] Last Admin: 10/02/17 08:22 Dose: 20 mg Sertraline HCl (Zoloft) 25 mg PO DAILY [facility] Last Admin: 10/02/17 08:26 Dose: 25 mg Vitamin B Complex/Vit C/Folic Acid (Nephro-Krissy) 1 tab PO DAILY [facility] Last Admin: 10/02/17 08:23 Dose: 1 tab - Labs Labs: 10/01/17 05:20 09/25/17 06:25 - Constitutional Appears: No Acute Distress - ENT Exam ENT Exam: Mucous Membranes Moist - Neck Exam Neck Exam: absent: Lymphadenopathy - Respiratory Exam Respiratory Exam: NORMAL BREATHING PATTERN. absent: Chest Wall Tenderness - Cardiovascular Exam Cardiovascular Exam: absent: Gallop, JVD, Rubs - GI/Abdominal Exam GI & Abdominal Exam: Soft, Normal Bowel Sounds - Extremities Exam Extremities Exam: absent: Calf Tenderness - Back Exam Back Exam: absent: CVA tenderness (L), CVA tenderness (R) - Neurological Exam Neurological Exam: Alert - Psychiatric Exam Psychiatric exam: Normal Affect Assessment and Plan (1) Chronic kidney disease with end stage renal failure on dialysis Assessment & Plan: Assessment & Plan: end stage renal disease patient receiving dialysis Friday. Status post left hip surgery. History of cardiomyopathy with defibrillator hypertension Hyperphosphatemia patient on binders Secondary hyperparathyroidism PTH noted over 700 patient receiving Sensipar as noted in the medications Continue monitoring Anemia patient receiving EPO 10,000 unit on dialysis I suggest to do serum iron and ferritin level just in case he needs intravenous iron supplement Status: Acute (2) HTN (hypertension) Status: Chronic
--- NOTE | 2017-10-02 10:35 | CP.PCM.PN ---
Subjective - Date & Time of Evaluation Date of Evaluation: 10/02/17 Time of Evaluation: 10:00 - Subjective Subjective: NO CHEST PAIN OR SOB Objective - Vital Signs/Intake and Output Vital Signs (last 24 hours): Temp Pulse Resp BP Pulse Ox 97.6 F 77 20 139/77 98 10/02/17 08:58 10/02/17 08:58 10/02/17 08:58 10/02/17 08:58 10/02/17 08:58 Intake and Output: 10/02/17 10/02/17 06:59 18:59 Intake Total 325 Balance 325 - Medications Medications: Current Medications Albuterol/Ipratropium (Duoneb 3 Mg/0.5 Mg (3 Ml) Ud) 3 ml IH Q6 PRN PRN Reason: Shortness of Breath Amlodipine Besylate (Norvasc) 5 mg PO DAILY [facility] Last Admin: 10/02/17 08:25 Dose: 5 mg Aspirin (Aspirin Chewable) 81 mg PO DAILY [facility] Last Admin: 10/02/17 08:25 Dose: 81 mg Atorvastatin Calcium (Lipitor) 20 mg PO HS [facility] Last Admin: 10/01/17 21:12 Dose: 20 mg Carvedilol (Coreg) 25 mg PO Q12 [facility] Last Admin: 10/02/17 08:24 Dose: 25 mg Cinacalcet (Sensipar) 120 mg PO DAILY [facility] Last Admin: 10/02/17 08:24 Dose: 120 mg Dimethicone (Proshield Plus Skin Protectant) 1 applic TOP Q8 [facility] Last Admin: 10/02/17 07:03 Dose: 1 applic Diphenhydramine HCl (Benadryl) 25 mg PO Q6 PRN PRN Reason: Itching / Pruritus Last Admin: 09/28/17 01:40 Dose: 25 mg Docusate Sodium (Colace) 100 mg PO BID [facility] Last Admin: 10/02/17 08:24 Dose: 100 mg Epoetin René (Procrit) 10,000 unit IV MWF [facility] Last Admin: 10/01/17 18:04 Dose: 10,000 unit Guaifenesin (Robitussin) 200 mg PO Q6 PRN PRN Reason: Cough and congestion Home Med (Patient's Own Medication) 1 unit PO TID@0800,1200,1700 [facility] Last Admin: 10/02/17 08:23 Dose: 1 unit Isosorbide Mononitrate (Imdur) 60 mg PO DAILY [facility] Last Admin: 10/02/17 08:26 Dose: 60 mg Lorazepam (Ativan) 0.5 mg PO Q12 PRN PRN Reason: Anxiety Last Admin: 09/29/17 10:09 Dose: 0.5 mg Oxycodone HCl (Oxycodone Immediate Release Tab) 5 mg PO Q4 PRN PRN Reason: Pain, Mild (1-3) Last Admin: 10/01/17 13:08 Dose: 5 mg Oxycodone HCl (Oxycodone Immediate Release Tab) 10 mg PO Q4 PRN PRN Reason: Pain 4-10 Last Admin: 10/02/17 09:32 Dose: 10 mg Oxycodone HCl (Oxycontin Extended Release Tab) 20 mg PO Q12 [facility] Last Admin: 10/02/17 08:22 Dose: 20 mg Sertraline HCl (Zoloft) 25 mg PO DAILY [facility] Last Admin: 10/02/17 08:26 Dose: 25 mg Vitamin B Complex/Vit C/Folic Acid (Nephro-Krissy) 1 tab PO DAILY [facility] Last Admin: 10/02/17 08:23 Dose: 1 tab - Labs Labs: 10/01/17 05:20 09/25/17 06:25 - Respiratory Exam Respiratory Exam: Clear to Ausculation Bilateral - Cardiovascular Exam Cardiovascular Exam: REGULAR RHYTHM, +S1, +S2 - Additional Findings Additional findings: HEM/ONC NOTES REVIEWED DR LIZ'S NOTES REVIEWED Assessment and Plan - Assessment and Plan (Free Text) Assessment: S/P LEFT HIP SURGERY CARDIOMYOPATHY HYPERTENSION HYPERLIPIDEMIA CRF ON HD Plan: CONTINUE ASOIRIN, CARVEDILOL, AMLODIPINE, ISOSORBIDE AND ATORVASTATIN
--- NOTE | 2017-10-02 17:00 | CP.PCM.CON ---
History of Present Illness - History of Present Illness History of Present Illness: Pt seen for supportive therapy 4-4:20 pm. Pt spoke of improved mood with resolution of tensions. Pt spoke of expressing his needs/desires to others and their positve response. Pt spoke of gains of therapy and increased strength. Pt adjusting increasingly well. Strategies for coping explored. plan: Continued Sup therapy Past Patient History - Past Medical History & Family History Past Medical History?: Yes - Past Social History Smoking Status: Never Smoked - CARDIAC Hx Cardiac Disorders: Yes (Cardiomypathy) Hx Hypertension: Yes - PULMONARY Hx Asthma: Yes (last attack jan 2013) - NEUROLOGICAL Hx Neurological Disorder: No - HEENT Hx HEENT Problems: No - RENAL Hx Renal Failure: Yes (ESRD, CKD) - ENDOCRINE/METABOLIC Hx Endocrine Disorders: Yes - HEMATOLOGICAL/ONCOLOGICAL Hx Blood Disorders: Yes Hx Blood Transfusions: Yes (2010) - INTEGUMENTARY Hx Dermatological Problems: No - MUSCULOSKELETAL/RHEUMATOLOGICAL Hx Falls: No - GASTROINTESTINAL Hx Gastrointestinal Disorders: No - GENITOURINARY/GYNECOLOGICAL Hx Genitourinary Disorders: Yes Other/Comment: dialysis pt.doesn't make urine - PSYCHIATRIC Hx Substance Use: No - SURGICAL HISTORY Hx Surgeries: Yes Hx Arteriovenous Shunt: Yes (left upper arm 2010) Hx Vascular Access Device: Yes (2010, removed 2 months later) - ANESTHESIA Hx Anesthesia: Yes Hx Anesthesia Reactions: No Hx Malignant Hyperthermia: No Meds Allergies/Adverse Reactions: Allergies Allergy/AdvReac Type Severity Reaction Status Date / Time No Known Allergies Allergy Verified 09/24/17 22:00 - Medications Medications: Current Medications Albuterol/Ipratropium (Duoneb 3 Mg/0.5 Mg (3 Ml) Ud) 3 ml IH Q6 PRN PRN Reason: Shortness of Breath Amlodipine Besylate (Norvasc) 5 mg PO DAILY [facility] Last Admin: 10/02/17 08:25 Dose: 5 mg Apixaban (Eliquis) 2.5 mg PO BID [facility] PRN Reason: Protocol Aspirin (Aspirin Chewable) 81 mg PO DAILY [facility] Last Admin: 10/02/17 08:25 Dose: 81 mg Atorvastatin Calcium (Lipitor) 20 mg PO HS [facility] Last Admin: 10/01/17 21:12 Dose: 20 mg Carvedilol (Coreg) 25 mg PO Q12 [facility] Last Admin: 10/02/17 08:24 Dose: 25 mg Cinacalcet (Sensipar) 120 mg PO DAILY [facility] Last Admin: 10/02/17 08:24 Dose: 120 mg Dimethicone (Proshield Plus Skin Protectant) 1 applic TOP Q8 [facility] Last Admin: 10/02/17 07:03 Dose: 1 applic Diphenhydramine HCl (Benadryl) 25 mg PO Q6 PRN PRN Reason: Itching / Pruritus Last Admin: 09/28/17 01:40 Dose: 25 mg Docusate Sodium (Colace) 100 mg PO BID [facility] Last Admin: 10/02/17 08:24 Dose: 100 mg Epoetin René (Procrit) 10,000 unit IV MWF [facility] Last Admin: 10/01/17 18:04 Dose: 10,000 unit Guaifenesin (Robitussin) 200 mg PO Q6 PRN PRN Reason: Cough and congestion Home Med (Patient's Own Medication) 1 unit PO TID@0800,1200,1700 [facility] Last Admin: 10/02/17 12:17 Dose: 1 unit Isosorbide Mononitrate (Imdur) 60 mg PO DAILY [facility] Last Admin: 10/02/17 08:26 Dose: 60 mg Lorazepam (Ativan) 0.5 mg PO Q12 PRN PRN Reason: Anxiety Last Admin: 09/29/17 10:09 Dose: 0.5 mg Oxycodone HCl (Oxycodone Immediate Release Tab) 5 mg PO Q4 PRN PRN Reason: Pain, Mild (1-3) Last Admin: 10/01/17 13:08 Dose: 5 mg Oxycodone HCl (Oxycodone Immediate Release Tab) 10 mg PO Q4 PRN PRN Reason: Pain 4-10 Last Admin: 10/02/17 09:32 Dose: 10 mg Oxycodone HCl (Oxycontin Extended Release Tab) 20 mg PO Q12 [facility] Last Admin: 10/02/17 08:22 Dose: 20 mg Sertraline HCl (Zoloft) 25 mg PO DAILY [facility] Last Admin: 10/02/17 08:26 Dose: 25 mg Vitamin B Complex/Vit C/Folic Acid (Nephro-Krissy) 1 tab PO DAILY [facility] Last Admin: 10/02/17 08:23 Dose: 1 tab Results - Vital Signs Recent Vital Signs: Last Vital Signs Temp 97.6 F 10/02/17 08:58 Pulse 77 10/02/17 08:58 Resp 20 10/02/17 08:58 BP 139/77 10/02/17 08:58 Pulse Ox 98 10/02/17 08:58 - Labs Result Diagrams: 10/01/17 05:20 09/25/17 06:25 Labs: Laboratory Results - last 24 hr 10/01/17 10/01/17 10/01/17 05:20 05:20 09:52 Total Protein (PEP) 6.2 IgG 1181 IgA 348 IgM 121 Blood Type O POSITIVE Antibody Screen Negative Crossmatch See Detail BBK History Checked Patient has bt
--- NOTE | 2017-10-02 17:28 | CP.PCM.PN ---
Subjective - Date & Time of Evaluation Date of Evaluation: 10/02/17 Time of Evaluation: 17:28 - Subjective Subjective: Patient seen in the room doing ok sitting up no SOB/CP alk phosp is high but results so far don't show evidence of multiple myeloma Objective - Vital Signs/Intake and Output Vital Signs (last 24 hours): Temp Pulse Resp BP Pulse Ox 97.6 F 77 20 139/77 98 10/02/17 08:58 10/02/17 08:58 10/02/17 08:58 10/02/17 08:58 10/02/17 08:58 Intake and Output: 10/02/17 10/02/17 06:59 18:59 Intake Total 325 Balance 325 - Medications Medications: Current Medications Albuterol/Ipratropium (Duoneb 3 Mg/0.5 Mg (3 Ml) Ud) 3 ml IH Q6 PRN PRN Reason: Shortness of Breath Amlodipine Besylate (Norvasc) 5 mg PO DAILY [facility] Last Admin: 10/02/17 08:25 Dose: 5 mg Apixaban (Eliquis) 2.5 mg PO BID [facility] PRN Reason: Protocol Last Admin: 10/02/17 17:09 Dose: 2.5 mg Aspirin (Aspirin Chewable) 81 mg PO DAILY [facility] Last Admin: 10/02/17 08:25 Dose: 81 mg Atorvastatin Calcium (Lipitor) 20 mg PO HS [facility] Last Admin: 10/01/17 21:12 Dose: 20 mg Carvedilol (Coreg) 25 mg PO Q12 [facility] Last Admin: 10/02/17 08:24 Dose: 25 mg Cinacalcet (Sensipar) 120 mg PO DAILY [facility] Last Admin: 10/02/17 08:24 Dose: 120 mg Dimethicone (Proshield Plus Skin Protectant) 1 applic TOP Q8 [facility] Last Admin: 10/02/17 14:09 Dose: 1 applic Diphenhydramine HCl (Benadryl) 25 mg PO Q6 PRN PRN Reason: Itching / Pruritus Last Admin: 09/28/17 01:40 Dose: 25 mg Docusate Sodium (Colace) 100 mg PO BID [facility] Last Admin: 10/02/17 17:10 Dose: Not Given Epoetin René (Procrit) 10,000 unit IV MWF [facility] Last Admin: 10/01/17 18:04 Dose: 10,000 unit Guaifenesin (Robitussin) 200 mg PO Q6 PRN PRN Reason: Cough and congestion Home Med (Patient's Own Medication) 1 unit PO TID@0800,1200,1700 [facility] Last Admin: 10/02/17 17:09 Dose: 1 unit Isosorbide Mononitrate (Imdur) 60 mg PO DAILY [facility] Last Admin: 10/02/17 08:26 Dose: 60 mg Lorazepam (Ativan) 0.5 mg PO Q12 PRN PRN Reason: Anxiety Last Admin: 09/29/17 10:09 Dose: 0.5 mg Oxycodone HCl (Oxycodone Immediate Release Tab) 5 mg PO Q4 PRN PRN Reason: Pain, Mild (1-3) Last Admin: 10/01/17 13:08 Dose: 5 mg Oxycodone HCl (Oxycodone Immediate Release Tab) 10 mg PO Q4 PRN PRN Reason: Pain 4-10 Last Admin: 10/02/17 09:32 Dose: 10 mg Oxycodone HCl (Oxycontin Extended Release Tab) 20 mg PO Q12 [facility] Last Admin: 10/02/17 08:22 Dose: 20 mg Sertraline HCl (Zoloft) 25 mg PO DAILY [facility] Last Admin: 10/02/17 08:26 Dose: 25 mg Vitamin B Complex/Vit C/Folic Acid (Nephro-Krissy) 1 tab PO DAILY [facility] Last Admin: 10/02/17 08:23 Dose: 1 tab - Labs Labs: 10/01/17 05:20 09/25/17 06:25
--- NOTE | 2017-10-02 20:26 | CP.PCM.PN ---
Subjective - Date & Time of Evaluation Date of Evaluation: 10/02/17 Time of Evaluation: 22:22 - Subjective Subjective: Above noted Objective - Vital Signs/Intake and Output Vital Signs (last 24 hours): Temp Pulse Resp BP Pulse Ox 97.7 F 80 22 119/75 98 10/02/17 20:11 10/02/17 20:11 10/02/17 20:11 10/02/17 20:11 10/02/17 20:11 - Medications Medications: Current Medications Albuterol/Ipratropium (Duoneb 3 Mg/0.5 Mg (3 Ml) Ud) 3 ml IH Q6 PRN PRN Reason: Shortness of Breath Amlodipine Besylate (Norvasc) 5 mg PO DAILY [facility] Last Admin: 10/02/17 08:25 Dose: 5 mg Apixaban (Eliquis) 2.5 mg PO BID [facility] PRN Reason: Protocol Last Admin: 10/02/17 17:09 Dose: 2.5 mg Aspirin (Aspirin Chewable) 81 mg PO DAILY [facility] Last Admin: 10/02/17 08:25 Dose: 81 mg Atorvastatin Calcium (Lipitor) 20 mg PO HS [facility] Last Admin: 10/01/17 21:12 Dose: 20 mg Carvedilol (Coreg) 25 mg PO Q12 [facility] Last Admin: 10/02/17 08:24 Dose: 25 mg Cinacalcet (Sensipar) 120 mg PO DAILY [facility] Last Admin: 10/02/17 08:24 Dose: 120 mg Dimethicone (Proshield Plus Skin Protectant) 1 applic TOP Q8 [facility] Last Admin: 10/02/17 14:09 Dose: 1 applic Diphenhydramine HCl (Benadryl) 25 mg PO Q6 PRN PRN Reason: Itching / Pruritus Last Admin: 09/28/17 01:40 Dose: 25 mg Docusate Sodium (Colace) 100 mg PO BID [facility] Last Admin: 10/02/17 17:10 Dose: Not Given Epoetin René (Procrit) 10,000 unit IV MWF [facility] Last Admin: 10/01/17 18:04 Dose: 10,000 unit Guaifenesin (Robitussin) 200 mg PO Q6 PRN PRN Reason: Cough and congestion Home Med (Patient's Own Medication) 1 unit PO TID@0800,1200,1700 [facility] Last Admin: 10/02/17 17:09 Dose: 1 unit Isosorbide Mononitrate (Imdur) 60 mg PO DAILY [facility] Last Admin: 10/02/17 08:26 Dose: 60 mg Lorazepam (Ativan) 0.5 mg PO Q12 PRN PRN Reason: Anxiety Last Admin: 09/29/17 10:09 Dose: 0.5 mg Oxycodone HCl (Oxycodone Immediate Release Tab) 5 mg PO Q4 PRN PRN Reason: Pain, Mild (1-3) Last Admin: 10/01/17 13:08 Dose: 5 mg Oxycodone HCl (Oxycodone Immediate Release Tab) 10 mg PO Q4 PRN PRN Reason: Pain 4-10 Last Admin: 10/02/17 09:32 Dose: 10 mg Oxycodone HCl (Oxycontin Extended Release Tab) 20 mg PO Q12 [facility] Last Admin: 10/02/17 08:22 Dose: 20 mg Sertraline HCl (Zoloft) 25 mg PO DAILY [facility] Last Admin: 10/02/17 08:26 Dose: 25 mg Vitamin B Complex/Vit C/Folic Acid (Nephro-Krissy) 1 tab PO DAILY [facility] Last Admin: 10/02/17 08:23 Dose: 1 tab - Labs Labs: 10/01/17 05:20 09/25/17 06:25 - Respiratory Exam Respiratory Exam: NORMAL BREATHING PATTERN - Cardiovascular Exam Cardiovascular Exam: REGULAR RHYTHM - GI/Abdominal Exam GI & Abdominal Exam: Normal Bowel Sounds Assessment and Plan - Assessment and Plan (Free Text) Assessment: S/P L hip fx THR Acute rehab Physiatry ESRD CKD HTN Dialysis Nephrology Dysthymia Adjustment disorder Ativan SSRI Psychology S/P bilateral Knee surgery/ Patellar tendon repair Hx + blood cs Staph Cardiomyopathy Defibrillator Cardiology
[2017-10-03] MEDS: Proshield Plus GEL TOP SCH ×3 (07:45→21:24)
[2017-10-03] MEDS: Multivitamin Vitamin B Complex (Nephro-Vite) Tab PO SCH (08:09)
[2017-10-03] MEDS: AURYXIA 210 MG PO SCH ×3 (08:10→19:08)
[2017-10-03] MEDS: oxyCODONE 20 mg ER Tab (oxyCONTIN) PO SCH ×2 (08:16→21:26)
[2017-10-03 09:18] LABS: BASO # 0.1 K/uL (0.0-0.2); BASO % 0.8 % (0.0-2.0); EOS # 0.5 K/uL (0.0-0.7); EOS % 5.9 % (0.0-4.0); HEMOGLOBIN 8.9 g/dL (12.0-18.0); LYMPH # 0.8 K/uL (1.0-4.3); LYMPH % 9.3 % (20.0-40.0); MEAN CORPUSCULAR HEMOGLOBIN 29.9 pg (27.0-31.0); MEAN CORPUSCULAR HGB CONC 32.5 g/dL (33.0-37.0); MEAN PLATELET VOLUME 6.2 fl (7.2-11.7); MONO # 0.5 K/uL (0.0-0.8); MONO % 5.9 % (0.0-10.0); NEUT # 6.8 K/uL (1.8-7.0); NEUT % 78.1 % (50.0-75.0); PLATELET COUNT 425 K/uL (130-400); RBC 2.99 Mil/uL (4.40-5.90); RED CELL DISTRIBUTION WIDTH 16.1 % (11.5-14.5); WHITE BLOOD COUNT 8.7 K/uL (4.8-10.8)
--- NOTE | 2017-10-03 10:23 | CP.PCM.PN ---
Subjective - Date & Time of Evaluation Date of Evaluation: 10/03/17 Time of Evaluation: 10:22 - Subjective Subjective: patient awake and conscious feeling much better. Patient receiving physical therapy because of the hip replacement Objective - Vital Signs/Intake and Output Vital Signs (last 24 hours): Temp Pulse Resp BP Pulse Ox 98.1 F 86 20 127/80 99 10/03/17 08:04 10/03/17 08:10 10/03/17 08:04 10/03/17 08:10 10/03/17 08:04 - Medications Medications: Current Medications Albuterol/Ipratropium (Duoneb 3 Mg/0.5 Mg (3 Ml) Ud) 3 ml IH Q6 PRN PRN Reason: Shortness of Breath Amlodipine Besylate (Norvasc) 5 mg PO DAILY [facility] Last Admin: 10/03/17 08:09 Dose: 5 mg Apixaban (Eliquis) 2.5 mg PO BID [facility] PRN Reason: Protocol Last Admin: 10/03/17 08:10 Dose: 2.5 mg Aspirin (Aspirin Chewable) 81 mg PO DAILY [facility] Last Admin: 10/03/17 08:10 Dose: 81 mg Atorvastatin Calcium (Lipitor) 20 mg PO HS [facility] Last Admin: 10/02/17 21:44 Dose: 20 mg Carvedilol (Coreg) 25 mg PO Q12 [facility] Last Admin: 10/03/17 08:10 Dose: 25 mg Cinacalcet (Sensipar) 120 mg PO DAILY [facility] Last Admin: 10/03/17 08:11 Dose: 120 mg Dimethicone (Proshield Plus Skin Protectant) 1 applic TOP Q8 [facility] Last Admin: 10/03/17 07:45 Dose: 1 applic Diphenhydramine HCl (Benadryl) 25 mg PO Q6 PRN PRN Reason: Itching / Pruritus Last Admin: 09/28/17 01:40 Dose: 25 mg Docusate Sodium (Colace) 100 mg PO BID [facility] Last Admin: 10/03/17 08:12 Dose: 100 mg Epoetin René (Procrit) 10,000 unit IV MWF [facility] Last Admin: 10/01/17 18:04 Dose: 10,000 unit Guaifenesin (Robitussin) 200 mg PO Q6 PRN PRN Reason: Cough and congestion Home Med (Patient's Own Medication) 1 unit PO TID@0800,1200,1700 [facility] Last Admin: 10/03/17 08:10 Dose: 1 unit Isosorbide Mononitrate (Imdur) 60 mg PO DAILY [facility] Last Admin: 10/03/17 08:11 Dose: 60 mg Lorazepam (Ativan) 0.5 mg PO Q12 PRN PRN Reason: Anxiety Last Admin: 09/29/17 10:09 Dose: 0.5 mg Oxycodone HCl (Oxycodone Immediate Release Tab) 5 mg PO Q4 PRN PRN Reason: Pain, Mild (1-3) Last Admin: 10/01/17 13:08 Dose: 5 mg Oxycodone HCl (Oxycodone Immediate Release Tab) 10 mg PO Q4 PRN PRN Reason: Pain 4-10 Last Admin: 10/02/17 09:32 Dose: 10 mg Oxycodone HCl (Oxycontin Extended Release Tab) 20 mg PO Q12 [facility] Last Admin: 10/03/17 08:16 Dose: 20 mg Sertraline HCl (Zoloft) 25 mg PO DAILY [facility] Last Admin: 10/03/17 08:12 Dose: 25 mg Vitamin B Complex/Vit C/Folic Acid (Nephro-Krissy) 1 tab PO DAILY [facility] Last Admin: 10/03/17 08:09 Dose: 1 tab - Labs Labs: 10/03/17 09:12 09/25/17 06:25 - Constitutional Appears: No Acute Distress - ENT Exam ENT Exam: Mucous Membranes Moist - Neck Exam Neck Exam: absent: Lymphadenopathy - Respiratory Exam Respiratory Exam: NORMAL BREATHING PATTERN - Cardiovascular Exam Cardiovascular Exam: REGULAR RHYTHM. absent: Gallop - GI/Abdominal Exam GI & Abdominal Exam: Soft, Normal Bowel Sounds - Extremities Exam Extremities Exam: absent: Calf Tenderness - Back Exam Back Exam: absent: CVA tenderness (L), CVA tenderness (R) - Neurological Exam Neurological Exam: Alert - Psychiatric Exam Psychiatric exam: Normal Affect - Skin Skin Exam: absent: Cyanosis Assessment and Plan (1) Chronic kidney disease with end stage renal failure on dialysis Assessment & Plan: end stage renal disease patient receiving dialysis Friday. Status post left hip surgery. History of cardiomyopathy with defibrillator hypertension Hyperphosphatemia patient on binders Secondary hyperparathyroidism PTH noted over 700 patient receiving Sensipar as noted in the medications Continue monitoring Anemia patient receiving EPO 10,000 unit on dialysis I suggest to do serum iron and ferritin level just in case he needs intravenous iron supplement hyperlipidemia Status: Acute (2) HTN (hypertension) Status: Chronic
[2017-10-03 10:33] LABS: ANISOCYTOSIS SLIGHT; EOSINOPHIL 6 % (0-7); HYPOCHROMIC SLIGHT; LARGE PLATELETS PRESENT; LYMPHOCYTE 10 % (20-50); MONOCYTE 4 % (0-10); NEUTROPHIL 80 % (42-75); PLATELET ESTIMATE SLIGHTLY INCREASED (NORMAL); TEARDROP CELLS SLIGHT; TOTAL CELLS COUNTED 100
--- NOTE | 2017-10-03 10:56 | CP.PCM.PN ---
Subjective - Date & Time of Evaluation Date of Evaluation: 10/03/17 Time of Evaluation: 22:22 - Subjective Subjective: Above noted Objective - Vital Signs/Intake and Output Vital Signs (last 24 hours): Temp Pulse Resp BP Pulse Ox 98.1 F 86 20 127/80 99 10/03/17 08:04 10/03/17 08:10 10/03/17 08:04 10/03/17 08:10 10/03/17 08:04 - Medications Medications: Current Medications Albuterol/Ipratropium (Duoneb 3 Mg/0.5 Mg (3 Ml) Ud) 3 ml IH Q6 PRN PRN Reason: Shortness of Breath Amlodipine Besylate (Norvasc) 5 mg PO DAILY [facility] Last Admin: 10/03/17 08:09 Dose: 5 mg Apixaban (Eliquis) 2.5 mg PO BID [facility] PRN Reason: Protocol Last Admin: 10/03/17 08:10 Dose: 2.5 mg Aspirin (Aspirin Chewable) 81 mg PO DAILY [facility] Last Admin: 10/03/17 08:10 Dose: 81 mg Atorvastatin Calcium (Lipitor) 20 mg PO HS [facility] Last Admin: 10/02/17 21:44 Dose: 20 mg Carvedilol (Coreg) 25 mg PO Q12 [facility] Last Admin: 10/03/17 08:10 Dose: 25 mg Cinacalcet (Sensipar) 120 mg PO DAILY [facility] Last Admin: 10/03/17 08:11 Dose: 120 mg Dimethicone (Proshield Plus Skin Protectant) 1 applic TOP Q8 [facility] Last Admin: 10/03/17 07:45 Dose: 1 applic Diphenhydramine HCl (Benadryl) 25 mg PO Q6 PRN PRN Reason: Itching / Pruritus Last Admin: 09/28/17 01:40 Dose: 25 mg Docusate Sodium (Colace) 100 mg PO BID [facility] Last Admin: 10/03/17 08:12 Dose: 100 mg Epoetin René (Procrit) 10,000 unit IV MWF [facility] Last Admin: 10/01/17 18:04 Dose: 10,000 unit Guaifenesin (Robitussin) 200 mg PO Q6 PRN PRN Reason: Cough and congestion Home Med (Patient's Own Medication) 1 unit PO TID@0800,1200,1700 [facility] Last Admin: 10/03/17 08:10 Dose: 1 unit Isosorbide Mononitrate (Imdur) 60 mg PO DAILY [facility] Last Admin: 10/03/17 08:11 Dose: 60 mg Lorazepam (Ativan) 0.5 mg PO Q12 PRN PRN Reason: Anxiety Last Admin: 09/29/17 10:09 Dose: 0.5 mg Oxycodone HCl (Oxycodone Immediate Release Tab) 5 mg PO Q4 PRN PRN Reason: Pain, Mild (1-3) Last Admin: 10/01/17 13:08 Dose: 5 mg Oxycodone HCl (Oxycodone Immediate Release Tab) 10 mg PO Q4 PRN PRN Reason: Pain 4-10 Last Admin: 10/02/17 09:32 Dose: 10 mg Oxycodone HCl (Oxycontin Extended Release Tab) 20 mg PO Q12 [facility] Last Admin: 10/03/17 08:16 Dose: 20 mg Sertraline HCl (Zoloft) 25 mg PO DAILY [facility] Last Admin: 10/03/17 08:12 Dose: 25 mg Vitamin B Complex/Vit C/Folic Acid (Nephro-Krissy) 1 tab PO DAILY [facility] Last Admin: 10/03/17 08:09 Dose: 1 tab - Labs Labs: 10/03/17 09:12 09/25/17 06:25 - Respiratory Exam Respiratory Exam: NORMAL BREATHING PATTERN - Cardiovascular Exam Cardiovascular Exam: REGULAR RHYTHM - GI/Abdominal Exam GI & Abdominal Exam: Normal Bowel Sounds Assessment and Plan - Assessment and Plan (Free Text) Assessment: S/P L hip fx THR Acute rehab Physiatry ESRD CKD HTN Dialysis Nephrology Dysthymia Adjustment disorder Ativan SSRI Psychology S/P bilateral Knee surgery/ Patellar tendon repair Hx + blood cs Staph Cardiomyopathy Defibrillator Cardiology
[2017-10-03 12:24] LABS: ALBUMIN (PEP) 2.7 g/dL (3.8-4.8); ALPHA-1-GLOBULIN (PEP) 0.7 g/dL (0.2-0.3)
[2017-10-03] MEDS: EPOETIN ALFA 10,000 UNIT/ML ML IV SCH ×2 (16:41→16:57)
[2017-10-04] MEDS: Proshield Plus GEL TOP SCH ×3 (06:27→22:11)
[2017-10-04] MEDS: oxyCODONE 20 mg ER Tab (oxyCONTIN) PO SCH ×2 (08:45→22:10)
[2017-10-04] MEDS: AURYXIA 210 MG PO SCH ×3 (08:45→17:25)
[2017-10-04] MEDS: Multivitamin Vitamin B Complex (Nephro-Vite) Tab PO SCH (09:00)
--- NOTE | 2017-10-04 10:29 | CP.PCM.PN ---
Subjective - Date & Time of Evaluation Date of Evaluation: 10/04/17 Time of Evaluation: 10:25 - Subjective Subjective: Pt seems to be in good spirits, is doing well with the PT. Vital signs are normal, and cbc has been stable as well. His hgb is 8.9.gms. Will ck cbc,ferritin and iron on friday and see if he needs any iron supplementation Objective - Vital Signs/Intake and Output Vital Signs (last 24 hours): Temp Pulse Resp BP Pulse Ox 97.9 F 83 20 127/70 98 10/03/17 20:04 10/04/17 08:47 10/03/17 20:04 10/04/17 08:47 10/03/17 20:04 - Medications Medications: Current Medications Albuterol/Ipratropium (Duoneb 3 Mg/0.5 Mg (3 Ml) Ud) 3 ml IH Q6 PRN PRN Reason: Shortness of Breath Amlodipine Besylate (Norvasc) 5 mg PO DAILY [facility] Last Admin: 10/04/17 08:47 Dose: 5 mg Apixaban (Eliquis) 2.5 mg PO BID [facility] PRN Reason: Protocol Last Admin: 10/04/17 08:46 Dose: 2.5 mg Aspirin (Aspirin Chewable) 81 mg PO DAILY [facility] Last Admin: 10/04/17 08:47 Dose: 81 mg Atorvastatin Calcium (Lipitor) 20 mg PO HS [facility] Last Admin: 10/03/17 21:24 Dose: 20 mg Carvedilol (Coreg) 25 mg PO Q12 [facility] Last Admin: 10/04/17 08:46 Dose: 25 mg Cinacalcet (Sensipar) 120 mg PO DAILY [facility] Last Admin: 10/04/17 08:48 Dose: 120 mg Dimethicone (Proshield Plus Skin Protectant) 1 applic TOP Q8 [facility] Last Admin: 10/04/17 06:27 Dose: 1 applic Diphenhydramine HCl (Benadryl) 25 mg PO Q6 PRN PRN Reason: Itching / Pruritus Last Admin: 09/28/17 01:40 Dose: 25 mg Docusate Sodium (Colace) 100 mg PO BID [facility] Last Admin: 10/04/17 08:46 Dose: 100 mg Epoetin René (Procrit) 10,000 unit IV MWF@1700 [facility] Last Admin: 10/03/17 16:57 Dose: 10,000 unit Guaifenesin (Robitussin) 200 mg PO Q6 PRN PRN Reason: Cough and congestion Home Med (Patient's Own Medication) 1 unit PO TID@0800,1200,1700 [facility] Last Admin: 10/04/17 08:45 Dose: 1 unit Isosorbide Mononitrate (Imdur) 60 mg PO DAILY [facility] Last Admin: 10/04/17 08:46 Dose: 60 mg Lorazepam (Ativan) 0.5 mg PO Q12 PRN PRN Reason: Anxiety Last Admin: 09/29/17 10:09 Dose: 0.5 mg Oxycodone HCl (Oxycodone Immediate Release Tab) 5 mg PO Q4 PRN PRN Reason: Pain, Mild (1-3) Last Admin: 10/01/17 13:08 Dose: 5 mg Oxycodone HCl (Oxycodone Immediate Release Tab) 10 mg PO Q4 PRN PRN Reason: Pain 4-10 Last Admin: 10/02/17 09:32 Dose: 10 mg Oxycodone HCl (Oxycontin Extended Release Tab) 20 mg PO Q12 [facility] Last Admin: 10/04/17 08:45 Dose: 20 mg Sertraline HCl (Zoloft) 25 mg PO DAILY [facility] Last Admin: 10/04/17 08:47 Dose: 25 mg Vitamin B Complex/Vit C/Folic Acid (Nephro-Krissy) 1 tab PO DAILY [facility] Last Admin: 10/03/17 08:09 Dose: 1 tab - Labs Labs: 10/03/17 09:12 09/25/17 06:25
--- NOTE | 2017-10-04 21:52 | CP.PCM.PN ---
Subjective - Date & Time of Evaluation Date of Evaluation: 10/04/17 Time of Evaluation: 17:00 - Subjective Subjective: Nephrology Consultation Note Assessment: Stable s/p hip surgery Diabetic chronic Kidney Disease (E11.22) Hypertensive Chronic Kidney Disease (I12.0) End stage renal disease (N18.6) dependence on hemodialysis (Z99.2) (MWF) via AVF Anemia (D64.9), Hyperphosphatemia (E83.39), Secondary Hyperparathyroidism (E21.1 ), HTN (I12.0) Plan: No acute need for dialysis today. Will plan for dialysis friday. Continue with Nephrovite 1 tab/day. PRBC as needed for anemia. on MARIZA with dialysis as last Hb 8.9. heme following Continue with phos binders, last phos level 5.6 Continue with sensipar BP control with meds as ordered. Patient not on RAAS leonides as BP controlled, may add if needed Glycemic control, Dialysis consistent diet Further work up/management as per primary team Dose meds/antibiotics (if needed) for ESRD status. Avoid fleets enema/magnesium based laxatives. Thanks for allowing me to participate in care of your patient. Will follow patient with you. Please call if any Qs Dr Alexander Avilez Office: [phone] Subjective: Noted events overnight. Patients feels okay. Denies chest pain, palpitation, shortness of breath, leg swelling. All other negative Physical Examination: General Appearance: Comfortable, in no acute respiratory distress, co-operative . obese Vitals reviewed and noted as below Head; Atraumatic, normocephalic ENT: no ulcers no thrush. Tongue is midline. Oropharynx: no rash or ulcers. EYES: Pupils are equal, round and reactive to light accommodation. Eye muscles and extraocular movement intact. Sclera is anicteric. Neck; supple no lymphadenopathy, no thyromegaly or bruit Lungs: Normal respiratory rate/effort. Breath sounds bilateral equal and clear Heart: Normal rate. s1s2 normal. No rub or gallop. Extremities: no edema. No varicose veins Neurological: Patient is alert, awake and oriented to person, place and time. No focal deficit. Strength bilateral appropriate and equal Skin: Warm and dry. Normal turgor. No rash. Palpitation: Normal elasticity for age Abdomen: Abdomen is soft. Bowel sounds +. There is no abdominal tenderness, no guarding/rigidity or organomegaly Psych: normal insight and normal affect/mood MSK: s/p hip surgery. Digits and nails normal, no deformity : kidney or bladder not palpable Access: AVF Labs/imaging reviewed. Past medical history, past surgical history, family history, social history, allergy reviewed and noted as below Family Hx: no hx of CKD. Non contributory Objective - Vital Signs/Intake and Output Vital Signs (last 24 hours): Temp Pulse Resp BP Pulse Ox 97.9 F 83 20 120/80 100 10/04/17 08:00 10/04/17 09:00 10/04/17 08:00 10/04/17 09:00 10/04/17 08:00 - Medications Medications: Current Medications Albuterol/Ipratropium (Duoneb 3 Mg/0.5 Mg (3 Ml) Ud) 3 ml IH Q6 PRN PRN Reason: Shortness of Breath Amlodipine Besylate (Norvasc) 5 mg PO DAILY [facility] Last Admin: 10/04/17 09:00 Dose: Not Given Apixaban (Eliquis) 2.5 mg PO BID [facility] PRN Reason: Protocol Last Admin: 10/04/17 17:24 Dose: 2.5 mg Aspirin (Aspirin Chewable) 81 mg PO DAILY [facility] Last Admin: 10/04/17 08:47 Dose: 81 mg Atorvastatin Calcium (Lipitor) 20 mg PO HS [facility] Last Admin: 10/03/17 21:24 Dose: 20 mg Carvedilol (Coreg) 25 mg PO Q12 [facility] Last Admin: 10/04/17 08:46 Dose: 25 mg Cinacalcet (Sensipar) 120 mg PO DAILY [facility] Last Admin: 10/04/17 08:48 Dose: 120 mg Dimethicone (Proshield Plus Skin Protectant) 1 applic TOP Q8 [facility] Last Admin: 10/04/17 14:00 Dose: 1 applic Diphenhydramine HCl (Benadryl) 25 mg PO Q6 PRN PRN Reason: Itching / Pruritus Last Admin: 09/28/17 01:40 Dose: 25 mg Docusate Sodium (Colace) 100 mg PO BID [facility] Last Admin: 10/04/17 17:31 Dose: Not Given Epoetin René (Procrit) 10,000 unit IV MWF@1700 [facility] Last Admin: 10/03/17 16:57 Dose: 10,000 unit Guaifenesin (Robitussin) 200 mg PO Q6 PRN PRN Reason: Cough and congestion Home Med (Patient's Own Medication) 1 unit PO TID@0800,1200,1700 [facility] Last Admin: 10/04/17 17:25 Dose: 1 unit Isosorbide Mononitrate (Imdur) 60 mg PO DAILY [facility] Last Admin: 10/04/17 08:46 Dose: 60 mg Lorazepam (Ativan) 0.5 mg PO Q12 PRN PRN Reason: Anxiety Last Admin: 09/29/17 10:09 Dose: 0.5 mg Oxycodone HCl (Oxycodone Immediate Release Tab) 5 mg PO Q4 PRN PRN Reason: Pain, Mild (1-3) Last Admin: 10/01/17 13:08 Dose: 5 mg Oxycodone HCl (Oxycodone Immediate Release Tab) 10 mg PO Q4 PRN PRN Reason: Pain 4-10 Last Admin: 10/02/17 09:32 Dose: 10 mg Oxycodone HCl (Oxycontin Extended Release Tab) 20 mg PO Q12 [facility] Last Admin: 10/04/17 08:45 Dose: 20 mg Sertraline HCl (Zoloft) 25 mg PO DAILY [facility] Last Admin: 10/04/17 08:47 Dose: 25 mg Vitamin B Complex/Vit C/Folic Acid (Nephro-Krissy) 1 tab PO DAILY [facility] Last Admin: 10/04/17 09:00 Dose: 1 tab - Labs Labs: 10/03/17 09:12 09/25/17 06:25
[2017-10-05] MEDS: Proshield Plus GEL TOP SCH ×3 (07:17→21:32)
[2017-10-05] MEDS: oxyCODONE 20 mg ER Tab (oxyCONTIN) PO SCH ×2 (08:41→21:31)
[2017-10-05] MEDS: AURYXIA 210 MG PO SCH ×3 (08:44→17:07)
[2017-10-05] MEDS: Multivitamin Vitamin B Complex (Nephro-Vite) Tab PO SCH (08:44)
--- NOTE | 2017-10-05 11:33 | CP.PCM.PN ---
Subjective - Date & Time of Evaluation Date of Evaluation: 10/05/17 Time of Evaluation: 11:32 - Subjective Subjective: Nephrology Consultation Note Assessment: Stable s/p hip surgery Diabetic chronic Kidney Disease (E11.22) Hypertensive Chronic Kidney Disease (I12.0) End stage renal disease (N18.6) dependence on hemodialysis (Z99.2) (MWF) via AVF Anemia (D64.9), Hyperphosphatemia (E83.39), Secondary Hyperparathyroidism (E21.1 ), HTN (I12.0) Plan: No acute need for dialysis today. Will plan for dialysis friday. Continue with Nephrovite 1 tab/day. PRBC as needed for anemia. on MARIZA with dialysis as last Hb 8.9. heme following Continue with phos binders, last phos level 5.6 Continue with sensipar BP control with meds as ordered. Patient not on RAAS leonides as BP controlled, may add if needed Glycemic control, Dialysis consistent diet Further work up/management as per primary team Dose meds/antibiotics (if needed) for ESRD status. Avoid fleets enema/magnesium based laxatives. pt says he will follow with his ortho for drainage of fluid around rt elbow Thanks for allowing me to participate in care of your patient. Will follow patient with you. Please call if any Qs Dr Alexander Avilez Office: [phone] Subjective: Noted events overnight. Patients feels okay. Denies chest pain, palpitation, shortness of breath, leg swelling. All other negative Physical Examination: General Appearance: Comfortable, in no acute respiratory distress, co-operative . obese Vitals reviewed and noted as below Head; Atraumatic, normocephalic ENT: no ulcers no thrush. Tongue is midline. Oropharynx: no rash or ulcers. EYES: Pupils are equal, round and reactive to light accommodation. Eye muscles and extraocular movement intact. Sclera is anicteric. Neck; supple no lymphadenopathy, no thyromegaly or bruit Lungs: Normal respiratory rate/effort. Breath sounds bilateral equal and clear Heart: Normal rate. s1s2 normal. No rub or gallop. Extremities: no edema. No varicose veins Neurological: Patient is alert, awake and oriented to person, place and time. No focal deficit. Strength bilateral appropriate and equal Skin: Warm and dry. Normal turgor. No rash. Palpitation: Normal elasticity for age Abdomen: Abdomen is soft. Bowel sounds +. There is no abdominal tenderness, no guarding/rigidity or organomegaly Psych: normal insight and normal affect/mood MSK: s/p hip surgery. Digits and nails normal, no deformity. swelling around Rt elbow : kidney or bladder not palpable Access: AVF Labs/imaging reviewed. Past medical history, past surgical history, family history, social history, allergy reviewed and noted as below Family Hx: no hx of CKD. Non contributory Objective - Vital Signs/Intake and Output Vital Signs (last 24 hours): Temp Pulse Resp BP Pulse Ox 98.2 F 83 20 148/89 98 10/05/17 07:54 10/05/17 08:48 10/05/17 07:54 10/05/17 08:48 10/05/17 07:54 - Medications Medications: Current Medications Albuterol/Ipratropium (Duoneb 3 Mg/0.5 Mg (3 Ml) Ud) 3 ml IH Q6 PRN PRN Reason: Shortness of Breath Amlodipine Besylate (Norvasc) 5 mg PO DAILY [facility] Last Admin: 10/05/17 08:48 Dose: Not Given Apixaban (Eliquis) 2.5 mg PO BID [facility] PRN Reason: Protocol Last Admin: 10/05/17 08:43 Dose: 2.5 mg Aspirin (Aspirin Chewable) 81 mg PO DAILY [facility] Last Admin: 10/05/17 08:42 Dose: 81 mg Atorvastatin Calcium (Lipitor) 20 mg PO HS [facility] Last Admin: 10/04/17 22:09 Dose: 20 mg Carvedilol (Coreg) 25 mg PO Q12 [facility] Last Admin: 10/05/17 08:43 Dose: 25 mg Cinacalcet (Sensipar) 120 mg PO DAILY [facility] Last Admin: 10/05/17 08:45 Dose: 120 mg Dimethicone (Proshield Plus Skin Protectant) 1 applic TOP Q8 [facility] Last Admin: 10/05/17 07:17 Dose: 1 applic Diphenhydramine HCl (Benadryl) 25 mg PO Q6 PRN PRN Reason: Itching / Pruritus Last Admin: 09/28/17 01:40 Dose: 25 mg Docusate Sodium (Colace) 100 mg PO BID [facility] Last Admin: 10/05/17 08:42 Dose: Not Given Epoetin René (Procrit) 10,000 unit IV MWF@1700 [facility] Last Admin: 10/03/17 16:57 Dose: 10,000 unit Guaifenesin (Robitussin) 200 mg PO Q6 PRN PRN Reason: Cough and congestion Home Med (Patient's Own Medication) 1 unit PO TID@0800,1200,1700 [facility] Last Admin: 10/05/17 08:44 Dose: 1 unit Isosorbide Mononitrate (Imdur) 60 mg PO DAILY [facility] Last Admin: 10/05/17 08:43 Dose: 60 mg Lorazepam (Ativan) 0.5 mg PO Q12 PRN PRN Reason: Anxiety Last Admin: 09/29/17 10:09 Dose: 0.5 mg Oxycodone HCl (Oxycodone Immediate Release Tab) 5 mg PO Q4 PRN PRN Reason: Pain, Mild (1-3) Last Admin: 10/01/17 13:08 Dose: 5 mg Oxycodone HCl (Oxycodone Immediate Release Tab) 10 mg PO Q4 PRN PRN Reason: Pain 4-10 Last Admin: 10/02/17 09:32 Dose: 10 mg Oxycodone HCl (Oxycontin Extended Release Tab) 20 mg PO Q12 [facility] Last Admin: 10/05/17 08:41 Dose: 20 mg Sertraline HCl (Zoloft) 25 mg PO DAILY [facility] Last Admin: 10/05/17 08:45 Dose: 25 mg Vitamin B Complex/Vit C/Folic Acid (Nephro-Krissy) 1 tab PO DAILY [facility] Last Admin: 10/05/17 08:44 Dose: 1 tab - Labs Labs: 10/03/17 09:12 09/25/17 06:25
[2017-10-06] MEDS: Proshield Plus GEL TOP SCH ×2 (06:24→13:15)
[2017-10-06 08:05] LABS: BASO # 0.1 K/uL (0.0-0.2); BASO % 1.2 % (0.0-2.0); EOS # 0.6 K/uL (0.0-0.7); EOS % 7.7 % (0.0-4.0); HEMOGLOBIN 8.9 g/dL (12.0-18.0); MEAN CELL VOLUME 91.6 fl (80.0-94.0); MEAN CORPUSCULAR HEMOGLOBIN 30.5 pg (27.0-31.0); MEAN CORPUSCULAR HGB CONC 33.3 g/dL (33.0-37.0); MEAN PLATELET VOLUME 6.2 fl (7.2-11.7); MONO # 0.6 K/uL (0.0-0.8); MONO % 8.1 % (0.0-10.0); RBC 2.92 Mil/uL (4.40-5.90); RED CELL DISTRIBUTION WIDTH 16.2 % (11.5-14.5); WHITE BLOOD COUNT 7.2 K/uL (4.8-10.8)
[2017-10-06 08:28] LABS: IRON 50 ug/dL (49-181)
[2017-10-06 08:38] LABS: % IRON SATURATION 21 % (20-55); TOTAL IRON BINDING CAPACITY 231 ug/dL (250-450)
[2017-10-06] MEDS: oxyCODONE 20 mg ER Tab (oxyCONTIN) PO SCH (08:47)
[2017-10-06] MEDS: Multivitamin Vitamin B Complex (Nephro-Vite) Tab PO SCH (08:48)
[2017-10-06] MEDS: AURYXIA 210 MG PO SCH ×3 (08:50→16:18)
--- NOTE | 2017-10-06 08:51 | CP.PCM.PN ---
Subjective - Date & Time of Evaluation Date of Evaluation: 10/06/17 Time of Evaluation: 08:30 - Subjective Subjective: NO CHEST PAIN OR SOB DOING WELL AT REHAB Objective - Vital Signs/Intake and Output Vital Signs (last 24 hours): Temp Pulse Resp BP Pulse Ox 97.9 F 82 20 157/94 H 97 10/06/17 08:07 10/06/17 08:07 10/06/17 08:07 10/06/17 08:07 10/06/17 08:07 - Medications Medications: Current Medications Albuterol/Ipratropium (Duoneb 3 Mg/0.5 Mg (3 Ml) Ud) 3 ml IH Q6 PRN PRN Reason: Shortness of Breath Amlodipine Besylate (Norvasc) 5 mg PO DAILY [facility] Last Admin: 10/05/17 08:48 Dose: Not Given Apixaban (Eliquis) 2.5 mg PO BID [facility] PRN Reason: Protocol Last Admin: 10/05/17 17:07 Dose: 2.5 mg Aspirin (Aspirin Chewable) 81 mg PO DAILY [facility] Last Admin: 10/05/17 08:42 Dose: 81 mg Atorvastatin Calcium (Lipitor) 20 mg PO HS [facility] Last Admin: 10/05/17 21:31 Dose: 20 mg Carvedilol (Coreg) 25 mg PO Q12 [facility] Last Admin: 10/05/17 21:31 Dose: 25 mg Cinacalcet (Sensipar) 120 mg PO DAILY [facility] Last Admin: 10/05/17 08:45 Dose: 120 mg Dimethicone (Proshield Plus Skin Protectant) 1 applic TOP Q8 [facility] Last Admin: 10/06/17 06:24 Dose: 1 applic Diphenhydramine HCl (Benadryl) 25 mg PO Q6 PRN PRN Reason: Itching / Pruritus Last Admin: 09/28/17 01:40 Dose: 25 mg Docusate Sodium (Colace) 100 mg PO BID [facility] Last Admin: 10/05/17 16:18 Dose: Not Given Epoetin René (Procrit) 10,000 unit IV MWF@1700 [facility] Last Admin: 10/03/17 16:57 Dose: 10,000 unit Guaifenesin (Robitussin) 200 mg PO Q6 PRN PRN Reason: Cough and congestion Home Med (Patient's Own Medication) 1 unit PO TID@0800,1200,1700 [facility] Last Admin: 10/05/17 17:07 Dose: 1 unit Isosorbide Mononitrate (Imdur) 60 mg PO DAILY [facility] Last Admin: 10/05/17 08:43 Dose: 60 mg Lorazepam (Ativan) 0.5 mg PO Q12 PRN PRN Reason: Anxiety Last Admin: 09/29/17 10:09 Dose: 0.5 mg Oxycodone HCl (Oxycodone Immediate Release Tab) 5 mg PO Q4 PRN PRN Reason: Pain, Mild (1-3) Last Admin: 10/01/17 13:08 Dose: 5 mg Oxycodone HCl (Oxycodone Immediate Release Tab) 10 mg PO Q4 PRN PRN Reason: Pain 4-10 Last Admin: 10/02/17 09:32 Dose: 10 mg Oxycodone HCl (Oxycontin Extended Release Tab) 20 mg PO Q12 [facility] Last Admin: 10/05/17 21:31 Dose: 20 mg Sertraline HCl (Zoloft) 25 mg PO DAILY [facility] Last Admin: 10/05/17 08:45 Dose: 25 mg Vitamin B Complex/Vit C/Folic Acid (Nephro-Krissy) 1 tab PO DAILY [facility] Last Admin: 10/05/17 08:44 Dose: 1 tab - Labs Labs: 10/06/17 07:54 09/25/17 06:25 - Respiratory Exam Respiratory Exam: Clear to Ausculation Bilateral - Cardiovascular Exam Cardiovascular Exam: REGULAR RHYTHM, +S1, +S2 Assessment and Plan - Assessment and Plan (Free Text) Assessment: S/P LEFT HIP SURGERY CARDIOMYOPATHY HYPERTENSION HYPERLIPIDEMIA CRF ON HD Plan: CONTINUE CARVEDILOL, AMLODIPINE, ISOSORBIDE, ATORVASTATIN, ASPIRIN AND ELIQUIS
[2017-10-06] MEDS: oxyCODONE 5 mg Immediate Release Tab PO PRN ×2 (09:41→16:16)
--- NOTE | 2017-10-06 10:12 | CP.PCM.PN ---
Subjective - Date & Time of Evaluation Date of Evaluation: 10/06/17 Time of Evaluation: 10:10 - Subjective Subjective: P5t's hgb has been sable,but the serum iron is low. I feel he will do better with the procrit if his iron is in the normal limits. I have started him on po iron bid. Objective - Vital Signs/Intake and Output Vital Signs (last 24 hours): Temp Pulse Resp BP Pulse Ox 97.9 F 82 20 157/94 H 97 10/06/17 08:07 10/06/17 08:49 10/06/17 08:07 10/06/17 08:49 10/06/17 08:07 - Medications Medications: Current Medications Albuterol/Ipratropium (Duoneb 3 Mg/0.5 Mg (3 Ml) Ud) 3 ml IH Q6 PRN PRN Reason: Shortness of Breath Amlodipine Besylate (Norvasc) 5 mg PO DAILY [facility] Last Admin: 10/06/17 08:50 Dose: Not Given Apixaban (Eliquis) 2.5 mg PO BID [facility] PRN Reason: Protocol Last Admin: 10/06/17 08:48 Dose: 2.5 mg Aspirin (Aspirin Chewable) 81 mg PO DAILY [facility] Last Admin: 10/06/17 08:50 Dose: 81 mg Atorvastatin Calcium (Lipitor) 20 mg PO HS [facility] Last Admin: 10/05/17 21:31 Dose: 20 mg Carvedilol (Coreg) 25 mg PO Q12 [facility] Last Admin: 10/06/17 08:49 Dose: 25 mg Cinacalcet (Sensipar) 120 mg PO DAILY [facility] Last Admin: 10/06/17 08:48 Dose: 120 mg Dimethicone (Proshield Plus Skin Protectant) 1 applic TOP Q8 [facility] Last Admin: 10/06/17 06:24 Dose: 1 applic Diphenhydramine HCl (Benadryl) 25 mg PO Q6 PRN PRN Reason: Itching / Pruritus Last Admin: 09/28/17 01:40 Dose: 25 mg Docusate Sodium (Colace) 100 mg PO BID [facility] Last Admin: 10/06/17 08:53 Dose: Not Given Epoetin René (Procrit) 10,000 unit IV MWF@1700 [facility] Last Admin: 10/03/17 16:57 Dose: 10,000 unit Ferrous Sulfate (Feosol) 325 mg PO BID [facility] Guaifenesin (Robitussin) 200 mg PO Q6 PRN PRN Reason: Cough and congestion Home Med (Patient's Own Medication) 1 unit PO TID@0800,1200,1700 [facility] Last Admin: 10/06/17 08:50 Dose: 1 unit Isosorbide Mononitrate (Imdur) 60 mg PO DAILY [facility] Last Admin: 10/06/17 08:49 Dose: 60 mg Lorazepam (Ativan) 0.5 mg PO Q12 PRN PRN Reason: Anxiety Last Admin: 09/29/17 10:09 Dose: 0.5 mg Oxycodone HCl (Oxycodone Immediate Release Tab) 5 mg PO Q4 PRN PRN Reason: Pain, Mild (1-3) Last Admin: 10/01/17 13:08 Dose: 5 mg Oxycodone HCl (Oxycodone Immediate Release Tab) 10 mg PO Q4 PRN PRN Reason: Pain 4-10 Last Admin: 10/06/17 09:41 Dose: 10 mg Oxycodone HCl (Oxycontin Extended Release Tab) 20 mg PO Q12 [facility] Last Admin: 10/06/17 08:47 Dose: 20 mg Sertraline HCl (Zoloft) 25 mg PO DAILY [facility] Last Admin: 10/06/17 08:48 Dose: 25 mg Vitamin B Complex/Vit C/Folic Acid (Nephro-Krissy) 1 tab PO DAILY [facility] Last Admin: 10/06/17 08:48 Dose: 1 tab - Labs Labs: 10/06/17 07:54 09/25/17 06:25
--- NOTE | 2017-10-06 10:54 | CP.PCM.PN ---
Subjective - Date & Time of Evaluation Date of Evaluation: 10/06/17 Time of Evaluation: 10:53 - Subjective Subjective: Patient reported no new event receiving rehabilitation Objective - Vital Signs/Intake and Output Vital Signs (last 24 hours): Temp Pulse Resp BP Pulse Ox 97.9 F 82 20 157/94 H 97 10/06/17 08:07 10/06/17 08:49 10/06/17 08:07 10/06/17 08:49 10/06/17 08:07 - Medications Medications: Current Medications Albuterol/Ipratropium (Duoneb 3 Mg/0.5 Mg (3 Ml) Ud) 3 ml IH Q6 PRN PRN Reason: Shortness of Breath Amlodipine Besylate (Norvasc) 5 mg PO DAILY [facility] Last Admin: 10/06/17 08:50 Dose: Not Given Apixaban (Eliquis) 2.5 mg PO BID [facility] PRN Reason: Protocol Last Admin: 10/06/17 08:48 Dose: 2.5 mg Aspirin (Aspirin Chewable) 81 mg PO DAILY [facility] Last Admin: 10/06/17 08:50 Dose: 81 mg Atorvastatin Calcium (Lipitor) 20 mg PO HS [facility] Last Admin: 10/05/17 21:31 Dose: 20 mg Carvedilol (Coreg) 25 mg PO Q12 [facility] Last Admin: 10/06/17 08:49 Dose: 25 mg Cinacalcet (Sensipar) 120 mg PO DAILY [facility] Last Admin: 10/06/17 08:48 Dose: 120 mg Dimethicone (Proshield Plus Skin Protectant) 1 applic TOP Q8 [facility] Last Admin: 10/06/17 06:24 Dose: 1 applic Diphenhydramine HCl (Benadryl) 25 mg PO Q6 PRN PRN Reason: Itching / Pruritus Last Admin: 09/28/17 01:40 Dose: 25 mg Docusate Sodium (Colace) 100 mg PO BID [facility] Last Admin: 10/06/17 08:53 Dose: Not Given Epoetin René (Procrit) 10,000 unit IV MWF@1700 [facility] Last Admin: 10/03/17 16:57 Dose: 10,000 unit Ferrous Sulfate (Feosol) 325 mg PO BID [facility] Guaifenesin (Robitussin) 200 mg PO Q6 PRN PRN Reason: Cough and congestion Home Med (Patient's Own Medication) 1 unit PO TID@0800,1200,1700 [facility] Last Admin: 10/06/17 08:50 Dose: 1 unit Isosorbide Mononitrate (Imdur) 60 mg PO DAILY [facility] Last Admin: 10/06/17 08:49 Dose: 60 mg Lorazepam (Ativan) 0.5 mg PO Q12 PRN PRN Reason: Anxiety Last Admin: 09/29/17 10:09 Dose: 0.5 mg Oxycodone HCl (Oxycodone Immediate Release Tab) 5 mg PO Q4 PRN PRN Reason: Pain, Mild (1-3) Last Admin: 10/01/17 13:08 Dose: 5 mg Oxycodone HCl (Oxycodone Immediate Release Tab) 10 mg PO Q4 PRN PRN Reason: Pain 4-10 Last Admin: 10/06/17 09:41 Dose: 10 mg Oxycodone HCl (Oxycontin Extended Release Tab) 20 mg PO Q12 [facility] Last Admin: 10/06/17 08:47 Dose: 20 mg Sertraline HCl (Zoloft) 25 mg PO DAILY [facility] Last Admin: 10/06/17 08:48 Dose: 25 mg Vitamin B Complex/Vit C/Folic Acid (Nephro-Krissy) 1 tab PO DAILY [facility] Last Admin: 10/06/17 08:48 Dose: 1 tab - Labs Labs: 10/06/17 07:54 09/25/17 06:25 - Constitutional Appears: No Acute Distress - ENT Exam ENT Exam: Mucous Membranes Moist - Neck Exam Neck Exam: absent: Lymphadenopathy - Respiratory Exam Respiratory Exam: absent: Chest Wall Tenderness - Cardiovascular Exam Cardiovascular Exam: absent: Gallop, JVD, Rubs - GI/Abdominal Exam GI & Abdominal Exam: Soft, Normal Bowel Sounds - Extremities Exam Extremities Exam: absent: Calf Tenderness - Back Exam Back Exam: absent: CVA tenderness (L), CVA tenderness (R) - Neurological Exam Neurological Exam: Alert - Psychiatric Exam Psychiatric exam: Normal Affect - Skin Skin Exam: absent: Cyanosis Assessment and Plan (1) Chronic kidney disease with end stage renal failure on dialysis Assessment & Plan: s/p hip surgery Diabetic chronic Kidney Disease (E11.22) Hypertensive Chronic Kidney Disease (I12.0) End stage renal disease (N18.6) dependence on hemodialysis (Z99.2) (MWF) via AVF Anemia (D64.9), Hyperphosphatemia (E83.39), Secondary Hyperparathyroidism (E21.1 ), HTN (I12.0) Status: Acute (2) HTN (hypertension) Status: Chronic
--- NOTE | 2017-10-06 20:19 | CP.PCM.PN ---
Subjective - Date & Time of Evaluation Date of Evaluation: 10/06/17 Time of Evaluation: 22:22 - Subjective Subjective: Above noted Objective - Vital Signs/Intake and Output Vital Signs (last 24 hours): Temp Pulse Resp BP Pulse Ox 97.9 F 79 20 139/82 98 10/06/17 20:18 10/06/17 20:18 10/06/17 20:18 10/06/17 20:18 10/06/17 20:18 - Medications Medications: Current Medications Albuterol/Ipratropium (Duoneb 3 Mg/0.5 Mg (3 Ml) Ud) 3 ml IH Q6 PRN PRN Reason: Shortness of Breath Amlodipine Besylate (Norvasc) 5 mg PO DAILY [facility] Last Admin: 10/06/17 08:50 Dose: Not Given Apixaban (Eliquis) 2.5 mg PO BID [facility] PRN Reason: Protocol Last Admin: 10/06/17 16:17 Dose: 2.5 mg Aspirin (Aspirin Chewable) 81 mg PO DAILY [facility] Last Admin: 10/06/17 08:50 Dose: 81 mg Atorvastatin Calcium (Lipitor) 20 mg PO HS [facility] Last Admin: 10/05/17 21:31 Dose: 20 mg Carvedilol (Coreg) 25 mg PO Q12 [facility] Last Admin: 10/06/17 08:49 Dose: 25 mg Cinacalcet (Sensipar) 120 mg PO DAILY [facility] Last Admin: 10/06/17 08:48 Dose: 120 mg Dimethicone (Proshield Plus Skin Protectant) 1 applic TOP Q8 [facility] Last Admin: 10/06/17 13:15 Dose: 1 applic Diphenhydramine HCl (Benadryl) 25 mg PO Q6 PRN PRN Reason: Itching / Pruritus Last Admin: 09/28/17 01:40 Dose: 25 mg Docusate Sodium (Colace) 100 mg PO BID [facility] Last Admin: 10/06/17 16:10 Dose: Not Given Epoetin René (Procrit) 10,000 unit IV MWF@1700 [facility] Last Admin: 10/03/17 16:57 Dose: 10,000 unit Ferrous Sulfate (Feosol) 325 mg PO BID [facility] Last Admin: 10/06/17 16:18 Dose: 325 mg Guaifenesin (Robitussin) 200 mg PO Q6 PRN PRN Reason: Cough and congestion Home Med (Patient's Own Medication) 1 unit PO TID@0800,1200,1700 [facility] Last Admin: 10/06/17 16:18 Dose: 1 unit Isosorbide Mononitrate (Imdur) 60 mg PO DAILY [facility] Last Admin: 10/06/17 08:49 Dose: 60 mg Lorazepam (Ativan) 0.5 mg PO Q12 PRN PRN Reason: Anxiety Last Admin: 09/29/17 10:09 Dose: 0.5 mg Oxycodone HCl (Oxycodone Immediate Release Tab) 5 mg PO Q4 PRN PRN Reason: Pain, Mild (1-3) Last Admin: 10/06/17 16:16 Dose: 5 mg Oxycodone HCl (Oxycodone Immediate Release Tab) 10 mg PO Q4 PRN PRN Reason: Pain 4-10 Last Admin: 10/06/17 09:41 Dose: 10 mg Oxycodone HCl (Oxycontin Extended Release Tab) 20 mg PO Q12 [facility] Last Admin: 10/06/17 08:47 Dose: 20 mg Sertraline HCl (Zoloft) 25 mg PO DAILY [facility] Last Admin: 10/06/17 08:48 Dose: 25 mg Vitamin B Complex/Vit C/Folic Acid (Nephro-Krissy) 1 tab PO DAILY [facility] Last Admin: 10/06/17 08:48 Dose: 1 tab - Labs Labs: 10/06/17 07:54 09/25/17 06:25 - Respiratory Exam Respiratory Exam: NORMAL BREATHING PATTERN - Cardiovascular Exam Cardiovascular Exam: REGULAR RHYTHM - GI/Abdominal Exam GI & Abdominal Exam: Normal Bowel Sounds Assessment and Plan - Assessment and Plan (Free Text) Assessment: S/P L hip fx THR Acute rehab Physiatry ESRD CKD HTN Dialysis Nephrology Dysthymia Adjustment disorder Ativan SSRI Psychology S/P bilateral Knee surgery/ Patellar tendon repair Hx + blood cs Staph Cardiomyopathy Defibrillator Cardiology
[2017-10-06] MEDS: EPOETIN ALFA 10,000 UNIT/ML ML IV SCH (21:23)
[2017-10-07] MEDS: Proshield Plus GEL TOP SCH ×4 (01:38→21:37)
[2017-10-07] MEDS: oxyCODONE 20 mg ER Tab (oxyCONTIN) PO SCH ×3 (01:39→21:23)
[2017-10-07] MEDS: AURYXIA 210 MG PO SCH ×3 (08:54→17:16)
[2017-10-07] MEDS: Multivitamin Vitamin B Complex (Nephro-Vite) Tab PO SCH (08:56)
[2017-10-07] MEDS ORDERED: oxyCODONE 5 mg Immediate Release Tab PO PRN (11:05)
--- NOTE | 2017-10-07 13:31 | PSY.TMCNF ---
Nursing - Vital Signs Vital Signs (Last 8 hours): Vital Signs 10/07/17 10/07/17 10/07/17 08:33 08:57 08:58 Temperature 98.1 F Pulse Rate 79 79 79 Respiratory 20 Rate Blood Pressure 134/80 134/80 134/80 O2 Sat by Pulse 97 Oximetry 10/07/17 09:00 Temperature 98.1 F Pulse Rate 79 Respiratory 20 Rate Blood Pressure 134/80 O2 Sat by Pulse Oximetry Pain: 0 - Medications/Other Issues Comment: pain management. Wound care - Consults Comment: Dr. Arroyo, Dr. Elaine, Dr. Verde, Dr. Rice, Dr. Petrona Patterson, Dr. Walker - Skin Incision Site: Left Hip Dressing Status: Clean, Dry, Intact Incision: Sutures Intact Incision Line Treatment: Cleanse sutures with NSS, pat dry, xeroform applied and cover with abdominal pad. - Wound Buttock Wound Type: Moisture Associated Skin Damage Wound Shape: Irregular Wound Edges: Open Tunneling: No Undermining: No Wound Bed Greatest Portion: Pale [place] Wound Drainage Amount: Minimal Wound Drainage Description: Serosanguineous Wound Drainage Odor: None/Absent Wound General Appearance: Open to air, Clean/Dry Wound Dressing Status: Open to air Wound Packing Type: Not applicable Wound Primary Dressing Type: proshield tx. Wound Secondary Dressing Type: Open to air - Toileting Toileting: Dependent - Bladder Management Bladder Management: Independent - Bowel Management Bowel Pattern: Constipated Bowel Management: Dependent - Transfers Transfers: Minimal Assistance - ADL's ADL's: Minimal Assistance - Pain Management Comments: Oxycontin ER and IR PRN as ordered. - Patient/Family Teaching Comments: Safety, Wound care and pain management - Goals/Time Frame Comments: Per multidisciplinary team. Physical Therapy - Bed Mobility Bed Mobility: Supervision, Verbal Cues - Transfers Wheelchair to Mat: Supervision, Verbal Cues, Contact Guard Sit to Stand: Maximum Assistance, Dependent Comment: -lateral BEAZY board transfer with assistance to place board and some assistance to place board in proper position; transition from chair to bed with board and removal of board with supervision - Ambulation Level of Assistance: Not Tested Comment: propels WC with BUE x 150 feet with S - Stair Negotiation Stairs: Level of Assistance: Not Tested Comment: recommend accessability - Standing Balance Static Stand: Maximal Assistance Dynamic Stand: Dependent - Pain Management Techniques: Medication, Position Change - Insight/Carryover Insight/Carryover: Fair - Patient/Family Education Comment: -ongoing for caregiver ed--adls, transfers(with Besay board)/mobility training while adhering to hip precautions. -w/c management/propulsion ad setup. -caregiver education on above. -hip kit uses/applications for adherance to hip precautions. -use of leg ticker maintainer for BLES positioning off/on bed. -uses/applications of bathroom DMEs - Assessment/Plan Assessment: Pt is 36 year old male with dx: L hip fx. *Precautions: LLE WBAT, THR precautions, L fistula, ESRD, AICD, cardiac precautions, HD M-W-F. Pt limited by the following: - L knee pain pain and R hip pain. -impaired BUE strength/ROM. -impaired activity tolerance/overall endurance. -impaired trunk control/dynamic unsupported abd core strength. -impaired ROM/strength in BLES quan LLE. -impaired safety strategies---which impact on functional performance self care, transfers/mobility. Pt needs constant reassurance/encouragement to push self for pre-transfer activities such as w/c push ups, pulling up from toilet grab bar. Pt will continue skilled OT to address functional impairments to maximze function in self care, transfers/mobilty adhering to THR precautions , cardiac precautions, + caregiver ed, w/c and bed positioning(skin care/ protection). Pt less anxious today and thus able to complete functional transfers/bed mobility and adls with less time and increased I/safety with verbal/tactile cues. Pt needs frequent rest breaks due to impaired endurance-- as pt has multiple co-morbidities and is medically complex.. Pt will continue to benefit from psychology/psychiatry interventions for mood, anxiety so can progress in therapies. Pt will benefit from hip kit for adherance of THR precautions for lower body adls, functional transfers and mobility. *Goal: 24 hour care--Supervsion and verbal cues overall for adls, transfers/mobility with adaptive device adhering to hip/cardiac precautions w/c level. - Goals Timeframe: 1 week Goals: *FEEDING: Mod I. *GROOMING: Mod I. *UPPER BODY DRESSING: I/setup. * LOWER BODY DRESSING: Supervision and verbal cues setup. *TOILETING: Min assist and verbal cues. *TRANSFERS:<->bed, commode, w/c & chair with Min assist and verbal cues lateral scoot, squat pivot transfers. *CAREGIVER ED: Pt's clayvr to be I assisting pt with adls, transfers and mobility - Provider Therapist: M License Number: [id number] Occupational Therapy - Arousal/Attention/Orientation Patient Orientation: Person, Place, Time, Appropriate to Age, Appropriate to Situation - ADL/IADL Self Feeding: Supervision Grooming: Supervision, Set-up Help Bathing-Upper Extremity: Minimal Assistance Bathing-Lower Extremity: Verbal Cues, Set-up Help, Moderate Assistance Dressing-Upper Extremity: Set-up Help Dressing-Lower Extremity: Verbal Cues, Set-up Help, Minimal Assistance, Moderate Assistance - Sitting Balance Static Sitting: Supervision Dynamic Sitting: Requires supervision - Transfers Wheelchair to Bed Transfers: Supervision, Verbal Cues, Set-up Help Toilet Transfers: Verbal Cues, Set-up Help, Minimal Assistance Comment: shower transfers not assessed since not safe - Wheelchair Management Level of Assistance: Modified Independent Distance (ft.): 150 - Upper Extremity Status Right Upper Extremity Comment: WFL-AROM Left Upper Extremity Comment: WFL=AROM - Pain Alleviating Techniques: Medication, Position Change - Insight/Carryover Insight/Carryover: Fair - Patient/Family Education Comment: -ongoing for caregiver ed--adls, transfers(with Besay board)/mobility training while adhering to hip precautions. -w/c management/propulsion ad setup. -caregiver education on above. -hip kit uses/applications for adherance to hip precautions. -use of leg ticker maintainer for BLES positioning off/on bed. -uses/applications of bathroom DMEs - Assessment/Plan Assessment: Pt is 36 year old male with dx: L hip fx. *Precautions: LLE WBAT, THR precautions, L fistula, ESRD, AICD, cardiac precautions, HD M-W-F. Pt limited by the following: - L knee pain pain and R hip pain. -impaired BUE strength/ROM. -impaired activity tolerance/overall endurance. -impaired trunk control/dynamic unsupported abd core strength. -impaired ROM/strength in BLES quan LLE. -impaired safety strategies---which impact on functional performance self care, transfers/mobility. Pt needs constant reassurance/encouragement to push self for pre-transfer activities such as w/c push ups, pulling up from toilet grab bar. Pt will continue skilled OT to address functional impairments to maximze function in self care, transfers/mobilty adhering to THR precautions , cardiac precautions, + caregiver ed, w/c and bed positioning(skin care/ protection). Pt less anxious today and thus able to complete functional transfers/bed mobility and adls with less time and increased I/safety with verbal/tactile cues. Pt needs frequent rest breaks due to impaired endurance-- as pt has multiple co-morbidities and is medically complex.. Pt will continue to benefit from psychology/psychiatry interventions for mood, anxiety so can progress in therapies. Pt will benefit from hip kit for adherance of THR precautions for lower body adls, functional transfers and mobility. *Goal: 24 hour care--Supervsion and verbal cues overall for adls, transfers/mobility with adaptive device adhering to hip/cardiac precautions w/c level. - Goals Timeframe: 1 week Goals: *FEEDING: Mod I. *GROOMING: Mod I. *UPPER BODY DRESSING: I/setup. * LOWER BODY DRESSING: Supervision and verbal cues setup. *TOILETING: Min assist and verbal cues. *TRANSFERS:<->bed, commode, w/c & chair with Min assist and verbal cues lateral scoot, squat pivot transfers. *CAREGIVER ED: Pt's caregievr to be I assisting pt with adls, transfers and mobility - Provider Therapist: Tawana Espino, OTR/L License Number: [id number] Speech Therapy - Plan Assessment: Pt is 36 year old male with dx: L hip fx. *Precautions: LLE WBAT, THR precautions, L fistula, ESRD, AICD, cardiac precautions, HD M-W-F. Pt limited by the following: - L knee pain pain and R hip pain. -impaired BUE strength/ROM. -impaired activity tolerance/overall endurance. -impaired trunk control/dynamic unsupported abd core strength. -impaired ROM/strength in BLES quan LLE. -impaired safety strategies---which impact on functional performance self care, transfers/mobility. Pt needs constant reassurance/encouragement to push self for pre-transfer activities such as w/c push ups, pulling up from toilet grab bar. Pt will continue skilled OT to address functional impairments to maximze function in self care, transfers/mobilty adhering to THR precautions , cardiac precautions, + caregiver ed, w/c and bed positioning(skin care/ protection). Pt less anxious today and thus able to complete functional transfers/bed mobility and adls with less time and increased I/safety with verbal/tactile cues. Pt needs frequent rest breaks due to impaired endurance-- as pt has multiple co-morbidities and is medically complex.. Pt will continue to benefit from psychology/psychiatry interventions for mood, anxiety so can progress in therapies. Pt will benefit from hip kit for adherance of THR precautions for lower body adls, functional transfers and mobility. *Goal: 24 hour care--Supervsion and verbal cues overall for adls, transfers/mobility with adaptive device adhering to hip/cardiac precautions w/c level. Recreational Therapy - Participation Participation: Participates in Individual and/or Group Sessions, Monitors His/ Her Own Leisure Time - Attendance Attendance: 3-5 times per week - Activities Leisure Activities: Cards and Games - Socialization Level of Socialization: Initiates/interacts freely with care givers and peer - Diversional Time Diversional Time: television, movies, cards, games - Assessment Assessment/Plan: Pt is 36 year old male with dx: L hip fx. *Precautions: LLE WBAT, THR precautions, L fistula, ESRD, AICD, cardiac precautions, HD M-W-F. Pt limited by the following: - L knee pain pain and R hip pain. -impaired BUE strength/ROM. -impaired activity tolerance/overall endurance. -impaired trunk control/dynamic unsupported abd core strength. -impaired ROM/strength in BLES quan LLE. -impaired safety strategies---which impact on functional performance self care, transfers/mobility. Pt needs constant reassurance/encouragement to push self for pre-transfer activities such as w/c push ups, pulling up from toilet grab bar. Pt will continue skilled OT to address functional impairments to maximze function in self care, transfers/mobilty adhering to THR precautions , cardiac precautions, + caregiver ed, w/c and bed positioning(skin care/ protection). Pt less anxious today and thus able to complete functional transfers/bed mobility and adls with less time and increased I/safety with verbal/tactile cues. Pt needs frequent rest breaks due to impaired endurance-- as pt has multiple co-morbidities and is medically complex.. Pt will continue to benefit from psychology/psychiatry interventions for mood, anxiety so can progress in therapies. Pt will benefit from hip kit for adherance of THR precautions for lower body adls, functional transfers and mobility. *Goal: 24 hour care--Supervsion and verbal cues overall for adls, transfers/mobility with adaptive device adhering to hip/cardiac precautions w/c level. - Provider Therapist: Ambika Elias, [employer]PERVISOR #[id number] Nutrition - Current Diet Current Diet/ Supplement/ Feedings: Renal dialysis 2 gram Na 2 gram K+ 1000 ml fluid restriction 120 gram protein restriction diet prostat sugar free 30 ml 1 per day - Appetite Percent Meal Consumed: 75-100% - Comments Comments: Safety, Wound care and pain management - Assessment/Goals/Time Frame Assessment/Goals/Time Frame: pain management. Wound care - Provider Provider: Kinjal Crain RD Case Management - Psychosocial Assessment Support Systems: Lives with veronica Monge [phone]. Will stay with mother at time of discharge Psychological Interventions/Needs: Pt is alert and oriented x3, anxious but cooperative - being followed by psychiatry and psychology - provided emotional support. Pt able to verbalize concerns and discuss strategies to address them Discharge Concerns: Pt requires encouragement and would benefit from continued emotional/psychological support following discharge Patient/Family Meeting: CM met with pt and rehab team Intervention/Goal/Outcome:: 1. 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 GOAL: supervision at [facility] level 3. DME to be determined (has [facility] and hospital bed as well as crutches and RW) 3. Caregiver training/education 4. Continued emotional support 5. Will reinstate outpt H/D MWF at [facility] - Discharge Plan Discharge Plan: Home with significant other/family, Home with services Home Services: Refer to [facility] - Provider Provider: CHANTALE León, [employer]OYEE [employer] RN License Number: [id number] Rehabilitation Plan - Treatment Plan Treatment Plan: Physical Therapy, Occupational Therapy, Dietary, Patient/Family Education - Discharge Plan Estimated Date of Discharge: 10/12/17 Discharge to: Home
[2017-10-07] MEDS: oxyCODONE 5 mg Immediate Release Tab PO PRN (18:39)
--- NOTE | 2017-10-07 19:19 | CP.PCM.PN ---
Subjective - Date & Time of Evaluation Date of Evaluation: 10/07/17 Time of Evaluation: 19:18 - Subjective Subjective: Patient seen in the room, doing ok denies pain discussed increasing the speed of his ADLs and to set time goals he was agreeable continue current care with expected d/c 10/12/17 Objective - Vital Signs/Intake and Output Vital Signs (last 24 hours): Temp Pulse Resp BP Pulse Ox 98.1 F 79 20 134/80 97 10/07/17 09:00 10/07/17 09:00 10/07/17 09:00 10/07/17 09:00 10/07/17 08:33 - Medications Medications: Current Medications Albuterol/Ipratropium (Duoneb 3 Mg/0.5 Mg (3 Ml) Ud) 3 ml IH Q6 PRN PRN Reason: Shortness of Breath Amlodipine Besylate (Norvasc) 5 mg PO DAILY [facility] Last Admin: 10/07/17 08:57 Dose: Not Given Apixaban (Eliquis) 2.5 mg PO BID [facility] PRN Reason: Protocol Last Admin: 10/07/17 17:17 Dose: 2.5 mg Aspirin (Aspirin Chewable) 81 mg PO DAILY [facility] Last Admin: 10/07/17 08:56 Dose: 81 mg Atorvastatin Calcium (Lipitor) 20 mg PO HS [facility] Last Admin: 10/07/17 01:31 Dose: 20 mg Carvedilol (Coreg) 25 mg PO Q12 [facility] Last Admin: 10/07/17 08:58 Dose: 25 mg Cinacalcet (Sensipar) 120 mg PO DAILY [facility] Last Admin: 10/07/17 08:56 Dose: 120 mg Dimethicone (Proshield Plus Skin Protectant) 1 applic TOP Q8 [facility] Last Admin: 10/07/17 17:16 Dose: 1 applic Diphenhydramine HCl (Benadryl) 25 mg PO Q6 PRN PRN Reason: Itching / Pruritus Last Admin: 09/28/17 01:40 Dose: 25 mg Docusate Sodium (Colace) 100 mg PO BID [facility] Last Admin: 10/07/17 17:19 Dose: Not Given Epoetin René (Procrit) 10,000 unit IV MWF@1700 [facility] Last Admin: 10/06/17 21:23 Dose: 10,000 unit Ferrous Sulfate (Feosol) 325 mg PO BID [facility] Last Admin: 10/07/17 17:17 Dose: 325 mg Guaifenesin (Robitussin) 200 mg PO Q6 PRN PRN Reason: Cough and congestion Home Med (Patient's Own Medication) 1 unit PO TID@0800,1200,1700 [facility] Last Admin: 10/07/17 17:16 Dose: 1 unit Isosorbide Mononitrate (Imdur) 60 mg PO DAILY [facility] Last Admin: 10/07/17 08:56 Dose: 60 mg Lorazepam (Ativan) 0.5 mg PO Q12 PRN PRN Reason: Anxiety Last Admin: 09/29/17 10:09 Dose: 0.5 mg Oxycodone HCl (Oxycontin Extended Release Tab) 20 mg PO Q12 [facility] Last Admin: 10/07/17 08:53 Dose: 20 mg Oxycodone HCl (Oxycodone Immediate Release Tab) 5 mg PO Q4 PRN PRN Reason: Pain, Mild (1-3) Last Admin: 10/07/17 18:39 Dose: 5 mg Oxycodone HCl (Oxycodone Immediate Release Tab) 10 mg PO Q4 PRN PRN Reason: Pain 4-10 Sertraline HCl (Zoloft) 25 mg PO DAILY [facility] Last Admin: 10/07/17 08:56 Dose: 25 mg Vitamin B Complex/Vit C/Folic Acid (Nephro-Krissy) 1 tab PO DAILY [facility] Last Admin: 10/07/17 08:56 Dose: 1 tab - Labs Labs: 10/06/17 07:54 09/25/17 06:25
--- NOTE | 2017-10-07 20:05 | CP.PCM.PN ---
Subjective - Date & Time of Evaluation Date of Evaluation: 10/07/17 Time of Evaluation: 22:22 - Subjective Subjective: Physiatry note appreciated Objective - Vital Signs/Intake and Output Vital Signs (last 24 hours): Temp Pulse Resp BP Pulse Ox 98.0 F 78 20 129/77 98 10/07/17 20:02 10/07/17 20:02 10/07/17 20:02 10/07/17 20:02 10/07/17 20:02 - Medications Medications: Current Medications Albuterol/Ipratropium (Duoneb 3 Mg/0.5 Mg (3 Ml) Ud) 3 ml IH Q6 PRN PRN Reason: Shortness of Breath Amlodipine Besylate (Norvasc) 5 mg PO DAILY [facility] Last Admin: 10/07/17 08:57 Dose: Not Given Apixaban (Eliquis) 2.5 mg PO BID [facility] PRN Reason: Protocol Last Admin: 10/07/17 17:17 Dose: 2.5 mg Aspirin (Aspirin Chewable) 81 mg PO DAILY [facility] Last Admin: 10/07/17 08:56 Dose: 81 mg Atorvastatin Calcium (Lipitor) 20 mg PO HS [facility] Last Admin: 10/07/17 01:31 Dose: 20 mg Carvedilol (Coreg) 25 mg PO Q12 [facility] Last Admin: 10/07/17 08:58 Dose: 25 mg Cinacalcet (Sensipar) 120 mg PO DAILY [facility] Last Admin: 10/07/17 08:56 Dose: 120 mg Dimethicone (Proshield Plus Skin Protectant) 1 applic TOP Q8 [facility] Last Admin: 10/07/17 17:16 Dose: 1 applic Diphenhydramine HCl (Benadryl) 25 mg PO Q6 PRN PRN Reason: Itching / Pruritus Last Admin: 09/28/17 01:40 Dose: 25 mg Docusate Sodium (Colace) 100 mg PO BID [facility] Last Admin: 10/07/17 17:19 Dose: Not Given Epoetin René (Procrit) 10,000 unit IV MWF@1700 [facility] Last Admin: 10/06/17 21:23 Dose: 10,000 unit Ferrous Sulfate (Feosol) 325 mg PO BID [facility] Last Admin: 10/07/17 17:17 Dose: 325 mg Guaifenesin (Robitussin) 200 mg PO Q6 PRN PRN Reason: Cough and congestion Home Med (Patient's Own Medication) 1 unit PO TID@0800,1200,1700 [facility] Last Admin: 10/07/17 17:16 Dose: 1 unit Isosorbide Mononitrate (Imdur) 60 mg PO DAILY [facility] Last Admin: 10/07/17 08:56 Dose: 60 mg Lorazepam (Ativan) 0.5 mg PO Q12 PRN PRN Reason: Anxiety Last Admin: 09/29/17 10:09 Dose: 0.5 mg Oxycodone HCl (Oxycontin Extended Release Tab) 20 mg PO Q12 [facility] Last Admin: 10/07/17 08:53 Dose: 20 mg Oxycodone HCl (Oxycodone Immediate Release Tab) 5 mg PO Q4 PRN PRN Reason: Pain, Mild (1-3) Last Admin: 10/07/17 18:39 Dose: 5 mg Oxycodone HCl (Oxycodone Immediate Release Tab) 10 mg PO Q4 PRN PRN Reason: Pain 4-10 Sertraline HCl (Zoloft) 25 mg PO DAILY [facility] Last Admin: 10/07/17 08:56 Dose: 25 mg Vitamin B Complex/Vit C/Folic Acid (Nephro-Krissy) 1 tab PO DAILY [facility] Last Admin: 10/07/17 08:56 Dose: 1 tab - Labs Labs: 10/06/17 07:54 09/25/17 06:25 - Respiratory Exam Respiratory Exam: NORMAL BREATHING PATTERN - Cardiovascular Exam Cardiovascular Exam: REGULAR RHYTHM - GI/Abdominal Exam GI & Abdominal Exam: Normal Bowel Sounds Assessment and Plan - Assessment and Plan (Free Text) Assessment: S/P L hip fx THR Acute rehab Physiatry ESRD CKD HTN Dialysis Nephrology Dysthymia Adjustment disorder Ativan SSRI Psychology S/P bilateral Knee surgery/ Patellar tendon repair Hx + blood cs Staph Cardiomyopathy Defibrillator Cardiology
[2017-10-08] MEDS: Proshield Plus GEL TOP SCH ×3 (06:50→21:47)
[2017-10-08] MEDS: oxyCODONE 20 mg ER Tab (oxyCONTIN) PO SCH ×2 (08:39→21:48)
[2017-10-08] MEDS: Multivitamin Vitamin B Complex (Nephro-Vite) Tab PO SCH (08:41)
[2017-10-08] MEDS: AURYXIA 210 MG PO SCH ×3 (08:46→21:45)
[2017-10-08] MEDS: oxyCODONE 5 mg Immediate Release Tab PO PRN (08:49)
--- NOTE | 2017-10-08 11:26 | CP.PCM.PN ---
Subjective - Date & Time of Evaluation Date of Evaluation: 10/08/12 Time of Evaluation: 09:00 - Subjective Subjective: NO CHEST PAIN OR SOB Objective - Vital Signs/Intake and Output Vital Signs (last 24 hours): Temp Pulse Resp BP Pulse Ox 97.9 F 79 21 133/82 99 10/08/17 08:42 10/08/17 08:47 10/08/17 08:42 10/08/17 08:47 10/08/17 08:42 - Medications Medications: Current Medications Albuterol/Ipratropium (Duoneb 3 Mg/0.5 Mg (3 Ml) Ud) 3 ml IH Q6 PRN PRN Reason: Shortness of Breath Amlodipine Besylate (Norvasc) 5 mg PO DAILY [facility] Last Admin: 10/08/17 08:47 Dose: Not Given Apixaban (Eliquis) 2.5 mg PO BID [facility] PRN Reason: Protocol Last Admin: 10/08/17 08:40 Dose: 2.5 mg Aspirin (Aspirin Chewable) 81 mg PO DAILY [facility] Last Admin: 10/08/17 08:46 Dose: 81 mg Atorvastatin Calcium (Lipitor) 20 mg PO HS [facility] Last Admin: 10/07/17 21:22 Dose: 20 mg Carvedilol (Coreg) 25 mg PO Q12 [facility] Last Admin: 10/08/17 08:40 Dose: 25 mg Cinacalcet (Sensipar) 120 mg PO DAILY [facility] Last Admin: 10/08/17 08:46 Dose: 120 mg Dimethicone (Proshield Plus Skin Protectant) 1 applic TOP Q8 [facility] Last Admin: 10/08/17 06:50 Dose: 1 applic Diphenhydramine HCl (Benadryl) 25 mg PO Q6 PRN PRN Reason: Itching / Pruritus Last Admin: 09/28/17 01:40 Dose: 25 mg Docusate Sodium (Colace) 100 mg PO BID [facility] Last Admin: 10/08/17 08:47 Dose: Not Given Epoetin René (Procrit) 10,000 unit IV MWF@1700 [facility] Last Admin: 10/06/17 21:23 Dose: 10,000 unit Ferrous Sulfate (Feosol) 325 mg PO BID [facility] Last Admin: 10/08/17 08:40 Dose: 325 mg Guaifenesin (Robitussin) 200 mg PO Q6 PRN PRN Reason: Cough and congestion Home Med (Patient's Own Medication) 1 unit PO TID@0800,1200,1700 [facility] Last Admin: 10/08/17 08:46 Dose: 1 unit Isosorbide Mononitrate (Imdur) 60 mg PO DAILY [facility] Last Admin: 10/08/17 08:40 Dose: 60 mg Lorazepam (Ativan) 0.5 mg PO Q12 PRN PRN Reason: Anxiety Last Admin: 09/29/17 10:09 Dose: 0.5 mg Oxycodone HCl (Oxycontin Extended Release Tab) 20 mg PO Q12 [facility] Last Admin: 10/08/17 08:39 Dose: 20 mg Oxycodone HCl (Oxycodone Immediate Release Tab) 5 mg PO Q4 PRN PRN Reason: Pain, Mild (1-3) Last Admin: 10/08/17 08:49 Dose: 5 mg Oxycodone HCl (Oxycodone Immediate Release Tab) 10 mg PO Q4 PRN PRN Reason: Pain 4-10 Sertraline HCl (Zoloft) 25 mg PO DAILY [facility] Last Admin: 10/08/17 08:46 Dose: 25 mg Vitamin B Complex/Vit C/Folic Acid (Nephro-Krissy) 1 tab PO DAILY [facility] Last Admin: 10/08/17 08:41 Dose: 1 tab - Labs Labs: 10/06/17 07:54 09/25/17 06:25 - Respiratory Exam Respiratory Exam: Clear to Ausculation Bilateral - Cardiovascular Exam Cardiovascular Exam: REGULAR RHYTHM, +S1, +S2 Assessment and Plan - Assessment and Plan (Free Text) Assessment: S/P LEFT HIP FRACTURE AND THR CARDIOMYOPATHY CRF ON HD Plan: CONTINUE ASPIRIN, ELIQUIS, CARVEDILOL, AMLODIPINE, IMDUR AND ATORVASTATIN CONTINUE REHAB
--- NOTE | 2017-10-08 14:16 | CP.PCM.PN ---
Subjective - Date & Time of Evaluation Date of Evaluation: 10/08/17 Time of Evaluation: 14:15 - Subjective Subjective: patient doing well his sitting in the chair. No nausea no vomiting. Appetite is good. vital sign noted to be stable Objective - Vital Signs/Intake and Output Vital Signs (last 24 hours): Temp Pulse Resp BP Pulse Ox 97.9 F 79 21 133/82 99 10/08/17 08:42 10/08/17 08:47 10/08/17 08:42 10/08/17 08:47 10/08/17 08:42 - Medications Medications: Current Medications Albuterol/Ipratropium (Duoneb 3 Mg/0.5 Mg (3 Ml) Ud) 3 ml IH Q6 PRN PRN Reason: Shortness of Breath Amlodipine Besylate (Norvasc) 5 mg PO DAILY [facility] Last Admin: 10/08/17 08:47 Dose: Not Given Apixaban (Eliquis) 2.5 mg PO BID [facility] PRN Reason: Protocol Last Admin: 10/08/17 08:40 Dose: 2.5 mg Aspirin (Aspirin Chewable) 81 mg PO DAILY [facility] Last Admin: 10/08/17 08:46 Dose: 81 mg Atorvastatin Calcium (Lipitor) 20 mg PO HS [facility] Last Admin: 10/07/17 21:22 Dose: 20 mg Carvedilol (Coreg) 25 mg PO Q12 [facility] Last Admin: 10/08/17 08:40 Dose: 25 mg Cinacalcet (Sensipar) 120 mg PO DAILY [facility] Last Admin: 10/08/17 08:46 Dose: 120 mg Dimethicone (Proshield Plus Skin Protectant) 1 applic TOP Q8 [facility] Last Admin: 10/08/17 13:41 Dose: Not Given Diphenhydramine HCl (Benadryl) 25 mg PO Q6 PRN PRN Reason: Itching / Pruritus Last Admin: 09/28/17 01:40 Dose: 25 mg Docusate Sodium (Colace) 100 mg PO BID [facility] Last Admin: 10/08/17 08:47 Dose: Not Given Epoetin René (Procrit) 10,000 unit IV MWF@1700 [facility] Last Admin: 10/06/17 21:23 Dose: 10,000 unit Ferrous Sulfate (Feosol) 325 mg PO BID [facility] Last Admin: 10/08/17 08:40 Dose: 325 mg Guaifenesin (Robitussin) 200 mg PO Q6 PRN PRN Reason: Cough and congestion Home Med (Patient's Own Medication) 1 unit PO TID@0800,1200,1700 [facility] Last Admin: 10/08/17 12:22 Dose: 1 unit Isosorbide Mononitrate (Imdur) 60 mg PO DAILY [facility] Last Admin: 10/08/17 08:40 Dose: 60 mg Lorazepam (Ativan) 0.5 mg PO Q12 PRN PRN Reason: Anxiety Last Admin: 09/29/17 10:09 Dose: 0.5 mg Oxycodone HCl (Oxycontin Extended Release Tab) 20 mg PO Q12 [facility] Last Admin: 10/08/17 08:39 Dose: 20 mg Oxycodone HCl (Oxycodone Immediate Release Tab) 5 mg PO Q4 PRN PRN Reason: Pain, Mild (1-3) Last Admin: 10/08/17 08:49 Dose: 5 mg Oxycodone HCl (Oxycodone Immediate Release Tab) 10 mg PO Q4 PRN PRN Reason: Pain 4-10 Sertraline HCl (Zoloft) 25 mg PO DAILY [facility] Last Admin: 10/08/17 08:46 Dose: 25 mg Vitamin B Complex/Vit C/Folic Acid (Nephro-Krissy) 1 tab PO DAILY [facility] Last Admin: 10/08/17 08:41 Dose: 1 tab - Labs Labs: 10/06/17 07:54 09/25/17 06:25 - Constitutional Appears: No Acute Distress - ENT Exam ENT Exam: Mucous Membranes Moist - Neck Exam Neck Exam: Lymphadenopathy - Respiratory Exam Respiratory Exam: Chest Wall Tenderness, NORMAL BREATHING PATTERN. absent: Stridor - Cardiovascular Exam Cardiovascular Exam: REGULAR RHYTHM. absent: Gallop, JVD, Rubs - GI/Abdominal Exam GI & Abdominal Exam: Soft, Normal Bowel Sounds - Extremities Exam Extremities Exam: Calf Tenderness - Neurological Exam Neurological Exam: Alert - Psychiatric Exam Psychiatric exam: Normal Affect - Skin Skin Exam: absent: Cyanosis Assessment and Plan (1) Chronic kidney disease with end stage renal failure on dialysis Assessment & Plan: s/p hip surgery Diabetic chronic Kidney Disease (E11.22) Hypertensive Chronic Kidney Disease (I12.0) End stage renal disease (N18.6) dependence on hemodialysis (Z99.2) (MWF) via AVF Anemia (D64.9), Hyperphosphatemia (E83.39), Secondary Hyperparathyroidism (E21.1 ), HTN (I12.0) patient scheduled to have his dialysis shortly Status: Acute (2) HTN (hypertension) Status: Chronic
[2017-10-08] MEDS: EPOETIN ALFA 10,000 UNIT/ML ML IV SCH (17:06)
--- NOTE | 2017-10-08 17:33 | CP.PCM.PN ---
Subjective - Date & Time of Evaluation Date of Evaluation: 10/08/17 Time of Evaluation: 22:22 - Subjective Subjective: Above notedf Objective - Vital Signs/Intake and Output Vital Signs (last 24 hours): Temp Pulse Resp BP Pulse Ox 97.9 F 79 21 133/82 99 10/08/17 08:42 10/08/17 08:47 10/08/17 08:42 10/08/17 08:47 10/08/17 08:42 - Medications Medications: Current Medications Albuterol/Ipratropium (Duoneb 3 Mg/0.5 Mg (3 Ml) Ud) 3 ml IH Q6 PRN PRN Reason: Shortness of Breath Amlodipine Besylate (Norvasc) 5 mg PO DAILY [facility] Last Admin: 10/08/17 08:47 Dose: Not Given Apixaban (Eliquis) 2.5 mg PO BID [facility] PRN Reason: Protocol Last Admin: 10/08/17 08:40 Dose: 2.5 mg Aspirin (Aspirin Chewable) 81 mg PO DAILY [facility] Last Admin: 10/08/17 08:46 Dose: 81 mg Atorvastatin Calcium (Lipitor) 20 mg PO HS [facility] Last Admin: 10/07/17 21:22 Dose: 20 mg Carvedilol (Coreg) 25 mg PO Q12 [facility] Last Admin: 10/08/17 08:40 Dose: 25 mg Cinacalcet (Sensipar) 120 mg PO DAILY [facility] Last Admin: 10/08/17 08:46 Dose: 120 mg Dimethicone (Proshield Plus Skin Protectant) 1 applic TOP Q8 [facility] Last Admin: 10/08/17 13:41 Dose: Not Given Diphenhydramine HCl (Benadryl) 25 mg PO Q6 PRN PRN Reason: Itching / Pruritus Last Admin: 09/28/17 01:40 Dose: 25 mg Docusate Sodium (Colace) 100 mg PO BID [facility] Last Admin: 10/08/17 17:13 Dose: Not Given Epoetin René (Procrit) 10,000 unit IV MWF@1700 [facility] Last Admin: 10/08/17 17:06 Dose: 10,000 unit Ferrous Sulfate (Feosol) 325 mg PO BID [facility] Last Admin: 10/08/17 08:40 Dose: 325 mg Guaifenesin (Robitussin) 200 mg PO Q6 PRN PRN Reason: Cough and congestion Home Med (Patient's Own Medication) 1 unit PO TID@0800,1200,1700 [facility] Last Admin: 10/08/17 12:22 Dose: 1 unit Isosorbide Mononitrate (Imdur) 60 mg PO DAILY [facility] Last Admin: 10/08/17 08:40 Dose: 60 mg Lorazepam (Ativan) 0.5 mg PO Q12 PRN PRN Reason: Anxiety Last Admin: 09/29/17 10:09 Dose: 0.5 mg Oxycodone HCl (Oxycontin Extended Release Tab) 20 mg PO Q12 [facility] Last Admin: 10/08/17 08:39 Dose: 20 mg Oxycodone HCl (Oxycodone Immediate Release Tab) 5 mg PO Q4 PRN PRN Reason: Pain, Mild (1-3) Last Admin: 10/08/17 08:49 Dose: 5 mg Oxycodone HCl (Oxycodone Immediate Release Tab) 10 mg PO Q4 PRN PRN Reason: Pain 4-10 Sertraline HCl (Zoloft) 25 mg PO DAILY [facility] Last Admin: 10/08/17 08:46 Dose: 25 mg Vitamin B Complex/Vit C/Folic Acid (Nephro-Krissy) 1 tab PO DAILY [facility] Last Admin: 10/08/17 08:41 Dose: 1 tab - Labs Labs: 10/06/17 07:54 09/25/17 06:25 - Respiratory Exam Respiratory Exam: NORMAL BREATHING PATTERN - Cardiovascular Exam Cardiovascular Exam: REGULAR RHYTHM - GI/Abdominal Exam GI & Abdominal Exam: Normal Bowel Sounds Assessment and Plan - Assessment and Plan (Free Text) Assessment: S/P L hip fx THR Acute rehab Physiatry ESRD CKD HTN Dialysis Nephrology Dysthymia Adjustment disorder Ativan SSRI Psychology S/P bilateral Knee surgery/ Patellar tendon repair Hx + blood cs Staph Cardiomyopathy Defibrillator Cardiology
[2017-10-08 20:49] LABS: HEPATITIS B CORE AB NEGATIVE (NEGATIVE)
[2017-10-08 21:16] LABS: HEPATITIS B SURFACE AG Negative (NEGATIVE)
[2017-10-09] MEDS: Proshield Plus GEL TOP SCH ×3 (06:37→22:07)
[2017-10-09] MEDS: AURYXIA 210 MG PO SCH ×3 (09:00→17:21)
[2017-10-09] MEDS: oxyCODONE 20 mg ER Tab (oxyCONTIN) PO SCH ×2 (09:03→22:10)
[2017-10-09] MEDS: Multivitamin Vitamin B Complex (Nephro-Vite) Tab PO SCH (09:05)
--- NOTE | 2017-10-09 10:47 | CP.PCM.PN ---
Subjective - Date & Time of Evaluation Date of Evaluation: 10/09/17 Time of Evaluation: 10:46 - Subjective Subjective: Patient conscious and alert Receiving physiotherapy Objective - Vital Signs/Intake and Output Vital Signs (last 24 hours): Temp Pulse Resp BP Pulse Ox 97.0 F L 84 22 124/77 97 10/09/17 08:24 10/09/17 09:06 10/09/17 08:24 10/09/17 09:06 10/09/17 08:24 - Medications Medications: Current Medications Albuterol/Ipratropium (Duoneb 3 Mg/0.5 Mg (3 Ml) Ud) 3 ml IH Q6 PRN PRN Reason: Shortness of Breath Amlodipine Besylate (Norvasc) 5 mg PO DAILY [facility] Last Admin: 10/09/17 09:06 Dose: 5 mg Apixaban (Eliquis) 2.5 mg PO BID [facility] PRN Reason: Protocol Last Admin: 10/09/17 09:05 Dose: 2.5 mg Aspirin (Aspirin Chewable) 81 mg PO DAILY [facility] Last Admin: 10/09/17 09:04 Dose: 81 mg Atorvastatin Calcium (Lipitor) 20 mg PO HS [facility] Last Admin: 10/08/17 21:45 Dose: 20 mg Carvedilol (Coreg) 25 mg PO Q12 [facility] Last Admin: 10/09/17 09:04 Dose: 25 mg Cinacalcet (Sensipar) 120 mg PO DAILY [facility] Last Admin: 10/09/17 09:06 Dose: 120 mg Dimethicone (Proshield Plus Skin Protectant) 1 applic TOP Q8 [facility] Last Admin: 10/09/17 06:37 Dose: 1 applic Diphenhydramine HCl (Benadryl) 25 mg PO Q6 PRN PRN Reason: Itching / Pruritus Last Admin: 09/28/17 01:40 Dose: 25 mg Docusate Sodium (Colace) 100 mg PO BID [facility] Last Admin: 10/09/17 09:04 Dose: Not Given Epoetin René (Procrit) 10,000 unit IV MWF@1700 [facility] Last Admin: 10/08/17 17:06 Dose: 10,000 unit Ferrous Sulfate (Feosol) 325 mg PO BID [facility] Last Admin: 10/09/17 09:03 Dose: 325 mg Guaifenesin (Robitussin) 200 mg PO Q6 PRN PRN Reason: Cough and congestion Home Med (Patient's Own Medication) 1 unit PO TID@0800,1200,1700 [facility] Last Admin: 10/09/17 09:00 Dose: Not Given Isosorbide Mononitrate (Imdur) 60 mg PO DAILY [facility] Last Admin: 10/09/17 09:05 Dose: 60 mg Lorazepam (Ativan) 0.5 mg PO Q12 PRN PRN Reason: Anxiety Last Admin: 09/29/17 10:09 Dose: 0.5 mg Oxycodone HCl (Oxycontin Extended Release Tab) 20 mg PO Q12 [facility] Last Admin: 10/09/17 09:03 Dose: 20 mg Oxycodone HCl (Oxycodone Immediate Release Tab) 5 mg PO Q4 PRN PRN Reason: Pain, Mild (1-3) Last Admin: 10/08/17 08:49 Dose: 5 mg Oxycodone HCl (Oxycodone Immediate Release Tab) 10 mg PO Q4 PRN PRN Reason: Pain 4-10 Sertraline HCl (Zoloft) 25 mg PO DAILY [facility] Last Admin: 10/09/17 09:05 Dose: 25 mg Vitamin B Complex/Vit C/Folic Acid (Nephro-Krissy) 1 tab PO DAILY [facility] Last Admin: 10/09/17 09:05 Dose: 1 tab - Labs Labs: 10/06/17 07:54 09/25/17 06:25 - Constitutional Appears: No Acute Distress - Eye Exam Eye Exam: Normal appearance - Respiratory Exam Respiratory Exam: NORMAL BREATHING PATTERN - Extremities Exam Extremities Exam: absent: Calf Tenderness - Back Exam Back Exam: absent: CVA tenderness (L) - Neurological Exam Neurological Exam: Alert - Skin Skin Exam: absent: Cyanosis Assessment and Plan (1) Chronic kidney disease with end stage renal failure on dialysis Assessment & Plan: s/p hip surgery Diabetic chronic Kidney Disease (E11.22) Hypertensive Chronic Kidney Disease (I12.0) End stage renal disease (N18.6) dependence on hemodialysis (Z99.2) (MWF) via AVF Anemia (D64.9), Hyperphosphatemia (E83.39), Secondary Hyperparathyroidism (E21.1 ), HTN (I12.0) Status: Acute (2) HTN (hypertension) Status: Chronic
--- NOTE | 2017-10-09 14:07 | CP.PCM.PN ---
Subjective - Date & Time of Evaluation Date of Evaluation: 10/09/17 Time of Evaluation: 14:05 - Subjective Subjective: Patient has really taken to heart my recommendations of using a timer to increase his function. he is very compliant now and has made very good gains relative to his ability. Because of this I will extend his discharge to . He is very thankful. He will be purchasing a short [employer] [address] [employer] board for transfers continue current care Objective - Vital Signs/Intake and Output Vital Signs (last 24 hours): Temp Pulse Resp BP Pulse Ox 97.0 F L 84 22 124/77 97 10/09/17 08:24 10/09/17 09:06 10/09/17 08:24 10/09/17 09:06 10/09/17 08:24 - Medications Medications: Current Medications Albuterol/Ipratropium (Duoneb 3 Mg/0.5 Mg (3 Ml) Ud) 3 ml IH Q6 PRN PRN Reason: Shortness of Breath Amlodipine Besylate (Norvasc) 5 mg PO DAILY [facility] Last Admin: 10/09/17 09:06 Dose: 5 mg Apixaban (Eliquis) 2.5 mg PO BID [facility] PRN Reason: Protocol Last Admin: 10/09/17 09:05 Dose: 2.5 mg Aspirin (Aspirin Chewable) 81 mg PO DAILY [facility] Last Admin: 10/09/17 09:04 Dose: 81 mg Atorvastatin Calcium (Lipitor) 20 mg PO HS [facility] Last Admin: 10/08/17 21:45 Dose: 20 mg Carvedilol (Coreg) 25 mg PO Q12 [facility] Last Admin: 10/09/17 09:04 Dose: 25 mg Cinacalcet (Sensipar) 120 mg PO DAILY [facility] Last Admin: 10/09/17 09:06 Dose: 120 mg Dimethicone (Proshield Plus Skin Protectant) 1 applic TOP Q8 [facility] Last Admin: 10/09/17 13:31 Dose: Not Given Diphenhydramine HCl (Benadryl) 25 mg PO Q6 PRN PRN Reason: Itching / Pruritus Last Admin: 09/28/17 01:40 Dose: 25 mg Docusate Sodium (Colace) 100 mg PO BID [facility] Last Admin: 10/09/17 09:04 Dose: Not Given Epoetin René (Procrit) 10,000 unit IV MWF@1700 [facility] Last Admin: 10/08/17 17:06 Dose: 10,000 unit Ferrous Sulfate (Feosol) 325 mg PO BID [facility] Last Admin: 10/09/17 09:03 Dose: 325 mg Guaifenesin (Robitussin) 200 mg PO Q6 PRN PRN Reason: Cough and congestion Home Med (Patient's Own Medication) 1 unit PO TID@0800,1200,1700 [facility] Last Admin: 10/09/17 12:23 Dose: Not Given Isosorbide Mononitrate (Imdur) 60 mg PO DAILY [facility] Last Admin: 10/09/17 09:05 Dose: 60 mg Lorazepam (Ativan) 0.5 mg PO Q12 PRN PRN Reason: Anxiety Last Admin: 09/29/17 10:09 Dose: 0.5 mg Oxycodone HCl (Oxycontin Extended Release Tab) 20 mg PO Q12 [facility] Last Admin: 10/09/17 09:03 Dose: 20 mg Oxycodone HCl (Oxycodone Immediate Release Tab) 5 mg PO Q4 PRN PRN Reason: Pain, Mild (1-3) Last Admin: 10/08/17 08:49 Dose: 5 mg Oxycodone HCl (Oxycodone Immediate Release Tab) 10 mg PO Q4 PRN PRN Reason: Pain 4-10 Sertraline HCl (Zoloft) 25 mg PO DAILY [facility] Last Admin: 10/09/17 09:05 Dose: 25 mg Vitamin B Complex/Vit C/Folic Acid (Nephro-Krissy) 1 tab PO DAILY [facility] Last Admin: 10/09/17 09:05 Dose: 1 tab - Labs Labs: 10/06/17 07:54 09/25/17 06:25
[2017-10-09] MEDS: oxyCODONE 5 mg Immediate Release Tab PO PRN (20:26)
--- NOTE | 2017-10-09 20:54 | CP.PCM.PN ---
Subjective - Date & Time of Evaluation Date of Evaluation: 10/09/17 Time of Evaluation: 22:22 - Subjective Subjective: Above noted Objective - Vital Signs/Intake and Output Vital Signs (last 24 hours): Temp Pulse Resp BP Pulse Ox 97.2 F L 87 20 116/73 98 10/09/17 20:00 10/09/17 20:00 10/09/17 20:00 10/09/17 20:00 10/09/17 20:00 - Medications Medications: Current Medications Albuterol/Ipratropium (Duoneb 3 Mg/0.5 Mg (3 Ml) Ud) 3 ml IH Q6 PRN PRN Reason: Shortness of Breath Amlodipine Besylate (Norvasc) 5 mg PO DAILY [facility] Last Admin: 10/09/17 09:06 Dose: 5 mg Apixaban (Eliquis) 2.5 mg PO BID [facility] PRN Reason: Protocol Last Admin: 10/09/17 17:26 Dose: 2.5 mg Aspirin (Aspirin Chewable) 81 mg PO DAILY [facility] Last Admin: 10/09/17 09:04 Dose: 81 mg Atorvastatin Calcium (Lipitor) 20 mg PO HS [facility] Last Admin: 10/08/17 21:45 Dose: 20 mg Carvedilol (Coreg) 25 mg PO Q12 [facility] Last Admin: 10/09/17 09:04 Dose: 25 mg Cinacalcet (Sensipar) 120 mg PO DAILY [facility] Last Admin: 10/09/17 09:06 Dose: 120 mg Dimethicone (Proshield Plus Skin Protectant) 1 applic TOP Q8 [facility] Last Admin: 10/09/17 13:31 Dose: Not Given Diphenhydramine HCl (Benadryl) 25 mg PO Q6 PRN PRN Reason: Itching / Pruritus Last Admin: 09/28/17 01:40 Dose: 25 mg Docusate Sodium (Colace) 100 mg PO BID [facility] Last Admin: 10/09/17 17:22 Dose: Not Given Epoetin René (Procrit) 10,000 unit IV MWF@1700 [facility] Last Admin: 10/08/17 17:06 Dose: 10,000 unit Ferrous Sulfate (Feosol) 325 mg PO BID [facility] Last Admin: 10/09/17 17:26 Dose: 325 mg Guaifenesin (Robitussin) 200 mg PO Q6 PRN PRN Reason: Cough and congestion Home Med (Patient's Own Medication) 1 unit PO TID@0800,1200,1700 [facility] Last Admin: 10/09/17 17:21 Dose: Not Given Isosorbide Mononitrate (Imdur) 60 mg PO DAILY [facility] Last Admin: 10/09/17 09:05 Dose: 60 mg Lorazepam (Ativan) 0.5 mg PO Q12 PRN PRN Reason: Anxiety Last Admin: 09/29/17 10:09 Dose: 0.5 mg Oxycodone HCl (Oxycontin Extended Release Tab) 20 mg PO Q12 [facility] Last Admin: 10/09/17 09:03 Dose: 20 mg Oxycodone HCl (Oxycodone Immediate Release Tab) 5 mg PO Q4 PRN PRN Reason: Pain, Mild (1-3) Last Admin: 10/09/17 20:26 Dose: 5 mg Oxycodone HCl (Oxycodone Immediate Release Tab) 10 mg PO Q4 PRN PRN Reason: Pain 4-10 Sertraline HCl (Zoloft) 25 mg PO DAILY [facility] Last Admin: 10/09/17 09:05 Dose: 25 mg Vitamin B Complex/Vit C/Folic Acid (Nephro-Krissy) 1 tab PO DAILY [facility] Last Admin: 10/09/17 09:05 Dose: 1 tab - Labs Labs: 10/06/17 07:54 09/25/17 06:25 - Respiratory Exam Respiratory Exam: NORMAL BREATHING PATTERN - Cardiovascular Exam Cardiovascular Exam: REGULAR RHYTHM - GI/Abdominal Exam GI & Abdominal Exam: Normal Bowel Sounds Assessment and Plan - Assessment and Plan (Free Text) Assessment: S/P L hip fx THR Acute rehab Physiatry ESRD CKD HTN Dialysis Nephrology Dysthymia Adjustment disorder Ativan SSRI Psychology S/P bilateral Knee surgery/ Patellar tendon repair Hx + blood cs Staph Cardiomyopathy Defibrillator Cardiology
[2017-10-10] MEDS: Proshield Plus GEL TOP SCH ×3 (06:24→21:37)
[2017-10-10] MEDS: AURYXIA 210 MG PO SCH ×3 (07:59→16:39)
[2017-10-10] MEDS: oxyCODONE 20 mg ER Tab (oxyCONTIN) PO SCH ×2 (08:23→23:19)
[2017-10-10] MEDS: Multivitamin Vitamin B Complex (Nephro-Vite) Tab PO SCH (08:29)
[2017-10-10 08:47] LABS: BASO # 0.1 K/uL (0.0-0.2); BASO % 1.1 % (0.0-2.0); EOS # 0.6 K/uL (0.0-0.7); EOS % 8.4 % (0.0-4.0); HEMOGLOBIN 9.1 g/dL (12.0-18.0); LYMPH # 0.9 K/uL (1.0-4.3); LYMPH % 12.2 % (20.0-40.0); MEAN CELL VOLUME 92.8 fl (80.0-94.0); MEAN CORPUSCULAR HEMOGLOBIN 30.4 pg (27.0-31.0); MEAN CORPUSCULAR HGB CONC 32.8 g/dL (33.0-37.0); MEAN PLATELET VOLUME 6.4 fl (7.2-11.7); MONO # 0.6 K/uL (0.0-0.8); MONO % 8.3 % (0.0-10.0); RBC 2.98 Mil/uL (4.40-5.90); RED CELL DISTRIBUTION WIDTH 16.5 % (11.5-14.5); WHITE BLOOD COUNT 7.1 K/uL (4.8-10.8)
--- NOTE | 2017-10-10 09:05 | CP.PCM.PN ---
Subjective - Date & Time of Evaluation Date of Evaluation: 10/10/17 Time of Evaluation: 09:03 - Subjective Subjective: Pt is feeling well and doing well with the PT. He is to have dialysis today and his hgb is 9.1 so he does not need a transfusion today. All the work up for multiple myeloma is negative, Objective - Vital Signs/Intake and Output Vital Signs (last 24 hours): Temp Pulse Resp BP Pulse Ox 98.1 F 79 19 126/78 99 10/10/17 07:56 10/10/17 08:31 10/10/17 07:56 10/10/17 08:31 10/10/17 07:56 - Medications Medications: Current Medications Albuterol/Ipratropium (Duoneb 3 Mg/0.5 Mg (3 Ml) Ud) 3 ml IH Q6 PRN PRN Reason: Shortness of Breath Amlodipine Besylate (Norvasc) 5 mg PO DAILY [facility] Last Admin: 10/10/17 08:31 Dose: 5 mg Apixaban (Eliquis) 2.5 mg PO BID [facility] PRN Reason: Protocol Last Admin: 10/10/17 08:29 Dose: 2.5 mg Aspirin (Aspirin Chewable) 81 mg PO DAILY [facility] Last Admin: 10/10/17 08:29 Dose: 81 mg Atorvastatin Calcium (Lipitor) 20 mg PO HS [facility] Last Admin: 10/09/17 22:06 Dose: 20 mg Carvedilol (Coreg) 25 mg PO Q12 [facility] Last Admin: 10/10/17 08:30 Dose: 25 mg Cinacalcet (Sensipar) 120 mg PO DAILY [facility] Last Admin: 10/10/17 08:29 Dose: 120 mg Dimethicone (Proshield Plus Skin Protectant) 1 applic TOP Q8 [facility] Last Admin: 10/10/17 06:24 Dose: 1 applic Diphenhydramine HCl (Benadryl) 25 mg PO Q6 PRN PRN Reason: Itching / Pruritus Last Admin: 09/28/17 01:40 Dose: 25 mg Docusate Sodium (Colace) 100 mg PO BID [facility] Last Admin: 10/10/17 08:30 Dose: Not Given Epoetin René (Procrit) 10,000 unit IV MWF@1700 [facility] Ferrous Sulfate (Feosol) 325 mg PO BID [facility] Last Admin: 10/10/17 08:30 Dose: 325 mg Guaifenesin (Robitussin) 200 mg PO Q6 PRN PRN Reason: Cough and congestion Home Med (Patient's Own Medication) 1 unit PO TID@0800,1200,1700 [facility] Last Admin: 10/10/17 07:59 Dose: Not Given Isosorbide Mononitrate (Imdur) 60 mg PO DAILY [facility] Last Admin: 10/10/17 08:31 Dose: 60 mg Lorazepam (Ativan) 0.5 mg PO Q12 PRN PRN Reason: Anxiety Last Admin: 09/29/17 10:09 Dose: 0.5 mg Oxycodone HCl (Oxycontin Extended Release Tab) 20 mg PO Q12 [facility] Last Admin: 10/10/17 08:23 Dose: 20 mg Oxycodone HCl (Oxycodone Immediate Release Tab) 5 mg PO Q4 PRN PRN Reason: Pain, Mild (1-3) Last Admin: 10/09/17 20:26 Dose: 5 mg Oxycodone HCl (Oxycodone Immediate Release Tab) 10 mg PO Q4 PRN PRN Reason: Pain 4-10 Sertraline HCl (Zoloft) 25 mg PO DAILY [facility] Last Admin: 10/10/17 08:30 Dose: 25 mg Vitamin B Complex/Vit C/Folic Acid (Nephro-Krissy) 1 tab PO DAILY [facility] Last Admin: 10/10/17 08:29 Dose: 1 tab - Labs Labs: 10/10/17 08:37 09/25/17 06:25
--- NOTE | 2017-10-10 10:36 | CP.PCM.PN ---
Subjective - Date & Time of Evaluation Date of Evaluation: 10/10/17 Time of Evaluation: 22:22 - Subjective Subjective: Above noted Objective - Vital Signs/Intake and Output Vital Signs (last 24 hours): Temp Pulse Resp BP Pulse Ox 98.1 F 79 19 126/78 99 10/10/17 07:56 10/10/17 08:31 10/10/17 07:56 10/10/17 08:31 10/10/17 07:56 - Medications Medications: Current Medications Albuterol/Ipratropium (Duoneb 3 Mg/0.5 Mg (3 Ml) Ud) 3 ml IH Q6 PRN PRN Reason: Shortness of Breath Amlodipine Besylate (Norvasc) 5 mg PO DAILY [facility] Last Admin: 10/10/17 08:31 Dose: 5 mg Apixaban (Eliquis) 2.5 mg PO BID [facility] PRN Reason: Protocol Last Admin: 10/10/17 08:29 Dose: 2.5 mg Aspirin (Aspirin Chewable) 81 mg PO DAILY [facility] Last Admin: 10/10/17 08:29 Dose: 81 mg Atorvastatin Calcium (Lipitor) 20 mg PO HS [facility] Last Admin: 10/09/17 22:06 Dose: 20 mg Carvedilol (Coreg) 25 mg PO Q12 [facility] Last Admin: 10/10/17 08:30 Dose: 25 mg Cinacalcet (Sensipar) 120 mg PO DAILY [facility] Last Admin: 10/10/17 08:29 Dose: 120 mg Dimethicone (Proshield Plus Skin Protectant) 1 applic TOP Q8 [facility] Last Admin: 10/10/17 06:24 Dose: 1 applic Diphenhydramine HCl (Benadryl) 25 mg PO Q6 PRN PRN Reason: Itching / Pruritus Last Admin: 09/28/17 01:40 Dose: 25 mg Docusate Sodium (Colace) 100 mg PO BID [facility] Last Admin: 10/10/17 08:30 Dose: Not Given Epoetin René (Procrit) 10,000 unit IV MWF@1700 [facility] Ferrous Sulfate (Feosol) 325 mg PO BID [facility] Last Admin: 10/10/17 08:30 Dose: 325 mg Guaifenesin (Robitussin) 200 mg PO Q6 PRN PRN Reason: Cough and congestion Home Med (Patient's Own Medication) 1 unit PO TID@0800,1200,1700 [facility] Last Admin: 10/10/17 07:59 Dose: Not Given Isosorbide Mononitrate (Imdur) 60 mg PO DAILY [facility] Last Admin: 10/10/17 08:31 Dose: 60 mg Lorazepam (Ativan) 0.5 mg PO Q12 PRN PRN Reason: Anxiety Last Admin: 09/29/17 10:09 Dose: 0.5 mg Oxycodone HCl (Oxycontin Extended Release Tab) 20 mg PO Q12 [facility] Last Admin: 10/10/17 08:23 Dose: 20 mg Oxycodone HCl (Oxycodone Immediate Release Tab) 5 mg PO Q4 PRN PRN Reason: Pain, Mild (1-3) Last Admin: 10/09/17 20:26 Dose: 5 mg Oxycodone HCl (Oxycodone Immediate Release Tab) 10 mg PO Q4 PRN PRN Reason: Pain 4-10 Sertraline HCl (Zoloft) 25 mg PO DAILY [facility] Last Admin: 10/10/17 08:30 Dose: 25 mg Vitamin B Complex/Vit C/Folic Acid (Nephro-Krissy) 1 tab PO DAILY [facility] Last Admin: 10/10/17 08:29 Dose: 1 tab - Labs Labs: 10/10/17 08:37 09/25/17 06:25 - Respiratory Exam Respiratory Exam: NORMAL BREATHING PATTERN - Cardiovascular Exam Cardiovascular Exam: REGULAR RHYTHM - GI/Abdominal Exam GI & Abdominal Exam: Normal Bowel Sounds Assessment and Plan - Assessment and Plan (Free Text) Assessment: S/P L hip fx THR Acute rehab Physiatry ESRD CKD HTN Dialysis Nephrology Dysthymia Adjustment disorder Ativan SSRI Psychology S/P bilateral Knee surgery/ Patellar tendon repair Hx + blood cs Staph Cardiomyopathy Defibrillator Cardiology
--- NOTE | 2017-10-10 10:41 | CP.PCM.PN ---
Subjective - Date & Time of Evaluation Date of Evaluation: 10/10/17 Time of Evaluation: 08:00 - Subjective Subjective: NO COMPLAINTS FEELS GOOD DOING WELL AT REHAB Objective - Vital Signs/Intake and Output Vital Signs (last 24 hours): Temp Pulse Resp BP Pulse Ox 98.1 F 79 19 126/78 99 10/10/17 07:56 10/10/17 08:31 10/10/17 07:56 10/10/17 08:31 10/10/17 07:56 - Medications Medications: Current Medications Albuterol/Ipratropium (Duoneb 3 Mg/0.5 Mg (3 Ml) Ud) 3 ml IH Q6 PRN PRN Reason: Shortness of Breath Amlodipine Besylate (Norvasc) 5 mg PO DAILY [facility] Last Admin: 10/10/17 08:31 Dose: 5 mg Apixaban (Eliquis) 2.5 mg PO BID [facility] PRN Reason: Protocol Last Admin: 10/10/17 08:29 Dose: 2.5 mg Aspirin (Aspirin Chewable) 81 mg PO DAILY [facility] Last Admin: 10/10/17 08:29 Dose: 81 mg Atorvastatin Calcium (Lipitor) 20 mg PO HS [facility] Last Admin: 10/09/17 22:06 Dose: 20 mg Carvedilol (Coreg) 25 mg PO Q12 [facility] Last Admin: 10/10/17 08:30 Dose: 25 mg Cinacalcet (Sensipar) 120 mg PO DAILY [facility] Last Admin: 10/10/17 08:29 Dose: 120 mg Dimethicone (Proshield Plus Skin Protectant) 1 applic TOP Q8 [facility] Last Admin: 10/10/17 06:24 Dose: 1 applic Diphenhydramine HCl (Benadryl) 25 mg PO Q6 PRN PRN Reason: Itching / Pruritus Last Admin: 09/28/17 01:40 Dose: 25 mg Docusate Sodium (Colace) 100 mg PO BID [facility] Last Admin: 10/10/17 08:30 Dose: Not Given Epoetin René (Procrit) 10,000 unit IV MWF@1700 [facility] Ferrous Sulfate (Feosol) 325 mg PO BID [facility] Last Admin: 10/10/17 08:30 Dose: 325 mg Guaifenesin (Robitussin) 200 mg PO Q6 PRN PRN Reason: Cough and congestion Home Med (Patient's Own Medication) 1 unit PO TID@0800,1200,1700 [facility] Last Admin: 10/10/17 07:59 Dose: Not Given Isosorbide Mononitrate (Imdur) 60 mg PO DAILY [facility] Last Admin: 10/10/17 08:31 Dose: 60 mg Lorazepam (Ativan) 0.5 mg PO Q12 PRN PRN Reason: Anxiety Last Admin: 09/29/17 10:09 Dose: 0.5 mg Oxycodone HCl (Oxycontin Extended Release Tab) 20 mg PO Q12 [facility] Last Admin: 10/10/17 08:23 Dose: 20 mg Oxycodone HCl (Oxycodone Immediate Release Tab) 5 mg PO Q4 PRN PRN Reason: Pain, Mild (1-3) Last Admin: 10/09/17 20:26 Dose: 5 mg Oxycodone HCl (Oxycodone Immediate Release Tab) 10 mg PO Q4 PRN PRN Reason: Pain 4-10 Sertraline HCl (Zoloft) 25 mg PO DAILY [facility] Last Admin: 10/10/17 08:30 Dose: 25 mg Vitamin B Complex/Vit C/Folic Acid (Nephro-Krissy) 1 tab PO DAILY [facility] Last Admin: 10/10/17 08:29 Dose: 1 tab - Labs Labs: 10/10/17 08:37 09/25/17 06:25 - Respiratory Exam Respiratory Exam: Clear to Ausculation Bilateral - Cardiovascular Exam Cardiovascular Exam: REGULAR RHYTHM, +S1, +S2 Assessment and Plan - Assessment and Plan (Free Text) Assessment: RECENT LEFT HIP SURGERY CARDIOMYOPATHY HYPERTENSION CRF ON HD Plan: CONTINUE ASPIRIN, CARVEDILOL, ISOSORBIDE, AMLODIPINE, ATORVASTATIN AND ELIQUIS
--- NOTE | 2017-10-10 10:55 | CP.PCM.CON ---
History of Present Illness - History of Present Illness History of Present Illness: Pt seen for supportive therapy 10-10:20. Pt discussed therapy gains, strength, and satisfaction. Mood positive, distress and anxiety have dimiished. Pt spoke of improved family relationships and dynamics. Pt adjusting incresingly well, cognitive strategies reviewed to reduce distress. Past Patient History - Past Medical History & Family History Past Medical History?: Yes - Past Social History Smoking Status: Never Smoked - CARDIAC Hx Cardiac Disorders: Yes (Cardiomypathy) Hx Hypertension: Yes - PULMONARY Hx Asthma: Yes (last attack jan 2013) - NEUROLOGICAL Hx Neurological Disorder: No - HEENT Hx HEENT Problems: No - RENAL Hx Renal Failure: Yes (ESRD, CKD) - ENDOCRINE/METABOLIC Hx Endocrine Disorders: Yes - HEMATOLOGICAL/ONCOLOGICAL Hx Blood Disorders: Yes Hx Blood Transfusions: Yes (2010) - INTEGUMENTARY Hx Dermatological Problems: No - MUSCULOSKELETAL/RHEUMATOLOGICAL Hx Falls: No - GASTROINTESTINAL Hx Gastrointestinal Disorders: No - GENITOURINARY/GYNECOLOGICAL Hx Genitourinary Disorders: Yes Other/Comment: dialysis pt.doesn't make urine - PSYCHIATRIC Hx Substance Use: No - SURGICAL HISTORY Hx Surgeries: Yes Hx Arteriovenous Shunt: Yes (left upper arm 2010) Hx Vascular Access Device: Yes (2010, removed 2 months later) - ANESTHESIA Hx Anesthesia: Yes Hx Anesthesia Reactions: No Hx Malignant Hyperthermia: No Meds Allergies/Adverse Reactions: Allergies Allergy/AdvReac Type Severity Reaction Status Date / Time No Known Allergies Allergy Verified 09/24/17 22:00 - Medications Medications: Current Medications Albuterol/Ipratropium (Duoneb 3 Mg/0.5 Mg (3 Ml) Ud) 3 ml IH Q6 PRN PRN Reason: Shortness of Breath Amlodipine Besylate (Norvasc) 5 mg PO DAILY [facility] Last Admin: 10/10/17 08:31 Dose: 5 mg Apixaban (Eliquis) 2.5 mg PO BID [facility] PRN Reason: Protocol Last Admin: 10/10/17 08:29 Dose: 2.5 mg Aspirin (Aspirin Chewable) 81 mg PO DAILY [facility] Last Admin: 10/10/17 08:29 Dose: 81 mg Atorvastatin Calcium (Lipitor) 20 mg PO HS [facility] Last Admin: 10/09/17 22:06 Dose: 20 mg Carvedilol (Coreg) 25 mg PO Q12 [facility] Last Admin: 10/10/17 08:30 Dose: 25 mg Cinacalcet (Sensipar) 120 mg PO DAILY [facility] Last Admin: 10/10/17 08:29 Dose: 120 mg Dimethicone (Proshield Plus Skin Protectant) 1 applic TOP Q8 [facility] Last Admin: 10/10/17 06:24 Dose: 1 applic Diphenhydramine HCl (Benadryl) 25 mg PO Q6 PRN PRN Reason: Itching / Pruritus Last Admin: 09/28/17 01:40 Dose: 25 mg Docusate Sodium (Colace) 100 mg PO BID [facility] Last Admin: 10/10/17 08:30 Dose: Not Given Epoetin René (Procrit) 10,000 unit IV MWF@1700 [facility] Ferrous Sulfate (Feosol) 325 mg PO BID [facility] Last Admin: 10/10/17 08:30 Dose: 325 mg Guaifenesin (Robitussin) 200 mg PO Q6 PRN PRN Reason: Cough and congestion Home Med (Patient's Own Medication) 1 unit PO TID@0800,1200,1700 [facility] Last Admin: 10/10/17 07:59 Dose: Not Given Isosorbide Mononitrate (Imdur) 60 mg PO DAILY [facility] Last Admin: 10/10/17 08:31 Dose: 60 mg Lorazepam (Ativan) 0.5 mg PO Q12 PRN PRN Reason: Anxiety Last Admin: 09/29/17 10:09 Dose: 0.5 mg Oxycodone HCl (Oxycontin Extended Release Tab) 20 mg PO Q12 [facility] Last Admin: 10/10/17 08:23 Dose: 20 mg Oxycodone HCl (Oxycodone Immediate Release Tab) 5 mg PO Q4 PRN PRN Reason: Pain, Mild (1-3) Last Admin: 10/09/17 20:26 Dose: 5 mg Oxycodone HCl (Oxycodone Immediate Release Tab) 10 mg PO Q4 PRN PRN Reason: Pain 4-10 Sertraline HCl (Zoloft) 25 mg PO DAILY [facility] Last Admin: 10/10/17 08:30 Dose: 25 mg Vitamin B Complex/Vit C/Folic Acid (Nephro-Krissy) 1 tab PO DAILY [facility] Last Admin: 10/10/17 08:29 Dose: 1 tab Results - Vital Signs Recent Vital Signs: Last Vital Signs Temp 98.1 F 10/10/17 07:56 Pulse 79 10/10/17 08:31 Resp 19 10/10/17 07:56 BP 126/78 10/10/17 08:31 Pulse Ox 99 10/10/17 07:56 - Labs Result Diagrams: 10/10/17 08:37 09/25/17 06:25 Labs: Laboratory Results - last 24 hr 10/10/17 08:37 WBC 7.1 RBC 2.98 L Hgb 9.1 L Hct 27.7 L MCV 92.8 MCH 30.4 MCHC 32.8 L RDW 16.5 H Plt Count 312 MPV 6.4 L Neut % (Auto) 70.0 Lymph % (Auto) 12.2 L Blount % (Auto) 8.3 Eos % (Auto) 8.4 H Baso % (Auto) 1.1 Neut # (Auto) 5.0 Lymph # (Auto) 0.9 L Blount # (Auto) 0.6 Eos # (Auto) 0.6 Baso # (Auto) 0.1
--- NOTE | 2017-10-10 12:22 | CP.PCM.PN ---
Subjective - Date & Time of Evaluation Date of Evaluation: 10/10/17 Time of Evaluation: 12:20 - Subjective Subjective: patient is doing better in the rehabilitation and receiving physiotherapy Objective - Vital Signs/Intake and Output Vital Signs (last 24 hours): Temp Pulse Resp BP Pulse Ox 98.1 F 79 19 126/78 99 10/10/17 07:56 10/10/17 08:31 10/10/17 07:56 10/10/17 08:31 10/10/17 07:56 - Medications Medications: Current Medications Albuterol/Ipratropium (Duoneb 3 Mg/0.5 Mg (3 Ml) Ud) 3 ml IH Q6 PRN PRN Reason: Shortness of Breath Amlodipine Besylate (Norvasc) 5 mg PO DAILY [facility] Last Admin: 10/10/17 08:31 Dose: 5 mg Apixaban (Eliquis) 2.5 mg PO BID [facility] PRN Reason: Protocol Last Admin: 10/10/17 08:29 Dose: 2.5 mg Aspirin (Aspirin Chewable) 81 mg PO DAILY [facility] Last Admin: 10/10/17 08:29 Dose: 81 mg Atorvastatin Calcium (Lipitor) 20 mg PO HS [facility] Last Admin: 10/09/17 22:06 Dose: 20 mg Carvedilol (Coreg) 25 mg PO Q12 [facility] Last Admin: 10/10/17 08:30 Dose: 25 mg Cinacalcet (Sensipar) 120 mg PO DAILY [facility] Last Admin: 10/10/17 08:29 Dose: 120 mg Dimethicone (Proshield Plus Skin Protectant) 1 applic TOP Q8 [facility] Last Admin: 10/10/17 06:24 Dose: 1 applic Diphenhydramine HCl (Benadryl) 25 mg PO Q6 PRN PRN Reason: Itching / Pruritus Last Admin: 09/28/17 01:40 Dose: 25 mg Docusate Sodium (Colace) 100 mg PO BID [facility] Last Admin: 10/10/17 08:30 Dose: Not Given Epoetin René (Procrit) 10,000 unit IV MWF@1700 [facility] Ferrous Sulfate (Feosol) 325 mg PO BID [facility] Last Admin: 10/10/17 08:30 Dose: 325 mg Guaifenesin (Robitussin) 200 mg PO Q6 PRN PRN Reason: Cough and congestion Home Med (Patient's Own Medication) 1 unit PO TID@0800,1200,1700 [facility] Last Admin: 10/10/17 07:59 Dose: Not Given Isosorbide Mononitrate (Imdur) 60 mg PO DAILY [facility] Last Admin: 10/10/17 08:31 Dose: 60 mg Lorazepam (Ativan) 0.5 mg PO Q12 PRN PRN Reason: Anxiety Last Admin: 09/29/17 10:09 Dose: 0.5 mg Oxycodone HCl (Oxycontin Extended Release Tab) 20 mg PO Q12 [facility] Last Admin: 10/10/17 08:23 Dose: 20 mg Oxycodone HCl (Oxycodone Immediate Release Tab) 5 mg PO Q4 PRN PRN Reason: Pain, Mild (1-3) Last Admin: 10/09/17 20:26 Dose: 5 mg Oxycodone HCl (Oxycodone Immediate Release Tab) 10 mg PO Q4 PRN PRN Reason: Pain 4-10 Sertraline HCl (Zoloft) 25 mg PO DAILY [facility] Last Admin: 10/10/17 08:30 Dose: 25 mg Vitamin B Complex/Vit C/Folic Acid (Nephro-Krissy) 1 tab PO DAILY [facility] Last Admin: 10/10/17 08:29 Dose: 1 tab - Labs Labs: 10/10/17 08:37 09/25/17 06:25 - Constitutional Appears: No Acute Distress - ENT Exam ENT Exam: Mucous Membranes Moist - Neck Exam Neck Exam: absent: Lymphadenopathy - Respiratory Exam Respiratory Exam: NORMAL BREATHING PATTERN. absent: Chest Wall Tenderness - Cardiovascular Exam Cardiovascular Exam: absent: Gallop, JVD, Rubs - GI/Abdominal Exam GI & Abdominal Exam: Soft, Normal Bowel Sounds - Extremities Exam Extremities Exam: absent: Calf Tenderness - Back Exam Back Exam: absent: CVA tenderness (L), CVA tenderness (R) - Neurological Exam Neurological Exam: Alert - Psychiatric Exam Psychiatric exam: Normal Affect - Skin Skin Exam: absent: Cyanosis Assessment and Plan (1) Chronic kidney disease with end stage renal failure on dialysis Assessment & Plan: s/p hip surgery Diabetic chronic Kidney Disease (E11.22) Hypertensive Chronic Kidney Disease (I12.0) End stage renal disease (N18.6) dependence on hemodialysis (Z99.2) (MWF) via [facility] Anemia (D64.9)she was receiving EPO , Hyperphosphatemia (E83.39), Secondary Hyperparathyroidism (E21.1),patient is receiving Sensipar HTN (I12.0) patient scheduled to have his dialysis shortly Status: Acute (2) HTN (hypertension) Status: Chronic
[2017-10-10] MEDS: Epoetin Alfa 20000 UNIT/ML Inj IV SCH (16:45)
[2017-10-11] MEDS: AURYXIA 210 MG PO SCH ×3 (08:00→17:25)
[2017-10-11] MEDS: Multivitamin Vitamin B Complex (Nephro-Vite) Tab PO SCH (08:12)
[2017-10-11] MEDS: oxyCODONE 20 mg ER Tab (oxyCONTIN) PO SCH ×2 (08:12→21:25)
[2017-10-11] MEDS: Proshield Plus GEL TOP SCH ×2 (08:14→21:26)
--- NOTE | 2017-10-11 08:25 | CP.PCM.PN ---
Subjective - Date & Time of Evaluation Date of Evaluation: 10/11/17 Time of Evaluation: 08:24 - Subjective Subjective: Patient seen in the room denies sob/cp getting ready for PT HD times have been more consistent continue current care Objective - Vital Signs/Intake and Output Vital Signs (last 24 hours): Temp Pulse Resp BP Pulse Ox 98.1 F 77 20 143/85 100 10/11/17 07:57 10/11/17 08:13 10/11/17 07:57 10/11/17 08:13 10/11/17 07:57 - Medications Medications: Current Medications Albuterol/Ipratropium (Duoneb 3 Mg/0.5 Mg (3 Ml) Ud) 3 ml IH Q6 PRN PRN Reason: Shortness of Breath Amlodipine Besylate (Norvasc) 5 mg PO DAILY [facility] Last Admin: 10/11/17 08:13 Dose: 5 mg Apixaban (Eliquis) 2.5 mg PO BID [facility] PRN Reason: Protocol Last Admin: 10/11/17 08:13 Dose: 2.5 mg Aspirin (Aspirin Chewable) 81 mg PO DAILY [facility] Last Admin: 10/11/17 08:13 Dose: 81 mg Atorvastatin Calcium (Lipitor) 20 mg PO HS [facility] Last Admin: 10/10/17 21:36 Dose: 20 mg Carvedilol (Coreg) 25 mg PO Q12 [facility] Last Admin: 10/11/17 08:12 Dose: 25 mg Cinacalcet (Sensipar) 120 mg PO DAILY [facility] Last Admin: 10/11/17 08:12 Dose: 120 mg Dimethicone (Proshield Plus Skin Protectant) 1 applic TOP Q12 [facility] Last Admin: 10/11/17 08:14 Dose: 1 applic Diphenhydramine HCl (Benadryl) 25 mg PO Q6 PRN PRN Reason: Itching / Pruritus Last Admin: 09/28/17 01:40 Dose: 25 mg Docusate Sodium (Colace) 100 mg PO BID [facility] Last Admin: 10/11/17 08:12 Dose: Not Given Epoetin René (Procrit) 10,000 unit IV MWF@1700 [facility] Last Admin: 10/10/17 16:45 Dose: 10,000 unit Ferrous Sulfate (Feosol) 325 mg PO BID [facility] Last Admin: 10/11/17 08:14 Dose: 325 mg Guaifenesin (Robitussin) 200 mg PO Q6 PRN PRN Reason: Cough and congestion Home Med (Patient's Own Medication) 1 unit PO TID@0800,1200,1700 [facility] Last Admin: 10/11/17 08:00 Dose: Not Given Isosorbide Mononitrate (Imdur) 60 mg PO DAILY [facility] Last Admin: 10/11/17 08:14 Dose: 60 mg Lorazepam (Ativan) 0.5 mg PO Q12 PRN PRN Reason: Anxiety Last Admin: 09/29/17 10:09 Dose: 0.5 mg Oxycodone HCl (Oxycontin Extended Release Tab) 20 mg PO Q12 [facility] Last Admin: 10/11/17 08:12 Dose: 20 mg Oxycodone HCl (Oxycodone Immediate Release Tab) 5 mg PO Q4 PRN PRN Reason: Pain, Mild (1-3) Last Admin: 10/09/17 20:26 Dose: 5 mg Oxycodone HCl (Oxycodone Immediate Release Tab) 10 mg PO Q4 PRN PRN Reason: Pain 4-10 Sertraline HCl (Zoloft) 25 mg PO DAILY [facility] Last Admin: 10/11/17 08:13 Dose: 25 mg Vitamin B Complex/Vit C/Folic Acid (Nephro-Krissy) 1 tab PO DAILY [facility] Last Admin: 10/11/17 08:12 Dose: 1 tab - Labs Labs: 10/10/17 08:37 09/25/17 06:25
[2017-10-12] MEDS: AURYXIA 210 MG PO SCH ×3 (08:32→16:51)
[2017-10-12] MEDS: oxyCODONE 20 mg ER Tab (oxyCONTIN) PO SCH ×2 (08:39→21:20)
[2017-10-12] MEDS: Multivitamin Vitamin B Complex (Nephro-Vite) Tab PO SCH (08:39)
[2017-10-12] MEDS: Proshield Plus GEL TOP SCH ×2 (08:40→21:27)
--- NOTE | 2017-10-12 10:16 | CP.PCM.PN ---
Subjective - Date & Time of Evaluation Date of Evaluation: 10/12/17 Time of Evaluation: 08:45 - Subjective Subjective: NO CHEST PAIN OR SOB STATES HE IS DOING WELL WITH REHAB Objective - Vital Signs/Intake and Output Vital Signs (last 24 hours): Temp Pulse Resp BP Pulse Ox 98.2 F 78 20 132/82 99 10/12/17 07:32 10/12/17 08:39 10/12/17 07:32 10/12/17 08:39 10/12/17 07:32 - Medications Medications: Current Medications Albuterol/Ipratropium (Duoneb 3 Mg/0.5 Mg (3 Ml) Ud) 3 ml IH Q6 PRN PRN Reason: Shortness of Breath Amlodipine Besylate (Norvasc) 5 mg PO DAILY [facility] Last Admin: 10/12/17 08:39 Dose: 5 mg Apixaban (Eliquis) 2.5 mg PO BID [facility] PRN Reason: Protocol Last Admin: 10/12/17 08:39 Dose: 2.5 mg Aspirin (Aspirin Chewable) 81 mg PO DAILY [facility] Last Admin: 10/12/17 08:39 Dose: 81 mg Atorvastatin Calcium (Lipitor) 20 mg PO HS [facility] Last Admin: 10/11/17 21:20 Dose: 20 mg Carvedilol (Coreg) 25 mg PO Q12 [facility] Last Admin: 10/12/17 08:39 Dose: 25 mg Cinacalcet (Sensipar) 120 mg PO DAILY [facility] Last Admin: 10/12/17 08:39 Dose: 120 mg Dimethicone (Proshield Plus Skin Protectant) 1 applic TOP Q12 [facility] Last Admin: 10/12/17 08:40 Dose: 1 applic Diphenhydramine HCl (Benadryl) 25 mg PO Q6 PRN PRN Reason: Itching / Pruritus Last Admin: 09/28/17 01:40 Dose: 25 mg Docusate Sodium (Colace) 100 mg PO BID [facility] Last Admin: 10/12/17 08:36 Dose: Not Given Epoetin René (Procrit) 10,000 unit IV MWF@1700 [facility] Last Admin: 10/10/17 16:45 Dose: 10,000 unit Ferrous Sulfate (Feosol) 325 mg PO BID [facility] Last Admin: 10/12/17 08:39 Dose: 325 mg Guaifenesin (Robitussin) 200 mg PO Q6 PRN PRN Reason: Cough and congestion Home Med (Patient's Own Medication) 1 unit PO TID@0800,1200,1700 [facility] Last Admin: 10/12/17 08:32 Dose: Not Given Isosorbide Mononitrate (Imdur) 60 mg PO DAILY [facility] Last Admin: 10/12/17 08:39 Dose: 60 mg Lorazepam (Ativan) 0.5 mg PO Q12 PRN PRN Reason: Anxiety Last Admin: 09/29/17 10:09 Dose: 0.5 mg Oxycodone HCl (Oxycontin Extended Release Tab) 20 mg PO Q12 [facility] Last Admin: 10/12/17 08:39 Dose: 20 mg Oxycodone HCl (Oxycodone Immediate Release Tab) 5 mg PO Q4 PRN PRN Reason: Pain, Mild (1-3) Last Admin: 10/09/17 20:26 Dose: 5 mg Oxycodone HCl (Oxycodone Immediate Release Tab) 10 mg PO Q4 PRN PRN Reason: Pain 4-10 Sertraline HCl (Zoloft) 25 mg PO DAILY [facility] Last Admin: 10/12/17 08:39 Dose: 25 mg Vitamin B Complex/Vit C/Folic Acid (Nephro-Krissy) 1 tab PO DAILY [facility] Last Admin: 10/12/17 08:39 Dose: 1 tab - Labs Labs: 10/10/17 08:37 09/25/17 06:25 - Respiratory Exam Respiratory Exam: Clear to Ausculation Bilateral - Cardiovascular Exam Cardiovascular Exam: REGULAR RHYTHM, +S1, +S2 Assessment and Plan - Assessment and Plan (Free Text) Assessment: LEFT HIP SURGERY CARDIOMYOPATHY HYPERTENSION CRF ON HD Plan: CONTINUE REHAB CONTINUE PRESENT TREATMENT
--- NOTE | 2017-10-13 00:34 | CP.PCM.PN ---
Subjective - Date & Time of Evaluation Date of Evaluation: 10/12/17 Time of Evaluation: 22:22 - Subjective Subjective: Above noted Objective - Vital Signs/Intake and Output Vital Signs (last 24 hours): Temp Pulse Resp BP Pulse Ox 98.1 F 76 20 120/70 97 10/12/17 21:30 10/12/17 21:30 10/12/17 21:30 10/12/17 21:30 10/12/17 21:30 - Medications Medications: Current Medications Albuterol/Ipratropium (Duoneb 3 Mg/0.5 Mg (3 Ml) Ud) 3 ml IH Q6 PRN PRN Reason: Shortness of Breath Amlodipine Besylate (Norvasc) 5 mg PO DAILY [facility] Last Admin: 10/12/17 08:39 Dose: 5 mg Apixaban (Eliquis) 2.5 mg PO BID [facility] PRN Reason: Protocol Last Admin: 10/12/17 16:52 Dose: 2.5 mg Aspirin (Aspirin Chewable) 81 mg PO DAILY [facility] Last Admin: 10/12/17 08:39 Dose: 81 mg Atorvastatin Calcium (Lipitor) 20 mg PO HS [facility] Last Admin: 10/12/17 21:15 Dose: 20 mg Carvedilol (Coreg) 25 mg PO Q12 [facility] Last Admin: 10/12/17 21:15 Dose: 25 mg Cinacalcet (Sensipar) 120 mg PO DAILY [facility] Last Admin: 10/12/17 08:39 Dose: 120 mg Dimethicone (Proshield Plus Skin Protectant) 1 applic TOP Q12 [facility] Last Admin: 10/12/17 21:27 Dose: 1 applic Diphenhydramine HCl (Benadryl) 25 mg PO Q6 PRN PRN Reason: Itching / Pruritus Last Admin: 09/28/17 01:40 Dose: 25 mg Docusate Sodium (Colace) 100 mg PO BID [facility] Last Admin: 10/12/17 16:50 Dose: Not Given Epoetin René (Procrit) 10,000 unit IV MWF@1700 [facility] Last Admin: 10/10/17 16:45 Dose: 10,000 unit Ferrous Sulfate (Feosol) 325 mg PO BID [facility] Last Admin: 10/12/17 16:52 Dose: 325 mg Guaifenesin (Robitussin) 200 mg PO Q6 PRN PRN Reason: Cough and congestion Home Med (Patient's Own Medication) 1 unit PO TID@0800,1200,1700 [facility] Last Admin: 10/12/17 16:51 Dose: Not Given Isosorbide Mononitrate (Imdur) 60 mg PO DAILY [facility] Last Admin: 10/12/17 08:39 Dose: 60 mg Lorazepam (Ativan) 0.5 mg PO Q12 PRN PRN Reason: Anxiety Last Admin: 09/29/17 10:09 Dose: 0.5 mg Oxycodone HCl (Oxycontin Extended Release Tab) 20 mg PO Q12 [facility] Last Admin: 10/12/17 21:20 Dose: 20 mg Oxycodone HCl (Oxycodone Immediate Release Tab) 5 mg PO Q4 PRN PRN Reason: Pain, Mild (1-3) Last Admin: 10/09/17 20:26 Dose: 5 mg Oxycodone HCl (Oxycodone Immediate Release Tab) 10 mg PO Q4 PRN PRN Reason: Pain 4-10 Sertraline HCl (Zoloft) 25 mg PO DAILY [facility] Last Admin: 10/12/17 08:39 Dose: 25 mg Vitamin B Complex/Vit C/Folic Acid (Nephro-Krissy) 1 tab PO DAILY [facility] Last Admin: 10/12/17 08:39 Dose: 1 tab - Labs Labs: 10/10/17 08:37 09/25/17 06:25 - Respiratory Exam Respiratory Exam: NORMAL BREATHING PATTERN - Cardiovascular Exam Cardiovascular Exam: REGULAR RHYTHM - GI/Abdominal Exam GI & Abdominal Exam: Normal Bowel Sounds Assessment and Plan - Assessment and Plan (Free Text) Assessment: S/P L hip fx THR Acute rehab Physiatry ESRD CKD HTN Dialysis Nephrology Dysthymia Adjustment disorder Ativan SSRI Psychology S/P bilateral Knee surgery/ Patellar tendon repair Hx + blood cs Staph Cardiomyopathy Defibrillator Cardiology
[2017-10-13] MEDS: oxyCODONE 20 mg ER Tab (oxyCONTIN) PO SCH (08:14)
[2017-10-13] MEDS: Multivitamin Vitamin B Complex (Nephro-Vite) Tab PO SCH (08:16)
[2017-10-13] MEDS: Proshield Plus GEL TOP SCH (08:19)
[2017-10-13] MEDS: AURYXIA 210 MG PO SCH ×2 (08:29→12:26)
--- NOTE | 2017-10-13 10:39 | CP.PCM.PN ---
Subjective - Date & Time of Evaluation Date of Evaluation: 10/13/17 Time of Evaluation: 10:38 - Subjective Subjective: patient awake and conscious receiving rehabilitation and physiotherapy. Objective - Vital Signs/Intake and Output Vital Signs (last 24 hours): Temp Pulse Resp BP Pulse Ox 98.4 F 79 20 145/88 98 10/13/17 07:51 10/13/17 08:17 10/13/17 07:51 10/13/17 08:17 10/13/17 07:51 - Medications Medications: Current Medications Albuterol/Ipratropium (Duoneb 3 Mg/0.5 Mg (3 Ml) Ud) 3 ml IH Q6 PRN PRN Reason: Shortness of Breath Amlodipine Besylate (Norvasc) 5 mg PO DAILY [facility] Last Admin: 10/13/17 08:17 Dose: 5 mg Apixaban (Eliquis) 2.5 mg PO BID [facility] PRN Reason: Protocol Last Admin: 10/13/17 08:20 Dose: 2.5 mg Aspirin (Aspirin Chewable) 81 mg PO DAILY [facility] Last Admin: 10/13/17 08:16 Dose: 81 mg Atorvastatin Calcium (Lipitor) 20 mg PO HS [facility] Last Admin: 10/12/17 21:15 Dose: 20 mg Carvedilol (Coreg) 25 mg PO Q12 [facility] Last Admin: 10/13/17 08:17 Dose: 25 mg Cinacalcet (Sensipar) 120 mg PO DAILY [facility] Last Admin: 10/13/17 08:19 Dose: 120 mg Dimethicone (Proshield Plus Skin Protectant) 1 applic TOP Q12 [facility] Last Admin: 10/13/17 08:19 Dose: 1 applic Diphenhydramine HCl (Benadryl) 25 mg PO Q6 PRN PRN Reason: Itching / Pruritus Last Admin: 09/28/17 01:40 Dose: 25 mg Docusate Sodium (Colace) 100 mg PO BID [facility] Last Admin: 10/13/17 08:28 Dose: Not Given Epoetin René (Procrit) 10,000 unit IV MWF@1700 [facility] Last Admin: 10/10/17 16:45 Dose: 10,000 unit Ferrous Sulfate (Feosol) 325 mg PO BID [facility] Last Admin: 10/13/17 08:19 Dose: 325 mg Guaifenesin (Robitussin) 200 mg PO Q6 PRN PRN Reason: Cough and congestion Home Med (Patient's Own Medication) 1 unit PO TID@0800,1200,1700 [facility] Last Admin: 10/13/17 08:29 Dose: Not Given Isosorbide Mononitrate (Imdur) 60 mg PO DAILY [facility] Last Admin: 10/12/17 08:39 Dose: 60 mg Lorazepam (Ativan) 0.5 mg PO Q12 PRN PRN Reason: Anxiety Last Admin: 09/29/17 10:09 Dose: 0.5 mg Oxycodone HCl (Oxycontin Extended Release Tab) 20 mg PO Q12 [facility] Last Admin: 10/13/17 08:14 Dose: 20 mg Oxycodone HCl (Oxycodone Immediate Release Tab) 5 mg PO Q4 PRN PRN Reason: Pain, Mild (1-3) Last Admin: 10/09/17 20:26 Dose: 5 mg Oxycodone HCl (Oxycodone Immediate Release Tab) 10 mg PO Q4 PRN PRN Reason: Pain 4-10 Sertraline HCl (Zoloft) 25 mg PO DAILY [facility] Last Admin: 10/13/17 08:20 Dose: 25 mg Vitamin B Complex/Vit C/Folic Acid (Nephro-Krissy) 1 tab PO DAILY [facility] Last Admin: 10/13/17 08:16 Dose: 1 tab - Labs Labs: 10/10/17 08:37 09/25/17 06:25 - Constitutional Appears: No Acute Distress - Eye Exam Eye Exam: Conjunctival injection - ENT Exam ENT Exam: Mucous Membranes Moist - Neck Exam Neck Exam: absent: Lymphadenopathy - Respiratory Exam Respiratory Exam: NORMAL BREATHING PATTERN - Cardiovascular Exam Cardiovascular Exam: absent: Gallop, JVD - GI/Abdominal Exam GI & Abdominal Exam: Soft - Extremities Exam Extremities Exam: absent: Calf Tenderness - Back Exam Back Exam: absent: CVA tenderness (L), CVA tenderness (R) - Neurological Exam Neurological Exam: Alert - Psychiatric Exam Psychiatric exam: Normal Affect - Skin Skin Exam: absent: Cyanosis Assessment and Plan (1) Chronic kidney disease with end stage renal failure on dialysis Assessment & Plan: Assessment & Plan: s/p hip surgery Diabetic chronic Kidney Disease (E11.22) Hypertensive Chronic Kidney Disease (I12.0) End stage renal disease (N18.6) dependence on hemodialysis (Z99.2) (MWF) via [facility] Anemia (D64.9)she was receiving EPO , Hyperphosphatemia (E83.39), Secondary Hyperparathyroidism (E21.1),patient is receiving Sensipar HTN (I12.0) patient scheduled to have his dialysis shortly Status: Acute (2) HTN (hypertension) Status: Chronic
--- NOTE | 2017-10-13 15:23 | CP.PCM.PN ---
Subjective - Date & Time of Evaluation Date of Evaluation: 10/13/17 Time of Evaluation: 22:22 - Subjective Subjective: Above nopteed Doing well Objective - Vital Signs/Intake and Output Vital Signs (last 24 hours): Temp Pulse Resp BP Pulse Ox 98.4 F 79 20 145/88 98 10/13/17 07:51 10/13/17 08:17 10/13/17 07:51 10/13/17 08:17 10/13/17 07:51 - Medications Medications: Current Medications Albuterol/Ipratropium (Duoneb 3 Mg/0.5 Mg (3 Ml) Ud) 3 ml IH Q6 PRN PRN Reason: Shortness of Breath Amlodipine Besylate (Norvasc) 5 mg PO DAILY [facility] Last Admin: 10/13/17 08:17 Dose: 5 mg Apixaban (Eliquis) 2.5 mg PO BID [facility] PRN Reason: Protocol Last Admin: 10/13/17 08:20 Dose: 2.5 mg Aspirin (Aspirin Chewable) 81 mg PO DAILY [facility] Last Admin: 10/13/17 08:16 Dose: 81 mg Atorvastatin Calcium (Lipitor) 20 mg PO HS [facility] Last Admin: 10/12/17 21:15 Dose: 20 mg Carvedilol (Coreg) 25 mg PO Q12 [facility] Last Admin: 10/13/17 08:17 Dose: 25 mg Cinacalcet (Sensipar) 120 mg PO DAILY [facility] Last Admin: 10/13/17 08:19 Dose: 120 mg Dimethicone (Proshield Plus Skin Protectant) 1 applic TOP Q12 [facility] Last Admin: 10/13/17 08:19 Dose: 1 applic Diphenhydramine HCl (Benadryl) 25 mg PO Q6 PRN PRN Reason: Itching / Pruritus Last Admin: 09/28/17 01:40 Dose: 25 mg Docusate Sodium (Colace) 100 mg PO BID [facility] Last Admin: 10/13/17 08:28 Dose: Not Given Epoetin René (Procrit) 10,000 unit IV MWF@1700 [facility] Last Admin: 10/10/17 16:45 Dose: 10,000 unit Ferrous Sulfate (Feosol) 325 mg PO BID [facility] Last Admin: 10/13/17 08:19 Dose: 325 mg Guaifenesin (Robitussin) 200 mg PO Q6 PRN PRN Reason: Cough and congestion Home Med (Patient's Own Medication) 1 unit PO TID@0800,1200,1700 [facility] Last Admin: 10/13/17 12:26 Dose: Not Given Isosorbide Mononitrate (Imdur) 60 mg PO DAILY [facility] Last Admin: 10/12/17 08:39 Dose: 60 mg Lorazepam (Ativan) 0.5 mg PO Q12 PRN PRN Reason: Anxiety Last Admin: 09/29/17 10:09 Dose: 0.5 mg Oxycodone HCl (Oxycontin Extended Release Tab) 20 mg PO Q12 [facility] Last Admin: 10/13/17 08:14 Dose: 20 mg Oxycodone HCl (Oxycodone Immediate Release Tab) 5 mg PO Q4 PRN PRN Reason: Pain, Mild (1-3) Last Admin: 10/09/17 20:26 Dose: 5 mg Oxycodone HCl (Oxycodone Immediate Release Tab) 10 mg PO Q4 PRN PRN Reason: Pain 4-10 Sertraline HCl (Zoloft) 25 mg PO DAILY [facility] Last Admin: 10/13/17 08:20 Dose: 25 mg Vitamin B Complex/Vit C/Folic Acid (Nephro-Krissy) 1 tab PO DAILY [facility] Last Admin: 10/13/17 08:16 Dose: 1 tab - Labs Labs: 10/10/17 08:37 09/25/17 06:25 - Respiratory Exam Respiratory Exam: NORMAL BREATHING PATTERN - Cardiovascular Exam Cardiovascular Exam: REGULAR RHYTHM - GI/Abdominal Exam GI & Abdominal Exam: Normal Bowel Sounds Assessment and Plan - Assessment and Plan (Free Text) Assessment: S/P L hip fx THR Acute rehab Physiatry ESRD CKD HTN Dialysis Nephrology Dysthymia Adjustment disorder Ativan SSRI Psychology S/P bilateral Knee surgery/ Patellar tendon repair Hx + blood cs Staph Cardiomyopathy Defibrillator Cardiology
--- NOTE | 2017-10-13 17:25 | CP.PCM.PN ---
Subjective - Date & Time of Evaluation Date of Evaluation: 10/13/17 Time of Evaluation: 17:24 - Subjective Subjective: Patient seen in the room he has not yet had HD had a better day in therapy and continues to make gains that will directly affect his independence and safety at home. denies cp/sob continue current care Objective - Vital Signs/Intake and Output Vital Signs (last 24 hours): Temp Pulse Resp BP Pulse Ox 98.4 F 79 20 145/88 98 10/13/17 07:51 10/13/17 08:17 10/13/17 07:51 10/13/17 08:17 10/13/17 07:51 - Medications Medications: Current Medications Albuterol/Ipratropium (Duoneb 3 Mg/0.5 Mg (3 Ml) Ud) 3 ml IH Q6 PRN PRN Reason: Shortness of Breath Amlodipine Besylate (Norvasc) 5 mg PO DAILY [facility] Last Admin: 10/13/17 08:17 Dose: 5 mg Apixaban (Eliquis) 2.5 mg PO BID [facility] PRN Reason: Protocol Last Admin: 10/13/17 08:20 Dose: 2.5 mg Aspirin (Aspirin Chewable) 81 mg PO DAILY [facility] Last Admin: 10/13/17 08:16 Dose: 81 mg Atorvastatin Calcium (Lipitor) 20 mg PO HS [facility] Last Admin: 10/12/17 21:15 Dose: 20 mg Carvedilol (Coreg) 25 mg PO Q12 [facility] Last Admin: 10/13/17 08:17 Dose: 25 mg Cinacalcet (Sensipar) 120 mg PO DAILY [facility] Last Admin: 10/13/17 08:19 Dose: 120 mg Dimethicone (Proshield Plus Skin Protectant) 1 applic TOP Q12 [facility] Last Admin: 10/13/17 08:19 Dose: 1 applic Diphenhydramine HCl (Benadryl) 25 mg PO Q6 PRN PRN Reason: Itching / Pruritus Last Admin: 09/28/17 01:40 Dose: 25 mg Docusate Sodium (Colace) 100 mg PO BID [facility] Last Admin: 10/13/17 08:28 Dose: Not Given Epoetin René (Procrit) 10,000 unit IV MWF@1700 [facility] Last Admin: 10/10/17 16:45 Dose: 10,000 unit Ferrous Sulfate (Feosol) 325 mg PO BID [facility] Last Admin: 10/13/17 08:19 Dose: 325 mg Guaifenesin (Robitussin) 200 mg PO Q6 PRN PRN Reason: Cough and congestion Home Med (Patient's Own Medication) 1 unit PO TID@0800,1200,1700 [facility] Last Admin: 10/13/17 12:26 Dose: Not Given Isosorbide Mononitrate (Imdur) 60 mg PO DAILY [facility] Last Admin: 10/12/17 08:39 Dose: 60 mg Lorazepam (Ativan) 0.5 mg PO Q12 PRN PRN Reason: Anxiety Last Admin: 09/29/17 10:09 Dose: 0.5 mg Oxycodone HCl (Oxycontin Extended Release Tab) 20 mg PO Q12 [facility] Last Admin: 10/13/17 08:14 Dose: 20 mg Oxycodone HCl (Oxycodone Immediate Release Tab) 5 mg PO Q4 PRN PRN Reason: Pain, Mild (1-3) Last Admin: 10/09/17 20:26 Dose: 5 mg Oxycodone HCl (Oxycodone Immediate Release Tab) 10 mg PO Q4 PRN PRN Reason: Pain 4-10 Sertraline HCl (Zoloft) 25 mg PO DAILY [facility] Last Admin: 10/13/17 08:20 Dose: 25 mg Vitamin B Complex/Vit C/Folic Acid (Nephro-Krissy) 1 tab PO DAILY [facility] Last Admin: 10/13/17 08:16 Dose: 1 tab - Labs Labs: 10/10/17 08:37 09/25/17 06:25
[2017-10-14] MEDS: AURYXIA 210 MG PO SCH ×4 (01:09→17:00)
[2017-10-14] MEDS: oxyCODONE 20 mg ER Tab (oxyCONTIN) PO SCH ×3 (01:52→21:56)
[2017-10-14] MEDS: Proshield Plus GEL TOP SCH ×3 (02:01→21:58)
[2017-10-14] MEDS: Epoetin Alfa 20000 UNIT/ML Inj IV SCH (02:03)
--- NOTE | 2017-10-14 08:02 | CP.PCM.PN ---
Subjective - Date & Time of Evaluation Date of Evaluation: 10/14/17 Time of Evaluation: 07:45 - Subjective Subjective: NO CHEST PAIN OR SOB Objective - Vital Signs/Intake and Output Vital Signs (last 24 hours): Temp Pulse Resp BP Pulse Ox 98.1 F 81 20 124/75 98 10/13/17 20:00 10/14/17 01:00 10/13/17 20:00 10/14/17 01:00 10/13/17 20:00 - Medications Medications: Current Medications Albuterol/Ipratropium (Duoneb 3 Mg/0.5 Mg (3 Ml) Ud) 3 ml IH Q6 PRN PRN Reason: Shortness of Breath Amlodipine Besylate (Norvasc) 5 mg PO DAILY [facility] Last Admin: 10/13/17 08:17 Dose: 5 mg Apixaban (Eliquis) 2.5 mg PO BID [facility] PRN Reason: Protocol Last Admin: 10/14/17 00:00 Dose: 2.5 mg Aspirin (Aspirin Chewable) 81 mg PO DAILY [facility] Last Admin: 10/13/17 08:16 Dose: 81 mg Atorvastatin Calcium (Lipitor) 20 mg PO HS [facility] Last Admin: 10/14/17 01:52 Dose: 20 mg Carvedilol (Coreg) 25 mg PO Q12 [facility] Last Admin: 10/14/17 01:00 Dose: Not Given Cinacalcet (Sensipar) 120 mg PO DAILY [facility] Last Admin: 10/13/17 08:19 Dose: 120 mg Dimethicone (Proshield Plus Skin Protectant) 1 applic TOP Q12 [facility] Last Admin: 10/14/17 02:01 Dose: 1 applic Diphenhydramine HCl (Benadryl) 25 mg PO Q6 PRN PRN Reason: Itching / Pruritus Last Admin: 09/28/17 01:40 Dose: 25 mg Docusate Sodium (Colace) 100 mg PO BID [facility] Last Admin: 10/13/17 22:00 Dose: Not Given Epoetin René (Procrit) 10,000 unit IV MWF@1700 [facility] Ferrous Sulfate (Feosol) 325 mg PO BID [facility] Last Admin: 10/13/17 17:58 Dose: 325 mg Guaifenesin (Robitussin) 200 mg PO Q6 PRN PRN Reason: Cough and congestion Home Med (Patient's Own Medication) 1 unit PO TID@0800,1200,1700 [facility] Last Admin: 10/14/17 01:09 Dose: Not Given Isosorbide Mononitrate (Imdur) 60 mg PO DAILY [facility] Last Admin: 10/14/17 01:08 Dose: Not Given Lorazepam (Ativan) 0.5 mg PO Q12 PRN PRN Reason: Anxiety Last Admin: 09/29/17 10:09 Dose: 0.5 mg Oxycodone HCl (Oxycontin Extended Release Tab) 20 mg PO Q12 [facility] Last Admin: 10/14/17 01:52 Dose: 20 mg Oxycodone HCl (Oxycodone Immediate Release Tab) 5 mg PO Q4 PRN PRN Reason: Pain, Mild (1-3) Last Admin: 10/09/17 20:26 Dose: 5 mg Oxycodone HCl (Oxycodone Immediate Release Tab) 10 mg PO Q4 PRN PRN Reason: Pain 4-10 Sertraline HCl (Zoloft) 25 mg PO DAILY [facility] Last Admin: 10/13/17 08:20 Dose: 25 mg Vitamin B Complex/Vit C/Folic Acid (Nephro-Krissy) 1 tab PO DAILY [facility] Last Admin: 10/13/17 08:16 Dose: 1 tab - Labs Labs: 10/10/17 08:37 09/25/17 06:25 - Respiratory Exam Respiratory Exam: Clear to Ausculation Bilateral - Cardiovascular Exam Cardiovascular Exam: REGULAR RHYTHM, +S1, +S2 - Additional Findings Additional findings: DR LIZ'S NOTE REVIEWED Assessment and Plan - Assessment and Plan (Free Text) Assessment: LEFT HIP SURGERY CARDIOMYOPATHY HYPERTENSION CRF ON HD Plan: CONTINUE CARVEDILOL, ASPIRIN, ELIQUIS, ATORVASTATIN, IMDUR, AMLODIPINE CONTINUE REHAB
[2017-10-14] MEDS: Multivitamin Vitamin B Complex (Nephro-Vite) Tab PO SCH (08:29)
--- NOTE | 2017-10-14 12:19 | CP.PCM.PN ---
Subjective - Date & Time of Evaluation Date of Evaluation: 10/14/17 Time of Evaluation: 12:18 - Subjective Subjective: patient is out of bed and comfortable vital signs stable Objective - Vital Signs/Intake and Output Vital Signs (last 24 hours): Temp Pulse Resp BP Pulse Ox 98.0 F 77 20 134/82 99 10/14/17 08:40 10/14/17 08:40 10/14/17 08:40 10/14/17 08:40 10/14/17 08:40 - Medications Medications: Current Medications Albuterol/Ipratropium (Duoneb 3 Mg/0.5 Mg (3 Ml) Ud) 3 ml IH Q6 PRN PRN Reason: Shortness of Breath Amlodipine Besylate (Norvasc) 5 mg PO DAILY [facility] Last Admin: 10/14/17 08:27 Dose: 5 mg Apixaban (Eliquis) 2.5 mg PO BID [facility] PRN Reason: Protocol Last Admin: 10/14/17 08:27 Dose: 2.5 mg Aspirin (Aspirin Chewable) 81 mg PO DAILY [facility] Last Admin: 10/14/17 08:28 Dose: 81 mg Atorvastatin Calcium (Lipitor) 20 mg PO HS [facility] Last Admin: 10/14/17 01:52 Dose: 20 mg Carvedilol (Coreg) 25 mg PO Q12 [facility] Last Admin: 10/14/17 08:28 Dose: 25 mg Cinacalcet (Sensipar) 120 mg PO DAILY [facility] Last Admin: 10/14/17 08:28 Dose: 120 mg Dimethicone (Proshield Plus Skin Protectant) 1 applic TOP Q12 [facility] Last Admin: 10/14/17 08:26 Dose: 1 applic Diphenhydramine HCl (Benadryl) 25 mg PO Q6 PRN PRN Reason: Itching / Pruritus Last Admin: 09/28/17 01:40 Dose: 25 mg Docusate Sodium (Colace) 100 mg PO BID [facility] Last Admin: 10/14/17 08:29 Dose: Not Given Epoetin René (Procrit) 10,000 unit IV MWF@1700 [facility] Ferrous Sulfate (Feosol) 325 mg PO BID [facility] Last Admin: 10/14/17 08:26 Dose: 325 mg Guaifenesin (Robitussin) 200 mg PO Q6 PRN PRN Reason: Cough and congestion Home Med (Patient's Own Medication) 1 unit PO TID@0800,1200,1700 [facility] Last Admin: 10/14/17 01:09 Dose: Not Given Isosorbide Mononitrate (Imdur) 60 mg PO DAILY [facility] Last Admin: 10/14/17 08:29 Dose: 60 mg Lorazepam (Ativan) 0.5 mg PO Q12 PRN PRN Reason: Anxiety Last Admin: 09/29/17 10:09 Dose: 0.5 mg Oxycodone HCl (Oxycontin Extended Release Tab) 20 mg PO Q12 [facility] Last Admin: 10/14/17 08:26 Dose: 20 mg Oxycodone HCl (Oxycodone Immediate Release Tab) 5 mg PO Q4 PRN PRN Reason: Pain, Mild (1-3) Last Admin: 10/09/17 20:26 Dose: 5 mg Oxycodone HCl (Oxycodone Immediate Release Tab) 10 mg PO Q4 PRN PRN Reason: Pain 4-10 Sertraline HCl (Zoloft) 25 mg PO DAILY [facility] Last Admin: 10/14/17 08:31 Dose: 25 mg Vitamin B Complex/Vit C/Folic Acid (Nephro-Krissy) 1 tab PO DAILY [facility] Last Admin: 10/14/17 08:29 Dose: 1 tab - Labs Labs: 10/10/17 08:37 09/25/17 06:25 - Constitutional Appears: No Acute Distress - Eye Exam Eye Exam: Normal appearance - Neck Exam Neck Exam: absent: Lymphadenopathy - GI/Abdominal Exam GI & Abdominal Exam: Soft, Normal Bowel Sounds - Extremities Exam Extremities Exam: absent: Calf Tenderness - Back Exam Back Exam: absent: CVA tenderness (L), CVA tenderness (R) - Neurological Exam Neurological Exam: Alert Assessment and Plan (1) Chronic kidney disease with end stage renal failure on dialysis Assessment & Plan: hypervolemia hyponatremia serum sodium is still in the range of 129 we will give additional doses of 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
--- NOTE | 2017-10-14 13:30 | PSY.TMCNF ---
Nursing - Vital Signs Vital Signs (Last 8 hours): Vital Signs 10/14/17 10/14/17 10/14/17 08:27 08:28 08:40 Temperature 98.0 F Pulse Rate 77 77 77 Respiratory 20 Rate Blood Pressure 134/82 134/82 134/82 O2 Sat by Pulse 99 Oximetry 10/14/17 13:16 Temperature 98.0 F Pulse Rate 77 Respiratory 20 Rate Blood Pressure 134/82 O2 Sat by Pulse Oximetry Pain: 0 - Precautions: Precautions: Fall Prevention, Hip Precautions - Medications/Other Issues Comment: wound care - Consults Comment: Dr. Arroyo, Dr. Elaine, Dr. Verde, Dr. Rice, Dr. Petrona Patterson, Dr. Walker - Skin Incision Site: left hip Dressing Status: Clean, Dry, Intact Incision: Healing Well, Sutures Intact, No Drainage Noted Incision Line Treatment: cleanse with ns pat to dry xeroform and abd.pads - Wound Buttock Wound Type: Moisture Associated Skin Damage Wound Shape: Irregular Wound Edges: Open Tunneling: No Undermining: No Wound Bed Greatest Portion: Pale [place]itt Wound Drainage Amount: Minimal Wound Drainage Description: Serosanguineous Wound Drainage Odor: None/Absent Wound General Appearance: Open to air, Clean/Dry Wound Dressing Status: Open to air Wound Packing Type: Not applicable Wound Primary Dressing Type: proshield tx. Wound Secondary Dressing Type: Open to air - Toileting Toileting: Dependent - Bladder Management Bladder Management: Independent - Bowel Management Bowel Pattern: Normal Bowel Management: Dependent - Transfers Transfers: Supervision - ADL's ADL's: Contact Guard - Pain Management Comments: Oxycontin ER and IR PRN as ordered. - Patient/Family Teaching Comments: Safety, Wound care and pain management - Goals/Time Frame Comments: Per multidisciplinary team. Physical Therapy - Bed Mobility Bed Mobility: Supervision - Transfers Wheelchair to Mat: Supervision, Contact Guard Sit to Stand: Maximum Assistance, Dependent Comment: slide board transfers with 27 1/2 inch beasy board transfer with supervision and incidental CG/set up assistance for - Ambulation Level of Assistance: Dependent Comment: n/a. propels WC on level surface with supervision/mod I with BUE x 150 feet - Stair Negotiation Stairs: Level of Assistance: Not Tested Comment: recommend carry-up and/or levator & ramp entrance - Standing Balance Static Stand: Maximal Assistance Dynamic Stand: Dependent - Pain Pain (assessed during therapy session): 3 Management Techniques: Ice, Massage, Position Change, Elevation, Distraction, Relaxation Techniques Comment: left lateral knee - Insight/Carryover Insight/Carryover: Good - Patient/Family Education Comment: therapy schedule, POC, goals, safety, THPs, mobliity, WC mobility, importance of position changes, techniques to improve transfers, progression with exercises, HEP with in room exercises to complete. -recommended home DME - Assessment/Plan Assessment: Mr. Zeng continues to make great progress in therapy. Patient is progressing to supervision/mod I from a WC level with all transfers. Patient has much reduced anxiety and is able to tolerate significantly more activities including ther ex during 90 minute treatment session. Patient remains limited by pain, impaired strength and impaired range of motion. PT continues to work with patient and reducing assistance and improving speed of transfers/mobility tasks. PT recommends continued skilled therapies to maximize safety and I with all mobility with emphasis on reduction of burden of care. PT recommends home discharge at a WC level with supervision/assistance with mobility and home PT services. DME recommended to use: hospital bed, WC, leg marine electrician, 27 1/2 inch beasy board - Goals Timeframe: 7 days Goals: -rolling with CGA. -supine to sit with mod I. -sit to supine with mod I. -beazy board transfer with distant supervision. -sit to/from stand with max A of 1 at // bars. -propel manual WC x 250 feet with mod I on all surfaces including level and uneven. -manage WC parts with modified independence - Provider Therapist: Cheli Angel PT, DPT License Number: [id number] Occupational Therapy - Arousal/Attention/Orientation Patient Orientation: Person, Place, Time, Appropriate to Age, Appropriate to Situation - ADL/IADL Self Feeding: Modified Independent Grooming: Supervision, Set-up Help Bathing-Upper Extremity: Supervision, Verbal Cues, Set-up Help Bathing-Lower Extremity: Verbal Cues, Set-up Help, Minimal Assistance Dressing-Upper Extremity: Independent, Set-up Help Dressing-Lower Extremity: Verbal Cues, Set-up Help, Contact Guard, Minimal Assistance - Sitting Balance Static Sitting: Independent without upper extremity support Dynamic Sitting: Reaches out of base of support, Reaches within base of support , Requires supervision Comment: seated unsuported at edge of bed - Transfers Wheelchair to Bed Transfers: Supervision, Verbal Cues, Set-up Help Comment: shower /commodetransfers not assessed since not safe. Pt incomfortable and unsafe with commode transfers - Wheelchair Management Level of Assistance: Modified Independent Distance (ft.): 200 - Upper Extremity Status Right Upper Extremity Comment: WFL-AROM Left Upper Extremity Comment: WFL=AROM - Pain Pain (assessed during therapy session): 3 Alleviating Techniques: Ice, Massage, Position Change, Elevation, Distraction, Relaxation Techniques Comment: left lateral knee - Insight/Carryover Insight/Carryover: Good - Patient/Family Education Comment: therapy schedule, POC, goals, safety, THPs, mobliity, WC mobility, importance of position changes, techniques to improve transfers, progression with exercises, HEP with in room exercises to complete. -recommended home DME - Assessment/Plan Assessment: Mr. Zeng continues to make great progress in therapy. Patient is progressing to supervision/mod I from a WC level with all transfers. Patient has much reduced anxiety and is able to tolerate significantly more activities including ther ex during 90 minute treatment session. Patient remains limited by pain, impaired strength and impaired range of motion. PT continues to work with patient and reducing assistance and improving speed of transfers/mobility tasks. PT recommends continued skilled therapies to maximize safety and I with all mobility with emphasis on reduction of burden of care. PT recommends home discharge at a WC level with supervision/assistance with mobility and home PT services. DME recommended to use: hospital bed, WC, leg marine electrician, 27 1/2 inch beasy board - Goals Timeframe: 7 days Goals: -rolling with CGA. -supine to sit with mod I. -sit to supine with mod I. -beazy board transfer with distant supervision. -sit to/from stand with max A of 1 at // bars. -propel manual WC x 250 feet with mod I on all surfaces including level and uneven. -manage WC parts with modified independence - Provider Therapist: Tawana Espino OTR/L License Number: [id number] Speech Therapy - Plan Assessment: Mr. Zeng continues to make great progress in therapy. Patient is progressing to supervision/mod I from a WC level with all transfers. Patient has much reduced anxiety and is able to tolerate significantly more activities including ther ex during 90 minute treatment session. Patient remains limited by pain, impaired strength and impaired range of motion. PT continues to work with patient and reducing assistance and improving speed of transfers/mobility tasks. PT recommends continued skilled therapies to maximize safety and I with all mobility with emphasis on reduction of burden of care. PT recommends home discharge at a WC level with supervision/assistance with mobility and home PT services. DME recommended to use: hospital bed, WC, leg marine electrician, 27 1/2 inch beasy board Recreational Therapy - Participation Participation: Participates in Individual and/or Group Sessions, Monitors His/ Her Own Leisure Time - Attendance Attendance: 3-5 times per week - Activities Leisure Activities: Cards and Games - Socialization Level of Socialization: Initiates/interacts freely with care givers and peer - Diversional Time Diversional Time: television, movies, cards, games - Assessment Assessment/Plan: Mr. Zeng continues to make great progress in therapy. Patient is progressing to supervision/mod I from a WC level with all transfers. Patient has much reduced anxiety and is able to tolerate significantly more activities including ther ex during 90 minute treatment session. Patient remains limited by pain, impaired strength and impaired range of motion. PT continues to work with patient and reducing assistance and improving speed of transfers/mobility tasks. PT recommends continued skilled therapies to maximize safety and I with all mobility with emphasis on reduction of burden of care. PT recommends home discharge at a level with supervision/assistance with mobility and home PT services. DME recommended to use: hospital bed, WC, leg marine electrician, 27 1/2 inch beasy board - Provider Therapist: Ambika Elias, UNDERWEAR TRIMMER #[id number] Nutrition - Current Diet Current Diet/ Supplement/ Feedings: 2 gram Na renal dialysis 2 gram Na 2 gram K + 1000 ml fluid restriction. 120 gram protein restriction diet prostat sugar free 30 ml 1 per day - Appetite Percent Meal Consumed: 75-100% - Comments Comments: Safety, Wound care and pain management - Assessment/Goals/Time Frame Assessment/Goals/Time Frame: wound care - Provider Provider: Kinjal Crain RD Case Management - Psychosocial Assessment Support Systems: Lives with veronica Monge [phone]. Will stay with mother at time of discharge Psychological Interventions/Needs: Pt is alert and oriented x3, less anxious and more cooperative - being followed by psychiatry and psychology- continued emotional support Discharge Concerns: Pt requires encouragement and would benefit from continued emotional/psychological support following discharge Patient/Family Meeting: CM met with pt and rehab team Intervention/Goal/Outcome:: 1. Pt for tentative discharge 10/12/17 to mother's home (no stairs to negotiate) with referral to [facility] and extermination inspector [employer] ATTEND[employer] services (through pt's Medicaid at w/c level. 2. DME to be determined (has wchr and hospital bed as well as crutches and RW) 3. Caregiver training/education 4. Continued emotional support 5. Will reinstate outpt H/D MWF at [facility] - Discharge Plan Discharge Plan: Home with services - Provider Provider: CHANTALE Nichols, SECURITY OPERATIONS ANALYST License Number: [id number] Rehabilitation Plan - Treatment Plan Treatment Plan: Physical Therapy, Occupational Therapy, Dietary, Patient/Family Education - Discharge Plan Estimated Date of Discharge: 10/17/17 Discharge to: Home
--- NOTE | 2017-10-14 13:51 | CP.PCM.PN ---
Subjective - Date & Time of Evaluation Date of Evaluation: 10/14/17 Time of Evaluation: 13:50 - Subjective Subjective: Patient seen in the room no pain making excellent gains in therapies discussed progress at length d/c has been extended to 10/17/17 transfers times have been dramatically reduced continue current care Objective - Vital Signs/Intake and Output Vital Signs (last 24 hours): Temp Pulse Resp BP Pulse Ox 98.0 F 77 20 134/82 99 10/14/17 13:16 10/14/17 13:16 10/14/17 13:16 10/14/17 13:16 10/14/17 08:40 - Medications Medications: Current Medications Albuterol/Ipratropium (Duoneb 3 Mg/0.5 Mg (3 Ml) Ud) 3 ml IH Q6 PRN PRN Reason: Shortness of Breath Amlodipine Besylate (Norvasc) 5 mg PO DAILY [facility] Last Admin: 10/14/17 08:27 Dose: 5 mg Apixaban (Eliquis) 2.5 mg PO BID [facility] PRN Reason: Protocol Last Admin: 10/14/17 08:27 Dose: 2.5 mg Aspirin (Aspirin Chewable) 81 mg PO DAILY [facility] Last Admin: 10/14/17 08:28 Dose: 81 mg Atorvastatin Calcium (Lipitor) 20 mg PO HS [facility] Last Admin: 10/14/17 01:52 Dose: 20 mg Carvedilol (Coreg) 25 mg PO Q12 [facility] Last Admin: 10/14/17 08:28 Dose: 25 mg Cinacalcet (Sensipar) 120 mg PO DAILY [facility] Last Admin: 10/14/17 08:28 Dose: 120 mg Dimethicone (Proshield Plus Skin Protectant) 1 applic TOP Q12 [facility] Last Admin: 10/14/17 08:26 Dose: 1 applic Diphenhydramine HCl (Benadryl) 25 mg PO Q6 PRN PRN Reason: Itching / Pruritus Last Admin: 09/28/17 01:40 Dose: 25 mg Docusate Sodium (Colace) 100 mg PO BID [facility] Last Admin: 10/14/17 08:29 Dose: Not Given Epoetin René (Procrit) 10,000 unit IV MWF@1700 [facility] Ferrous Sulfate (Feosol) 325 mg PO BID [facility] Last Admin: 08/07/18 08:26 Dose: 325 mg Guaifenesin (Robitussin) 200 mg PO Q6 PRN PRN Reason: Cough and congestion Home Med (Patient's Own Medication) 1 unit PO TID@0800,1200,1700 [facility] Last Admin: 10/14/17 12:29 Dose: Not Given Isosorbide Mononitrate (Imdur) 60 mg PO DAILY [facility] Last Admin: 10/14/17 08:29 Dose: 60 mg Lorazepam (Ativan) 0.5 mg PO Q12 PRN PRN Reason: Anxiety Last Admin: 09/29/17 10:09 Dose: 0.5 mg Oxycodone HCl (Oxycontin Extended Release Tab) 20 mg PO Q12 [facility] Last Admin: 10/14/17 08:26 Dose: 20 mg Oxycodone HCl (Oxycodone Immediate Release Tab) 5 mg PO Q4 PRN PRN Reason: Pain, Mild (1-3) Last Admin: 10/09/17 20:26 Dose: 5 mg Oxycodone HCl (Oxycodone Immediate Release Tab) 10 mg PO Q4 PRN PRN Reason: Pain 4-10 Sertraline HCl (Zoloft) 25 mg PO DAILY [facility] Last Admin: 10/14/17 08:31 Dose: 25 mg Vitamin B Complex/Vit C/Folic Acid (Nephro-Krissy) 1 tab PO DAILY [facility] Last Admin: 10/14/17 08:29 Dose: 1 tab - Labs Labs: 10/10/17 08:37 09/25/17 06:25
--- NOTE | 2017-10-14 20:07 | CP.PCM.PN ---
Subjective - Date & Time of Evaluation Date of Evaluation: 10/14/17 Time of Evaluation: 22:22 - Subjective Subjective: Continues to do well Objective - Vital Signs/Intake and Output Vital Signs (last 24 hours): Temp Pulse Resp BP Pulse Ox 98.0 F 77 20 134/82 99 10/14/17 13:16 10/14/17 13:16 10/14/17 13:16 10/14/17 13:16 10/14/17 08:40 - Medications Medications: Current Medications Albuterol/Ipratropium (Duoneb 3 Mg/0.5 Mg (3 Ml) Ud) 3 ml IH Q6 PRN PRN Reason: Shortness of Breath Amlodipine Besylate (Norvasc) 5 mg PO DAILY [facility] Last Admin: 10/14/17 08:27 Dose: 5 mg Apixaban (Eliquis) 2.5 mg PO BID [facility] PRN Reason: Protocol Last Admin: 10/14/17 17:00 Dose: 2.5 mg Aspirin (Aspirin Chewable) 81 mg PO DAILY [facility] Last Admin: 10/14/17 08:28 Dose: 81 mg Atorvastatin Calcium (Lipitor) 20 mg PO HS [facility] Last Admin: 10/14/17 01:52 Dose: 20 mg Carvedilol (Coreg) 25 mg PO Q12 [facility] Last Admin: 10/14/17 08:28 Dose: 25 mg Cinacalcet (Sensipar) 120 mg PO DAILY [facility] Last Admin: 10/14/17 08:28 Dose: 120 mg Dimethicone (Proshield Plus Skin Protectant) 1 applic TOP Q12 [facility] Last Admin: 10/14/17 08:26 Dose: 1 applic Diphenhydramine HCl (Benadryl) 25 mg PO Q6 PRN PRN Reason: Itching / Pruritus Last Admin: 09/28/17 01:40 Dose: 25 mg Docusate Sodium (Colace) 100 mg PO BID [facility] Last Admin: 10/14/17 17:59 Dose: 100 mg Epoetin René (Procrit) 10,000 unit IV MWF@1700 [facility] Ferrous Sulfate (Feosol) 325 mg PO BID [facility] Last Admin: 10/14/17 17:00 Dose: 325 mg Guaifenesin (Robitussin) 200 mg PO Q6 PRN PRN Reason: Cough and congestion Home Med (Patient's Own Medication) 1 unit PO TID@0800,1200,1700 [facility] Last Admin: 10/14/17 17:00 Dose: Not Given Isosorbide Mononitrate (Imdur) 60 mg PO DAILY [facility] Last Admin: 10/14/17 08:29 Dose: 60 mg Lorazepam (Ativan) 0.5 mg PO Q12 PRN PRN Reason: Anxiety Oxycodone HCl (Oxycodone Immediate Release Tab) 5 mg PO Q4 PRN PRN Reason: Pain, Mild (1-3) Last Admin: 10/09/17 20:26 Dose: 5 mg Oxycodone HCl (Oxycodone Immediate Release Tab) 10 mg PO Q4 PRN PRN Reason: Pain 4-10 Oxycodone HCl (Oxycontin Extended Release Tab) 20 mg PO Q12 [facility] Sertraline HCl (Zoloft) 25 mg PO DAILY [facility] Last Admin: 10/14/17 08:31 Dose: 25 mg Vitamin B Complex/Vit C/Folic Acid (Nephro-Krissy) 1 tab PO DAILY [facility] Last Admin: 10/14/17 08:29 Dose: 1 tab - Labs Labs: 10/10/17 08:37 09/25/17 06:25 - Respiratory Exam Respiratory Exam: NORMAL BREATHING PATTERN - Cardiovascular Exam Cardiovascular Exam: Tachycardia - GI/Abdominal Exam GI & Abdominal Exam: Normal Bowel Sounds Assessment and Plan - Assessment and Plan (Free Text) Assessment: S/P L hip fx THR Acute rehab Physiatry ESRD CKD HTN Dialysis Nephrology Dysthymia Adjustment disorder Ativan SSRI Psychology S/P bilateral Knee surgery/ Patellar tendon repair Hx + blood cs Staph Cardiomyopathy Defibrillator Cardiology
[2017-10-15] MEDS: Multivitamin Vitamin B Complex (Nephro-Vite) Tab PO SCH (08:26)
[2017-10-15] MEDS: oxyCODONE 20 mg ER Tab (oxyCONTIN) PO SCH ×2 (08:31→21:39)
[2017-10-15] MEDS: AURYXIA 210 MG PO SCH ×3 (09:19→17:15)
[2017-10-15] MEDS: Proshield Plus GEL TOP SCH ×2 (09:20→21:39)
--- NOTE | 2017-10-15 12:46 | CP.PCM.PN ---
Subjective - Date & Time of Evaluation Date of Evaluation: 10/15/17 Time of Evaluation: 12:44 - Subjective Subjective: no changes patient appeared to be comfortable receiving physiotherapy Objective - Vital Signs/Intake and Output Vital Signs (last 24 hours): Temp Pulse Resp BP Pulse Ox 97.9 F 79 22 136/80 99 10/15/17 09:13 10/15/17 09:13 10/15/17 09:13 10/15/17 09:13 10/15/17 09:13 - Medications Medications: Current Medications Albuterol/Ipratropium (Duoneb 3 Mg/0.5 Mg (3 Ml) Ud) 3 ml IH Q6 PRN PRN Reason: Shortness of Breath Amlodipine Besylate (Norvasc) 5 mg PO DAILY [facility] Last Admin: 10/15/17 08:27 Dose: 5 mg Apixaban (Eliquis) 2.5 mg PO BID [facility] PRN Reason: Protocol Last Admin: 10/15/17 08:31 Dose: 2.5 mg Aspirin (Aspirin Chewable) 81 mg PO DAILY [facility] Last Admin: 10/15/17 08:32 Dose: 81 mg Atorvastatin Calcium (Lipitor) 20 mg PO HS [facility] Last Admin: 10/14/17 21:55 Dose: 20 mg Carvedilol (Coreg) 25 mg PO Q12 [facility] Last Admin: 10/15/17 08:33 Dose: 25 mg Cinacalcet (Sensipar) 120 mg PO DAILY [facility] Last Admin: 10/15/17 08:28 Dose: 120 mg Dimethicone (Proshield Plus Skin Protectant) 1 applic TOP Q12 [facility] Last Admin: 10/15/17 09:20 Dose: Not Given Diphenhydramine HCl (Benadryl) 25 mg PO Q6 PRN PRN Reason: Itching / Pruritus Last Admin: 09/28/17 01:40 Dose: 25 mg Docusate Sodium (Colace) 100 mg PO BID [facility] Last Admin: 10/15/17 08:27 Dose: Not Given Epoetin René (Procrit) 10,000 unit IV MWF@1700 [facility] Ferrous Sulfate (Feosol) 325 mg PO BID [facility] Last Admin: 10/15/17 08:33 Dose: 325 mg Guaifenesin (Robitussin) 200 mg PO Q6 PRN PRN Reason: Cough and congestion Home Med (Patient's Own Medication) 1 unit PO TID@0800,1200,1700 [facility] Last Admin: 10/15/17 09:19 Dose: Not Given Isosorbide Mononitrate (Imdur) 60 mg PO DAILY [facility] Last Admin: 10/15/17 08:34 Dose: 60 mg Lorazepam (Ativan) 0.5 mg PO Q12 PRN PRN Reason: Anxiety Oxycodone HCl (Oxycodone Immediate Release Tab) 5 mg PO Q4 PRN PRN Reason: Pain, Mild (1-3) Last Admin: 10/09/17 20:26 Dose: 5 mg Oxycodone HCl (Oxycodone Immediate Release Tab) 10 mg PO Q4 PRN PRN Reason: Pain 4-10 Oxycodone HCl (Oxycontin Extended Release Tab) 20 mg PO Q12 [facility] Last Admin: 10/15/17 08:31 Dose: 20 mg Sertraline HCl (Zoloft) 25 mg PO DAILY [facility] Last Admin: 10/15/17 08:31 Dose: 25 mg Vitamin B Complex/Vit C/Folic Acid (Nephro-Krissy) 1 tab PO DAILY [facility] Last Admin: 10/15/17 08:26 Dose: 1 tab - Labs Labs: 10/10/17 08:37 09/25/17 06:25 - Constitutional Appears: No Acute Distress - ENT Exam ENT Exam: Mucous Membranes Moist - Neck Exam Neck Exam: absent: Lymphadenopathy - Respiratory Exam Respiratory Exam: absent: Chest Wall Tenderness, Rales, Rhonchi - Cardiovascular Exam Cardiovascular Exam: absent: Gallop, JVD - GI/Abdominal Exam GI & Abdominal Exam: Soft, Normal Bowel Sounds - Extremities Exam Extremities Exam: absent: Calf Tenderness - Back Exam Back Exam: absent: CVA tenderness (L), CVA tenderness (R) - Neurological Exam Neurological Exam: Alert - Psychiatric Exam Psychiatric exam: Normal Affect - Skin Skin Exam: absent: Cyanosis Assessment and Plan (1) Chronic kidney disease with end stage renal failure on dialysis Assessment & Plan: s/p hip surgery Diabetic chronic Kidney Disease (E11.22) Hypertensive Chronic Kidney Disease (I12.0) End stage renal disease (N18.6) dependence on hemodialysis (Z99.2) (MWF) via [facility] Anemia (D64.9)she was receiving EPO , Hyperphosphatemia (E83.39), Secondary Hyperparathyroidism (E21.1),patient is receiving Sensipar HTN (I12.0) patient scheduled to have his dialysis shortly Status: Acute (2) HTN (hypertension) Status: Chronic
[2017-10-15] MEDS: EPOETIN ALFA 10,000 UNIT/ML ML IV SCH (17:55)
--- NOTE | 2017-10-15 18:30 | CP.PCM.PN ---
Subjective - Date & Time of Evaluation Date of Evaluation: 10/15/17 Time of Evaluation: 22:22 - Subjective Subjective: Above noted Objective - Vital Signs/Intake and Output Vital Signs (last 24 hours): Temp Pulse Resp BP Pulse Ox 97.9 F 79 22 136/80 99 10/15/17 09:13 10/15/17 09:13 10/15/17 09:13 10/15/17 09:13 10/15/17 09:13 - Medications Medications: Current Medications Albuterol/Ipratropium (Duoneb 3 Mg/0.5 Mg (3 Ml) Ud) 3 ml IH Q6 PRN PRN Reason: Shortness of Breath Amlodipine Besylate (Norvasc) 5 mg PO DAILY [facility] Last Admin: 10/15/17 08:27 Dose: 5 mg Apixaban (Eliquis) 2.5 mg PO BID [facility] PRN Reason: Protocol Last Admin: 10/15/17 17:15 Dose: 2.5 mg Aspirin (Aspirin Chewable) 81 mg PO DAILY [facility] Last Admin: 10/15/17 08:32 Dose: 81 mg Atorvastatin Calcium (Lipitor) 20 mg PO HS [facility] Last Admin: 10/14/17 21:55 Dose: 20 mg Carvedilol (Coreg) 25 mg PO Q12 [facility] Last Admin: 10/15/17 08:33 Dose: 25 mg Cinacalcet (Sensipar) 120 mg PO DAILY [facility] Last Admin: 10/15/17 08:28 Dose: 120 mg Dimethicone (Proshield Plus Skin Protectant) 1 applic TOP Q12 [facility] Last Admin: 10/15/17 09:20 Dose: Not Given Diphenhydramine HCl (Benadryl) 25 mg PO Q6 PRN PRN Reason: Itching / Pruritus Last Admin: 09/28/17 01:40 Dose: 25 mg Docusate Sodium (Colace) 100 mg PO BID [facility] Last Admin: 10/15/17 17:14 Dose: 100 mg Epoetin René (Procrit) 10,000 unit IV MWF@1700 [facility] Last Admin: 10/15/17 17:55 Dose: 10,000 unit Ferrous Sulfate (Feosol) 325 mg PO BID [facility] Last Admin: 10/15/17 17:15 Dose: 325 mg Guaifenesin (Robitussin) 200 mg PO Q6 PRN PRN Reason: Cough and congestion Home Med (Patient's Own Medication) 1 unit PO TID@0800,1200,1700 [facility] Last Admin: 10/15/17 17:15 Dose: Not Given Isosorbide Mononitrate (Imdur) 60 mg PO DAILY [facility] Last Admin: 10/15/17 08:34 Dose: 60 mg Lorazepam (Ativan) 0.5 mg PO Q12 PRN PRN Reason: Anxiety Oxycodone HCl (Oxycodone Immediate Release Tab) 5 mg PO Q4 PRN PRN Reason: Pain, Mild (1-3) Last Admin: 10/09/17 20:26 Dose: 5 mg Oxycodone HCl (Oxycodone Immediate Release Tab) 10 mg PO Q4 PRN PRN Reason: Pain 4-10 Oxycodone HCl (Oxycontin Extended Release Tab) 20 mg PO Q12 [facility] Last Admin: 10/15/17 08:31 Dose: 20 mg Sertraline HCl (Zoloft) 25 mg PO DAILY [facility] Last Admin: 10/15/17 08:31 Dose: 25 mg Vitamin B Complex/Vit C/Folic Acid (Nephro-Krissy) 1 tab PO DAILY [facility] Last Admin: 10/15/17 08:26 Dose: 1 tab - Labs Labs: 10/10/17 08:37 09/25/17 06:25 - Respiratory Exam Respiratory Exam: NORMAL BREATHING PATTERN - Cardiovascular Exam Cardiovascular Exam: REGULAR RHYTHM - GI/Abdominal Exam GI & Abdominal Exam: Normal Bowel Sounds Assessment and Plan - Assessment and Plan (Free Text) Assessment: S/P L hip fx THR Acute rehab Physiatry ESRD CKD HTN Dialysis Nephrology Dysthymia Adjustment disorder Ativan SSRI Psychology S/P bilateral Knee surgery/ Patellar tendon repair Hx + blood cs Staph Cardiomyopathy Defibrillator Cardiology
[2017-10-16] MEDS: AURYXIA 210 MG PO SCH ×3 (07:59→16:46)
[2017-10-16] MEDS: oxyCODONE 20 mg ER Tab (oxyCONTIN) PO SCH ×2 (08:25→21:12)
[2017-10-16] MEDS: Multivitamin Vitamin B Complex (Nephro-Vite) Tab PO SCH (08:27)
[2017-10-16] MEDS: Proshield Plus GEL TOP SCH ×2 (08:28→21:14)
[2017-10-16 08:51] VITALS: O2SAT 99
--- NOTE | 2017-10-16 09:24 | CP.PCM.PN ---
Subjective - Date & Time of Evaluation Date of Evaluation: 10/16/17 Time of Evaluation: 09:23 - Subjective Subjective: patient is conscious and alert , appears to be comfortable Objective - Vital Signs/Intake and Output Vital Signs (last 24 hours): Temp Pulse Resp BP Pulse Ox 98.3 F 73 21 132/80 99 10/16/17 08:50 10/16/17 08:50 10/16/17 08:50 10/16/17 08:50 10/16/17 08:50 - Medications Medications: Current Medications Albuterol/Ipratropium (Duoneb 3 Mg/0.5 Mg (3 Ml) Ud) 3 ml IH Q6 PRN PRN Reason: Shortness of Breath Amlodipine Besylate (Norvasc) 5 mg PO DAILY [facility] Last Admin: 10/16/17 08:27 Dose: 5 mg Apixaban (Eliquis) 2.5 mg PO BID [facility] PRN Reason: Protocol Last Admin: 10/16/17 08:25 Dose: 2.5 mg Aspirin (Aspirin Chewable) 81 mg PO DAILY [facility] Last Admin: 10/16/17 08:27 Dose: 81 mg Atorvastatin Calcium (Lipitor) 20 mg PO HS [facility] Last Admin: 10/15/17 21:38 Dose: 20 mg Carvedilol (Coreg) 25 mg PO Q12 [facility] Last Admin: 10/16/17 08:26 Dose: 25 mg Cinacalcet (Sensipar) 120 mg PO DAILY [facility] Last Admin: 10/16/17 08:25 Dose: 120 mg Dimethicone (Proshield Plus Skin Protectant) 1 applic TOP Q12 [facility] Last Admin: 10/16/17 08:28 Dose: 1 applic Diphenhydramine HCl (Benadryl) 25 mg PO Q6 PRN PRN Reason: Itching / Pruritus Last Admin: 09/28/17 01:40 Dose: 25 mg Docusate Sodium (Colace) 100 mg PO BID [facility] Last Admin: 10/16/17 08:27 Dose: Not Given Epoetin René (Procrit) 10,000 unit IV MWF@1700 [facility] Last Admin: 10/15/17 17:55 Dose: 10,000 unit Ferrous Sulfate (Feosol) 325 mg PO BID [facility] Last Admin: 10/16/17 08:25 Dose: 325 mg Guaifenesin (Robitussin) 200 mg PO Q6 PRN PRN Reason: Cough and congestion Home Med (Patient's Own Medication) 1 unit PO TID@0800,1200,1700 [facility] Last Admin: 10/16/17 07:59 Dose: Not Given Isosorbide Mononitrate (Imdur) 60 mg PO DAILY [facility] Last Admin: 10/16/17 08:27 Dose: 60 mg Lorazepam (Ativan) 0.5 mg PO Q12 PRN PRN Reason: Anxiety Oxycodone HCl (Oxycodone Immediate Release Tab) 5 mg PO Q4 PRN PRN Reason: Pain, Mild (1-3) Last Admin: 10/09/17 20:26 Dose: 5 mg Oxycodone HCl (Oxycodone Immediate Release Tab) 10 mg PO Q4 PRN PRN Reason: Pain 4-10 Oxycodone HCl (Oxycontin Extended Release Tab) 20 mg PO Q12 [facility] Last Admin: 10/16/17 08:25 Dose: 20 mg Sertraline HCl (Zoloft) 25 mg PO DAILY [facility] Last Admin: 10/16/17 08:28 Dose: 25 mg Vitamin B Complex/Vit C/Folic Acid (Nephro-Krissy) 1 tab PO DAILY [facility] Last Admin: 10/16/17 08:27 Dose: 1 tab - Labs Labs: 10/10/17 08:37 09/25/17 06:25 - Constitutional Appears: No Acute Distress - ENT Exam ENT Exam: Mucous Membranes Moist - Respiratory Exam Respiratory Exam: absent: Chest Wall Tenderness - Extremities Exam Extremities Exam: absent: Calf Tenderness - Back Exam Back Exam: absent: CVA tenderness (L), CVA tenderness (R) - Neurological Exam Neurological Exam: Alert Assessment and Plan (1) Chronic kidney disease with end stage renal failure on dialysis Assessment & Plan: s/p hip surgery Diabetic chronic Kidney Disease (E11.22) Hypertensive Chronic Kidney Disease (I12.0) End stage renal disease (N18.6) dependence on hemodialysis (Z99.2) (MWF) via AVF Anemia (D64.9)she was receiving EPO , Hyperphosphatemia (E83.39), Secondary Hyperparathyroidism (E21.1),patient is receiving Sensipar HTN (I12.0) Status: Acute (2) HTN (hypertension) Status: Chronic
--- NOTE | 2017-10-16 09:33 | CP.PCM.PN ---
Subjective - Date & Time of Evaluation Date of Evaluation: 10/16/17 Time of Evaluation: 08:15 - Subjective Subjective: NO CHEST PAIN OR SOB DOING WELL AT REHAB Objective - Vital Signs/Intake and Output Vital Signs (last 24 hours): Temp Pulse Resp BP Pulse Ox 98.3 F 73 21 132/80 99 10/16/17 08:50 10/16/17 08:50 10/16/17 08:50 10/16/17 08:50 10/16/17 08:50 - Medications Medications: Current Medications Albuterol/Ipratropium (Duoneb 3 Mg/0.5 Mg (3 Ml) Ud) 3 ml IH Q6 PRN PRN Reason: Shortness of Breath Amlodipine Besylate (Norvasc) 5 mg PO DAILY [facility] Last Admin: 10/16/17 08:27 Dose: 5 mg Apixaban (Eliquis) 2.5 mg PO BID [facility] PRN Reason: Protocol Last Admin: 10/16/17 08:25 Dose: 2.5 mg Aspirin (Aspirin Chewable) 81 mg PO DAILY [facility] Last Admin: 10/16/17 08:27 Dose: 81 mg Atorvastatin Calcium (Lipitor) 20 mg PO HS [facility] Last Admin: 10/15/17 21:38 Dose: 20 mg Carvedilol (Coreg) 25 mg PO Q12 [facility] Last Admin: 10/16/17 08:26 Dose: 25 mg Cinacalcet (Sensipar) 120 mg PO DAILY [facility] Last Admin: 10/16/17 08:25 Dose: 120 mg Dimethicone (Proshield Plus Skin Protectant) 1 applic TOP Q12 [facility] Last Admin: 10/16/17 08:28 Dose: 1 applic Diphenhydramine HCl (Benadryl) 25 mg PO Q6 PRN PRN Reason: Itching / Pruritus Last Admin: 09/28/17 01:40 Dose: 25 mg Docusate Sodium (Colace) 100 mg PO BID [facility] Last Admin: 10/16/17 08:27 Dose: Not Given Epoetin René (Procrit) 10,000 unit IV MWF@1700 [facility] Last Admin: 10/15/17 17:55 Dose: 10,000 unit Ferrous Sulfate (Feosol) 325 mg PO BID [facility] Last Admin: 10/16/17 08:25 Dose: 325 mg Guaifenesin (Robitussin) 200 mg PO Q6 PRN PRN Reason: Cough and congestion Home Med (Patient's Own Medication) 1 unit PO TID@0800,1200,1700 [facility] Last Admin: 10/16/17 07:59 Dose: Not Given Isosorbide Mononitrate (Imdur) 60 mg PO DAILY [facility] Last Admin: 10/16/17 08:27 Dose: 60 mg Lorazepam (Ativan) 0.5 mg PO Q12 PRN PRN Reason: Anxiety Oxycodone HCl (Oxycodone Immediate Release Tab) 5 mg PO Q4 PRN PRN Reason: Pain, Mild (1-3) Last Admin: 10/09/17 20:26 Dose: 5 mg Oxycodone HCl (Oxycodone Immediate Release Tab) 10 mg PO Q4 PRN PRN Reason: Pain 4-10 Oxycodone HCl (Oxycontin Extended Release Tab) 20 mg PO Q12 [facility] Last Admin: 10/16/17 08:25 Dose: 20 mg Sertraline HCl (Zoloft) 25 mg PO DAILY [facility] Last Admin: 10/16/17 08:28 Dose: 25 mg Vitamin B Complex/Vit C/Folic Acid (Nephro-Krissy) 1 tab PO DAILY [facility] Last Admin: 10/16/17 08:27 Dose: 1 tab - Labs Labs: 10/10/17 08:37 09/25/17 06:25 - Respiratory Exam Respiratory Exam: Clear to Ausculation Bilateral - Cardiovascular Exam Cardiovascular Exam: REGULAR RHYTHM, +S1, +S2 Assessment and Plan - Assessment and Plan (Free Text) Assessment: S/P SURGERY FOR LEFT HIP FRACTURE CARDIOMYOPATHY HYPERTENSION CRF ON HD Plan: CONTINUE PRESENT TREATMENT CONTINUE REHAB
--- NOTE | 2017-10-16 18:32 | CP.PCM.PN ---
Subjective - Date & Time of Evaluation Date of Evaluation: 10/16/17 Time of Evaluation: 18:31 - Subjective Subjective: Extensive left sutures removed with the aid of the nurse. The combination of his skin tone and the sutures and the skin puckering was a challenge but in the end all of the sutures were removed and area thoroughly cleaned with betadine and covered. I will come back again tomorrow to further inspect prior to his discharge Objective - Vital Signs/Intake and Output Vital Signs (last 24 hours): Temp Pulse Resp BP Pulse Ox 98.3 F 73 21 132/80 99 10/16/17 08:50 10/16/17 08:50 10/16/17 08:50 10/16/17 08:50 10/16/17 08:50 - Medications Medications: Current Medications Albuterol/Ipratropium (Duoneb 3 Mg/0.5 Mg (3 Ml) Ud) 3 ml IH Q6 PRN PRN Reason: Shortness of Breath Amlodipine Besylate (Norvasc) 5 mg PO DAILY [facility] Last Admin: 10/16/17 08:27 Dose: 5 mg Apixaban (Eliquis) 2.5 mg PO BID [facility] PRN Reason: Protocol Last Admin: 10/16/17 16:55 Dose: 2.5 mg Aspirin (Aspirin Chewable) 81 mg PO DAILY [facility] Last Admin: 10/16/17 08:27 Dose: 81 mg Atorvastatin Calcium (Lipitor) 20 mg PO HS [facility] Last Admin: 10/15/17 21:38 Dose: 20 mg Carvedilol (Coreg) 25 mg PO Q12 [facility] Last Admin: 10/16/17 08:26 Dose: 25 mg Cinacalcet (Sensipar) 180 mg PO DAILY [facility] Last Admin: 10/16/17 10:43 Dose: Not Given Dimethicone (Proshield Plus Skin Protectant) 1 applic TOP Q12 [facility] Last Admin: 10/16/17 08:28 Dose: 1 applic Diphenhydramine HCl (Benadryl) 25 mg PO Q6 PRN PRN Reason: Itching / Pruritus Last Admin: 09/28/17 01:40 Dose: 25 mg Docusate Sodium (Colace) 100 mg PO BID [facility] Last Admin: 10/16/17 16:45 Dose: Not Given Epoetin René (Procrit) 10,000 unit IV MWF@1700 [facility] Last Admin: 10/15/17 17:55 Dose: 10,000 unit Ferrous Sulfate (Feosol) 325 mg PO BID [facility] Last Admin: 10/16/17 16:46 Dose: 325 mg Guaifenesin (Robitussin) 200 mg PO Q6 PRN PRN Reason: Cough and congestion Home Med (Patient's Own Medication) 1 unit PO TID@0800,1200,1700 [facility] Last Admin: 10/16/17 16:46 Dose: Not Given Isosorbide Mononitrate (Imdur) 60 mg PO DAILY [facility] Last Admin: 10/16/17 08:27 Dose: 60 mg Lorazepam (Ativan) 0.5 mg PO Q12 PRN PRN Reason: Anxiety Oxycodone HCl (Oxycodone Immediate Release Tab) 5 mg PO Q4 PRN PRN Reason: Pain, Mild (1-3) Last Admin: 10/09/17 20:26 Dose: 5 mg Oxycodone HCl (Oxycodone Immediate Release Tab) 10 mg PO Q4 PRN PRN Reason: Pain 4-10 Oxycodone HCl (Oxycontin Extended Release Tab) 20 mg PO Q12 [facility] Last Admin: 10/16/17 08:25 Dose: 20 mg Sertraline HCl (Zoloft) 25 mg PO DAILY [facility] Last Admin: 10/16/17 08:28 Dose: 25 mg Vitamin B Complex/Vit C/Folic Acid (Nephro-Krissy) 1 tab PO DAILY [facility] Last Admin: 10/16/17 08:27 Dose: 1 tab - Labs Labs: 10/10/17 08:37 09/25/17 06:25
--- NOTE | 2017-10-16 21:00 | CP.PCM.PN ---
Subjective - Date & Time of Evaluation Date of Evaluation: 10/16/17 Time of Evaluation: 22:22 - Subjective Subjective: Above noted Objective - Vital Signs/Intake and Output Vital Signs (last 24 hours): Temp Pulse Resp BP Pulse Ox 99.5 F 77 20 118/74 99 10/16/17 20:00 10/16/17 20:00 10/16/17 20:00 10/16/17 20:00 10/16/17 20:00 - Medications Medications: Current Medications Albuterol/Ipratropium (Duoneb 3 Mg/0.5 Mg (3 Ml) Ud) 3 ml IH Q6 PRN PRN Reason: Shortness of Breath Amlodipine Besylate (Norvasc) 5 mg PO DAILY [facility] Last Admin: 10/16/17 08:27 Dose: 5 mg Apixaban (Eliquis) 2.5 mg PO BID [facility] PRN Reason: Protocol Last Admin: 10/16/17 16:55 Dose: 2.5 mg Aspirin (Aspirin Chewable) 81 mg PO DAILY [facility] Last Admin: 10/16/17 08:27 Dose: 81 mg Atorvastatin Calcium (Lipitor) 20 mg PO HS [facility] Last Admin: 10/15/17 21:38 Dose: 20 mg Carvedilol (Coreg) 25 mg PO Q12 [facility] Last Admin: 10/16/17 08:26 Dose: 25 mg Cinacalcet (Sensipar) 180 mg PO DAILY [facility] Last Admin: 10/16/17 10:43 Dose: Not Given Dimethicone (Proshield Plus Skin Protectant) 1 applic TOP Q12 [facility] Last Admin: 10/16/17 08:28 Dose: 1 applic Diphenhydramine HCl (Benadryl) 25 mg PO Q6 PRN PRN Reason: Itching / Pruritus Last Admin: 09/28/17 01:40 Dose: 25 mg Docusate Sodium (Colace) 100 mg PO BID [facility] Last Admin: 10/16/17 16:45 Dose: Not Given Epoetin René (Procrit) 10,000 unit IV MWF@1700 [facility] Last Admin: 10/15/17 17:55 Dose: 10,000 unit Ferrous Sulfate (Feosol) 325 mg PO BID [facility] Last Admin: 10/16/17 16:46 Dose: 325 mg Guaifenesin (Robitussin) 200 mg PO Q6 PRN PRN Reason: Cough and congestion Home Med (Patient's Own Medication) 1 unit PO TID@0800,1200,1700 [facility] Last Admin: 10/16/17 16:46 Dose: Not Given Isosorbide Mononitrate (Imdur) 60 mg PO DAILY [facility] Last Admin: 10/16/17 08:27 Dose: 60 mg Lorazepam (Ativan) 0.5 mg PO Q12 PRN PRN Reason: Anxiety Oxycodone HCl (Oxycodone Immediate Release Tab) 5 mg PO Q4 PRN PRN Reason: Pain, Mild (1-3) Last Admin: 10/09/17 20:26 Dose: 5 mg Oxycodone HCl (Oxycodone Immediate Release Tab) 10 mg PO Q4 PRN PRN Reason: Pain 4-10 Oxycodone HCl (Oxycontin Extended Release Tab) 20 mg PO Q12 [facility] Last Admin: 10/16/17 08:25 Dose: 20 mg Povidone Iodine (Betadine 10% Topical Soln) 1 ml TOP 0600,2200 [facility] Sertraline HCl (Zoloft) 25 mg PO DAILY [facility] Last Admin: 10/16/17 08:28 Dose: 25 mg Vitamin B Complex/Vit C/Folic Acid (Nephro-Krissy) 1 tab PO DAILY [facility] Last Admin: 10/16/17 08:27 Dose: 1 tab - Labs Labs: 10/10/17 08:37 09/25/17 06:25 - Respiratory Exam Respiratory Exam: NORMAL BREATHING PATTERN - Cardiovascular Exam Cardiovascular Exam: REGULAR RHYTHM - GI/Abdominal Exam GI & Abdominal Exam: Normal Bowel Sounds Assessment and Plan - Assessment and Plan (Free Text) Assessment: S/P L hip fx THR Acute rehab Physiatry ESRD CKD HTN Dialysis Nephrology Dysthymia Adjustment disorder Ativan SSRI Psychology S/P bilateral Knee surgery/ Patellar tendon repair Hx + blood cs Staph Cardiomyopathy Defibrillator Cardiology
[2017-10-16] MEDS: Povidone Iodine Topical 10% Sol TOP SCH (22:03)
[2017-10-17] MEDS: Povidone Iodine Topical 10% Sol TOP SCH (06:50)
[2017-10-17 07:40] VITALS: BP 126/76; PULSE 70; RESP 18; TEMP 97.7
[2017-10-17] MEDS: AURYXIA 210 MG PO SCH ×2 (08:04→12:28)
[2017-10-17] MEDS: oxyCODONE 20 mg ER Tab (oxyCONTIN) PO SCH (08:09)
[2017-10-17] MEDS: Multivitamin Vitamin B Complex (Nephro-Vite) Tab PO SCH (08:11)
[2017-10-17] MEDS: Proshield Plus GEL TOP SCH (08:12)
[2017-10-17] MEDS ORDERED: oxyCODONE 20 mg ER Tab (oxyCONTIN) PO SCH (09:00)
--- NOTE | 2017-10-17 12:39 | CP.PCM.CON ---
History of Present Illness - History of Present Illness History of Present Illness: Pt seen for supportive therapy 7:40-8. Pt spoke of looking foward to return home , discussed dissapointment with current status, wish for increased recovery and optimism for the future. Pt spoke of his desire to walk and return to work, support provided over current status and interventions presented to reduce distress. Plan: Continued Sup therapy Past Patient History - Past Medical History & Family History Past Medical History?: Yes - Past Social History Smoking Status: Never Smoked - CARDIAC Hx Cardiac Disorders: Yes (Cardiomypathy) Hx Hypertension: Yes - PULMONARY Hx Asthma: Yes (last attack jan 2013) - NEUROLOGICAL Hx Neurological Disorder: No - HEENT Hx HEENT Problems: No - RENAL Hx Renal Failure: Yes (ESRD, CKD) - ENDOCRINE/METABOLIC Hx Endocrine Disorders: Yes - HEMATOLOGICAL/ONCOLOGICAL Hx Blood Disorders: Yes Hx Blood Transfusions: Yes (2010) - INTEGUMENTARY Hx Dermatological Problems: No - MUSCULOSKELETAL/RHEUMATOLOGICAL Hx Falls: No - GASTROINTESTINAL Hx Gastrointestinal Disorders: No - GENITOURINARY/GYNECOLOGICAL Hx Genitourinary Disorders: Yes Other/Comment: dialysis pt.doesn't make urine - PSYCHIATRIC Hx Substance Use: No - SURGICAL HISTORY Hx Surgeries: Yes Hx Arteriovenous Shunt: Yes (left upper arm 2010) Hx Vascular Access Device: Yes (2010, removed 2 months later) - ANESTHESIA Hx Anesthesia: Yes Hx Anesthesia Reactions: No Hx Malignant Hyperthermia: No Meds Allergies/Adverse Reactions: Allergies Allergy/AdvReac Type Severity Reaction Status Date / Time No Known Allergies Allergy Verified 09/24/17 22:00 - Medications Medications: Current Medications Albuterol/Ipratropium (Duoneb 3 Mg/0.5 Mg (3 Ml) Ud) 3 ml IH Q6 PRN PRN Reason: Shortness of Breath Amlodipine Besylate (Norvasc) 5 mg PO DAILY [facility] Last Admin: 10/17/17 08:09 Dose: 5 mg Apixaban (Eliquis) 2.5 mg PO BID [facility] PRN Reason: Protocol Last Admin: 10/17/17 08:11 Dose: 2.5 mg Aspirin (Aspirin Chewable) 81 mg PO DAILY [facility] Last Admin: 10/17/17 08:11 Dose: 81 mg Atorvastatin Calcium (Lipitor) 20 mg PO HS [facility] Last Admin: 10/16/17 21:14 Dose: 20 mg Carvedilol (Coreg) 25 mg PO Q12 [facility] Last Admin: 10/17/17 08:10 Dose: 25 mg Cinacalcet (Sensipar) 180 mg PO DAILY [facility] Last Admin: 10/17/17 08:10 Dose: 180 mg Dimethicone (Proshield Plus Skin Protectant) 1 applic TOP Q12 [facility] Last Admin: 10/17/17 08:12 Dose: 1 applic Diphenhydramine HCl (Benadryl) 25 mg PO Q6 PRN PRN Reason: Itching / Pruritus Last Admin: 09/28/17 01:40 Dose: 25 mg Docusate Sodium (Colace) 100 mg PO BID [facility] Last Admin: 10/17/17 08:04 Dose: Not Given Epoetin René (Procrit) 10,000 unit IV MWF@1700 [facility] Last Admin: 10/15/17 17:55 Dose: 10,000 unit Ferrous Sulfate (Feosol) 325 mg PO BID [facility] Last Admin: 10/17/17 08:11 Dose: 325 mg Guaifenesin (Robitussin) 200 mg PO Q6 PRN PRN Reason: Cough and congestion Home Med (Patient's Own Medication) 1 unit PO TID@0800,1200,1700 [facility] Last Admin: 10/17/17 12:28 Dose: Not Given Isosorbide Mononitrate (Imdur) 60 mg PO DAILY [facility] Last Admin: 10/17/17 08:11 Dose: 60 mg Lorazepam (Ativan) 0.5 mg PO Q12 PRN PRN Reason: Anxiety Oxycodone HCl (Oxycodone Immediate Release Tab) 5 mg PO Q4 PRN PRN Reason: Pain, Mild (1-3) Last Admin: 10/09/17 20:26 Dose: 5 mg Oxycodone HCl (Oxycodone Immediate Release Tab) 10 mg PO Q4 PRN PRN Reason: Pain 4-10 Oxycodone HCl (Oxycontin Extended Release Tab) 20 mg PO Q12 [facility] Last Admin: 10/17/17 08:09 Dose: 20 mg Oxycodone HCl (Oxycontin Extended Release Tab) 20 mg PO Q12 [facility] Last Admin: 10/17/17 08:11 Dose: Not Given Povidone Iodine (Betadine 10% Topical Soln) 1 ml TOP 0600,2200 [facility] Last Admin: 10/17/17 06:50 Dose: 1 ml Sertraline HCl (Zoloft) 25 mg PO DAILY [facility] Last Admin: 10/17/17 08:11 Dose: 25 mg Vitamin B Complex/Vit C/Folic Acid (Nephro-Krissy) 1 tab PO DAILY [facility] Last Admin: 10/17/17 08:11 Dose: 1 tab Results - Vital Signs Recent Vital Signs: Last Vital Signs Temp 97.7 F 10/17/17 07:39 Pulse 70 10/17/17 08:10 Resp 18 10/17/17 07:39 BP 126/76 10/17/17 08:10 Pulse Ox 99 10/17/17 07:39 - Labs Result Diagrams: 10/10/17 08:37 09/25/17 06:25
--- NOTE | 2017-10-17 13:28 | CP.PCM.PN ---
Subjective - Date & Time of Evaluation Date of Evaluation: 10/17/17 Time of Evaluation: 13:27 - Subjective Subjective: patient awake conscious feeling much better Objective - Vital Signs/Intake and Output Vital Signs (last 24 hours): Temp Pulse Resp BP Pulse Ox 97.7 F 70 18 126/76 99 10/17/17 07:39 10/17/17 08:10 10/17/17 07:39 10/17/17 08:10 10/17/17 07:39 - Medications Medications: Current Medications Albuterol/Ipratropium (Duoneb 3 Mg/0.5 Mg (3 Ml) Ud) 3 ml IH Q6 PRN PRN Reason: Shortness of Breath Amlodipine Besylate (Norvasc) 5 mg PO DAILY [facility] Last Admin: 10/17/17 08:09 Dose: 5 mg Apixaban (Eliquis) 2.5 mg PO BID [facility] PRN Reason: Protocol Last Admin: 10/17/17 08:11 Dose: 2.5 mg Aspirin (Aspirin Chewable) 81 mg PO DAILY [facility] Last Admin: 10/17/17 08:11 Dose: 81 mg Atorvastatin Calcium (Lipitor) 20 mg PO HS [facility] Last Admin: 10/16/17 21:14 Dose: 20 mg Carvedilol (Coreg) 25 mg PO Q12 [facility] Last Admin: 10/17/17 08:10 Dose: 25 mg Cinacalcet (Sensipar) 180 mg PO DAILY [facility] Last Admin: 10/17/17 08:10 Dose: 180 mg Dimethicone (Proshield Plus Skin Protectant) 1 applic TOP Q12 [facility] Last Admin: 10/17/17 08:12 Dose: 1 applic Diphenhydramine HCl (Benadryl) 25 mg PO Q6 PRN PRN Reason: Itching / Pruritus Last Admin: 09/28/17 01:40 Dose: 25 mg Docusate Sodium (Colace) 100 mg PO BID [facility] Last Admin: 10/17/17 08:04 Dose: Not Given Epoetin René (Procrit) 10,000 unit IV MWF@1700 [facility] Last Admin: 10/15/17 17:55 Dose: 10,000 unit Ferrous Sulfate (Feosol) 325 mg PO BID [facility] Last Admin: 10/17/17 08:11 Dose: 325 mg Guaifenesin (Robitussin) 200 mg PO Q6 PRN PRN Reason: Cough and congestion Home Med (Patient's Own Medication) 1 unit PO TID@0800,1200,1700 [facility] Last Admin: 10/17/17 12:28 Dose: Not Given Isosorbide Mononitrate (Imdur) 60 mg PO DAILY [facility] Last Admin: 10/17/17 08:11 Dose: 60 mg Lorazepam (Ativan) 0.5 mg PO Q12 PRN PRN Reason: Anxiety Oxycodone HCl (Oxycodone Immediate Release Tab) 5 mg PO Q4 PRN PRN Reason: Pain, Mild (1-3) Last Admin: 10/09/17 20:26 Dose: 5 mg Oxycodone HCl (Oxycodone Immediate Release Tab) 10 mg PO Q4 PRN PRN Reason: Pain 4-10 Oxycodone HCl (Oxycontin Extended Release Tab) 20 mg PO Q12 [facility] Last Admin: 10/17/17 08:09 Dose: 20 mg Oxycodone HCl (Oxycontin Extended Release Tab) 20 mg PO Q12 [facility] Last Admin: 10/17/17 08:11 Dose: Not Given Povidone Iodine (Betadine 10% Topical Soln) 1 ml TOP 0600,2200 [facility] Last Admin: 10/17/17 06:50 Dose: 1 ml Sertraline HCl (Zoloft) 25 mg PO DAILY [facility] Last Admin: 10/17/17 08:11 Dose: 25 mg Vitamin B Complex/Vit C/Folic Acid (Nephro-Krissy) 1 tab PO DAILY [facility] Last Admin: 10/17/17 08:11 Dose: 1 tab - Labs Labs: 10/10/17 08:37 09/25/17 06:25 - Constitutional Appears: No Acute Distress - ENT Exam ENT Exam: Mucous Membranes Moist - Neck Exam Neck Exam: absent: Lymphadenopathy - Respiratory Exam Respiratory Exam: NORMAL BREATHING PATTERN - Cardiovascular Exam Cardiovascular Exam: absent: Gallop, Rubs - GI/Abdominal Exam GI & Abdominal Exam: Soft, Normal Bowel Sounds - Extremities Exam Extremities Exam: absent: Calf Tenderness - Back Exam Back Exam: absent: CVA tenderness (L), CVA tenderness (R) - Neurological Exam Neurological Exam: Alert - Psychiatric Exam Psychiatric exam: Normal Affect - Skin Skin Exam: absent: Cyanosis Assessment and Plan (1) Chronic kidney disease with end stage renal failure on dialysis Assessment & Plan: s/p hip surgery Diabetic chronic Kidney Disease (E11.22) Hypertensive Chronic Kidney Disease (I12.0) End stage renal disease (N18.6) dependence on hemodialysis (Z99.2) (MWF) via [facility] Anemia (D64.9)she was receiving EPO , Hyperphosphatemia (E83.39), Secondary Hyperparathyroidism (E21.1),patient is receiving Sensipar,repeat parathyroid hormone going higher and therefore we will increase Sensipar HTN (I12.0) patient scheduled to have dialysis shortly Status: Acute (2) HTN (hypertension) Status: Chronic
[2017-10-17] MEDS: EPOETIN ALFA 10,000 UNIT/ML ML IV SCH (13:36)
--- NOTE | 2017-10-17 16:47 | CP.PCM.PN ---
Subjective - Date & Time of Evaluation Date of Evaluation: 10/17/17 Time of Evaluation: 16:46 - Subjective Subjective: Patient seen in the room prior to d/c incision looks better I went up and down with light and magnifier and did not see or feel any remaining suture He has finished HD today in good spirits will follow up with Dr Logan Objective - Vital Signs/Intake and Output Vital Signs (last 24 hours): Temp Pulse Resp BP Pulse Ox 97.7 F 70 18 126/76 99 10/17/17 07:39 10/17/17 08:10 10/17/17 07:39 10/17/17 08:10 10/17/17 07:39 - Medications Medications: Current Medications Albuterol/Ipratropium (Duoneb 3 Mg/0.5 Mg (3 Ml) Ud) 3 ml IH Q6 PRN PRN Reason: Shortness of Breath Amlodipine Besylate (Norvasc) 5 mg PO DAILY [facility] Last Admin: 10/17/17 08:09 Dose: 5 mg Apixaban (Eliquis) 2.5 mg PO BID [facility] PRN Reason: Protocol Last Admin: 10/17/17 08:11 Dose: 2.5 mg Aspirin (Aspirin Chewable) 81 mg PO DAILY [facility] Last Admin: 10/17/17 08:11 Dose: 81 mg Atorvastatin Calcium (Lipitor) 20 mg PO HS [facility] Last Admin: 10/16/17 21:14 Dose: 20 mg Carvedilol (Coreg) 25 mg PO Q12 [facility] Last Admin: 10/17/17 08:10 Dose: 25 mg Cinacalcet (Sensipar) 180 mg PO DAILY [facility] Last Admin: 10/17/17 08:10 Dose: 180 mg Dimethicone (Proshield Plus Skin Protectant) 1 applic TOP Q12 [facility] Last Admin: 10/17/17 08:12 Dose: 1 applic Diphenhydramine HCl (Benadryl) 25 mg PO Q6 PRN PRN Reason: Itching / Pruritus Last Admin: 09/28/17 01:40 Dose: 25 mg Docusate Sodium (Colace) 100 mg PO BID [facility] Last Admin: 10/17/17 08:04 Dose: Not Given Epoetin René (Procrit) 10,000 unit IV MWF@1700 [facility] Last Admin: 10/17/17 13:36 Dose: 10,000 unit Ferrous Sulfate (Feosol) 325 mg PO BID [facility] Last Admin: 10/17/17 08:11 Dose: 325 mg Guaifenesin (Robitussin) 200 mg PO Q6 PRN PRN Reason: Cough and congestion Home Med (Patient's Own Medication) 1 unit PO TID@0800,1200,1700 [facility] Last Admin: 10/17/17 12:28 Dose: Not Given Isosorbide Mononitrate (Imdur) 60 mg PO DAILY [facility] Last Admin: 10/17/17 08:11 Dose: 60 mg Lorazepam (Ativan) 0.5 mg PO Q12 PRN PRN Reason: Anxiety Oxycodone HCl (Oxycodone Immediate Release Tab) 5 mg PO Q4 PRN PRN Reason: Pain, Mild (1-3) Last Admin: 10/09/17 20:26 Dose: 5 mg Oxycodone HCl (Oxycodone Immediate Release Tab) 10 mg PO Q4 PRN PRN Reason: Pain 4-10 Oxycodone HCl (Oxycontin Extended Release Tab) 20 mg PO Q12 [facility] Last Admin: 10/17/17 08:09 Dose: 20 mg Oxycodone HCl (Oxycontin Extended Release Tab) 20 mg PO Q12 [facility] Last Admin: 10/17/17 08:11 Dose: Not Given Povidone Iodine (Betadine 10% Topical Soln) 1 ml TOP 0600,2200 [facility] Last Admin: 10/17/17 06:50 Dose: 1 ml Sertraline HCl (Zoloft) 25 mg PO DAILY [facility] Last Admin: 10/17/17 08:11 Dose: 25 mg Vitamin B Complex/Vit C/Folic Acid (Nephro-Krissy) 1 tab PO DAILY [facility] Last Admin: 10/17/17 08:11 Dose: 1 tab - Labs Labs: 10/10/17 08:37 09/25/17 06:25
--- NOTE | 2017-10-17 16:48 | CP.PCM.DIS ---
Provider - Provider Date of Admission: 09/24/17 22:01 Attending physician: Farhat Sow MD Primary care physician: Farhat Sow MD Time Spent in preparation of Discharge (in minutes): 5 [employer] Discharge Summary Discharge date: 10/17/17 - Review of Plan of Care Physical Therapy: Good Occupational Therapy: Good Recreational Therapy: Good - Goal Attainment Ambulation: Fail to Attain Status on discharge: Non Ambulatory ADL: Good Level of assistance: Minimal Assistance Transfer: Good Level of assistance: Supervision Speech Comprehension: No Impairment - Barriers to discharge identified Barrier to discharge: Home environment - Plan for patients rehabilitation in the Home: Physical Therapy, Occupational Therapy, Visiting Nurse Discharge instructions provided to patient and family: Instructions with medications, Follow up with PMD and/or surgeon Hospital Course - Lab Results Lab Results: Most Recent Lab Values WBC 7.1 K/uL (4.8-10.8) 10/10/17 08:37 RBC 2.98 Mil/uL (4.40-5.90) L 10/10/17 08:37 Hgb 9.1 g/dL (12.0-18.0) L 10/10/17 08:37 Hct 27.7 % (35.0-51.0) L 10/10/17 08:37 MCV 92.8 fl (80.0-94.0) 10/10/17 08:37 MCH 30.4 pg (27.0-31.0) 10/10/17 08:37 MCHC 32.8 g/dL (33.0-37.0) L 10/10/17 08:37 RDW 16.5 % (11.5-14.5) H 10/10/17 08:37 Plt Count 312 K/uL (130-400) 10/10/17 08:37 MPV 6.4 fl (7.2-11.7) L 10/10/17 08:37 Neut % (Auto) 70.0 % (50.0-75.0) 10/10/17 08:37 Lymph % (Auto) 12.2 % (20.0-40.0) L 10/10/17 08:37 [place] % (Auto) 8.3 % (0.0-10.0) 10/10/17 08:37 Eos % (Auto) 8.4 % (0.0-4.0) H 10/10/17 08:37 Baso % (Auto) 1.1 % (0.0-2.0) 10/10/17 08:37 Neut # (Auto) 5.0 K/uL (1.8-7.0) 10/10/17 08:37 Lymph # (Auto) 0.9 K/uL (1.0-4.3) L 10/10/17 08:37 [place] # (Auto) 0.6 K/uL (0.0-0.8) 10/10/17 08:37 Eos # (Auto) 0.6 K/uL (0.0-0.7) 10/10/17 08:37 Baso # (Auto) 0.1 K/uL (0.0-0.2) 10/10/17 08:37 Neutrophils % (Manual) 80 % (42-75) H 10/03/17 09:12 Lymphocytes % (Manual) 10 % (20-50) L 10/03/17 09:12 Monocytes % (Manual) 4 % (0-10) 10/03/17 09:12 Eosinophils % (Manual) 6 % (0-7) 10/03/17 09:12 Platelet Estimate Slightly increased (NORMAL) H 10/03/17 09:12 Large Platelets Present 10/03/17 09:12 Hypochromasia (manual) Slight 10/03/17 09:12 Anisocytosis (manual) Slight 10/03/17 09:12 Tear Drop Cells Slight 10/03/17 09:12 Sodium 137 mmol/l (132-148) 09/25/17 06:25 Potassium 4.3 MMOL/L (3.6-5.0) 09/25/17 06:25 Chloride 98 mmol/L (98-107) 09/25/17 06:25 Carbon Dioxide 27 mmol/L (22-30) 09/25/17 06:25 Anion Gap 16 (10-20) 09/25/17 06:25 BUN 31 mg/dl (9-20) H 09/25/17 06:25 Creatinine 8.3 mg/dl (0.8-1.5) H* 09/25/17 06:25 Est GFR ( Amer) 9 09/25/17 06:25 Est GFR (Non-Af Amer) 7 09/25/17 06:25 Random Glucose 87 mg/dL (75-110) 09/25/17 06:25 Calcium 8.1 mg/dL (8.4-10.2) L 09/25/17 06:25 Phosphorus 5.6 mg/dl (2.5-4.5) H 09/26/17 11:46 Iron 50 ug/dL (49-181) 10/06/17 07:54 TIBC 231 ug/dL (250-450) L 10/06/17 07:54 % Saturation 21 % (20-55) 10/06/17 07:54 Ferritin 1180.0 ng/Ml (17.9-464) H 10/06/17 07:54 Total Bilirubin 1.2 mg/dl (0.2-1.3) 09/25/17 06:25 AST 38 U/L (17-59) 09/25/17 06:25 ALT 15 U/L (21-72) L 09/25/17 06:25 Alkaline Phosphatase 618 U/L (38-126) H 09/25/17 06:25 Total Protein 6.8 G/DL (6.3-8.2) 09/25/17 06:25 Total Protein (PEP) 6.2 g/dL (6.1-8.1) 10/01/17 09:52 Albumin 3.3 g/dL (3.5-5.0) L 09/25/17 06:25 Albumin (PEP) 2.7 g/dL (3.8-4.8) L 10/01/17 09:52 Globulin 3.5 gm/dL (2.2-3.9) 09/25/17 06:25 Albumin/Globulin Ratio 0.9 (1.0-2.1) L 09/25/17 06:25 Tttxg-3-Qlenrrdfv 0.7 g/dL (0.2-0.3) H 10/01/17 09:52 Vzgnl-0-Lfexriqmc 0.9 g/dL (0.5-0.9) 10/01/17 09:52 [place]-7-Iwiuflsp 0.3 g/dL (0.4-0.6) L 10/01/17 09:52 Qaiq-0-Qebgyflq 0.5 g/dL (0.2-0.5) 10/01/17 09:52 Gamma Globulins 1.2 g/dL (0.8-1.7) 10/01/17 09:52 Abnorm Protein Band 1 TEST NOT PERFORMED 10/01/17 09:52 Abnorm Protein Band 2 TEST NOT PERFORMED 10/01/17 09:52 Abnorm Protein Band 3 TEST NOT PERFORMED 10/01/17 09:52 TSH 3rd Generation 3.02 mIU/ML (0.46-4.68) 09/25/17 06:25 PTH Intact Whole Molec 1027 pg/mL (14-64) H 09/29/17 12:00 IgG 1181 mg/dL (694-1618) 10/01/17 05:20 IgA 348 mg/dL (81-463) 10/01/17 05:20 IgM 121 mg/dL (48-271) 10/01/17 05:20 REMIGIO & SPEP Interp See note 10/01/17 09:52 Serum Immunofixation Detected (Not Detected) H 10/01/17 05:20 Tot [place]/Lambda Ratio 1.55 (1.29-2.55) 10/01/17 09:52 [place] Light Chain Anal 306 mg/dL (176-443) 10/01/17 09:52 Lambda Light Chain Anal 197 mg/dL (91-240) 10/01/17 09:52 Hep Bs Antigen Negative (NEGATIVE) 10/08/17 17:41 Hep Bs Antibody Positive (NEGATIVE) 10/08/17 18:40 Hep B Core IgM Ab Negative (NEGATIVE) 10/08/17 17:41 Blood Type O POSITIVE 10/01/17 05:20 Antibody Screen Negative 10/01/17 05:20 Crossmatch See Detail 10/01/17 05:20 BBK History Checked Patient has bt 10/01/17 05:20 Discharge Exam - Head Exam Head Exam: ATRAUMATIC, NORMAL INSPECTION, NORMOCEPHALIC Discharge Plan - Follow Up Plan Condition: GOOD Disposition: HOME/ ROUTINE Instructions: Total Hip Replacement (DC), Chronic Kidney Disease (DC), Dialysis and Diet Referrals: Farhat Sow MD [Primary Care Provider] -
--- NOTE | 2017-10-17 19:18 | CP.PCM.PN ---
Subjective - Date & Time of Evaluation Date of Evaluation: 10/17/17 Time of Evaluation: 22:22 - Subjective Subjective: Above noted Objective - Vital Signs/Intake and Output Vital Signs (last 24 hours): Temp Pulse Resp BP Pulse Ox 97.7 F 70 18 126/76 99 10/17/17 07:39 10/17/17 08:10 10/17/17 07:39 10/17/17 08:10 10/17/17 07:39 - Labs Labs: 10/10/17 08:37 09/25/17 06:25 - Respiratory Exam Respiratory Exam: NORMAL BREATHING PATTERN - Cardiovascular Exam Cardiovascular Exam: REGULAR RHYTHM - GI/Abdominal Exam GI & Abdominal Exam: Normal Bowel Sounds Assessment and Plan - Assessment and Plan (Free Text) Assessment: S/P L hip fx THR Acute rehab Physiatry ESRD CKD HTN Dialysis Nephrology Dysthymia Adjustment disorder Ativan SSRI Psychology S/P bilateral Knee surgery/ Patellar tendon repair Hx + blood cs Staph Cardiomyopathy Defibrillator Cardiology D/C home today F/U Ortho Nephrology F/U in office next week
== END 2017-10-17 17:45 | disposition home or self-care (01) | DRG 559 ==
PROVIDERS: ADMIT Family Medicine Geriatric Medicine; ATTEND Family Medicine Geriatric Medicine
PROC: GZ56ZZZ Individual Psychotherapy, Supportive (ICD-10-PCS; principal; 2017-09-24)
PROC: F07Z5FZ Bed Mobility Treatment using Assistive, Adaptive, Supportive or Protective Equipment (ICD-10-PCS; 2017-09-24)
PROC: F07Z8FZ Transfer Training Treatment using Assistive, Adaptive, Supportive or Protective Equipment (ICD-10-PCS; 2017-09-24)
PROC: F07Z9FZ Gait Training/Functional Ambulation Treatment using Assistive, Adaptive, Supportive or Protective Equipment (ICD-10-PCS; 2017-09-24)
PROC: F08Z1FZ Dressing Techniques Treatment using Assistive, Adaptive, Supportive or Protective Equipment (ICD-10-PCS; 2017-09-24)
PROC: F07L6ZZ Therapeutic Exercise Treatment of Musculoskeletal System - Lower Back / Lower Extremity (ICD-10-PCS; 2017-09-24)
PROC: F07Z4ZZ Wheelchair Mobility Treatment (ICD-10-PCS; 2017-09-24)
DX: Z47.1 Aftercare following joint replacement surgery (principal); N18.6 End stage renal disease; I12.0 Hypertensive chronic kidney disease with stage 5 chronic kidney disease or end stage renal disease; I42.9 Cardiomyopathy, unspecified; N25.81 Secondary hyperparathyroidism of renal origin; Z96.642 Presence of left artificial hip joint; E83.39 Other disorders of phosphorus metabolism; Z99.2 Dependence on renal dialysis; Z95.810 Presence of automatic (implantable) cardiac defibrillator; F06.31 Mood disorder due to known physiological condition with depressive features; F43.23 Adjustment disorder with mixed anxiety and depressed mood; J45.909 Unspecified asthma, uncomplicated; E78.5 Hyperlipidemia, unspecified; D63.1 Anemia in chronic kidney disease; M70.31 Other bursitis of elbow, right elbow; E11.22 Type 2 diabetes mellitus with diabetic chronic kidney disease; J44.9 Chronic obstructive pulmonary disease, unspecified